=== PATIENT | male | born 1960 | race Caucasian/White ===

== ENCOUNTER 2019-01-15 06:30 | Outpatient (CLI) | payer BC, MEDICAID ==
[~2019-01-15] VITALS: Ht 167.6 cm; Wt 113.4 kg
[2019-01-15] VITALS (8 sets, daily range): BP systolic 136–163; BP diastolic 72–96
[~2019-01-15 06:30] MED LIST: ACET1TAB33 PO; AMLO5TAB10 PO; APIX2.5T PO; ASCO500T2 PO; ASPI-630 PO; FURO40TA4 PO; Fluconazole PO; HYDR-2868 PO; INSU100C4 SQ; INSU100I13 SQ; LEVO88TA4 PO; METO25TA4 PO; MINO2.5T12 PO; MULT1TAB90 PO; NYST60PO TP; POLY17PO29 PO; PRAV80TA2 PO; SEVE800T9 PO
[2019-01-15] MEDS ORDERED: IODIXANOL 320 MG/ML 100 ML VIAL. ONE (07:38)
[2019-01-15] MEDS ORDERED: LIDOCAINE 1% Multi-Dose 20 ML VIAL. ONE (07:39)
[2019-01-15 07:51] LABS: BASO # 0.1 x10^3/uL (0.0-0.2); BASO % 1 % (0-3); EOS # 0.8 x10^3/uL (0.0-0.7); EOS % 10 % (0-3); HEMATOCRIT 26.6 % (39.0-53.0); HEMOGLOBIN 8.8 g/dL (13.0-17.5); LYMPH # 1.4 x10^3/uL (1.0-4.8); LYMPH % 16 % (24-48); MEAN CORPUSCULAR HEMOGLOBIN 25 pg (25-35); MEAN CORPUSCULAR HGB CONC 33 g/dL (31-37); MEAN CORPUSCULAR VOLUME 77 fL (79-100); MONO % 11 % (0-9); NEUT # 5.2 x10^3uL (1.8-7.7); NEUT % 62 % (31-73); PLATELET COUNT 368 x10^3/uL (140-400); RED BLOOD COUNT 3.46 x10^6/uL (4.30-5.70); RED CELL DISTRIBUTION WIDTH 17.3 % (11.5-14.5); WHITE BLOOD COUNT 8.5 x10^3/uL (4.0-11.0)
[2019-01-15 08:05] LABS: PROTHROMBIN TIME PATIENT 15.6 SEC (11.7-14.0)
[2019-01-15 08:09] LABS: CALCIUM 8.7 mg/dL (8.5-10.1); CREATININE 4.1 mg/dL (0.7-1.3); POTASSIUM 4.7 mmol/L (3.5-5.1)
[2019-01-15] MEDS ORDERED: MIDAZOLAM HCL/PF 5 MG/5 ML VIAL. ONE (08:27)
[2019-01-15] MEDS ORDERED: HEPARIN for IV BOLUS 10,000 UNIT/10 ML VIAL. ONE (08:27)
[2019-01-15] MEDS ORDERED: fentaNYL PF VIAL 100 MCG/2 ML VIAL ONE ×2 (08:27→09:40)
[2019-01-15] MEDS ORDERED: MIDAZOLAM HCL/PF 5 MG/5 ML VIAL. IV ONE (08:45)
[2019-01-15] MEDS ORDERED: fentaNYL PF VIAL 100 MCG/2 ML VIAL IV ONE (08:45)
[2019-01-15] MEDS ORDERED: LIDOCAINE 1% Multi-Dose 20 ML VIAL. INJ ONE (08:45)
[2019-01-15] MEDS ORDERED: IODIXANOL 320 MG/ML 100 ML VIAL. IART ONE (08:45)
[2019-01-15] MEDS ORDERED: HEPARIN for IV BOLUS 10,000 UNIT/10 ML VIAL. IV ONE (10:00)
--- NOTE | 2019-01-15 11:23 | PDOC4 ---
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 with ulceration of calf Post-Op Diagnosis: same Procedure Performed: #1 U/S guided access right QM NURSE #2 left popliteal artery atherectomy / angioplasty #3 left TP trunk / peroneal atherectomy / angioplasty #4 RIGHT leg runoff s&I (NOT previously imaged) #5 closure device right QM NURSE access site (6F angioSeal) Surgeon: Jairon James MD Anesthesia Type: conscious sedation under surgeon and RN supervision using intravenous fentanyl and versed -- versed 5mg Fentanyl 175 mcg Blood Loss: minimal Specimans Obtained: none Findings: left popliteal with high grade stenosis -- minimal residual after atherectomy / 5mm balloon angioplasty Left TP trunk and majority of PT occluded =--> reconstituted with atherectomy and 4mm balloon for TP trunk and 3.5 -- 3.0 taper balloon for PT RIGHT LEG not previously imaged Right common and profunda femoral widely patent Right SFA and popliteal widely patent Right PT and peroneal give in-line flow to the foot and ankle, respectively Complications: none Operative Note: attention was directed to the right groin where the right QM NURSE was fluoroscopically marked over the femoral head and examined with ultrasound. Under real-time ultrasound guidance local anesthetic was injected in the right groin and the right common femoral artery was accessed with a micropuncture needle in a retrograde fashion. This was used to introduce a marked puncture wire retrograde and iliac artery under fluoroscopic guidance and exchanged the needle for cyndie puncture shellfish back blood easily. This was used to introduce a supra core wire into the abdominal aorta and exchanged the cyndie puncture sheath for a 5 Luxembourger [place] sheath which was aspirated and flushed without difficulty. These were used to introduce a flush catheter into the abdominal aorta and hooked aortic bifurcation catheter and advance a Glidewire to the left SFA. The shaped catheter would not advance left face so I advanced an angled glide catheter into the left SFA and then confirmed placement with angiography to the catheter tip. This was then used to pass the supra core in the left popliteal artery and the patient was systemically heparinized. These were used to exchange the 5 Luxembourger sheath for a 6 Luxembourger 90 cm trauma destination sheath passed up and over the bifurcation of the distal tip and left popliteal artery. I used an angled never cross catheter, a few routine wire, the Escalante wire, and a 0.014 Glidewire advanced across the distal popliteal occlusion, the TP trunk occlusion, and the proximal posterior tibial occlusion and reenter the true lumen of the posterior tibial artery just above the ankle. I advanced a 0.014 quick cross catheter into the true lumen and confirmed luminal placement with angiography. I then passed a [place] core wire into the vessels in the foot and remove the catheter. I used these to introduce a Harmonic 1M structural atherectomy device and performed multiple passive tractional arthrectomy at the popliteal artery. I then performed Arenas arthrectomy of the TP trunk and proximal posterior tibial artery. I followed this with balloon angioplasty of the popliteal artery with a 5 mm balloon, balloon angioplasty of the TP trunk with a 4 mm balloon and balloon angioplasty the posterior tibial with a 3.5-3.0 tapered blowing almost its length. Follow up angiography showed in-line flow to the foot with good blushing in the calf via a recanalized popliteal TP trunk and posterior tibial artery. On previous radiology imaging by interventional radiology the right leg was not imaged and it also has wounds. The small wires were removed and the Escalante wire was replaced. The sheath was pulled back to the right external iliac artery and right leg runoff to the foot was obtained. Based on this I do not think the patient when the right lotion intervention the future. There is a patent SFA and popliteal artery and patent 2 vessel tibial runoff to the foot. The sheath was removed over the Escalante wire and this was used to introduce an Angio-Seal sheath. A 6 Luxembourger Angio-Seal closure devices for the right femoral access site with excellent hemostasis. The patient was escorted to recovery in stable condition where he was examined and had good signals in the ankle and no evidence of exercise complication. He'll be discharged today and resume all of his previous medications. I discussed the findings on angiography and the results with the patient in recovery BONITA JAMES MD Jan 15, 2019 11:23
--- NOTE | 2019-01-15 12:48 | NUR ---
Pt sit up in bed after supine for 2 hours. Right groin soft, no s/s of bleeding noted, no complaints of pain.
--- NOTE | 2019-01-15 13:15 | NUR ---
Patient discharge to [facility]. All discharge instructions reviewed with the patient. Patient given all of the discharge instructions and card. PIV d/c'ed without difficulty. Pt able to get up and dress self. No c/o of pain, but c/o of some slight burning in left calf. No s/s of bleeding noted. Right groin dressing dry and intact. Report called to facility to nurse Burk.
== END 2019-01-15 13:10 ==
LOC: CCL 06:30
PROVIDERS: ATTEND Surgery Vascular Surgery
DX: I70.248 Atherosclerosis of native arteries of left leg with ulceration of other part of lower leg (principal); L97.829 Non-pressure chronic ulcer of other part of left lower leg with unspecified severity
CPT/HCPCS: 36415; 37225; 37229; 75710; 76937; 80048; 85025; 85610; C1713; C1714; C1760; C1769; C1885; C1892; C1894; J1644; J2250; J3010; Q9967; 99152; 99153; G0269; C1771

== ENCOUNTER 2019-03-15 10:39 | Inpatient (IN) | payer BC, OTHER ==
[~2019-03-15] VITALS: Ht 177.8 cm; Wt 111.6 kg
[2019-03-15] VITALS (15 sets, daily range): BP systolic 97–184; BP diastolic 30–103
--- NOTE | 2019-03-15 11:02 | RAD ---
CHEST AP ONLY History: Shortness of air, fever Comparison: None. Findings: Single view of the chest is submitted. Pericardial cardiac silhouette is enlarged. There is a dual lumen right internal jugular catheter, tips in the inferior aspect of the superior vena cava. There is no lobar consolidation, pleural fluid, pneumothorax. Impression: 1. Pericardial cardiac silhouette is enlarged. Electronically signed by: Adriel Layton MD (03/15/2019 10:58 AM) [id number]
[2019-03-15 11:10] LABS: BASO # 0.1 x10^3/uL (0.0-0.2); BASO % 1 % (0-3); EOS # 0.1 x10^3/uL (0.0-0.7); EOS % 1 % (0-3); HEMATOCRIT 29.2 % (39.0-53.0); HEMOGLOBIN 9.6 g/dL (13.0-17.5); LYMPH # 0.4 x10^3/uL (1.0-4.8); LYMPH % 3 % (24-48); MEAN CORPUSCULAR HEMOGLOBIN 27 pg (25-35); MEAN CORPUSCULAR HGB CONC 33 g/dL (31-37); MEAN CORPUSCULAR VOLUME 83 fL (79-100); MONO # 0.8 x10^3/uL (0.0-1.1); MONO % 6 % (0-9); NEUT # 12.5 x10^3/uL (1.8-7.7); NEUT % 90 % (31-73); PLATELET COUNT 198 x10^3/uL (140-400); RED CELL DISTRIBUTION WIDTH 19.5 % (11.5-14.5); WHITE BLOOD COUNT 13.9 x10^3/uL (4.0-11.0)
[2019-03-15] MEDS ORDERED: CEFEPIME HCL IV Push 1 GM VIAL. IVP ONE (11:15)
[2019-03-15 11:21] LABS: CALCIUM 9.2 mg/dL (8.5-10.1); CREATININE 3.5 mg/dL (0.7-1.3); POTASSIUM 4.7 mmol/L (3.5-5.1)
[2019-03-15 11:27] LABS: ALBUMIN 3.4 g/dL (3.4-5.0); ALBUMIN/GLOBULIN RATIO 0.9 (1.0-1.7); TOTAL BILIRUBIN 1.2 mg/dL (0.2-1.0)
[2019-03-15 11:28] LABS: PROTHROMBIN TIME PATIENT 17.9 SEC (11.7-14.0)
[2019-03-15] MEDS ORDERED: VANCOMYCIN 2 GM in IV NORMAL SALINE 500ML BAG 500 ML IV ONE (11:30)
[2019-03-15] MEDS ORDERED: IV NORMAL SALINE 1000ML BAG 1,000 ML IV ONE ×2 (11:30→14:00)
[2019-03-15 12:17] LABS: % BASOS 1 % (0-3); % EOS 1 % (0-5)
[2019-03-15 12:18] LABS: % BANDS 9 % (0-9); % LYMPHS 6 % (24-48); % MONOS 4 % (0-10); % SEGS 79 % (35-66); PLT ESTIMATE ADEQUATE (ADEQUATE)
[2019-03-15 12:19] LABS: ANISOCYTOSIS SLIGHT; OVALOCYTES FEW
--- NOTE | 2019-03-15 12:49 | EKG ---
[facility] [address] [place] [address] Test Date: 2019-03-15 Test Time: 11:10:37 Pat Name: JAN YUNG Department: Room: 646 1 Gender: M Cell Reliner: BERNADETTE : 1960 Requested By: LIZ NAVARRO Order Number: [id number] Reading MD: Radhames Knapp MD Measurements Intervals Ashley Rate: 104 P: NC: QRS: 28 QRSD: 86 T: 97 QT: 352 QTc: 469 Interpretive Statements ATRIAL FIB./FLUTTER WITH RAPID VENTRICULAR RESPONSE NON-SPECIFIC ST/T CHANGES Electronically Signed On 03-21-2019 9:44:16 CDT by Radhames Knapp MD
--- NOTE | 2019-03-15 14:42 | NUR ---
Patient arrives to unit via bed from 642. Patient was Hypertensive, in Afib with RVR, temperature of 103.1. Contacted Dr. Whittington regarding Afib with RVR, new consults to Cardiology and vascular. Patient has wounds to bilateral lower extremities. Patient oriented to room, told to use call light for any needs that require ambulation. Call light within reach, will continue to monitor. Addendum: 03/15/19 at 1829 by MYA MAY RN Patient placed on bed alarm d/t attempting to get out of bed unassisted. Instructed again to use call light in need of assistance.
[2019-03-15] MEDS: VANCOMYCIN PER PHARMACY MC PRN (14:43)
--- NOTE | 2019-03-15 14:43 | NUR ---
Pharmacy Vancomycin Dosing Note S:Consulted to monitor and dose vancomycin started 03/15/19. O:JAN YUNG is a 58 year old M with Cellulitis Sepsis . Height: 5 feet, 10 inches Weight: 113.360589 kg Salix Body Weight: 73.00 Adjusted Body Weight: 89.00 Dosing Weight: Actual Other Antibiotics: CEFEPIME X 1 03/15 LABS: Last BUN: 28 Last Creatinine: 3.8 Creatinine Clearance: HD MWF, LAST 03/14 mL/min Last WBC: 13.9 Last Procalcitonin: NO, ESRD ON HD Tmax (past 24 hours): 102.0 Microbiology: 03/15 PENDING I/O: - Drug Levels: Last level: on at Last dose given 03/15/19 at 1137 Vancomycin Dosing: Loading Dose: x1 Dosing Weight: Actual Target Trough: 15-20 A: Based on: WEIGHT, HD STATUS AND TIMING OF LAST HD RUN (03/14), P: 1. GIVE Vancomycin 2000 mg IV One Time 2. Follow up Random level on 03/17/19 at 0600 3. Pharmacy will continue to monitor, follow and adjust therapy as needed. [facility], 03/15/19 [id number]
[2019-03-15] MEDS ORDERED: ACETAMINOPHEN 325 MG TABLET. PO PRN (15:00)
[2019-03-15] MEDS ORDERED: ACETAMINOPHEN 650 MG SUPP.RECT. ONE (15:04)
--- NOTE | 2019-03-15 15:14 | NUR ---
Patient arrived to unit, reported blood pressure from ER was stable in the 160s. Upon assessing vitals on floor, blood pressure was 98/30 and temperature had increased to 103.0 orally. Patient HR 140s afib. Dr. Whittington notified and gave order to transfer patient to ICU bed for sepsis.
--- NOTE | 2019-03-15 15:22 | HP ---
ADMIT DATE: 03/15/2019 CHIEF COMPLAINT: Lower extremity cellulitis with acute on chronic wounds, fever. HISTORY OF PRESENT ILLNESS: The patient is a pleasant middle-aged male who has end-stage renal disease. He is on dialysis. He is diabetic. He has severe peripheral vascular disease because of that, he has severe wounds on both of his calves. Appears he was one who has been taken care of by wound care nurse. He has got some nice dressing on them, but now they started to swell and smell; smells as if he may have Pseudomonas aeruginosa infection. Describes his wounds as irritating, rated at 9/10. I discussed the case with ER physician. We are going to admit the patient and obtain consult Infectious Disease and do some aggressive wound care and will be giving some aggressive IV antibiotic therapy as well. PAST MEDICAL HISTORY: Peripheral vascular disease, diabetes, hypertension, hyperlipidemia, end-stage renal disease, on dialysis. ALLERGIES: PENICILLIN, SULFA AND ATORVASTATIN. FAMILY HISTORY: Coronary artery disease. SOCIAL HISTORY: He lives at a [facility]. 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 He does not drink, smoke or take drugs. MEDICATIONS: Reviewed, please refer to the MRAD. REVIEW OF SYSTEMS: GENERAL: No history of weight change, weakness or fevers. SKIN: No bruising, hair changes or rashes. EYES: No blurred, double or loss of vision. NOSE AND THROAT: No history of nosebleeds, hoarseness or sore throat. HEART: No history of palpitations, chest pain or shortness of breath on exertion. LUNGS: Denies cough, hemoptysis, wheezing or shortness of breath. GASTROINTESTINAL: Denies changes in appetite, nausea, vomiting, diarrhea or constipation. GENITOURINARY: No history of frequency, urgency, hesitancy or nocturia. NEUROLOGIC: Denies history of numbness, tingling, tremor or weakness. PSYCHIATRIC: No history of panic, anxiety or depression. ENDOCRINE: No history of heat or cold intolerance, polyuria or polydipsia. EXTREMITIES: He complains of bilateral leg lesions. PHYSICAL EXAMINATION: VITALS: Temperature is 102.0. Pulse is 108. GENERAL: No apparent distress. Alert and oriented. HEENT: Head is normocephalic, atraumatic, pupils were equally round and reactive to light and accommodation. NECK: Supple, no JVD, no thyromegaly was noted. LUNGS: Clear to auscultation in all lung sheppard without rhonchi or wheezing. HEART: RRR, S1, S2 present. Peripheral pulses intact, no obvious murmurs were noted. ABDOMEN: Soft, nontender. Positive bowel sounds no organomegaly, normal bowel sounds. EXTREMITIES: He has severe bilateral leg wounds. They are very large. They smell of pseudomonas, please see the pictures. NEUROLOGIC: Normal speech, normal tone. A & O x3, moves all extremities, no obvious focal deficits. PSYCHIATRIC: Normal affect, normal mood. Stable. SKIN: No ulcerations or rashes, good skin turgor, no jaundice. VASCULAR: Good capillary refill, neurovascular bundle appears to be intact. LABORATORY DATA: White count is 14. ASSESSMENT AND PLAN: 1. Bilateral lower extremity wounds that smell as though they may have Pseudomonas aeruginosa with clinical sepsis. The patient will be admitted. We will start aggressive IV antibiotic therapy. Consult Infectious Disease. Home meds. Consult Nephrology. PROGNOSIS: Guarded. IKE CORTEZ DO DR: MCKENZIE/pierre JOB#: [id number] / [id number]
--- NOTE | 2019-03-15 15:23 | PHYS DOC ---
Past Medical History Past Medical History: A-Fib, Diabetes-Type II, Hypertension, Renal Failure Additional Past Medical Histor: PVD, MORBID OBESITY, ACUTE ON CHRONIC RIGHT HEART FAILURE Additional Past Surgical Histo: BILATERAL EYE SX, RIGHT GREAT TOE AMPUTATION Alcohol Use: None Drug Use: None Adult General Chief Complaint Chief Complaint: FEVER HPI HPI Patient is a 58 year old male with history of type 2 diabetes, end-stage renal disease currently on dialysis, venous stasis ulcers of bilateral lower extremities he presents with a fever 102, and increased drainage from lower extremity leg wounds. Fever began yesterday. Patient also reports nausea and malaise and sweats. Denies chills. No chest pain shortness of breath. No abdominal pain. Reports only minimal urine output at baseline. Patient is not currently on antibiotics. Patient does receive routine wound care at [facility]] Review of Systems Review of Systems Constitutional: Denies fever or chills [] Eyes: Denies change in visual acuity, redness, or eye pain [] HENT: Denies nasal congestion or sore throat [] Respiratory: Denies cough or shortness of breath [] Cardiovascular: No additional information not addressed in HPI [] GI: Denies abdominal pain, nausea, vomiting, bloody stools or diarrhea [] : Denies dysuria or hematuria [] Musculoskeletal: Denies back pain or joint pain [] Integument: Denies rash or skin lesions [] Neurologic: Denies headache, focal weakness or sensory changes [] Endocrine: Denies polyuria or polydipsia [] All other systems were reviewed and found to be within normal limits, except as documented in this note. Current Medications Current Medications Current Medications Medications (Trade) Dose Ordered Sig/Rochelle Start Time Stop Time Status Last Admin Dose Admin Cefepime HCl (Maxipime) 1 gm 1X ONCE 03/15/19 11:15 03/15/19 11:23 DC 03/15/19 11:37 1 GM Sodium Chloride 1,000 ml @ 1,000 mls/hr 1X ONCE 03/15/19 11:30 03/15/19 12:29 DC 03/15/19 11:28 1,000 MLS/HR Vancomycin HCl (Vanco Per Pharmacy) 1 each PRN DAILY PRN 03/15/19 11:15 03/15/19 14:43 1 EACH Vancomycin HCl 2 gm/Sodium Chloride 500 ml @ 250 mls/hr 1X ONCE 03/15/19 11:30 03/15/19 13:29 DC 03/15/19 11:37 250 MLS/HR Allergies Allergies Allergies Coded Allergies Type Severity Reaction Last Updated Verified Penicillins Allergy Intermediate 01/02/19 Yes Sulfa (Sulfonamide Antibiotics) Allergy Intermediate Hives 01/02/19 Yes atorvastatin Allergy Intermediate Hives 01/02/19 Yes I S O L A T I O N *CONTACT* Allergy Unknown 01/06/19 Yes Physical Exam Physical Exam Constitutional: Well developed, well nourished, no acute distress, non-toxic appearance. [] HENT: Normocephalic, atraumatic, bilateral external ears normal, oropharynx moist, no oral exudates, nose normal. [] Eyes: PERRLA, EOMI, conjunctiva normal, no discharge. [] Neck: Normal range of motion, no tenderness, supple, no stridor. [] Cardiovascular:Heart rate regular rhythm, no murmur [] Lungs & Thorax: Bilateral breath sounds clear to auscultation [] Abdomen: Bowel sounds normal, soft, no tenderness, no masses, no pulsatile m asses. [] Skin: Warm, dry, no erythema, no rash. [] Back: No tenderness, no CVA tenderness. [] Extremities: Lower extremities, large deep venous stasis service of bilateral lower leg calf regions surrounding cellulitis.[] Neurologic: Alert and oriented X 3, normal motor function, normal sensory function, no focal deficits noted. [] Psychologic: Affect normal, judgement normal, mood normal. [] Current Patient Data Vital Signs Vital Signs Date Time Temp Pulse Resp B/P (MAP) Pulse Ox O2 Delivery O2 Flow Rate FiO2 03/15/19 11:46 110 20 131/80 (97) 100 Room Air 03/15/19 10:45 102.0 102.0 Lab Values Laboratory Tests Test 03/15/19 10:55 White Blood Count 13.9 x10^3/uL (4.0-11.0) H Red Blood Count 3.50 x10^6/uL (4.30-5.70) L Hemoglobin 9.6 g/dL (13.0-17.5) L Hematocrit 29.2 % (39.0-53.0) L Mean Corpuscular Volume 83 fL (79-100) Mean Corpuscular Hemoglobin 27 pg (25-35) Mean Corpuscular Hemoglobin Concent 33 g/dL (31-37) Red Cell Distribution Width 19.5 % (11.5-14.5) H Platelet Count 198 x10^3/uL (140-400) Neutrophils (%) (Auto) 90 % (31-73) H Lymphocytes (%) (Auto) 3 % (24-48) L Monocytes (%) (Auto) 6 % (0-9) Eosinophils (%) (Auto) 1 % (0-3) Basophils (%) (Auto) 1 % (0-3) Neutrophils # (Auto) 12.5 x10^3/uL (1.8-7.7) H Lymphocytes # (Auto) 0.4 x10^3/uL (1.0-4.8) L Monocytes # (Auto) 0.8 x10^3/uL (0.0-1.1) Eosinophils # (Auto) 0.1 x10^3/uL (0.0-0.7) Basophils # (Auto) 0.1 x10^3/uL (0.0-0.2) Segmented Neutrophils % 79 % (35-66) H Band Neutrophils % 9 % (0-9) Lymphocytes % 6 % (24-48) L Monocytes % 4 % (0-10) Eosinophils % 1 % (0-5) Basophils % 1 % (0-3) Platelet Estimate Adequate (ADEQUATE) Anisocytosis Slight Ovalocytes Few Prothrombin Time 17.9 SEC (11.7-14.0) H Prothrombin Time INR 1.5 (0.8-1.1) H Sodium Level 136 mmol/L (136-145) Potassium Level 4.7 mmol/L (3.5-5.1) Chloride Level 97 mmol/L (98-107) L Carbon Dioxide Level 30 mmol/L (21-32) Anion Gap 9 (6-14) Blood Urea Nitrogen 28 mg/dL (8-26) H Creatinine 3.5 mg/dL (0.7-1.3) H Estimated GFR (Cockcroft-Gault) 18.0 BUN/Creatinine Ratio 8 (6-20) Glucose Level 109 mg/dL (70-99) H Lactic Acid Level 1.3 mmol/L (0.4-2.0) Calcium Level 9.2 mg/dL (8.5-10.1) Total Bilirubin 1.2 mg/dL (0.2-1.0) H Aspartate Amino Transferase (AST) 17 U/L (15-37) Alanine Aminotransferase (ALT) 24 U/L (16-63) Alkaline Phosphatase 130 U/L (46-116) H Troponin I Quantitative < 0.017 ng/mL (0.000-0.055) Total Protein 7.0 g/dL (6.4-8.2) Albumin 3.4 g/dL (3.4-5.0) Albumin/Globulin Ratio 0.9 (1.0-1.7) L Laboratory Tests 03/15/19 10:55 Laboratory Tests 03/15/19 10:55 EKG EKG [EKG reviewed] Radiology/Procedures Radiology/Procedures [Chest x-ray reviewed] Course & Med Decision Making Course & Med Decision Making Pertinent Labs and Imaging studies reviewed. (See chart for details) [Clinical sepsis with infected venous stasis ulcers of bilateral lower extremities. Patient cautiously given IV fluids due to concerns of possible volume overload and congestive heart failure. Her antibiotics started. Dr. Whittington in the ED for admission and orders] Dragon Disclaimer Dragon Disclaimer This electronic medical record was generated, in whole or in part, using a voice recognition dictation system. Departure Departure Impression: Primary Impression: NON-PRESSURE CHRONIC ULCER OF LEFT CALF W NECROSIS OF MUSCLE Additional Impression: Sepsis Disposition: 09 ADMITTED INPATIENT Condition: STABLE Referrals: FARHAD PURVIS MD (PCP) Problem Qualifiers LIZ NAVARRO DO Mar 15, 2019 15:23
[2019-03-15] MEDS ORDERED: DIGOXIN IV 500 MCG/2 ML AMPUL. ONE (15:26)
[2019-03-15] MEDS ORDERED: dilTIAZem INJ 125 MG in IV DEXTROSE 5% 100ML 100 ML IV PRN (15:30)
[2019-03-15] MEDS ORDERED: DIGOXIN IV 500 MCG/2 ML AMPUL. IV ONE (15:30)
--- NOTE | 2019-03-15 15:40 | NUR ---
Patient placed on cardizem drip as ordered by Dr. Dominique and one time dose of digoxin for Afib with RVR.
--- NOTE | 2019-03-15 16:39 | PDOC ---
Provider Note Provider Note Vascular consult dictated Imp: 1. extensiven stage 2 wounds of both lower extremities, possibly due to venous insufficiency or vasculitis or combination. 2. moderate arterial insufficiency 3. DM 4. ESRD 5. obesity, morbid Rec: 1. change to Dakins solution, moistened gauze BID\ 2. wound care consult 3. infectious disease consult 4. arterial duplex imaging of both lower extremities LILI RHODES II, MD Mar 15, 2019 16:39
[2019-03-15] MEDS ORDERED: ANTI-COAG MONITOR BY PHARMACY. MC PRN (18:45)
[2019-03-15] MEDS ORDERED: INSU100I17 SQ (19:04)
[2019-03-15] MEDS ORDERED: INSU100I13 SQ (19:04)
[2019-03-15] MEDS ORDERED: LEVO88TA4 PO (19:07)
[2019-03-15] MEDS ORDERED: HYDR-2765 PO (19:07)
[2019-03-15] MEDS ORDERED: NON FORMULARY ITEM (Pravastatin Sodium 1 TAB) PO SCH (21:00)
[2019-03-15] MEDS: APIXABAN 2.5 MG TABLET. PO SCH (21:04)
[2019-03-15] MEDS: hydrALAZINE 25 MG TABLET PO SCH (21:05)
[2019-03-15] MEDS: MINOXIDIL 2.5 MG TABLET PO SCH (21:05)
[2019-03-15] MEDS: METOPROLOL TART IMMED RELEASE 25 MG TABLET. PO SCH (21:06)
[2019-03-15] MEDS: POLYETHYLENE GLYCOL 3350 17 GM PACKET. PO SCH (21:06)
[2019-03-15] MEDS: SODIUM HYPOCHLORITE 0.125% 473 ML BOTTLE. TP SCH (21:06)
[2019-03-15] MEDS: INSULIN GLARGINE 300 UNITS/3 ML INSULN.PEN. SQ SCH (21:11)
--- NOTE | 2019-03-15 22:17 | CONS ---
DATE OF CONSULTATION: 03/15/2019 BRIEF ORTHOPEDIC CONSULTATION REQUESTING PHYSICIAN: Emergency Department, Dr. Whittington. REASON FOR CONSULTATION: Bilateral lower extremity cellulitis. There was also question of possible gangrenous toe. HISTORY OF PRESENT ILLNESS: The patient was apparently admitted through the Emergency Department for lower extremity cellulitis and the questions of his toes. He does have a history of right great toe amputation that appears well healed. Other toes appear to my examination viable, but just have dirt on them. He was arousable, but really appeared to be declining according to reports of the nurses. His most recent vitals when I came into the room were 90s/60s as far as blood pressure as opposed to a blood pressure in the 179/84 range most recently in the Emergency Department. He had a white count of 13.9. It really look septic. I called Dr. Whittington and he is going to be transferred to the Intensive Care Unit. Although he does have cellulitic changes and some weeping and redness on both legs that his feet appear viable, has a healed great toe amputation. I think his major problem is that he is septic and declining quickly. He was therefore transferred to the ICU for medical supportive care, antibiotics and Infectious Disease consult, etc. I do not see any need for initial urgent orthopedic intervention at this time, but will follow along as necessary. PRAVEEN HUYNH MD DR: SHER/pierre JOB#: [id number] / [id number]
--- NOTE | 2019-03-15 22:34 | CONS ---
DATE OF CONSULTATION: 03/15/2019 VASCULAR CONSULTATION CLINICAL HISTORY: This is a 58-year-old diabetic with new onset end-stage renal disease, who presents with lower extremity wounds. These wounds are chronic and have been progressive. PAST MEDICAL HISTORY: Significant for peripheral vascular disease. He has had a previous right great toe amputation 2 years ago with no issues healing. As mentioned, he has a history of diabetes, hypertension, hyperlipidemia and end-stage renal disease. ALLERGIES: INCLUDE PENICILLIN, SULFA AND ATORVASTATIN. FAMILY HISTORY: Significant for coronary artery disease. SOCIAL HISTORY: The patient is a nonsmoker. He lives in a [facility]. 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 MEDICATIONS: Reviewed. REVIEW OF SYSTEMS: Twelve-point review of systems is obtained. He has no history of claudication, unintentional weight loss, stroke or TIA. Otherwise, 12-point review of systems is negative. He is ambulatory. PHYSICAL EXAMINATION: GENERAL: The patient is alert and awake. Carotids are 2+. The patient is moderately to largely obese. EXTREMITIES: Absent popliteal and pedal pulses. Dressings are removed. He has extensive wounds on the posterior aspect of both calves, which appeared to be subcutaneous in depth, stage II. The wound smells of pseudomonas. LABORATORY DATA: White blood cell count is 14. IMPRESSION: 1. Bilateral lower extremity cutaneous wound, possible venous stasis in origin. 2. Fvyt-rh-pwyjjtmc arterial insufficiency, but should be adequate for these wounds to heal with proper wound care. 3. End-stage renal disease. 4. Diabetes. PLAN: 1. Begin saline moistened gauze dressings with Dakin's, 0.25% solution b.i.d. 2. Consult [facility]. 3. We will obtain arterial duplex imaging of both lower extremities. Thank you for allowing me to evaluate him. LILI RHODES MD DR: AURELIANO/pierre JOB#: [id number] / [id number]
[2019-03-16] VITALS (15 sets, daily range): BP systolic 109–156; BP diastolic 56–81
[2019-03-16] MEDS: INSULIN LISPRO 300 UNITS/3 ML VIAL. SQ SCH ×5 (08:00→17:00)
[2019-03-16] MEDS: VANCOMYCIN PER PHARMACY MC PRN (08:05)
[2019-03-16] MEDS: SEVELAMER CARBONATE 800 MG TABLET. PO SCH ×3 (08:16→17:26)
[2019-03-16] MEDS: LEVOTHYROXINE 88 MCG TABLET PO SCH (08:16)
[2019-03-16] MEDS: ASPIRIN CHEWABLE 81 MG TABLET. PO SCH (08:16)
[2019-03-16] MEDS: METOPROLOL TART IMMED RELEASE 25 MG TABLET. PO SCH ×2 (08:17→21:37)
[2019-03-16] MEDS: FUROSEMIDE 40 MG TABLET. PO SCH (08:17)
[2019-03-16] MEDS: ASCORBIC ACID 500 MG TABLET PO SCH (08:17)
[2019-03-16] MEDS: hydrALAZINE 25 MG TABLET PO SCH ×4 (08:17→21:39)
[2019-03-16] MEDS: MULTIVITAMIN with MINERAL TABLET. PO SCH (08:17)
[2019-03-16] MEDS: MINOXIDIL 2.5 MG TABLET PO SCH ×2 (08:17→21:37)
[2019-03-16] MEDS: SODIUM HYPOCHLORITE 0.125% 473 ML BOTTLE. TP SCH ×2 (08:18→21:38)
[2019-03-16] MEDS: POLYETHYLENE GLYCOL 3350 17 GM PACKET. PO SCH ×2 (08:18→21:37)
[2019-03-16] MEDS ORDERED: amLODIPine BESYLATE 5 MG TABLET PO SCH (09:00)
[2019-03-16] MEDS ORDERED: SODIUM HYPOCHLORITE 0.125% 473 ML BOTTLE. TP SCH (09:00)
--- NOTE | 2019-03-16 09:27 | PDOC ---
Infectious Disease Note Vital Sign Vital Signs Vital Signs Date Time Temp Pulse Resp B/P (MAP) Pulse Ox O2 Delivery O2 Flow Rate FiO2 03/16/19 08:18 80 153/75 03/16/19 08:00 Nasal Cannula 2.0 03/16/19 08:00 98.4 18 100 98.4 Labs Lab Laboratory Tests Test 03/15/19 10:55 03/15/19 21:09 03/16/19 08:20 White Blood Count 13.9 x10^3/uL (4.0-11.0) Red Blood Count 3.50 x10^6/uL (4.30-5.70) Hemoglobin 9.6 g/dL (13.0-17.5) Hematocrit 29.2 % (39.0-53.0) Mean Corpuscular Volume 83 fL (79-100) Mean Corpuscular Hemoglobin 27 pg (25-35) Mean Corpuscular Hemoglobin Concent 33 g/dL (31-37) Red Cell Distribution Width 19.5 % (11.5-14.5) Platelet Count 198 x10^3/uL (140-400) Neutrophils (%) (Auto) 90 % (31-73) Lymphocytes (%) (Auto) 3 % (24-48) Monocytes (%) (Auto) 6 % (0-9) Eosinophils (%) (Auto) 1 % (0-3) Basophils (%) (Auto) 1 % (0-3) Neutrophils # (Auto) 12.5 x10^3/uL (1.8-7.7) Lymphocytes # (Auto) 0.4 x10^3/uL (1.0-4.8) Monocytes # (Auto) 0.8 x10^3/uL (0.0-1.1) Eosinophils # (Auto) 0.1 x10^3/uL (0.0-0.7) Basophils # (Auto) 0.1 x10^3/uL (0.0-0.2) Segmented Neutrophils % 79 % (35-66) Band Neutrophils % 9 % (0-9) Lymphocytes % 6 % (24-48) Monocytes % 4 % (0-10) Eosinophils % 1 % (0-5) Basophils % 1 % (0-3) Platelet Estimate Adequate (ADEQUATE) Anisocytosis Slight Ovalocytes Few Prothrombin Time 17.9 SEC (11.7-14.0) Prothromb Time International Ratio 1.5 (0.8-1.1) Sodium Level 136 mmol/L (136-145) Potassium Level 4.7 mmol/L (3.5-5.1) Chloride Level 97 mmol/L (98-107) Carbon Dioxide Level 30 mmol/L (21-32) Anion Gap 9 (6-14) Blood Urea Nitrogen 28 mg/dL (8-26) Creatinine 3.5 mg/dL (0.7-1.3) Estimated GFR (Cockcroft-Gault) 18.0 BUN/Creatinine Ratio 8 (6-20) Glucose Level 109 mg/dL (70-99) Lactic Acid Level 1.3 mmol/L (0.4-2.0) Calcium Level 9.2 mg/dL (8.5-10.1) Total Bilirubin 1.2 mg/dL (0.2-1.0) Aspartate Amino Transf (AST/SGOT) 17 U/L (15-37) Alanine Aminotransferase (ALT/SGPT) 24 U/L (16-63) Alkaline Phosphatase 130 U/L (46-116) Troponin I Quantitative < 0.017 ng/mL (0.000-0.055) Total Protein 7.0 g/dL (6.4-8.2) Albumin 3.4 g/dL (3.4-5.0) Albumin/Globulin Ratio 0.9 (1.0-1.7) Glucose (Fingerstick) 135 mg/dL (70-99) 104 mg/dL (70-99) Micro 03/15. BLOOD CULTURE Final GRAM POSITIVE COCCI IN CLUSTER 1 SET DRAWN, 2 OF 2 POSITIVE Objective Assessment GPC bacteremia with sepsis, 03/15 Infected HDC s/p removal 03/05 and replaced 03/07 per patient account. Fever Tmax 103 Antibiotic Allergy: Penicillin w/ anaphylactic reaction/ swelling in childhood & Sulfa w hives. h/o MRSA Chronic wounds lower extremities, bilaterally. Followed by [facility]. ESRD on HD PVD Diabetes with peripheral neuropathy Atrial fibrillation Plan Plan of Care Apparently a culture of the drainage from the HDC was taken at [facility] per patient account. Will contact the clinic for results, if any available. Meanwhile continue the vancomycin. Await GPC ID/susceptibilities Wound care team consulted. One time dose Cefepime, 03/15 Probiotics D/w nursing Thank you [id number] Attending Co-Sign The patient was seen and interviewed as well as examined at the bedside. The chart was reviewed. The case was discussed. Agree with the plan of care. PANFILO LARSEN APRN Mar 16, 2019 09:27 SHAHEED RIOS MD Mar 16, 2019 10:47
[2019-03-16] MEDS: APIXABAN 2.5 MG TABLET. PO SCH ×2 (09:36→21:37)
[2019-03-16] MEDS ORDERED: cloNIDine HCL 0.1 MG TABLET PO PRN (10:00)
[2019-03-16] MEDS ORDERED: ONDANSETRON PF 4 MG/2 ML VIAL. IV PRN (10:00)
[2019-03-16] MEDS ORDERED: TEMAZEPAM 7.5 MG CAPSULE PO PRN (10:00)
[2019-03-16] MEDS ORDERED: DEXTROSE 50% 25 GM / 50ML DISP.SYRIN. IV PRN (10:00)
[2019-03-16] MEDS ORDERED: IV DEXTROSE 5% 250 ML BAG. IV PRN (10:00)
--- NOTE | 2019-03-16 10:13 | CONS ---
DATE OF CONSULTATION: 03/16/2019 REFERRING PHYSICIAN: Gaviota Whittington DO REASON FOR CONSULTATION: Sepsis. HISTORY OF PRESENT ILLNESS: This patient is a 58-year-old male with past medical history of chronic kidney disease, on hemodialysis via a hemodialysis catheter. He was in his usual state of health when 2 days ago after finishing dialysis, he developed chills, shakes, fever of 102, and vomiting. He says about 2 weeks prior, he noticed that his HD catheter had slid out. He pushed it back in and noticed pus from the site. The following day, he returned to [facility] where the catheter was removed and cultured. Two days later, it was replaced. He does not recall getting any antibiotics. On arrival to the ER, he had a fever of 102.0 and WBC count 13,900. Blood cultures were taken and now show gram-positive cocci in clusters, 2 of 2 positive. He is currently on vancomycin. The patient says he is feeling better, less chilled. Nausea and vomiting have settled down. He does not have much of an appetite. Denies cough, shortness of air, or chest discomfort. He takes MiraLax for constipation. He has chronic wounds of lower extremities bilaterally, for which [facility] He was seen by Dr. Hope yesterday. PAST MEDICAL HISTORY: Chronic kidney disease, on hemodialysis via HD catheter. Essential hypertension, hypothyroidism, diabetes, morbid obesity, peripheral neuropathy, atrial fibrillation, chronic right heart failure, peripheral vascular disease, history of MRSA, depression, CVA, history of Enterococcus faecalis, penicillin sensitive wound infection. PAST SURGICAL HISTORY: Wound debridement 12/2018 lower extremities bilaterally, tonsillectomy, cataract extraction. SOCIAL HISTORY: The patient is a [facility] resident, former smoker. FAMILY HISTORY: Coronary artery disease. ALLERGIES: PENICILLIN CAUSING ANAPHYLACTIC TYPE REACTION AND SWELLING IN CHILDHOOD, ALSO SULFA WITH HIVES, ATORVASTATIN. MEDICATIONS: Vancomycin, one-time dose of cefepime 03/15. Other medications are available and have been reviewed on the SEP. REVIEW OF SYSTEMS: Per HPI, otherwise all other review of systems are negative. PHYSICAL EXAMINATION: VITAL SIGNS: Temperature 98.4, blood pressure 149/70, heart rate 85, respiratory rate 18, pulse oximetry is 100% on 2 liters. GENERAL: The patient is propped up in bed, alert, watching TV. HEENT: Pupils equally round. Oropharynx pink and dry. NECK: Supple. LUNGS: Clear to auscultation. HEART: S1, S2. ABDOMEN: Soft and nontender with bowel sounds present. EXTREMITIES: Trace edema of lower extremities bilaterally. No cyanosis. He has a wound on both lower legs that are currently bandaged. Pictures reviewed. SKIN: Warm to touch. No signs of rash. NEUROLOGIC: Alert and oriented x 3. A right-sided HD catheter without signs of any complications. LABORATORY DATA: On admission; WBC 13.9, hemoglobin 9.6, platelets 198,000. Sodium 136, potassium 4.7, creatinine 3.5, BUN 28, glucose 109. Lactic acid 1.3. AST 17, ALT 24, total bilirubin 1.2. Troponin less than 0.017. Blood cultures per HPI. Chest x-ray shows no lobar consolidation, pleural fluid, or pneumothorax. IMPRESSION: 1. Gram-positive cocci bacteremia with sepsis present on admission. 2. Infected hemodialysis catheter, status post removal 03/05 and replaced 03/07 per the patient's account. 3. Fever. 4. ANTIBIOTIC ALLERGY TO PENICILLIN WITH ANAPHYLACTIC TYPE REACTION IN CHILDHOOD AND SULFA WITH HIVES. 5. History of methicillin-resistant Staphylococcus aureus. 6. Chronic wounds, lower extremities bilaterally. [facility]. 7. End-stage renal disease, on hemodialysis. 8. Peripheral vascular disease. 9. Diabetes with peripheral neuropathy. 10. Atrial fibrillation. PLAN: Apparently, a culture of the drainage from the HD catheter was taken at [facility] per the patient's account. We will contact the clinic for results if any available. Meanwhile, continue the vancomycin. Awaiting GPC identification and susceptibilities. Wound Care team has been consulted. Thank you, Dr. Whittington, for asking us to participate in this patient's care. Should you have further questions or concerns, please call. SHAHEED RIOS MD DR: ANGELINA/pierre JOB#: [id number] / [id number]
--- NOTE | 2019-03-16 11:07 | PDOC ---
PROGRESS NOTES Chief Complaint Chief Complaint LEg wounds PAD ESRD on HD AOCD Cellulitis, sepsis no organ dyfcn Acute on chronic a fib s/p RVR HTN - HYpothyroidism on synthroid History of Present Illness History of Present Illness HE has no complaints, seen in ICU on the potty Cardizem gtt bec went to RVR (hx a fib) NOw off cardizem gtt VAsc sx, ID on board, wounds legs, pics reviewed, will need wound care and IV Abx Also HD pt, RT tunnelled HD cath visible \PLAN: Add renal consult for HD Wound care IV abx MAy t.o ICU to [facility] cards consulted for rVR Dw QA [employer] Vitals Vitals Vital Signs Date Time Temp Pulse Resp B/P (MAP) Pulse Ox O2 Delivery O2 Flow Rate FiO2 03/16/19 10:00 83 20 143/75 (97) 100 Nasal Cannula 2.0 03/16/19 08:00 98.4 98.4 Physical Exam General: Alert, Oriented X3, Cooperative Heart: Other (irreg irreg, rate controlled) Lungs: Clear Abdomen: Normal bowel sounds, Soft Extremities: No clubbing, No cyanosis, Other (wounds,s welling, dressing wrapped on legs) Labs LABS Laboratory Tests Test 03/15/19 21:09 03/16/19 08:20 Glucose (Fingerstick) 135 mg/dL (70-99) 104 mg/dL (70-99) Review of Systems Review of Systems no abd pain, on cp, no fevers, on soa, no diarrhea, no depression Assessment and Plan Assessmemt and Plan Problems Medical Problems: (1) Sepsis Status: Acute Comment Review of Relevant I have reviewed the following items kendra (where applicable) has been applied. Labs Laboratory Tests Test 03/15/19 10:55 03/15/19 21:09 03/16/19 08:20 White Blood Count 13.9 x10^3/uL (4.0-11.0) Red Blood Count 3.50 x10^6/uL (4.30-5.70) Hemoglobin 9.6 g/dL (13.0-17.5) Hematocrit 29.2 % (39.0-53.0) Mean Corpuscular Volume 83 fL (79-100) Mean Corpuscular Hemoglobin 27 pg (25-35) Mean Corpuscular Hemoglobin Concent 33 g/dL (31-37) Red Cell Distribution Width 19.5 % (11.5-14.5) Platelet Count 198 x10^3/uL (140-400) Neutrophils (%) (Auto) 90 % (31-73) Lymphocytes (%) (Auto) 3 % (24-48) Monocytes (%) (Auto) 6 % (0-9) Eosinophils (%) (Auto) 1 % (0-3) Basophils (%) (Auto) 1 % (0-3) Neutrophils # (Auto) 12.5 x10^3/uL (1.8-7.7) Lymphocytes # (Auto) 0.4 x10^3/uL (1.0-4.8) Monocytes # (Auto) 0.8 x10^3/uL (0.0-1.1) Eosinophils # (Auto) 0.1 x10^3/uL (0.0-0.7) Basophils # (Auto) 0.1 x10^3/uL (0.0-0.2) Segmented Neutrophils % 79 % (35-66) Band Neutrophils % 9 % (0-9) Lymphocytes % 6 % (24-48) Monocytes % 4 % (0-10) Eosinophils % 1 % (0-5) Basophils % 1 % (0-3) Platelet Estimate Adequate (ADEQUATE) Anisocytosis Slight Ovalocytes Few Prothrombin Time 17.9 SEC (11.7-14.0) Prothromb Time International Ratio 1.5 (0.8-1.1) Sodium Level 136 mmol/L (136-145) Potassium Level 4.7 mmol/L (3.5-5.1) Chloride Level 97 mmol/L (98-107) Carbon Dioxide Level 30 mmol/L (21-32) Anion Gap 9 (6-14) Blood Urea Nitrogen 28 mg/dL (8-26) Creatinine 3.5 mg/dL (0.7-1.3) Estimated GFR (Cockcroft-Gault) 18.0 BUN/Creatinine Ratio 8 (6-20) Glucose Level 109 mg/dL (70-99) Lactic Acid Level 1.3 mmol/L (0.4-2.0) Calcium Level 9.2 mg/dL (8.5-10.1) Total Bilirubin 1.2 mg/dL (0.2-1.0) Aspartate Amino Transf (AST/SGOT) 17 U/L (15-37) Alanine Aminotransferase (ALT/SGPT) 24 U/L (16-63) Alkaline Phosphatase 130 U/L (46-116) Troponin I Quantitative < 0.017 ng/mL (0.000-0.055) Total Protein 7.0 g/dL (6.4-8.2) Albumin 3.4 g/dL (3.4-5.0) Albumin/Globulin Ratio 0.9 (1.0-1.7) Glucose (Fingerstick) 135 mg/dL (70-99) 104 mg/dL (70-99) Laboratory Tests Test 03/15/19 21:09 03/16/19 08:20 Glucose (Fingerstick) 135 mg/dL (70-99) 104 mg/dL (70-99) Microbiology 03/15/19 Blood Culture - Final, Complete Medications Current Medications Vancomycin HCl (Vanco Per Pharmacy) 1 each PRN DAILY PRN MC SEE COMMENTS Last administered on 03/16/19at 08:05; Start 03/15/19 at 11:15 Cefepime HCl (Maxipime) 1 gm 1X ONCE IVP Last administered on 03/15/19at 11:37; Start 03/15/19 at 11:15; Stop 03/15/19 at 11:23; Status DC Sodium Chloride 1,000 ml @ 1,000 mls/hr 1X ONCE IV Last administered on 03/15/19at 11:28; Start 03/15/19 at 11:30; Stop 03/15/19 at 12:29; Status DC Vancomycin HCl 2 gm/Sodium Chloride 500 ml @ 250 mls/hr 1X ONCE IV Last administered on 03/15/19at 11:37; Start 03/15/19 at 11:30; Stop 03/15/19 at 13:29; Status DC Vancomycin HCl (Vancomycin Random Level) 1 each 1X ONCE MC ; Start 03/17/19 at 06:00; Stop 03/17/19 at 06:01 Acetaminophen (Tylenol) 650 mg PRN Q6HRS PRN PO MILD PAIN / TEMP Last administered on 03/15/19at 15:12; Start 03/15/19 at 15:00 Acetaminophen (Tylenol Supp) 650 mg STK-MED ONCE .ROUTE ; Start 03/15/19 at 15:04; Stop 03/15/19 at 15:04; Status DC Digoxin (Lanoxin) 250 mcg 1X ONCE IV Last administered on 03/15/19at 15:30; Start 03/15/19 at 15:30; Stop 03/15/19 at 15:31; Status DC Diltiazem HCl 125 mg/Dextrose 125 ml @ 2.5 mls/hr CONT PRN IV SEE I/O RECORD Last administered on 03/15/19at 15:40; Start 03/15/19 at 15:30 Digoxin (Lanoxin) 500 mcg STK-MED ONCE .ROUTE ; Start 03/15/19 at 15:26; Stop 03/15/19 at 15:26; Status DC Sodium Chloride 1,000 ml @ 1,000 mls/hr 1X ONCE IV Last administered on 03/15/19at 16:30; Start 03/15/19 at 14:00; Stop 03/15/19 at 16:33; Status DC Sodium Hypochlorite (Dakin'S 1/4 Strength) 1 edenilson DAILY TP ; Start 03/16/19 at 09:00; Stop 03/15/19 at 18:00; Status DC Sodium Hypochlorite (Dakin'S 1/4 Strength) 1 edenilson BID TP Last administered on 03/16/19at 08:18; Start 03/15/19 at 21:00 Amlodipine Besylate (Norvasc) 5 mg DAILY PO Last administered on 03/16/19at 08:18; Start 03/16/19 at 09:00; Stop 03/16/19 at 11:02; Status DC Apixaban (Eliquis) 2.5 mg BID PO Last administered on 03/16/19at 09:36; Start 03/15/19 at 21:00 Ascorbic Acid (Vitamin C) 500 mg DAILY PO Last administered on 03/16/19at 08:18; Start 03/16/19 at 09:00 Aspirin (Children'S Aspirin) 81 mg DAILYWBKFT PO Last administered on 03/16/19at 08:18; Start 03/16/19 at 08:00 Furosemide (Lasix) 40 mg DAILY PO Last administered on 03/16/19at 08:18; Start 03/16/19 at 09:00 Hydralazine HCl (Apresoline) 25 mg QID PO Last administered on 03/16/19at 08:18; Start 03/15/19 at 21:00 Metoprolol Tartrate (Lopressor) 25 mg BID PO Last administered on 03/16/19at 08:18; Start 03/15/19 at 21:00 Minoxidil (Loniten) 2.5 mg BID PO Last administered on 03/16/19at 08:18; Start 03/15/19 at 21:00 Multivitamins (Thera M Plus) 1 tab DAILY PO Last administered on 03/16/19at 08:18; Start 03/16/19 at 09:00 Polyethylene Glycol (miraLAX PACKET) 17 gm BID PO Last administered on 03/15/19 at 21:12; Start 03/15/19 at 21:00 Sevelamer Carbonate (Renvela) 800 mg TIDWMEALS PO Last administered on 03/16/19at 08:18; Start 03/16/19 at 08:00 Non-Formulary Medication (Pravastatin Sodium ) 1 tab HS PO ; Start 03/15/19 at 21:00; Status UNV Info (Anti-Coagulation Monitoring By Pharmacy) 1 each PRN DAILY PRN MC SEE COMMENTS; Start 03/15/19 at 18:45 Insulin Glargine (Lantus) 15 units QHS SQ Last administered on 03/15/19at 21:12; Start 03/15/19 at 21:00 Insulin Human Lispro (HumaLOG) 5 units TIDWMEALS SQ ; Start 03/16/19 at 08:00 Levothyroxine Sodium (Synthroid) 88 mcg DAILYAC PO Last administered on 03/16/19at 08:18; Start 03/16/19 at 07:30 Lactobacillus Rhamnosus (Culturelle) 1 cap BID PO ; Start 03/16/19 at 21:00 Insulin Human Lispro (HumaLOG) 0-9 UNITS TIDWMEALS SQ ; Start 03/16/19 at 12:00 Dextrose (Dextrose 50%-Water Syringe) 12.5 gm PRN Q15MIN PRN IV SEE COMMENTS; Start 03/16/19 at 10:00 Dextrose 250 ml PRN Q15MIN PRN IV SEE COMMENTS; Start 03/16/19 at 10:00 Ondansetron HCl (Zofran) 4 mg PRN Q6HRS PRN IV NAUSEA/VOMITING; Start 03/16/19 at 10:00 Acetaminophen/ Hydrocodone Bitart (Lortab 5/325) 1 tab PRN Q4HRS PRN PO PAIN; Start 03/16/19 at 10:00 Temazepam (Restoril) 7.5 mg PRN QHS PRN PO INSOMNIA; Start 03/16/19 at 10:00 Clonidine HCl (Catapres) 0.1 mg PRN Q1HR PRN PO HYPERTENSION; Start 03/16/19 at 10:00 Amlodipine Besylate (Norvasc) 10 mg DAILY PO ; Start 03/16/19 at 11:15; Status UNV Active Scripts Active Vitamin C (Ascorbic Acid) 500 Mg Tablet 500 Mg PO DAILY MDD 1 Thera-M Tablet (Multivits,Ca,Minerals/Iron/Fa) 1 Each Tablet 1 Tab PO DAILY MDD 1 Acetaminophen-Cod #3 Tablet (Acetaminophen/Codeine Phosphate) 1 Each Tablet 1 Tab PO PRN Q6HRS PRN MDD 1 Aspirin 81 Mg Tab.chew 81 Mg PO DAILYWBKFT MDD 1 Reported Levothyroxine Sodium 88 Mcg Tablet 88 Mcg PO DAILYAC Hydrocodone-Apap 7.5-325 (Hydrocodone Bit/Acetaminophen) 1 Tab Tablet 1 Tab PO PRN Q4HRS PRN Novolog Flexpen (Insulin Aspart) 100 Unit/1 Ml Insuln.pen 5 Unit SQ TIDWMEALS Lantus Solostar (Insulin Glargine,Hum.rec.anlog) 100 Unit/1 Ml Insuln.pen 15 Unit SQ QHS Renvela (Sevelamer Carbonate) 800 Mg Tablet 800 Mg PO TIDWMEALS Pravastatin Sodium 80 Mg Tablet 1 Tab PO HS Miralax (Polyethylene Glycol 3350) 17 Gm Powd.pack 1 Packet PO BID Minoxidil 2.5 Mg Tablet 2.5 Mg PO BID Metoprolol Tartrate 25 Mg Tablet 25 Mg PO BID Hydralazine Hcl 25 Mg Tablet 25 Mg PO QID Furosemide 40 Mg Tablet 40 Mg PO DAILY Eliquis (Apixaban) 2.5 Mg Tablet 2.5 Mg PO BID Amlodipine Besylate 5 Mg Tablet 5 Mg PO DAILY Vitals/I & O Vital Sign - Last 24 Hours 03/15/19 03/15/19 03/15/19 03/15/19 11:16 11:46 12:16 12:46 Pulse 108 110 110 124 Resp 16 20 20 20 B/P (MAP) 140/70 (93) 131/80 (97) 161/80 (107) 176/81 (112) Pulse Ox 98 100 99 98 O2 Delivery Room Air Room Air 03/15/19 03/15/19 03/15/19 03/15/19 13:16 14:10 15:00 15:30 Temp 99.2 103.0 99.2 103.0 Pulse 118 150 156 142 Resp 20 38 37 B/P (MAP) 179/84 (115) 98/30 (52) 182/103 (129) 184/92 (122) Pulse Ox 98 92 93 O2 Delivery Room Air Room Air Nasal Cannula Nasal Cannula O2 Flow Rate 2.0 2.0 03/15/19 03/15/19 03/15/19 03/15/19 15:30 15:45 16:00 16:00 Pulse 152 142 136 Resp 37 33 B/P (MAP) 182/103 184/92 (122) 165/95 (118) Pulse Ox 93 98 O2 Delivery Nasal Cannula Nasal Cannula Nasal Cannula O2 Flow Rate 2.0 2.0 2.0 03/15/19 03/15/19 03/15/19 03/15/19 16:15 16:30 16:45 17:00 Pulse 134 116 116 116 Resp 32 21 20 30 B/P (MAP) 157/76 (103) 110/68 (82) 97/85 (89) 121/79 (93) Pulse Ox 95 95 97 96 O2 Delivery Nasal Cannula Nasal Cannula Nasal Cannula Nasal Cannula O2 Flow Rate 2.0 2.0 2.0 2.0 03/15/19 03/15/19 03/15/19 03/15/19 18:00 19:00 20:00 20:00 Temp 100.4 98.8 100.4 98.8 Pulse 103 96 94 Resp 22 24 24 B/P (MAP) 121/65 (83) 121/65 (83) 121/74 (90) Pulse Ox 96 94 98 O2 Delivery Nasal Cannula Nasal Cannula Nasal Cannula Nasal Cannula O2 Flow Rate 2.0 2.0 2.0 2.0 03/15/19 03/15/19 03/15/19 03/15/19 21:00 21:12 21:12 21:12 Pulse 90 79 76 91 Resp 24 B/P (MAP) 137/76 (96) 133/75 133/75 133/75 Pulse Ox 98 O2 Delivery Nasal Cannula O2 Flow Rate 2.0 03/15/19 03/15/19 03/16/19 03/16/19 22:00 23:00 00:00 00:00 Temp 97.9 97.9 Pulse 67 63 71 Resp 22 22 20 B/P (MAP) 110/67 (81) 118/62 (80) 109/77 (88) Pulse Ox 98 98 98 O2 Delivery Nasal Cannula Nasal Cannula Nasal Cannula Nasal Cannula O2 Flow Rate 2.0 2.0 2.0 2.0 03/16/19 03/16/19 03/16/19 03/16/19 01:00 02:00 03:00 04:00 Temp 98.0 98.0 Pulse 69 71 68 66 Resp 22 22 22 B/P (MAP) 148/79 (102) 144/81 (102) 133/72 (92) 133/71 (91) Pulse Ox 100 100 100 97 O2 Delivery Nasal Cannula Nasal Cannula Nasal Cannula Nasal Cannula O2 Flow Rate 2.0 2.0 2.0 2.0 03/16/19 03/16/19 03/16/19 03/16/19 04:00 05:00 06:00 07:00 Pulse 66 72 80 Resp 23 22 18 B/P (MAP) 140/68 (92) 149/64 (92) 153/75 (101) Pulse Ox 98 100 100 O2 Delivery Nasal Cannula Nasal Cannula Nasal Cannula Nasal Cannula O2 Flow Rate 2.0 2.0 2.0 2.0 03/16/19 03/16/19 03/16/19 03/16/19 08:00 08:00 08:18 08:18 Temp 98.4 98.4 Pulse 85 72 77 Resp 18 B/P (MAP) 149/70 (96) 153/75 153/75 Pulse Ox 100 O2 Delivery Nasal Cannula Nasal Cannula O2 Flow Rate 2.0 2.0 03/16/19 03/16/19 03/16/19 03/16/19 08:18 08:18 09:00 10:00 Pulse 75 80 77 83 Resp 18 20 B/P (MAP) 153/75 153/75 154/77 (102) 143/75 (97) Pulse Ox 100 100 O2 Delivery Nasal Cannula Nasal Cannula O2 Flow Rate 2.0 2.0 Intake and Output 03/15/19 03/15/19 03/16/19 14:59 22:59 06:59 Intake Total 1000 ml 40 ml Output Total 0 ml 150 ml Balance 1000 ml 40 ml -150 ml DENNY BHATTI MD Mar 16, 2019 11:07
[2019-03-16] MEDS ORDERED: amLODIPine BESYLATE 5 MG TABLET PO ONE (11:15)
--- NOTE | 2019-03-16 11:40 | PDOC2 ---
CONSULT Date of Consult Date of Consult DATE: 03/16/19 TIME: 11:33 Reason for Consult Reason for Consult: ESRD Referring Physician Referring Physician: DIEGO Identification/Chief Complaint Chief Complaint FEVERS AND CHILLS Source Source: Chart review, Patient History of Present Illness Reason for Visit: THIS IS A 58 YR OLD ESRD PT WITH FEVERS AND CHILLS LAST DAY OR SO. ADMITTED WITH LEUCOCYTOSIS AND SEPSIS. BCX POS FOR G+ COCCI. HE ALSO HAS LE CHRONIC WOUNDS AND CELLULITIS. HE HAS ESRD DUE TO DM II AND HTN. HE HAS AN IMMATURE LEFT ARM AVF WHICH IS NOT READY FOR USE. HE HAS BEEN DIALYZING VIA A RIGHT TUNNELED HD CATHETER. ABOUT 10 DAYS AGO HIS CATHETER WAS COMING OUT AND HE PUSHED IT BACK IN. HE HAD PURULENT DRAINAGE FROM THAT EXIT SITE. 9 DAYS AGO HE HAD A NEW TUNNELED HD CATHETER PLACED WITH A NEXT EXIT SITE. HE WAS GIVEN ANCEF 1GM ONCE AND THEN KEFLEX FOR ONE WEEK. CASE D/W ID. LABS ARE C/W HIS ESRD STATUS Past Medical History Cardiovascular: AFIB, HTN, Hyperlipidemia, Other GI: Constipation Heme/Onc: Anemia NOS Renal/: Chronic renal failure Endocrine: Diabetes, Hypothyroidism, Hyperparathyroidism Past Surgical History Past Surgical History: No pertinent history Social History No ALCOHOL: none Lives: Fdc Current Problem List Problem List Problems Medical Problems: (1) Sepsis Status: Acute Current Medications Current Medications Current Medications Vancomycin HCl (Vanco Per Pharmacy) 1 each PRN DAILY PRN MC SEE COMMENTS Last administered on 03/16/19at 08:05; Start 03/15/19 at 11:15 Cefepime HCl (Maxipime) 1 gm 1X ONCE IVP Last administered on 03/15/19at 11:37; Start 03/15/19 at 11:15; Stop 03/15/19 at 11:23; Status DC Sodium Chloride 1,000 ml @ 1,000 mls/hr 1X ONCE IV Last administered on 03/15/19at 11:28; Start 03/15/19 at 11:30; Stop 03/15/19 at 12:29; Status DC Vancomycin HCl 2 gm/Sodium Chloride 500 ml @ 250 mls/hr 1X ONCE IV Last administered on 03/15/19at 11:37; Start 03/15/19 at 11:30; Stop 03/15/19 at 13:29; Status DC Vancomycin HCl (Vancomycin Random Level) 1 each 1X ONCE MC ; Start 03/17/19 at 06:00; Stop 03/17/19 at 06:01 Acetaminophen (Tylenol) 650 mg PRN Q6HRS PRN PO MILD PAIN / TEMP Last administered on 03/15/19at 15:12; Start 03/15/19 at 15:00 Acetaminophen (Tylenol Supp) 650 mg STK-MED ONCE .ROUTE ; Start 03/15/19 at 15:04; Stop 03/15/19 at 15:04; Status DC Digoxin (Lanoxin) 250 mcg 1X ONCE IV Last administered on 03/15/19at 15:30; Start 03/15/19 at 15:30; Stop 03/15/19 at 15:31; Status DC Diltiazem HCl 125 mg/Dextrose 125 ml @ 2.5 mls/hr CONT PRN IV SEE I/O RECORD Last administered on 03/15/19at 15:40; Start 03/15/19 at 15:30 Digoxin (Lanoxin) 500 mcg STK-MED ONCE .ROUTE ; Start 03/15/19 at 15:26; Stop 03/15/19 at 15:26; Status DC Sodium Chloride 1,000 ml @ 1,000 mls/hr 1X ONCE IV Last administered on 03/15/19at 16:30; Start 03/15/19 at 14:00; Stop 03/15/19 at 16:33; Status DC Sodium Hypochlorite (Dakin'S 1/4 Strength) 1 edenilson DAILY TP ; Start 03/16/19 at 09:00; Stop 03/15/19 at 18:00; Status DC Sodium Hypochlorite (Dakin'S 1/4 Strength) 1 edenilson BID TP Last administered on 03/16/19at 08:18; Start 03/15/19 at 21:00 Amlodipine Besylate (Norvasc) 5 mg DAILY PO Last administered on 03/16/19at 08:18; Start 03/16/19 at 09:00; Stop 03/16/19 at 11:02; Status DC Apixaban (Eliquis) 2.5 mg BID PO Last administered on 03/16/19at 09:36; Start 03/15/19 at 21:00 Ascorbic Acid (Vitamin C) 500 mg DAILY PO Last administered on 03/16/19at 08:18; Start 03/16/19 at 09:00 Aspirin (Children'S Aspirin) 81 mg DAILYWBKFT PO Last administered on 03/16/19 08:18; Start 03/16/19 at 08:00 Furosemide (Lasix) 40 mg DAILY PO Last administered on 03/16/19 08:18; Start 03/16/19 at 09:00 Hydralazine HCl (Apresoline) 25 mg QID PO Last administered on 03/16/19 08:18; Start 03/15/19 at 21:00 Metoprolol Tartrate (Lopressor) 25 mg BID PO Last administered on 03/16/19 08:18; Start 03/15/19 at 21:00 Minoxidil (Loniten) 2.5 mg BID PO Last administered on 03/16/19 08:18; Start 03/15/19 at 21:00 Multivitamins (Thera M Plus) 1 tab DAILY PO Last administered on 03/16/19 08:18; Start 03/16/19 at 09:00 Polyethylene Glycol (miraLAX PACKET) 17 gm BID PO Last administered on 03/15/19at 21:12; Start 03/15/19 at 21:00 Sevelamer Carbonate (Renvela) 800 mg TIDWMEALS PO Last administered on 03/16 08:18; Start 03/16/19 at 08:00 Non-Formulary Medication (Pravastatin Sodium ) 1 tab HS PO ; Start 03/15/19 at 21:00; Status UNV Info (Anti-Coagulation Monitoring By Pharmacy) 1 each PRN DAILY PRN MC SEE COMMENTS; Start 03/15/19 at 18:45 Insulin Glargine (Lantus) 15 units QHS SQ Last administered on 03/15/19at 21:12; Start 03/15/19 at 21:00 Insulin Human Lispro (HumaLOG) 5 units TIDWMEALS SQ ; Start 03/16/19 at 08:00 Levothyroxine Sodium (Synthroid) 88 mcg DAILYAC PO Last administered on 03/16/19at 08:18; Start 03/16/19 at 07:30 Lactobacillus Rhamnosus (Culturelle) 1 cap BID PO ; Start 03/16/19 at 21:00 Insulin Human Lispro (HumaLOG) 0-9 UNITS TIDWMEALS SQ ; Start 03/16/19 at 12:00 Dextrose (Dextrose 50%-Water Syringe) 12.5 gm PRN Q15MIN PRN IV SEE COMMENTS; Start 03/16/19 at 10:00 Dextrose 250 ml PRN Q15MIN PRN IV SEE COMMENTS; Start 03/16/19 at 10:00 Ondansetron HCl (Zofran) 4 mg PRN Q6HRS PRN IV NAUSEA/VOMITING; Start 03/16/19 at 10:00 Acetaminophen/ Hydrocodone Bitart (Lortab 5/325) 1 tab PRN Q4HRS PRN PO PAIN; Start 03/16/19 at 10:00 Temazepam (Restoril) 7.5 mg PRN QHS PRN PO INSOMNIA; Start 03/16/19 at 10:00 Clonidine HCl (Catapres) 0.1 mg PRN Q1HR PRN PO HYPERTENSION; Start 03/16/19 at 10:00 Amlodipine Besylate (Norvasc) 10 mg DAILY PO ; Start 03/17/19 at 09:00 Amlodipine Besylate (Norvasc) 5 mg 1X ONCE PO ; Start 03/16/19 at 11:15; Stop 03/16/19 at 11:16; Status DC Active Scripts Active Vitamin C (Ascorbic Acid) 500 Mg Tablet 500 Mg PO DAILY MDD 1 Thera-M Tablet (Multivits,Ca,Minerals/Iron/Fa) 1 Each Tablet 1 Tab PO DAILY MDD 1 Acetaminophen-Cod #3 Tablet (Acetaminophen/Codeine Phosphate) 1 Each Tablet 1 Tab PO PRN Q6HRS PRN MDD 1 Aspirin 81 Mg Tab.chew 81 Mg PO DAILYWBKFT MDD 1 Reported Levothyroxine Sodium 88 Mcg Tablet 88 Mcg PO DAILYAC Hydrocodone-Apap 7.5-325 (Hydrocodone Bit/Acetaminophen) 1 Tab Tablet 1 Tab PO PRN Q4HRS PRN Novolog Flexpen (Insulin Aspart) 100 Unit/1 Ml Insuln.pen 5 Unit SQ TIDWMEALS Lantus Solostar (Insulin Glargine,Hum.rec.anlog) 100 Unit/1 Ml Insuln.pen 15 Unit SQ QHS Renvela (Sevelamer Carbonate) 800 Mg Tablet 800 Mg PO TIDWMEALS Pravastatin Sodium 80 Mg Tablet 1 Tab PO HS Miralax (Polyethylene Glycol 3350) 17 Gm Powd.pack 1 Packet PO BID Minoxidil 2.5 Mg Tablet 2.5 Mg PO BID Metoprolol Tartrate 25 Mg Tablet 25 Mg PO BID Hydralazine Hcl 25 Mg Tablet 25 Mg PO QID Furosemide 40 Mg Tablet 40 Mg PO DAILY Eliquis (Apixaban) 2.5 Mg Tablet 2.5 Mg PO BID Amlodipine Besylate 5 Mg Tablet 5 Mg PO DAILY Allergies Allergies: Coded Allergies: Penicillins (Verified Allergy, Intermediate, 01/02/19) Sulfa (Sulfonamide Antibiotics) (Verified Allergy, Intermediate, Hives, 01/02/19) atorvastatin (Verified Allergy, Intermediate, Hives, 01/02/19) I S O L A T I O N *CONTACT* (Verified Allergy, Unknown, 01/06/19) mrsa ROS General: YES: Chills, Fatigue, Malaise PSYCHOLOGICAL ROS: YES: Anxiety, Depression Eyes: Yes Decreased vision HEENT: YES: Heacaches Respiratory: YES: Cough Gastrointestinal: Yes Constipation Genitourinary: YES Other (ANURIA) Musculoskeletal: Yes Muscular Weakness Neurological: Yes Weakness Skin: Yes Dry Skin, Yes Rash, Yes Skin Lesion Changes Physical Exam Physical Exam NO DRAINAGE OR TENDERNESS AT CATHETER EXIT SITE General: Alert, Oriented X3, Cooperative, No acute distress HEENT: Atraumatic, PERRLA, EOMI, Mucous membr. moist/pink Lungs: Clear to auscultation, Normal air movement Heart: Regular rate, Normal S1, Normal S2 Abdomen: Normal bowel sounds, No tenderness Extremities: No clubbing, No cyanosis Skin: No breakdown Neuro: Normal speech, Sensation intact Psych/Mental Status: Mental status NL, Mood NL MUSCULOSKELETAL: No joint tenderness, No deformity Vitals VITALS Vital Signs Date Time Temp Pulse Resp B/P (MAP) Pulse Ox O2 Delivery O2 Flow Rate FiO2 03/16/19 11:00 81 20 100 Nasal Cannula 2.0 03/16/19 08:00 98.4 98.4 Labs Labs Laboratory Tests Test 03/15/19 10:55 03/15/19 21:09 03/16/19 08:20 White Blood Count 13.9 x10^3/uL (4.0-11.0) Red Blood Count 3.50 x10^6/uL (4.30-5.70) Hemoglobin 9.6 g/dL (13.0-17.5) Hematocrit 29.2 % (39.0-53.0) Mean Corpuscular Volume 83 fL (79-100) Mean Corpuscular Hemoglobin 27 pg (25-35) Mean Corpuscular Hemoglobin Concent 33 g/dL (31-37) Red Cell Distribution Width 19.5 % (11.5-14.5) Platelet Count 198 x10^3/uL (140-400) Neutrophils (%) (Auto) 90 % (31-73) Lymphocytes (%) (Auto) 3 % (24-48) Monocytes (%) (Auto) 6 % (0-9) Eosinophils (%) (Auto) 1 % (0-3) Basophils (%) (Auto) 1 % (0-3) Neutrophils # (Auto) 12.5 x10^3/uL (1.8-7.7) Lymphocytes # (Auto) 0.4 x10^3/uL (1.0-4.8) Monocytes # (Auto) 0.8 x10^3/uL (0.0-1.1) Eosinophils # (Auto) 0.1 x10^3/uL (0.0-0.7) Basophils # (Auto) 0.1 x10^3/uL (0.0-0.2) Segmented Neutrophils % 79 % (35-66) Band Neutrophils % 9 % (0-9) Lymphocytes % 6 % (24-48) Monocytes % 4 % (0-10) Eosinophils % 1 % (0-5) Basophils % 1 % (0-3) Platelet Estimate Adequate (ADEQUATE) Anisocytosis Slight Ovalocytes Few Prothrombin Time 17.9 SEC (11.7-14.0) Prothromb Time International Ratio 1.5 (0.8-1.1) Sodium Level 136 mmol/L (136-145) Potassium Level 4.7 mmol/L (3.5-5.1) Chloride Level 97 mmol/L (98-107) Carbon Dioxide Level 30 mmol/L (21-32) Anion Gap 9 (6-14) Blood Urea Nitrogen 28 mg/dL (8-26) Creatinine 3.5 mg/dL (0.7-1.3) Estimated GFR (Cockcroft-Gault) 18.0 BUN/Creatinine Ratio 8 (6-20) Glucose Level 109 mg/dL (70-99) Lactic Acid Level 1.3 mmol/L (0.4-2.0) Calcium Level 9.2 mg/dL (8.5-10.1) Total Bilirubin 1.2 mg/dL (0.2-1.0) Aspartate Amino Transf (AST/SGOT) 17 U/L (15-37) Alanine Aminotransferase (ALT/SGPT) 24 U/L (16-63) Alkaline Phosphatase 130 U/L (46-116) Troponin I Quantitative < 0.017 ng/mL (0.000-0.055) Total Protein 7.0 g/dL (6.4-8.2) Albumin 3.4 g/dL (3.4-5.0) Albumin/Globulin Ratio 0.9 (1.0-1.7) Glucose (Fingerstick) 135 mg/dL (70-99) 104 mg/dL (70-99) Laboratory Tests Test 03/15/19 21:09 03/16/19 08:20 Glucose (Fingerstick) 135 mg/dL (70-99) 104 mg/dL (70-99) Assessment/Plan Assessment/Plan IMP SEPSIS WITH G+ COCCI LEUCOCYTOSIS ESRD DM II HTN ANEMIA LE WOUNDS-CELLULITIS AFIB PLAN ANTIBIOTICS HD MWF WALT D/W ID CHANGE CATHETER IF NEEDED PER ID LEFT ARM AVF NOT READY FOR USE YET BUT CLOSE ABIMBOLA CAMACHO MD Mar 16, 2019 11:40
--- NOTE | 2019-03-16 12:13 | PDOC ---
PROGRESS NOTES Subjective Subjective Problems overnight: In intensive care unit, patient is now responsive much more so than yesterday Objective Vital Signs Vital Signs Date Time Temp Pulse Resp B/P (MAP) Pulse Ox O2 Delivery O2 Flow Rate FiO2 03/16/19 11:00 81 20 100 Nasal Cannula 2.0 03/16/19 08:00 98.4 98.4 Physical Exam On exam both legs are wrapped around mid calf he is able to flex and extend his ankle and toes distal sensation at baseline Labs Laboratory Tests Test 03/15/19 10:55 03/15/19 21:09 03/16/19 08:20 White Blood Count 13.9 x10^3/uL (4.0-11.0) Red Blood Count 3.50 x10^6/uL (4.30-5.70) Hemoglobin 9.6 g/dL (13.0-17.5) Hematocrit 29.2 % (39.0-53.0) Mean Corpuscular Volume 83 fL (79-100) Mean Corpuscular Hemoglobin 27 pg (25-35) Mean Corpuscular Hemoglobin Concent 33 g/dL (31-37) Red Cell Distribution Width 19.5 % (11.5-14.5) Platelet Count 198 x10^3/uL (140-400) Neutrophils (%) (Auto) 90 % (31-73) Lymphocytes (%) (Auto) 3 % (24-48) Monocytes (%) (Auto) 6 % (0-9) Eosinophils (%) (Auto) 1 % (0-3) Basophils (%) (Auto) 1 % (0-3) Neutrophils # (Auto) 12.5 x10^3/uL (1.8-7.7) Lymphocytes # (Auto) 0.4 x10^3/uL (1.0-4.8) Monocytes # (Auto) 0.8 x10^3/uL (0.0-1.1) Eosinophils # (Auto) 0.1 x10^3/uL (0.0-0.7) Basophils # (Auto) 0.1 x10^3/uL (0.0-0.2) Segmented Neutrophils % 79 % (35-66) Band Neutrophils % 9 % (0-9) Lymphocytes % 6 % (24-48) Monocytes % 4 % (0-10) Eosinophils % 1 % (0-5) Basophils % 1 % (0-3) Platelet Estimate Adequate (ADEQUATE) Anisocytosis Slight Ovalocytes Few Prothrombin Time 17.9 SEC (11.7-14.0) Prothromb Time International Ratio 1.5 (0.8-1.1) Sodium Level 136 mmol/L (136-145) Potassium Level 4.7 mmol/L (3.5-5.1) Chloride Level 97 mmol/L (98-107) Carbon Dioxide Level 30 mmol/L (21-32) Anion Gap 9 (6-14) Blood Urea Nitrogen 28 mg/dL (8-26) Creatinine 3.5 mg/dL (0.7-1.3) Estimated GFR (Cockcroft-Gault) 18.0 BUN/Creatinine Ratio 8 (6-20) Glucose Level 109 mg/dL (70-99) Lactic Acid Level 1.3 mmol/L (0.4-2.0) Calcium Level 9.2 mg/dL (8.5-10.1) Total Bilirubin 1.2 mg/dL (0.2-1.0) Aspartate Amino Transf (AST/SGOT) 17 U/L (15-37) Alanine Aminotransferase (ALT/SGPT) 24 U/L (16-63) Alkaline Phosphatase 130 U/L (46-116) Troponin I Quantitative < 0.017 ng/mL (0.000-0.055) Total Protein 7.0 g/dL (6.4-8.2) Albumin 3.4 g/dL (3.4-5.0) Albumin/Globulin Ratio 0.9 (1.0-1.7) Glucose (Fingerstick) 135 mg/dL (70-99) 104 mg/dL (70-99) Laboratory Tests Test 03/15/19 21:09 03/16/19 08:20 Glucose (Fingerstick) 135 mg/dL (70-99) 104 mg/dL (70-99) Assessment Assessment Cellulitis both legs Plan Plan of Care He now appears much more stable than when first assessed yesterday Note vascular evaluation and agree with their assessment of wound care and vascular studies No need for intervention from an orthopedic standpoint will sign off at this point PRAVEEN HUYNH MD Mar 16, 2019 12:13
--- NOTE | 2019-03-16 12:49 | PDOC2 ---
CONSULT Date of Consult Date of Consult DATE: 03/16/19 TIME: 12:42 Reason for Consult Reason for Consult: atrial fibrillation Referring Physician Referring Physician: Dr. Whittington Identification/Chief Complaint Chief Complaint Leg pain Source Source: Chart review, Patient History of Present Illness Reason for Visit: The patient is a 58 year old male with a history of ESRD on HD, atrial fib. and PVD. He was admitted for treatment of cellulitis. His is on Ab as per ID and is more alert and feeling better. From a CV viewpoint he has rate controlled a fib and is on anticoag. He denies chest pain or increasing SOB. Past Medical History Cardiovascular: AFIB, HTN, Hyperlipidemia GI: Constipation Heme/Onc: Anemia NOS Renal/: Chronic renal failure Endocrine: Diabetes, Hypothyroidism, Hyperparathyroidism Past Surgical History Past Surgical History: No pertinent history Family History Family History: Heart Disease Social History No ALCOHOL: none Lives: Intermediate Current Problem List Problem List Problems Medical Problems: (1) Sepsis Status: Acute Current Medications Current Medications Current Medications Vancomycin HCl (Vanco Per Pharmacy) 1 each PRN DAILY PRN MC SEE COMMENTS Last administered on 03/16/19at 08:05; Start 03/15/19 at 11:15 Cefepime HCl (Maxipime) 1 gm 1X ONCE IVP Last administered on 03/15/19at 11:37; Start 03/15/19 at 11:15; Stop 03/15/19 at 11:23; Status DC Sodium Chloride 1,000 ml @ 1,000 mls/hr 1X ONCE IV Last administered on 03/15/19at 11:28; Start 03/15/19 at 11:30; Stop 03/15/19 at 12:29; Status DC Vancomycin HCl 2 gm/Sodium Chloride 500 ml @ 250 mls/hr 1X ONCE IV Last administered on 03/15/19at 11:37; Start 03/15/19 at 11:30; Stop 03/15/19 at 13:29; Status DC Vancomycin HCl (Vancomycin Random Level) 1 each 1X ONCE MC ; Start 03/17/19 at 06:00; Stop 03/17/19 at 06:01 Acetaminophen (Tylenol) 650 mg PRN Q6HRS PRN PO MILD PAIN / TEMP Last administered on 03/15/19at 15:12; Start 03/15/19 at 15:00 Acetaminophen (Tylenol Supp) 650 mg STK-MED ONCE .ROUTE ; Start 03/15/19 at 15:04; Stop 03/15/19 at 15:04; Status DC Digoxin (Lanoxin) 250 mcg 1X ONCE IV Last administered on 03/15/19at 15:30; Start 03/15/19 at 15:30; Stop 03/15/19 at 15:31; Status DC Diltiazem HCl 125 mg/Dextrose 125 ml @ 2.5 mls/hr CONT PRN IV SEE I/O RECORD Last administered on 03/15/19at 15:40; Start 03/15/19 at 15:30 Digoxin (Lanoxin) 500 mcg STK-MED ONCE .ROUTE ; Start 03/15/19 at 15:26; Stop 03/15/19 at 15:26; Status DC Sodium Chloride 1,000 ml @ 1,000 mls/hr 1X ONCE IV Last administered on 03/15/19at 16:30; Start 03/15/19 at 14:00; Stop 03/15/19 at 16:33; Status DC Sodium Hypochlorite (Dakin'S 1/4 Strength) 1 edenilson DAILY TP ; Start 03/16/19 at 09:00; Stop 03/15/19 at 18:00; Status DC Sodium Hypochlorite (Dakin'S 1/4 Strength) 1 edenilson BID TP Last administered on 03/16/19at 08:18; Start 03/15/19 at 21:00 Amlodipine Besylate (Norvasc) 5 mg DAILY PO Last administered on 03/16/19at 08:18; Start 03/16/19 at 09:00; Stop 03/16/19 at 11:02; Status DC Apixaban (Eliquis) 2.5 mg BID PO Last administered on 03/16/19at 09:36; Start 03/15/19 at 21:00 Ascorbic Acid (Vitamin C) 500 mg DAILY PO Last administered on 03/16/19at 08:18; Start 03/16/19 at 09:00 Aspirin (Children'S Aspirin) 81 mg DAILYWBKFT PO Last administered on 03/16/19at 08:18; Start 03/16/19 at 08:00 Furosemide (Lasix) 40 mg DAILY PO Last administered on 03/16/19at 08:18; Start 03/16/19 at 09:00 Hydralazine HCl (Apresoline) 25 mg QID PO Last administered on 03/16/19at 12:13; Start 03/15/19 at 21:00 Metoprolol Tartrate (Lopressor) 25 mg BID PO Last administered on 03/16/19at 08:18; Start 03/15/19 at 21:00 Minoxidil (Loniten) 2.5 mg BID PO Last administered on 03/16/19at 08:18; Start 03/15/19 at 21:00 Multivitamins (Thera M Plus) 1 tab DAILY PO Last administered on 03/16/19at 08:18; Start 03/16/19 at 09:00 Polyethylene Glycol (miraLAX PACKET) 17 gm BID PO Last administered on 03/15/19at 21:12; Start 03/15/19 at 21:00 Sevelamer Carbonate (Renvela) 800 mg TIDWMEALS PO Last administered on 03/16/19at 12:13; Start 03/16/19 at 08:00 Non-Formulary Medication (Pravastatin Sodium ) 1 tab HS PO ; Start 03/15/19 at 21:00; Status UNV Info (Anti-Coagulation Monitoring By Pharmacy) 1 each PRN DAILY PRN MC SEE COMMENTS; Start 03/15/19 at 18:45 Insulin Glargine (Lantus) 15 units QHS SQ Last administered on 03/15/19at 21:12; Start 03/15/19 at 21:00 Insulin Human Lispro (HumaLOG) 5 units TIDWMEALS SQ ; Start 03/16/19 at 08:00 Levothyroxine Sodium (Synthroid) 88 mcg DAILYAC PO Last administered on 03/16/19at 08:18; Start 03/16/19 at 07:30 Lactobacillus Rhamnosus (Culturelle) 1 cap BID PO ; Start 03/16/19 at 21:00 Insulin Human Lispro (HumaLOG) 0-9 UNITS TIDWMEALS SQ ; Start 03/16/19 at 12:00 Dextrose (Dextrose 50%-Water Syringe) 12.5 gm PRN Q15MIN PRN IV SEE COMMENTS; Start 03/16/19 at 10:00 Dextrose 250 ml PRN Q15MIN PRN IV SEE COMMENTS; Start 03/16/19 at 10:00 Ondansetron HCl (Zofran) 4 mg PRN Q6HRS PRN IV NAUSEA/VOMITING; Start 03/16/19 at 10:00 Acetaminophen/ Hydrocodone Bitart (Lortab 5/325) 1 tab PRN Q4HRS PRN PO PAIN; Start 03/16/19 at 10:00 Temazepam (Restoril) 7.5 mg PRN QHS PRN PO INSOMNIA; Start 03/16/19 at 10:00 Clonidine HCl (Catapres) 0.1 mg PRN Q1HR PRN PO HYPERTENSION; Start 03/16/19 at 10:00 Amlodipine Besylate (Norvasc) 10 mg DAILY PO ; Start 03/17/19 at 09:00 Amlodipine Besylate (Norvasc) 5 mg 1X ONCE PO ; Start 03/16/19 at 11:15; Stop 03/16/19 at 11:16; Status DC Darbepoetin Derrek (ARANESP for DIALYSIS PTS) 60 mcg WEEKLYHS SQ ; Start 03/16/19 at 21:00 Active Scripts Active Vitamin C (Ascorbic Acid) 500 Mg Tablet 500 Mg PO DAILY MDD 1 Thera-M Tablet (Multivits,Ca,Minerals/Iron/Fa) 1 Each Tablet 1 Tab PO DAILY MDD 1 Acetaminophen-Cod #3 Tablet (Acetaminophen/Codeine Phosphate) 1 Each Tablet 1 Tab PO PRN Q6HRS PRN MDD 1 Aspirin 81 Mg Tab.chew 81 Mg PO DAILYWBKFT MDD 1 Reported Levothyroxine Sodium 88 Mcg Tablet 88 Mcg PO DAILYAC Hydrocodone-Apap 7.5-325 (Hydrocodone Bit/Acetaminophen) 1 Tab Tablet 1 Tab PO PRN Q4HRS PRN Novolog Flexpen (Insulin Aspart) 100 Unit/1 Ml Insuln.pen 5 Unit SQ TIDWMEALS Lantus Solostar (Insulin Glargine,Hum.rec.anlog) 100 Unit/1 Ml Insuln.pen 15 Unit SQ QHS Renvela (Sevelamer Carbonate) 800 Mg Tablet 800 Mg PO TIDWMEALS Pravastatin Sodium 80 Mg Tablet 1 Tab PO HS Miralax (Polyethylene Glycol 3350) 17 Gm Powd.pack 1 Packet PO BID Minoxidil 2.5 Mg Tablet 2.5 Mg PO BID Metoprolol Tartrate 25 Mg Tablet 25 Mg PO BID Hydralazine Hcl 25 Mg Tablet 25 Mg PO QID Furosemide 40 Mg Tablet 40 Mg PO DAILY Eliquis (Apixaban) 2.5 Mg Tablet 2.5 Mg PO BID Amlodipine Besylate 5 Mg Tablet 5 Mg PO DAILY Allergies Allergies: Coded Allergies: Penicillins (Verified Allergy, Intermediate, 01/02/19) Sulfa (Sulfonamide Antibiotics) (Verified Allergy, Intermediate, Hives, 01/02/19) atorvastatin (Verified Allergy, Intermediate, Hives, 01/02/19) I S O L A T I O N *CONTACT* (Verified Allergy, Unknown, 01/06/19) mrsa ROS General: YES: Fatigue Respiratory: YES: SOB with excertion Physical Exam General: mild distress HEENT: Atraumatic Lungs: Other (mildly decreased breath sounds) Heart: Other (irreg. irreg.) Abdomen: Normal bowel sounds Vitals VITALS Vital Signs Date Time Temp Pulse Resp B/P (MAP) Pulse Ox O2 Delivery O2 Flow Rate FiO2 03/16/19 12:13 80 141/77 03/16/19 11:00 20 100 Nasal Cannula 2.0 03/16/19 08:00 98.4 98.4 Labs Labs Laboratory Tests Test 03/15/19 10:55 03/15/19 21:09 03/16/19 08:20 03/16/19 12:10 White Blood Count 13.9 x10^3/uL (4.0-11.0) Red Blood Count 3.50 x10^6/uL (4.30-5.70) Hemoglobin 9.6 g/dL (13.0-17.5) Hematocrit 29.2 % (39.0-53.0) Mean Corpuscular Volume 83 fL (79-100) Mean Corpuscular Hemoglobin 27 pg (25-35) Mean Corpuscular Hemoglobin Concent 33 g/dL (31-37) Red Cell Distribution Width 19.5 % (11.5-14.5) Platelet Count 198 x10^3/uL (140-400) Neutrophils (%) (Auto) 90 % (31-73) Lymphocytes (%) (Auto) 3 % (24-48) Monocytes (%) (Auto) 6 % (0-9) Eosinophils (%) (Auto) 1 % (0-3) Basophils (%) (Auto) 1 % (0-3) Neutrophils # (Auto) 12.5 x10^3/uL (1.8-7.7) Lymphocytes # (Auto) 0.4 x10^3/uL (1.0-4.8) Monocytes # (Auto) 0.8 x10^3/uL (0.0-1.1) Eosinophils # (Auto) 0.1 x10^3/uL (0.0-0.7) Basophils # (Auto) 0.1 x10^3/uL (0.0-0.2) Segmented Neutrophils % 79 % (35-66) Band Neutrophils % 9 % (0-9) Lymphocytes % 6 % (24-48) Monocytes % 4 % (0-10) Eosinophils % 1 % (0-5) Basophils % 1 % (0-3) Platelet Estimate Adequate (ADEQUATE) Anisocytosis Slight Ovalocytes Few Prothrombin Time 17.9 SEC (11.7-14.0) Prothromb Time International Ratio 1.5 (0.8-1.1) Sodium Level 136 mmol/L (136-145) Potassium Level 4.7 mmol/L (3.5-5.1) Chloride Level 97 mmol/L (98-107) Carbon Dioxide Level 30 mmol/L (21-32) Anion Gap 9 (6-14) Blood Urea Nitrogen 28 mg/dL (8-26) Creatinine 3.5 mg/dL (0.7-1.3) Estimated GFR (Cockcroft-Gault) 18.0 BUN/Creatinine Ratio 8 (6-20) Glucose Level 109 mg/dL (70-99) Lactic Acid Level 1.3 mmol/L (0.4-2.0) Calcium Level 9.2 mg/dL (8.5-10.1) Total Bilirubin 1.2 mg/dL (0.2-1.0) Aspartate Amino Transf (AST/SGOT) 17 U/L (15-37) Alanine Aminotransferase (ALT/SGPT) 24 U/L (16-63) Alkaline Phosphatase 130 U/L (46-116) Troponin I Quantitative < 0.017 ng/mL (0.000-0.055) Total Protein 7.0 g/dL (6.4-8.2) Albumin 3.4 g/dL (3.4-5.0) Albumin/Globulin Ratio 0.9 (1.0-1.7) Glucose (Fingerstick) 135 mg/dL (70-99) 104 mg/dL (70-99) 123 mg/dL (70-99) Laboratory Tests Test 03/15/19 21:09 03/16/19 08:20 03/16/19 12:10 Glucose (Fingerstick) 135 mg/dL (70-99) 104 mg/dL (70-99) 123 mg/dL (70-99) Assessment/Plan Assessment/Plan 1. Rate controlled atrial fib. Continue rate control meds. Continue anticoagulation. Will check an ECHO for LV function. 2. ESRD. HD as per renal. 3. Cellulitis. Ab as per ID. 4. PVD. Being followed by vasc. surgery. Thank you for allowing us to participate in the care of your patient. DOLORES SELBY MD Mar 16, 2019 12:49
[2019-03-16 12:59] LABS: FREE T4 1.31 ng/dL (0.76-1.46); THYROID STIM HORMONE (TSH) 0.986 uIU/mL (0.358-3.74)
--- NOTE | 2019-03-16 17:53 | NUR ---
patient transferred to [facility] per wheelchair by karen archuleta. patient stable at time of transfer. patient not complaining of any pain at this time. patients blood pressure obtained and patient placed on tele. patient in bed and call light in reach. will continue to monitor patient.
[2019-03-16] MEDS: DARBEPOETIN ALFA 60 MCG/0.3 ML DISP.SYRIN. SQ SCH (21:36)
[2019-03-16] MEDS: LACTOBACILLUS RHAMNOSUS GG 1 CAPSULE. PO SCH (21:37)
[2019-03-16] MEDS: INSULIN GLARGINE 300 UNITS/3 ML INSULN.PEN. SQ SCH (21:38)
[2019-03-17 03:02] VITALS: BP 101/50
[2019-03-17 04:31] LABS: BASO # 0.1 x10^3/uL (0.0-0.2); BASO % 1 % (0-3); EOS # 0.4 x10^3/uL (0.0-0.7); EOS % 6 % (0-3); HEMOGLOBIN 8.8 g/dL (13.0-17.5); LYMPH # 0.5 x10^3/uL (1.0-4.8); LYMPH % 9 % (24-48); MEAN CORPUSCULAR HEMOGLOBIN 28 pg (25-35); MEAN CORPUSCULAR HGB CONC 34 g/dL (31-37); MEAN CORPUSCULAR VOLUME 83 fL (79-100); MONO # 0.8 x10^3/uL (0.0-1.1); MONO % 13 % (0-9); NEUT # 4.5 x10^3/uL (1.8-7.7); NEUT % 71 % (31-73); PLATELET COUNT 146 x10^3/uL (140-400); RED BLOOD COUNT 3.14 x10^6/uL (4.30-5.70); RED CELL DISTRIBUTION WIDTH 19.6 % (11.5-14.5); WHITE BLOOD COUNT 6.3 x10^3/uL (4.0-11.0)
[2019-03-17 05:08] LABS: CREATININE 5.2 mg/dL (0.7-1.3); GFR 11.4; POTASSIUM 4.7 mmol/L (3.5-5.1)
[2019-03-17] MEDS ORDERED: VANCOMYCIN RANDOM LEVEL. MC ONE (06:00)
[2019-03-17 07:54] VITALS: BP 139/64
[2019-03-17] MEDS: INSULIN LISPRO 300 UNITS/3 ML VIAL. SQ SCH ×6 (08:00→17:00)
--- NOTE | 2019-03-17 08:18 | PDOC ---
PROGRESS NOTES Chief Complaint Chief Complaint Sepsis Chronic wounds, lower extremities bilaterally. [facility] PAD ESRD on HD AOCD Cellulitis - with sepsis Acute on chronic a fib s/p RVR HTN Hypothyroidism on synthroid Gram-positive cocci bacteremia with sepsis present on admission.ID and ISAAC pending Infected hemodialysis catheter, status post removal 03/05 and replaced 03/07 History of methicillin-resistant Staphylococcus aureus. Diabetes with peripheral neuropathy. Atrial fibrillation. History of Present Illness History of Present Illness He has no complaints Cardizem gtt bec went to [facility] (hx a fib) Now off cardizem gtt Vasc sx, ID on board, wounds legs, pics reviewed, will need wound care and IV Abx Also HD pt, RT tunnelled HD cath visible. Transferred from ICU to [facility] on 9. He reviews with me that his catheter had fallen out "pretty far" and he pushed it back in. PLAN: Wound care IV abx cards consulted for RVR Dw HEATER TENDER Vitals Vitals Vital Signs Date Time Temp Pulse Resp B/P (MAP) Pulse Ox O2 Delivery O2 Flow Rate FiO2 03/17/19 07:54 98.1 82 20 139/64 (89) 98 Room Air 98.1 03/17/19 03:02 2.0 Physical Exam General: mild distress Heart: Other (irreg. irreg.) Lungs: Clear Abdomen: Normal bowel sounds Extremities: No clubbing, No cyanosis Skin: No breakdown Labs LABS Laboratory Tests Test 03/16/19 08:20 03/16/19 12:10 03/16/19 17:24 03/16/19 20:32 Glucose (Fingerstick) 104 mg/dL (70-99) 123 mg/dL (70-99) 142 mg/dL (70-99) 176 mg/dL (70-99) Test 03/17/19 03:30 03/17/19 03:35 03/17/19 07:44 Sodium Level 132 mmol/L (136-145) Potassium Level 4.7 mmol/L (3.5-5.1) Chloride Level 95 mmol/L (98-107) Carbon Dioxide Level 27 mmol/L (21-32) Anion Gap 10 (6-14) Blood Urea Nitrogen 56 mg/dL (8-26) Creatinine 5.2 mg/dL (0.7-1.3) Estimated GFR (Cockcroft-Gault) 11.4 Glucose Level 139 mg/dL (70-99) Calcium Level 9.0 mg/dL (8.5-10.1) Random Vancomycin Level 16.3 mcg/mL White Blood Count 6.3 x10^3/uL (4.0-11.0) Red Blood Count 3.14 x10^6/uL (4.30-5.70) Hemoglobin 8.8 g/dL (13.0-17.5) Hematocrit 26.0 % (39.0-53.0) Mean Corpuscular Volume 83 fL (79-100) Mean Corpuscular Hemoglobin 28 pg (25-35) Mean Corpuscular Hemoglobin Concent 34 g/dL (31-37) Red Cell Distribution Width 19.6 % (11.5-14.5) Platelet Count 146 x10^3/uL (140-400) Neutrophils (%) (Auto) 71 % (31-73) Lymphocytes (%) (Auto) 9 % (24-48) Monocytes (%) (Auto) 13 % (0-9) Eosinophils (%) (Auto) 6 % (0-3) Basophils (%) (Auto) 1 % (0-3) Neutrophils # (Auto) 4.5 x10^3/uL (1.8-7.7) Lymphocytes # (Auto) 0.5 x10^3/uL (1.0-4.8) Monocytes # (Auto) 0.8 x10^3/uL (0.0-1.1) Eosinophils # (Auto) 0.4 x10^3/uL (0.0-0.7) Basophils # (Auto) 0.1 x10^3/uL (0.0-0.2) Erythrocyte Sedimentation Rate 15 (0-15) Glucose (Fingerstick) 102 mg/dL (70-99) Assessment and Plan Assessmemt and Plan Problems Medical Problems: (1) A-fib Status: Acute (2) Diabetes mellitus with peripheral autonomic neuropathy Status: Chronic (3) ESRD on hemodialysis Status: Chronic (4) PVD (peripheral vascular disease) Status: Chronic (5) Sepsis Status: Acute Comment Review of Relevant I have reviewed the following items kendra (where applicable) has been applied. Labs Laboratory Tests Test 03/15/19 10:55 03/15/19 21:09 03/16/19 08:20 03/16/19 12:10 White Blood Count 13.9 x10^3/uL (4.0-11.0) Red Blood Count 3.50 x10^6/uL (4.30-5.70) Hemoglobin 9.6 g/dL (13.0-17.5) Hematocrit 29.2 % (39.0-53.0) Mean Corpuscular Volume 83 fL (79-100) Mean Corpuscular Hemoglobin 27 pg (25-35) Mean Corpuscular Hemoglobin Concent 33 g/dL (31-37) Red Cell Distribution Width 19.5 % (11.5-14.5) Platelet Count 198 x10^3/uL (140-400) Neutrophils (%) (Auto) 90 % (31-73) Lymphocytes (%) (Auto) 3 % (24-48) Monocytes (%) (Auto) 6 % (0-9) Eosinophils (%) (Auto) 1 % (0-3) Basophils (%) (Auto) 1 % (0-3) Neutrophils # (Auto) 12.5 x10^3/uL (1.8-7.7) Lymphocytes # (Auto) 0.4 x10^3/uL (1.0-4.8) Monocytes # (Auto) 0.8 x10^3/uL (0.0-1.1) Eosinophils # (Auto) 0.1 x10^3/uL (0.0-0.7) Basophils # (Auto) 0.1 x10^3/uL (0.0-0.2) Segmented Neutrophils % 79 % (35-66) Band Neutrophils % 9 % (0-9) Lymphocytes % 6 % (24-48) Monocytes % 4 % (0-10) Eosinophils % 1 % (0-5) Basophils % 1 % (0-3) Platelet Estimate Adequate (ADEQUATE) Anisocytosis Slight Ovalocytes Few Prothrombin Time 17.9 SEC (11.7-14.0) Prothromb Time International Ratio 1.5 (0.8-1.1) Sodium Level 136 mmol/L (136-145) Potassium Level 4.7 mmol/L (3.5-5.1) Chloride Level 97 mmol/L (98-107) Carbon Dioxide Level 30 mmol/L (21-32) Anion Gap 9 (6-14) Blood Urea Nitrogen 28 mg/dL (8-26) Creatinine 3.5 mg/dL (0.7-1.3) Estimated GFR (Cockcroft-Gault) 18.0 BUN/Creatinine Ratio 8 (6-20) Glucose Level 109 mg/dL (70-99) Lactic Acid Level 1.3 mmol/L (0.4-2.0) Calcium Level 9.2 mg/dL (8.5-10.1) Total Bilirubin 1.2 mg/dL (0.2-1.0) Aspartate Amino Transf (AST/SGOT) 17 U/L (15-37) Alanine Aminotransferase (ALT/SGPT) 24 U/L (16-63) Alkaline Phosphatase 130 U/L (46-116) Troponin I Quantitative < 0.017 ng/mL (0.000-0.055) Total Protein 7.0 g/dL (6.4-8.2) Albumin 3.4 g/dL (3.4-5.0) Albumin/Globulin Ratio 0.9 (1.0-1.7) Thyroid Stimulating Hormone (TSH) 0.986 uIU/mL (0.358-3.74) Free Thyroxine 1.31 ng/dL (0.76-1.46) Free Triiodothyronine (T3) pg/mL 1.62 pg/mL (2.18-3.98) Glucose (Fingerstick) 135 mg/dL (70-99) 104 mg/dL (70-99) 123 mg/dL (70-99) Test 03/16/19 17:24 03/16/19 20:32 03/17/19 03:30 03/17/19 03:35 Glucose (Fingerstick) 142 mg/dL (70-99) 176 mg/dL (70-99) Sodium Level 132 mmol/L (136-145) Potassium Level 4.7 mmol/L (3.5-5.1) Chloride Level 95 mmol/L (98-107) Carbon Dioxide Level 27 mmol/L (21-32) Anion Gap 10 (6-14) Blood Urea Nitrogen 56 mg/dL (8-26) Creatinine 5.2 mg/dL (0.7-1.3) Estimated GFR (Cockcroft-Gault) 11.4 Glucose Level 139 mg/dL (70-99) Calcium Level 9.0 mg/dL (8.5-10.1) Random Vancomycin Level 16.3 mcg/mL White Blood Count 6.3 x10^3/uL (4.0-11.0) Red Blood Count 3.14 x10^6/uL (4.30-5.70) Hemoglobin 8.8 g/dL (13.0-17.5) Hematocrit 26.0 % (39.0-53.0) Mean Corpuscular Volume 83 fL (79-100) Mean Corpuscular Hemoglobin 28 pg (25-35) Mean Corpuscular Hemoglobin Concent 34 g/dL (31-37) Red Cell Distribution Width 19.6 % (11.5-14.5) Platelet Count 146 x10^3/uL (140-400) Neutrophils (%) (Auto) 71 % (31-73) Lymphocytes (%) (Auto) 9 % (24-48) Monocytes (%) (Auto) 13 % (0-9) Eosinophils (%) (Auto) 6 % (0-3) Basophils (%) (Auto) 1 % (0-3) Neutrophils # (Auto) 4.5 x10^3/uL (1.8-7.7) Lymphocytes # (Auto) 0.5 x10^3/uL (1.0-4.8) Monocytes # (Auto) 0.8 x10^3/uL (0.0-1.1) Eosinophils # (Auto) 0.4 x10^3/uL (0.0-0.7) Basophils # (Auto) 0.1 x10^3/uL (0.0-0.2) Erythrocyte Sedimentation Rate 15 (0-15) Test 03/17/19 07:44 Glucose (Fingerstick) 102 mg/dL (70-99) Laboratory Tests Test 03/16/19 08:20 03/16/19 12:10 03/16/19 17:24 03/16/19 20:32 Glucose (Fingerstick) 104 mg/dL (70-99) 123 mg/dL (70-99) 142 mg/dL (70-99) 176 mg/dL (70-99) Test 03/17/19 03:30 03/17/19 03:35 03/17/19 07:44 Sodium Level 132 mmol/L (136-145) Potassium Level 4.7 mmol/L (3.5-5.1) Chloride Level 95 mmol/L (98-107) Carbon Dioxide Level 27 mmol/L (21-32) Anion Gap 10 (6-14) Blood Urea Nitrogen 56 mg/dL (8-26) Creatinine 5.2 mg/dL (0.7-1.3) Estimated GFR (Cockcroft-Gault) 11.4 Glucose Level 139 mg/dL (70-99) Calcium Level 9.0 mg/dL (8.5-10.1) Random Vancomycin Level 16.3 mcg/mL White Blood Count 6.3 x10^3/uL (4.0-11.0) Red Blood Count 3.14 x10^6/uL (4.30-5.70) Hemoglobin 8.8 g/dL (13.0-17.5) Hematocrit 26.0 % (39.0-53.0) Mean Corpuscular Volume 83 fL (79-100) Mean Corpuscular Hemoglobin 28 pg (25-35) Mean Corpuscular Hemoglobin Concent 34 g/dL (31-37) Red Cell Distribution Width 19.6 % (11.5-14.5) Platelet Count 146 x10^3/uL (140-400) Neutrophils (%) (Auto) 71 % (31-73) Lymphocytes (%) (Auto) 9 % (24-48) Monocytes (%) (Auto) 13 % (0-9) Eosinophils (%) (Auto) 6 % (0-3) Basophils (%) (Auto) 1 % (0-3) Neutrophils # (Auto) 4.5 x10^3/uL (1.8-7.7) Lymphocytes # (Auto) 0.5 x10^3/uL (1.0-4.8) Monocytes # (Auto) 0.8 x10^3/uL (0.0-1.1) Eosinophils # (Auto) 0.4 x10^3/uL (0.0-0.7) Basophils # (Auto) 0.1 x10^3/uL (0.0-0.2) Erythrocyte Sedimentation Rate 15 (0-15) Glucose (Fingerstick) 102 mg/dL (70-99) Microbiology 03/15/19 Blood Culture - Final, Complete Medications Current Medications Vancomycin HCl (Vanco Per Pharmacy) 1 each PRN DAILY PRN MC SEE COMMENTS Last administered on 03/16/19at 08:05; Start 03/15/19 at 11:15 Cefepime HCl (Maxipime) 1 gm 1X ONCE IVP Last administered on 03/15/19at 11:37; Start 03/15/19 at 11:15; Stop 03/15/19 at 11:23; Status DC Sodium Chloride 1,000 ml @ 1,000 mls/hr 1X ONCE IV Last administered on 03/15/19at 11:28; Start 03/15/19 at 11:30; Stop 03/15/19 at 12:29; Status DC Vancomycin HCl 2 gm/Sodium Chloride 500 ml @ 250 mls/hr 1X ONCE IV Last administered on 03/15/19 11:37; Start 03/15/19 at 11:30; Stop 03/15/19 at 13:29; Status DC Vancomycin HCl (Vancomycin Random Level) 1 each 1X ONCE MC Last administered on 03/17/19at 06:31; Start 03/17/19 at 06:00; Stop 03/17/19 at 06:01; Status DC Acetaminophen (Tylenol) 650 mg PRN Q6HRS PRN PO MILD PAIN / TEMP Last admi nistered on 03/15/19at 15:12; Start 03/15/19 at 15:00 Acetaminophen (Tylenol Supp) 650 mg STK-MED ONCE .ROUTE ; Start 03/15/19 at 15:04; Stop 03/15/19 at 15:04; Status DC Digoxin (Lanoxin) 250 mcg 1X ONCE IV Last administered on 03/15/19at 15:30; Start 03/15/19 at 15:30; Stop 03/15/19 at 15:31; Status DC Diltiazem HCl 125 mg/Dextrose 125 ml @ 2.5 mls/hr CONT PRN IV SEE I/O RECORD Last administered on 03/15/19at 15:40; Start 03/15/19 at 15:30 Digoxin (Lanoxin) 500 mcg STK-MED ONCE .ROUTE ; Start 03/15/19 at 15:26; Stop 03/15/19 at 15:26; Status DC Sodium Chloride 1,000 ml @ 1,000 mls/hr 1X ONCE IV Last administered on 03/15/19at 16:30; Start 03/15/19 at 14:00; Stop 03/15/19 at 16:33; Status DC Sodium Hypochlorite (Dakin'S 1/4 Strength) 1 edenilson DAILY TP ; Start 03/16/19 at 09:00; Stop 03/15/19 at 18:00; Status DC Sodium Hypochlorite (Dakin'S 1/4 Strength) 1 edenilson BID TP Last administered on 03/16/19 21:39; Start 03/15/19 at 21:00 Amlodipine Besylate (Norvasc) 5 mg DAILY PO Last administered on 03/16/19 08:18; Start 03/16/19 at 09:00; Stop 03/16/19 at 11:02; Status DC Apixaban (Eliquis) 2.5 mg BID PO Last administered on 03/16/19 21:39; Start 03/15/19 at 21:00 Ascorbic Acid (Vitamin C) 500 mg DAILY PO Last administered on 03/16/19 08:18; Start 03/16/19 at 09:00 Aspirin (Children'S Aspirin) 81 mg DAILYWBKFT PO Last administered on 03/16/19 08:18; Start 03/16/19 at 08:00 Furosemide (Lasix) 40 mg DAILY PO Last administered on 03/16/19 08:18; Start 03/16/19 at 09:00 Hydralazine HCl (Apresoline) 25 mg QID PO Last administered on 03/16/19 21:39; Start 03/15/19 at 21:00 Metoprolol Tartrate (Lopressor) 25 mg BID PO Last administered on 03/16/19 21:39; Start 03/15/19 at 21:00 Minoxidil (Loniten) 2.5 mg BID PO Last administered on 03/16/19 21:39; Start 03/15/19 at 21:00 Multivitamins (Thera M Plus) 1 tab DAILY PO Last administered on 03/16/19 08:18; Start 03/16/19 at 09:00 Polyethylene Glycol (miraLAX PACKET) 17 gm BID PO Last administered on 03/16/19 21:39; Start 03/15/19 at 21:00 Sevelamer Carbonate (Renvela) 800 mg TIDWMEALS PO Last administered on 03/16/19at 17:26; Start 03/16/19 at 08:00 Non-Formulary Medication (Pravastatin Sodium ) 1 tab HS PO ; Start 03/15/19 at 21:00; Status UNV Info (Anti-Coagulation Monitoring By Pharmacy) 1 each PRN DAILY PRN MC SEE COMMENTS Last administered on 03/16/19at 13:41; Start 03/15/19 at 18:45 Insulin Glargine (Lantus) 15 units QHS SQ Last administered on 03/16/19at 21:39; Start 03/15/19 at 21:00 Insulin Human Lispro (HumaLOG) 5 units TIDWMEALS SQ ; Start 03/16/19 at 08:00 Levothyroxine Sodium (Synthroid) 88 mcg DAILYAC PO Last administered on 03/16/19at 08:18; Start 03/16/19 at 07:30 Lactobacillus Rhamnosus (Culturelle) 1 cap BID PO Last administered on 03/16/19at 21:39; Start 03/16/19 at 21:00 Insulin Human Lispro (HumaLOG) 0-9 UNITS TIDWMEALS SQ ; Start 03/16/19 at 12:00 Dextrose (Dextrose 50%-Water Syringe) 12.5 gm PRN Q15MIN PRN IV SEE COMMENTS; Start 03/16/19 at 10:00 Dextrose 250 ml PRN Q15MIN PRN IV SEE COMMENTS; Start 03/16/19 at 10:00 Ondansetron HCl (Zofran) 4 mg PRN Q6HRS PRN IV NAUSEA/VOMITING; Start 03/16/19 at 10:00 Acetaminophen/ Hydrocodone Bitart (Lortab 5/325) 1 tab PRN Q4HRS PRN PO PAIN; Start 03/16/19 at 10:00 Temazepam (Restoril) 7.5 mg PRN QHS PRN PO INSOMNIA; Start 03/16/19 at 10:00 Clonidine HCl (Catapres) 0.1 mg PRN Q1HR PRN PO HYPERTENSION; Start 03/16/19 at 10:00 Amlodipine Besylate (Norvasc) 10 mg DAILY PO ; Start 03/17/19 at 09:00 Amlodipine Besylate (Norvasc) 5 mg 1X ONCE PO ; Start 03/16/19 at 11:15; Stop 03/16/19 at 11:16; Status DC Darbepoetin Derrek (ARANESP for DIALYSIS PTS) 60 mcg WEEKLYHS SQ Last administered on 03/16/19at 21:39; Start 03/16/19 at 21:00 Active Scripts Active Vitamin C (Ascorbic Acid) 500 Mg Tablet 500 Mg PO DAILY MDD 1 Thera-M Tablet (Multivits,Ca,Minerals/Iron/Fa) 1 Each Tablet 1 Tab PO DAILY MDD 1 Acetaminophen-Cod #3 Tablet (Acetaminophen/Codeine Phosphate) 1 Each Tablet 1 Tab PO PRN Q6HRS PRN MDD 1 Aspirin 81 Mg Tab.chew 81 Mg PO DAILYWBKFT MDD 1 Reported Levothyroxine Sodium 88 Mcg Tablet 88 Mcg PO DAILYAC Hydrocodone-Apap 7.5-325 (Hydrocodone Bit/Acetaminophen) 1 Tab Tablet 1 Tab PO PRN Q4HRS PRN Novolog Flexpen (Insulin Aspart) 100 Unit/1 Ml Insuln.pen 5 Unit SQ TIDWMEALS Lantus Solostar (Insulin Glargine,Hum.rec.anlog) 100 Unit/1 Ml Insuln.pen 15 Unit SQ QHS Renvela (Sevelamer Carbonate) 800 Mg Tablet 800 Mg PO TIDWMEALS Pravastatin Sodium 80 Mg Tablet 1 Tab PO HS Miralax (Polyethylene Glycol 3350) 17 Gm Powd.pack 1 Packet PO BID Minoxidil 2.5 Mg Tablet 2.5 Mg PO BID Metoprolol Tartrate 25 Mg Tablet 25 Mg PO BID Hydralazine Hcl 25 Mg Tablet 25 Mg PO QID Furosemide 40 Mg Tablet 40 Mg PO DAILY Eliquis (Apixaban) 2.5 Mg Tablet 2.5 Mg PO BID Amlodipine Besylate 5 Mg Tablet 5 Mg PO DAILY Vitals/I & O Vital Sign - Last 24 Hours 03/16/19 03/16/19 03/16/19 03/16/19 08:18 08:18 08:18 08:18 Pulse 72 77 75 80 B/P (MAP) 153/75 153/75 153/75 153/75 03/16/19 03/16/19 03/16/19 03/16/19 09:00 10:00 11:00 12:13 Pulse 77 83 81 80 Resp 18 20 20 B/P (MAP) 154/77 (102) 143/75 (97) 141/77 Pulse Ox 100 100 100 O2 Delivery Nasal Cannula Nasal Cannula Nasal Cannula O2 Flow Rate 2.0 2.0 2.0 03/16/19 03/16/19 03/16/19 03/16/19 16:00 17:26 17:30 19:39 Temp 98.2 98.8 98.2 98.2 98.8 98.2 Pulse 92 92 99 109 Resp 18 B/P (MAP) 130/72 (91) 130/72 156/73 (100) 110/56 (74) Pulse Ox 100 100 98 O2 Delivery Nasal Cannula Nasal Cannula Nasal Cannula O2 Flow Rate 2.0 2.0 2.0 03/16/19 03/16/19 03/16/19 03/16/19 20:00 21:39 21:39 21:39 Pulse 109 109 109 B/P (MAP) 110/56 110/56 110/56 O2 Delivery Nasal Cannula O2 Flow Rate 2.0 03/16/19 03/17/19 03/17/19 23:17 03:02 07:54 Temp 98.5 98.4 98.1 98.5 98.4 98.1 Pulse 94 86 82 Resp 16 20 20 B/P (MAP) 126/70 (88) 101/50 (67) 139/64 (89) Pulse Ox 99 96 98 O2 Delivery Nasal Cannula Nasal Cannula Room Air O2 Flow Rate 2.0 2.0 Intake and Output 03/16/19 03/16/19 03/17/19 14:59 22:59 06:59 Intake Total 1500 ml 300 ml Output Total 300 ml Balance 1200 ml 300 ml ADY CHAPMAN MD Mar 17, 2019 08:18
--- NOTE | 2019-03-17 08:33 | PDOC ---
Infectious Disease Note Subjective: Subjective pt is doing ok still has swelling and some pain in the legs no f/c/n/v/d Vital Signs: Vital Signs Vital Signs Date Time Temp Pulse Resp B/P (MAP) Pulse Ox O2 Delivery O2 Flow Rate FiO2 03/17/19 07:54 98.1 82 20 139/64 (89) 98 Room Air 98.1 03/17/19 03:02 2.0 Physical Exam: PHYSICAL EXAM GENERAL: The patient is propped up in bed, alert, watching TV. HEENT: Pupils equally round. Oropharynx pink and dry. NECK: Supple. LUNGS: Clear to auscultation. HEART: S1, S2. ABDOMEN: Soft and nontender with bowel sounds present. EXTREMITIES: Trace edema of lower extremities bilaterally. No cyanosis. He has a wound on both lower legs that are currently bandaged. Pictures reviewed. SKIN: Warm to touch. No signs of rash. NEUROLOGIC: Alert and oriented x 3. A right-sided HD catheter without signs of any complications. Medications: Inpatient Meds: Current Medications Medications (Trade) Dose Ordered Sig/Rochelle Start Time Stop Time Status Last Admin Dose Admin Acetaminophen (Tylenol Supp) 650 mg STK-MED ONCE 03/15/19 15:04 03/15/19 15:04 DC Acetaminophen (Tylenol) 650 mg PRN Q6HRS PRN 03/15/19 15:00 03/15/19 15:12 650 MG Acetaminophen/ Hydrocodone Bitart (Lortab 5/325) 1 tab PRN Q4HRS PRN 03/16/19 10:00 Amlodipine Besylate (Norvasc) 5 mg 1X ONCE 03/16/19 11:15 03/16/19 11:16 DC Apixaban (Eliquis) 2.5 mg BID 03/15/19 21:00 03/16/19 21:39 2.5 MG Ascorbic Acid (Vitamin C) 500 mg DAILY 03/16/19 09:00 03/16/19 08:18 500 MG Aspirin (Children'S Aspirin) 81 mg DAILYWBKFT 03/16/19 08:00 03/16/19 08:18 81 MG Cefepime HCl (Maxipime) 1 gm 1X ONCE 03/15/19 11:15 03/15/19 11:23 DC 03/15/19 11:37 1 GM Clonidine HCl (Catapres) 0.1 mg PRN Q1HR PRN 03/16/19 10:00 Darbepoetin Derrek (ARANESP for DIALYSIS PTS) 60 mcg WEEKLYHS 03/16/19 21:00 03/16/19 21:39 60 MCG Dextrose 250 ml PRN Q15MIN PRN 03/16/19 10:00 Dextrose (Dextrose 50%-Water Syringe) 12.5 gm PRN Q15MIN PRN 03/16/19 10:00 Digoxin (Lanoxin) 500 mcg STK-MED ONCE 03/15/19 15:26 03/15/19 15:26 DC Diltiazem HCl 125 mg/Dextrose 125 ml @ 2.5 mls/hr CONT PRN 03/15/19 15:30 03/15/19 15:40 2.5 MLS/HR Furosemide (Lasix) 40 mg DAILY 03/16/19 09:00 03/16/19 08:18 40 MG Hydralazine HCl (Apresoline) 25 mg QID 03/15/19 21:00 03/16/19 21:39 25 MG Info (Anti-Coagulation Monitoring By Pharmacy) 1 each PRN DAILY PRN 03/15/19 18:45 03/16/19 13:41 1 EACH Insulin Glargine (Lantus) 15 units QHS 03/15/19 21:00 03/16/19 21:39 15 UNITS Insulin Human Lispro (HumaLOG) 0-9 UNITS TIDWMEALS 03/16/19 12:00 Lactobacillus Rhamnosus (Culturelle) 1 cap BID 03/16/19 21:00 03/16/19 21:39 1 CAP Levothyroxine Sodium (Synthroid) 88 mcg DAILYAC 03/16/19 07:30 03/16/19 08:18 88 MCG Metoprolol Tartrate (Lopressor) 25 mg BID 03/15/19 21:00 03/16/19 21:39 25 MG Minoxidil (Loniten) 2.5 mg BID 03/15/19 21:00 03/16/19 21:39 2.5 MG Multivitamins (Thera M Plus) 1 tab DAILY 03/16/19 09:00 03/16/19 08:18 1 TAB Non-Formulary Medication (Pravastatin Sodium ) 1 tab HS 03/15/19 21:00 UNV Ondansetron HCl (Zofran) 4 mg PRN Q6HRS PRN 03/16/19 10:00 Polyethylene Glycol (miraLAX PACKET) 17 gm BID 03/15/19 21:00 03/16/19 21:39 17 GM Sevelamer Carbonate (Renvela) 800 mg TIDWMEALS 03/16/19 08:00 03/16/19 17:26 800 MG Sodium Hypochlorite (Dakin'S 1/4 Strength) 1 edenilson BID 03/15/19 21:00 03/16/19 21:39 1 EDENILSON Sodium Chloride 1,000 ml @ 1,000 mls/hr 1X ONCE 03/15/19 14:00 03/15/19 16:33 DC 03/15/19 16:30 1,000 MLS/HR Temazepam (Restoril) 7.5 mg PRN QHS PRN 03/16/19 10:00 Vancomycin HCl (Vanco Per Pharmacy) 1 each PRN DAILY PRN 03/15/19 11:15 03/16/19 08:05 1 EACH Vancomycin HCl (Vancomycin Random Level) 1 each 1X ONCE 03/17/19 06:00 03/17/19 06:01 DC 03/17/19 06:31 1 EACH Vancomycin HCl 2 gm/Sodium Chloride 500 ml @ 250 mls/hr 1X ONCE 03/15/19 11:30 03/15/19 13:29 DC 03/15/19 11:37 250 MLS/HR Labs: Lab Laboratory Tests Test 03/16/19 12:10 03/16/19 17:24 03/16/19 20:32 03/17/19 03:30 Glucose (Fingerstick) 123 mg/dL (70-99) 142 mg/dL (70-99) 176 mg/dL (70-99) Sodium Level 132 mmol/L (136-145) Potassium Level 4.7 mmol/L (3.5-5.1) Chloride Level 95 mmol/L (98-107) Carbon Dioxide Level 27 mmol/L (21-32) Anion Gap 10 (6-14) Blood Urea Nitrogen 56 mg/dL (8-26) Creatinine 5.2 mg/dL (0.7-1.3) Estimated GFR (Cockcroft-Gault) 11.4 Glucose Level 139 mg/dL (70-99) Calcium Level 9.0 mg/dL (8.5-10.1) Random Vancomycin Level 16.3 mcg/mL Test 03/17/19 03:35 03/17/19 07:44 White Blood Count 6.3 x10^3/uL (4.0-11.0) Red Blood Count 3.14 x10^6/uL (4.30-5.70) Hemoglobin 8.8 g/dL (13.0-17.5) Hematocrit 26.0 % (39.0-53.0) Mean Corpuscular Volume 83 fL (79-100) Mean Corpuscular Hemoglobin 28 pg (25-35) Mean Corpuscular Hemoglobin Concent 34 g/dL (31-37) Red Cell Distribution Width 19.6 % (11.5-14.5) Platelet Count 146 x10^3/uL (140-400) Neutrophils (%) (Auto) 71 % (31-73) Lymphocytes (%) (Auto) 9 % (24-48) Monocytes (%) (Auto) 13 % (0-9) Eosinophils (%) (Auto) 6 % (0-3) Basophils (%) (Auto) 1 % (0-3) Neutrophils # (Auto) 4.5 x10^3/uL (1.8-7.7) Lymphocytes # (Auto) 0.5 x10^3/uL (1.0-4.8) Monocytes # (Auto) 0.8 x10^3/uL (0.0-1.1) Eosinophils # (Auto) 0.4 x10^3/uL (0.0-0.7) Basophils # (Auto) 0.1 x10^3/uL (0.0-0.2) Erythrocyte Sedimentation Rate 15 (0-15) Glucose (Fingerstick) 102 mg/dL (70-99) Micro RUN DATE: 03/16/19 PAGE 1 RUN TIME: 2597 [facility] [address] [place] [address] Roly Reece M.D., Business Process Representative PATIENT: JAN YUNG ACCT: [id number] LOC: [address] [facility] U: [id number] AGE/SX: 58/M ROOM: 111 RE03/15/[address]: IKE CORTEZ III, DO : 1960 BED: 1 DIS: STATUS: ADM IN TLOC: SPEC #: [id number] ELLEN: 03/15/19 STATUS: COMP REQ #: [id number] RECD: 03/15/[address]: LIZ NAVARRO DO SOURCE: BLOOD ENTR: 03/15/19-[address] [facility] DR: FARHAD PURVIS MD [facility]: ORDERED: BCULT -- Procedure Result BLOOD CULTURE Final GRAM POSITIVE COCCI IN CLUSTER 1 SET DRAWN, 2 OF 2 POSITIVE CALLED TO GENO HART RN IN ICU BY Liliane JOYA,03/16/19,0755 SPECIMEN SENDING TO LAB [facility] FOR FURTHER WORK UP ------ ------ Objective: Assessment: 1. Gram-positive cocci bacteremia with sepsis present on admission.ID and ISAAC pending 2. Infected hemodialysis catheter, status post removal 03/05 and replaced 03/07 per the patient's account. 3. Fever. 4. ANTIBIOTIC ALLERGY TO PENICILLIN WITH ANAPHYLACTIC TYPE REACTION IN CHILDHOOD AND SULFA WITH HIVES. 5. History of methicillin-resistant Staphylococcus aureus. 6. Chronic wounds, lower extremities bilaterally. [facility]. 7. End-stage renal disease, on hemodialysis. 8. Peripheral vascular disease. 9. Diabetes with peripheral neuropathy. 10. Atrial fibrillation. Plan: Plan of Care Apparently a culture of the drainage from the HDC was taken at [facility] per patient report F/U results from clinic not avaiable for my review at this time f/u GPC on BC here repeat BC continue the vancomycin. Wound care team following One time dose Cefepime, 03/15 Probiotics f/u echo report D/w nursing BRI RIOS MD Mar 17, 2019 08:33
[2019-03-17] MEDS: POLYETHYLENE GLYCOL 3350 17 GM PACKET. PO SCH ×2 (09:00→21:25)
[2019-03-17] MEDS: SEVELAMER CARBONATE 800 MG TABLET. PO SCH ×3 (09:14→18:05)
[2019-03-17] MEDS: FUROSEMIDE 40 MG TABLET. PO SCH (09:14)
[2019-03-17] MEDS: METOPROLOL TART IMMED RELEASE 25 MG TABLET. PO SCH ×2 (09:15→21:33)
[2019-03-17] MEDS: MINOXIDIL 2.5 MG TABLET PO SCH ×2 (09:15→21:27)
[2019-03-17] MEDS: MULTIVITAMIN with MINERAL TABLET. PO SCH (09:15)
[2019-03-17] MEDS: amLODIPine BESYLATE 5 MG TABLET PO SCH (09:15)
[2019-03-17] MEDS: ASPIRIN CHEWABLE 81 MG TABLET. PO SCH (09:16)
[2019-03-17] MEDS: APIXABAN 2.5 MG TABLET. PO SCH ×2 (09:16→21:26)
[2019-03-17] MEDS: LEVOTHYROXINE 88 MCG TABLET PO SCH (09:16)
[2019-03-17] MEDS: LACTOBACILLUS RHAMNOSUS GG 1 CAPSULE. PO SCH ×2 (09:16→21:26)
[2019-03-17] MEDS: ASCORBIC ACID 500 MG TABLET PO SCH (09:16)
[2019-03-17] MEDS: hydrALAZINE 25 MG TABLET PO SCH ×4 (09:16→21:27)
[2019-03-17] MEDS: SODIUM HYPOCHLORITE 0.125% 473 ML BOTTLE. TP SCH ×2 (09:17→21:29)
--- NOTE | 2019-03-17 09:47 | CARD ---
MR#: [id number] Date of Study: 03/17/2019 Ordering Physician: GUSTAVO COOLEY, Referring Physician: GUSTAVO COOLEY, Tech: Brisa Gallegos APPROVED REPORT EXAM: Two-dimensional and M-mode echocardiogram with Doppler and color Doppler. Other Information Quality : AverageHR: 80bpm Technically limited study due to body habitus. INDICATION Arrhythmia Atrial Fibrillation Sepsis RISK FACTORS Hypertension Hyperlipidemia Diabetes 2D DIMENSIONS RVDd3.4 (2.9-3.5cm)Left Atrium(2D)4.8 (1.6-4.0cm) IVSd1.5 (0.7-1.1cm)Aortic Root(2D)2.7 (2.0-3.7cm) LVDd5.7 (3.9-5.9cm)LVOT Diameter2.0 (1.8-2.4cm) PWd1.3 (0.7-1.1cm)LVDs3.8 (2.5-4.0cm) FS (%) 32.2 %SV93.8 ml LVEF(%)59.7 (>50%) Aortic Valve AoV Peak Elia.150.8cm/sAoV VTI33.2cm AO Peak GR.9.1mmHgLVOT VTI 19.00cm AO Mean GR.8mmHg Mitral Valve MV E Hkbqwqzo597.7cm/sMV DECEL [id number] MV A Kidjotxu38.1cm/sE/A Ratio3.7 TDI Lateral E' P. V8.62cm/sMedial E' P. V7.72cm/s E/Lateral E'16.7E/Medial E'18.6 Tricuspid Valve TR P. Jptblvob932ja/sRAP BYWCFGVR2ccSz TR Peak Gr.92ojHeDZPA08ynNw Pulmonary Vein S1 Dzgowxye62.1cm/sS2 Viegxgvi13.64cm/s D2 Emakmxhk08.6cm/s LEFT VENTRICLE The left ventricle is normal size. There is mild concentric left ventricular hypertrophy. The left ve ntricular systolic function is normal and the ejection fraction is within normal range. The Ejection Fraction is 55-60%. There is normal LV segmental wall motion. Diastology indeterminate due to atrial fibrillation. RIGHT VENTRICLE The right ventricle is mildly dilated. There is normal right ventricular wall thickness. Systolic fun ction is mildly reduced. ATRIA The left atrium is mildly dilated. The right atrium is mildly dilated. The interatrial septum is inta ct with no evidence for an atrial septal defect or patent foramen ovale as noted on 2-D or Doppler im aging. AORTIC VALVE The aortic valve is normal in structure and function. Doppler and Color Flow revealed trace aortic re gurgitation. There is no significant aortic valvular stenosis. MITRAL VALVE The mitral valve is thickened but opens well. Mitral annular calcification is mild to moderate. There is no evidence of mitral valve prolapse. There is no mitral valve stenosis. Doppler and Color-flow r evealed trace mitral regurgitation. TRICUSPID VALVE The tricuspid valve is normal in structure and function. Doppler and Color Flow revealed trace tricus pid regurgitation with an estimated PAP of 42 mmHg. There is no tricuspid valve prolapse or vegetatio n. There is no tricuspid valve stenosis. PULMONIC VALVE The pulmonary valve is normal in structure and function. Doppler and Color Flow revealed trace pulmon ic valvular regurgitation. GREAT VESSELS The aortic root is normal in size. The IVC is normal in size and collapses >50% with inspiration. PERICARDIAL EFFUSION There is no evidence of significant pericardial effusion. Critical Notification Critical Value: No <Conclusion> The left ventricle is normal size. The left ventricular systolic function is normal and the ejection fraction is within normal range. The Ejection Fraction is 55-60%. There is mild concentric left ventricular hypertrophy. There is no significant aortic valvular stenosis. Doppler and Color Flow revealed trace aortic regurgitation. Doppler and Color-flow revealed trace mitral regurgitation. Doppler and Color Flow revealed trace tricuspid regurgitation with an estimated PAP of 42 mmHg. Signed by : Gustavo Cooley MD Electronically Approved : 03/17/2019 09:46:51
--- NOTE | 2019-03-17 10:06 | NUR ---
IP: Pt has a hx of + mrsa screen on 01/03/19. Pt to be in contact precautions until treatment completed and 2 negative screens 7 days apart.
[2019-03-17] MEDS ORDERED: IV NORMAL SALINE 1000ML BAG 1,000 ML IV PRN ×2 (10:16)
--- NOTE | 2019-03-17 10:29 | PDOC ---
SUBJECTIVE ROS Stable OBJECTIVE Vital Signs Vital Signs Date Time Temp Pulse Resp B/P (MAP) Pulse Ox O2 Delivery O2 Flow Rate FiO2 03/17/19 09:17 82 139/64 03/17/19 08:00 Nasal Cannula 2.0 03/17/19 07:54 98.1 20 98 98.1 I & 0 Intake and Output 03/17/19 07:00 Intake Total 1800 ml Output Total 300 ml Balance 1500 ml Intake Oral 1800 ml Output Urine Total 300 ml # Bowel Movements 1 PHYSICAL EXAM Physical Exam GENERAL: NAD HEENT: OM moist NECK: Supple. LUNGS: Clear to auscultation. HEART: S1, S2. ABDOMEN: Soft and nontender with bowel sounds present. EXTREMITIES: Trace edema of lower extremities bilaterally. No cyanosis. He has a wound on both lower legs that are currently bandaged. SKIN: No signs of rash. NEUROLOGIC: Alert and oriented x 3. DIAGNOSIS/ASSESSMENT Assessment & Plan ESRD - On HD MWF Dialysis today as ordered. Jermaine Yao Lt Arm AVF - Not ready to use Sepsis with G+ Cocci DM II HTN ANEMIA LE WOUNDS-CELLULITIS AFIB LEFT ARM AVF NOT READY FOR USE YET BUT CLOSE COMMENT/RELEVANT DATA Meds Current Medications Medications (Trade) Dose Ordered Sig/Rochelle Start Time Stop Time Status Last Admin Dose Admin Acetaminophen (Tylenol Supp) 650 mg STK-MED ONCE 03/15/19 15:04 03/15/19 15:04 DC Acetaminophen (Tylenol) 650 mg PRN Q6HRS PRN 03/15/19 15:00 03/15/19 15:12 650 MG Acetaminophen/ Hydrocodone Bitart (Lortab 5/325) 1 tab PRN Q4HRS PRN 03/16/19 10:00 Albumin Human 200 ml @ 200 mls/hr 1X PRN PRN 03/17/19 10:30 03/17/19 16:29 Amlodipine Besylate (Norvasc) 5 mg 1X ONCE 03/16/19 11:15 03/16/19 11:16 DC Apixaban (Eliquis) 2.5 mg BID 03/15/19 21:00 03/17/19 09:17 2.5 MG Ascorbic Acid (Vitamin C) 500 mg DAILY 03/16/19 09:00 03/17/19 09:17 500 MG Aspirin (Children'S Aspirin) 81 mg DAILYWBKFT 03/16/19 08:00 03/17/19 09:17 81 MG Cefepime HCl (Maxipime) 1 gm 1X ONCE 03/15/19 11:15 03/15/19 11:23 DC 03/15/19 11:37 1 GM Clonidine HCl (Catapres) 0.1 mg PRN Q1HR PRN 03/16/19 10:00 Darbepoetin Derrek (ARANESP for DIALYSIS PTS) 60 mcg WEEKLYHS 03/16/19 21:00 03/16/19 21:39 60 MCG Dextrose 250 ml PRN Q15MIN PRN 03/16/19 10:00 Dextrose (Dextrose 50%-Water Syringe) 12.5 gm PRN Q15MIN PRN 03/16/19 10:00 Digoxin (Lanoxin) 500 mcg STK-MED ONCE 03/15/19 15:26 03/15/19 15:26 DC Diltiazem HCl 125 mg/Dextrose 125 ml @ 2.5 mls/hr CONT PRN 03/15/19 15:30 03/15/19 15:40 2.5 MLS/HR Furosemide (Lasix) 40 mg DAILY 03/16/19 09:00 03/17/19 09:17 40 MG Hydralazine HCl (Apresoline) 25 mg QID 03/15/19 21:00 03/17/19 09:17 25 MG Info (Anti-Coagulation Monitoring By Pharmacy) 1 each PRN DAILY PRN 03/15/19 18:45 03/16/19 13:41 1 EACH Info (PHARMACY MONITORING -- do not chart) 1 each PRN DAILY PRN 03/17/19 10:30 Insulin Glargine (Lantus) 15 units QHS 03/15/19 21:00 03/16/19 21:39 15 UNITS Insulin Human Lispro (HumaLOG) 0-9 UNITS TIDWMEALS 03/16/19 12:00 Lactobacillus Rhamnosus (Culturelle) 1 cap BID 03/16/19 21:00 03/17/19 09:17 1 CAP Levothyroxine Sodium (Synthroid) 88 mcg DAILYAC 03/16/19 07:30 03/17/19 09:17 88 MCG Metoprolol Tartrate (Lopressor) 25 mg BID 03/15/19 21:00 03/17/19 09:17 25 MG Minoxidil (Loniten) 2.5 mg BID 03/15/19 21:00 03/17/19 09:17 2.5 MG Multivitamins (Thera M Plus) 1 tab DAILY 03/16/19 09:00 03/17/19 09:17 1 TAB Non-Formulary Medication (Pravastatin Sodium ) 1 tab HS 03/15/19 21:00 UNV Ondansetron HCl (Zofran) 4 mg PRN Q6HRS PRN 03/16/19 10:00 Polyethylene Glycol (miraLAX PACKET) 17 gm BID 03/15/19 21:00 03/16/19 21:39 17 GM Sevelamer Carbonate (Renvela) 800 mg TIDWMEALS 03/16/19 08:00 03/17/19 09:17 800 MG Sodium Hypochlorite (Dakin'S 1/4 Strength) 1 edenilson BID 03/15/19 21:00 03/17/19 09:17 1 EDENILSON Sodium Chloride 1,000 ml @ 400 mls/hr Q2H30M PRN 03/17/19 10:16 03/17/19 22:15 Sodium Chloride (Normal Saline Flush) 10 ml 1X PRN PRN 03/17/19 10:30 03/18/19 10:29 Temazepam (Restoril) 7.5 mg PRN QHS PRN 03/16/19 10:00 Vancomycin HCl (Vanco Per Pharmacy) 1 each PRN DAILY PRN 03/15/19 11:15 03/16/19 08:05 1 EACH Vancomycin HCl (Vancomycin Random Level) 1 each 1X ONCE 03/17/19 06:00 03/17/19 06:01 DC 03/17/19 06:31 1 EACH Vancomycin HCl 2 gm/Sodium Chloride 500 ml @ 250 mls/hr 1X ONCE 03/15/19 11:30 03/15/19 13:29 DC 03/15/19 11:37 250 MLS/HR Lab Laboratory Tests Test 03/16/19 12:10 03/16/19 17:24 03/16/19 20:32 03/17/19 03:30 Glucose (Fingerstick) 123 mg/dL (70-99) 142 mg/dL (70-99) 176 mg/dL (70-99) Sodium Level 132 mmol/L (136-145) Potassium Level 4.7 mmol/L (3.5-5.1) Chloride Level 95 mmol/L (98-107) Carbon Dioxide Level 27 mmol/L (21-32) Anion Gap 10 (6-14) Blood Urea Nitrogen 56 mg/dL (8-26) Creatinine 5.2 mg/dL (0.7-1.3) Estimated GFR (Cockcroft-Gault) 11.4 Glucose Level 139 mg/dL (70-99) Calcium Level 9.0 mg/dL (8.5-10.1) Random Vancomycin Level 16.3 mcg/mL Test 03/17/19 03:35 03/17/19 07:44 White Blood Count 6.3 x10^3/uL (4.0-11.0) Red Blood Count 3.14 x10^6/uL (4.30-5.70) Hemoglobin 8.8 g/dL (13.0-17.5) Hematocrit 26.0 % (39.0-53.0) Mean Corpuscular Volume 83 fL (79-100) Mean Corpuscular Hemoglobin 28 pg (25-35) Mean Corpuscular Hemoglobin Concent 34 g/dL (31-37) Red Cell Distribution Width 19.6 % (11.5-14.5) Platelet Count 146 x10^3/uL (140-400) Neutrophils (%) (Auto) 71 % (31-73) Lymphocytes (%) (Auto) 9 % (24-48) Monocytes (%) (Auto) 13 % (0-9) Eosinophils (%) (Auto) 6 % (0-3) Basophils (%) (Auto) 1 % (0-3) Neutrophils # (Auto) 4.5 x10^3/uL (1.8-7.7) Lymphocytes # (Auto) 0.5 x10^3/uL (1.0-4.8) Monocytes # (Auto) 0.8 x10^3/uL (0.0-1.1) Eosinophils # (Auto) 0.4 x10^3/uL (0.0-0.7) Basophils # (Auto) 0.1 x10^3/uL (0.0-0.2) Erythrocyte Sedimentation Rate 15 (0-15) Glucose (Fingerstick) 102 mg/dL (70-99) Results All relevant outside records, renal labs, imaging studies, telemetry/EKG's were reviewed. NOLAN ALEXANDER MD Mar 17, 2019 10:29
[2019-03-17] MEDS ORDERED: 0.9 % SODIUM CHLORIDE 10 ML DISP.SYRIN. IV PRN ×2 (10:30)
[2019-03-17] MEDS ORDERED: ALBUMIN HUMAN 25% 200 ML IV PRN (10:30)
[2019-03-17] MEDS ORDERED: DIALYSIS PATIENT. MC PRN ×2 (10:30)
[2019-03-17 11:08] VITALS: BP 139/76
[2019-03-17] MEDS: VANCOMYCIN PER PHARMACY MC PRN ×3 (13:52→13:55)
--- NOTE | 2019-03-17 15:05 | NUR ---
Wound care: Attempted to see patient regarding wound care. Patient is off unit at this time in dialysis. Will see patient tomorrow. Spoke with RN regarding POC.
--- NOTE | 2019-03-17 15:46 | NUR ---
SS following for discharge planning. SS reviewed pt chart. SS received notification that pt was from [facility], ; fax [phone]. SS contacted [facility] and verified that pt was a LTC resident from there facility and was able to return when medically stable for discharge.
--- NOTE | 2019-03-17 16:50 | PDOC ---
PROGRESS NOTES Subjective Subjective Patient seen and examined He looks and feels better today. Objective Objective Vital Signs Date Time Temp Pulse Resp B/P (MAP) Pulse Ox O2 Delivery O2 Flow Rate FiO2 03/17/19 12:46 80 139/76 03/17/19 11:08 98.1 20 99 Room Air 98.1 03/17/19 08:00 2.0 Intake and Output 03/17/19 07:00 Intake Total 1800 ml Output Total 300 ml Balance 1500 ml Intake Oral 1800 ml Output Urine Total 300 ml # Bowel Movements 1 Physical Exam Abdomen: Normal bowel sounds Heart: Other (irreg. 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 Rate controlled atrial fib. Continue rate control meds. Continue anticoagulation. Echocardiogram shows normal LV systolic function. 2. ESRD. HD as per renal. 3. Cellulitis. Ab as per ID. 4. PVD. Being followed by vasc. surgery. Comment Review of Relevant I have reviewed the following items kendra (where applicable) has been applied. Labs Laboratory Tests Test 03/15/19 21:09 03/16/19 08:20 03/16/19 12:10 03/16/19 17:24 Glucose (Fingerstick) 135 mg/dL (70-99) 104 mg/dL (70-99) 123 mg/dL (70-99) 142 mg/dL (70-99) Test 03/16/19 20:32 03/17/19 03:30 03/17/19 03:35 03/17/19 07:44 Glucose (Fingerstick) 176 mg/dL (70-99) 102 mg/dL (70-99) Sodium Level 132 mmol/L (136-145) Potassium Level 4.7 mmol/L (3.5-5.1) Chloride Level 95 mmol/L (98-107) Carbon Dioxide Level 27 mmol/L (21-32) Anion Gap 10 (6-14) Blood Urea Nitrogen 56 mg/dL (8-26) Creatinine 5.2 mg/dL (0.7-1.3) Estimated GFR (Cockcroft-Gault) 11.4 Glucose Level 139 mg/dL (70-99) Calcium Level 9.0 mg/dL (8.5-10.1) Random Vancomycin Level 16.3 mcg/mL White Blood Count 6.3 x10^3/uL (4.0-11.0) Red Blood Count 3.14 x10^6/uL (4.30-5.70) Hemoglobin 8.8 g/dL (13.0-17.5) Hematocrit 26.0 % (39.0-53.0) Mean Corpuscular Volume 83 fL (79-100) Mean Corpuscular Hemoglobin 28 pg (25-35) Mean Corpuscular Hemoglobin Concent 34 g/dL (31-37) Red Cell Distribution Width 19.6 % (11.5-14.5) Platelet Count 146 x10^3/uL (140-400) Neutrophils (%) (Auto) 71 % (31-73) Lymphocytes (%) (Auto) 9 % (24-48) Monocytes (%) (Auto) 13 % (0-9) Eosinophils (%) (Auto) 6 % (0-3) Basophils (%) (Auto) 1 % (0-3) Neutrophils # (Auto) 4.5 x10^3/uL (1.8-7.7) Lymphocytes # (Auto) 0.5 x10^3/uL (1.0-4.8) Monocytes # (Auto) 0.8 x10^3/uL (0.0-1.1) Eosinophils # (Auto) 0.4 x10^3/uL (0.0-0.7) Basophils # (Auto) 0.1 x10^3/uL (0.0-0.2) Erythrocyte Sedimentation Rate 15 (0-15) Test 03/17/19 12:35 Glucose (Fingerstick) 129 mg/dL (70-99) Laboratory Tests Test 03/16/19 17:24 03/16/19 20:32 03/17/19 03:30 03/17/19 03:35 Glucose (Fingerstick) 142 mg/dL (70-99) 176 mg/dL (70-99) Sodium Level 132 mmol/L (136-145) Potassium Level 4.7 mmol/L (3.5-5.1) Chloride Level 95 mmol/L (98-107) Carbon Dioxide Level 27 mmol/L (21-32) Anion Gap 10 (6-14) Blood Urea Nitrogen 56 mg/dL (8-26) Creatinine 5.2 mg/dL (0.7-1.3) Estimated GFR (Cockcroft-Gault) 11.4 Glucose Level 139 mg/dL (70-99) Calcium Level 9.0 mg/dL (8.5-10.1) Random Vancomycin Level 16.3 mcg/mL White Blood Count 6.3 x10^3/uL (4.0-11.0) Red Blood Count 3.14 x10^6/uL (4.30-5.70) Hemoglobin 8.8 g/dL (13.0-17.5) Hematocrit 26.0 % (39.0-53.0) Mean Corpuscular Volume 83 fL (79-100) Mean Corpuscular Hemoglobin 28 pg (25-35) Mean Corpuscular Hemoglobin Concent 34 g/dL (31-37) Red Cell Distribution Width 19.6 % (11.5-14.5) Platelet Count 146 x10^3/uL (140-400) Neutrophils (%) (Auto) 71 % (31-73) Lymphocytes (%) (Auto) 9 % (24-48) Monocytes (%) (Auto) 13 % (0-9) Eosinophils (%) (Auto) 6 % (0-3) Basophils (%) (Auto) 1 % (0-3) Neutrophils # (Auto) 4.5 x10^3/uL (1.8-7.7) Lymphocytes # (Auto) 0.5 x10^3/uL (1.0-4.8) Monocytes # (Auto) 0.8 x10^3/uL (0.0-1.1) Eosinophils # (Auto) 0.4 x10^3/uL (0.0-0.7) Basophils # (Auto) 0.1 x10^3/uL (0.0-0.2) Erythrocyte Sedimentation Rate 15 (0-15) Test 03/17/19 07:44 03/17/19 12:35 Glucose (Fingerstick) 102 mg/dL (70-99) 129 mg/dL (70-99) Microbiology 03/15/19 Blood Culture - Final, Complete Medications Current Medications Vancomycin HCl (Vanco Per Pharmacy) 1 each PRN DAILY PRN MC SEE COMMENTS Last administered on 03/17/19 13:55; Start 03/15/19 at 11:15 Cefepime HCl (Maxipime) 1 gm 1X ONCE IVP Last administered on 03/15/19 11:37; Start 03/15/19 at 11:15; Stop 03/15/19 at 11:23; Status DC Sodium Chloride 1,000 ml @ 1,000 mls/hr 1X ONCE IV Last administered on 03/15/19at 11:28; Start 03/15/19 at 11:30; Stop 03/15/19 at 12:29; Status DC Vancomycin HCl 2 gm/Sodium Chloride 500 ml @ 250 mls/hr 1X ONCE IV Last administered on 03/15/19 11:37; Start 03/15/19 at 11:30; Stop 03/15/19 at 13:29; Status DC Vancomycin HCl (Vancomycin Random Level) 1 each 1X ONCE MC Last administered on 03/17/19at 06:31; Start 03/17/19 at 06:00; Stop 03/17/19 at 06:01; Status DC Acetaminophen (Tylenol) 650 mg PRN Q6HRS PRN PO MILD PAIN / TEMP Last administered on 03/15/19at 15:12; Start 03/15/19 at 15:00 Acetaminophen (Tylenol Supp) 650 mg STK-MED ONCE .ROUTE ; Start 03/15/19 at 15:04; Stop 03/15/19 at 15:04; Status DC Digoxin (Lanoxin) 250 mcg 1X ONCE IV Last administered on 03/15/19at 15:30; Start 03/15/19 at 15:30; Stop 03/15/19 at 15:31; Status DC Diltiazem HCl 125 mg/Dextrose 125 ml @ 2.5 mls/hr CONT PRN IV SEE I/O RECORD Last administered on 03/15/19at 15:40; Start 03/15/19 at 15:30 Digoxin (Lanoxin) 500 mcg STK-MED ONCE .ROUTE ; Start 03/15/19 at 15:26; Stop 03/15/19 at 15:26; Status DC Sodium Chloride 1,000 ml @ 1,000 mls/hr 1X ONCE IV Last administered on 03/15/19at 16:30; Start 03/15/19 at 14:00; Stop 03/15/19 at 16:33; Status DC Sodium Hypochlorite (Dakin'S 1/4 Strength) 1 edenilson DAILY TP ; Start 03/16/19 at 09:00; Stop 03/15/19 at 18:00; Status DC Sodium Hypochlorite (Dakin'S 1/4 Strength) 1 edenilson BID TP Last administered on 03/17/19 09:17; Start 03/15/19 at 21:00 Amlodipine Besylate (Norvasc) 5 mg DAILY PO Last administered on 03/16/19 08:18; Start 03/16/19 at 09:00; Stop 03/16/19 at 11:02; Status DC Apixaban (Eliquis) 2.5 mg BID PO Last administered on 03/17/19 09:17; Start 03/15/19 at 21:00 Ascorbic Acid (Vitamin C) 500 mg DAILY PO Last administered on 03/17/19 09:17; Start 03/16/19 at 09:00 Aspirin (Children'S Aspirin) 81 mg DAILYWBKFT PO Last administered on 03/17/19 09:17; Start 03/16/19 at 08:00 Furosemide (Lasix) 40 mg DAILY PO Last administered on 03/17/19 09:17; Start 03/16/19 at 09:00 Hydralazine HCl (Apresoline) 25 mg QID PO Last administered on 03/17/19at 12:46; Start 03/15/19 at 21:00 Metoprolol Tartrate (Lopressor) 25 mg BID PO Last administered on 03/17/19 09:17; Start 03/15/19 at 21:00 Minoxidil (Loniten) 2.5 mg BID PO Last administered on 03/17/19 09:17; Start 03/15/19 at 21:00 Multivitamins (Thera M Plus) 1 tab DAILY PO Last administered on 03/17/19 09:17; Start 03/16/19 at 09:00 Polyethylene Glycol (miraLAX PACKET) 17 gm BID PO Last administered on 03/16/19at 21:39; Start 03/15/19 at 21:00 Sevelamer Carbonate (Renvela) 800 mg TIDWMEALS PO Last administered on 03/17/19at 12:46; Start 03/16/19 at 08:00 Non-Formulary Medication (Pravastatin Sodium ) 1 tab HS PO ; Start 03/15/19 at 21:00; Status UNV Info (Anti-Coagulation Monitoring By Pharmacy) 1 each PRN DAILY PRN MC SEE COMMENTS Last administered on 03/16/19at 13:41; Start 03/15/19 at 18:45 Insulin Glargine (Lantus) 15 units QHS SQ Last administered on 03/16/19at 21:39; Start 03/15/19 at 21:00 Insulin Human Lispro (HumaLOG) 5 units TIDWMEALS SQ ; Start 03/16/19 at 08:00 Levothyroxine Sodium (Synthroid) 88 mcg DAILYAC PO Last administered on 03/17/19 09:17; Start 03/16/19 at 07:30 Lactobacillus Rhamnosus (Culturelle) 1 cap BID PO Last administered on 03/17/19 09:17; Start 03/16/19 at 21:00 Insulin Human Lispro (HumaLOG) 0-9 UNITS TIDWMEALS SQ ; Start 03/16/19 at 12:00 Dextrose (Dextrose 50%-Water Syringe) 12.5 gm PRN Q15MIN PRN IV SEE COMMENTS; Start 03/16/19 at 10:00 Dextrose 250 ml PRN Q15MIN PRN IV SEE COMMENTS; Start 03/16/19 at 10:00 Ondansetron HCl (Zofran) 4 mg PRN Q6HRS PRN IV NAUSEA/VOMITING; Start 03/16/19 at 10:00 Acetaminophen/ Hydrocodone Bitart (Lortab 5/325) 1 tab PRN Q4HRS PRN PO PAIN; Start 03/16/19 at 10:00 Temazepam (Restoril) 7.5 mg PRN QHS PRN PO INSOMNIA; Start 03/16/19 at 10:00 Clonidine HCl (Catapres) 0.1 mg PRN Q1HR PRN PO HYPERTENSION; Start 03/16/19 at 10:00 Amlodipine Besylate (Norvasc) 10 mg DAILY PO Last administered on 03/17/19 09:17; Start 03/17/19 at 09:00 Amlodipine Besylate (Norvasc) 5 mg 1X ONCE PO ; Start 03/16/19 at 11:15; Stop 03/16/19 at 11:16; Status DC Darbepoetin Derrek (ARANESP for DIALYSIS PTS) 60 mcg WEEKLYHS SQ Last administered on 03/16/19at 21:39; Start 03/16/19 at 21:00 Sodium Chloride 1,000 ml @ 1,000 mls/hr Q1H PRN IV hypotension; Start 03/17/19 at 10:16; Stop 03/17/19 at 16:15; Status DC Albumin Human 200 ml @ 200 mls/hr 1X PRN PRN IV Hypotension; Start 03/17/19 at 10:30; Stop 03/17/19 at 16:29; Status DC Sodium Chloride (Normal Saline Flush) 10 ml 1X PRN PRN IV AP catheter pack; Start 03/17/19 at 10:30; Stop 03/18/19 at 10:29 Sodium Chloride (Normal Saline Flush) 10 ml 1X PRN PRN IV C[employer] catheter pack; Start 03/17/19 at 10:30; Stop 03/18/19 at 10:29 Sodium Chloride 1,000 ml @ 400 mls/hr Q2H30M PRN IV PATENCY; Start 03/17/19 at 10:16; Stop 03/17/19 at 22:15 Info (PHARMACY MONITORING -- do not chart) 1 each PRN DAILY PRN MC SEE COMMENTS; Start 03/17/19 at 10:30; Status UNV Info (PHARMACY MONITORING -- do not chart) 1 each PRN DAILY PRN MC SEE COMMENTS; Start 03/17/19 at 10:30 Vancomycin HCl 500 mg/Sodium Chloride 100 ml @ 100 mls/hr QMWF IV ; Start 03/17/19 at 16:00 Active Scripts Active Vitamin C (Ascorbic Acid) 500 Mg Tablet 500 Mg PO DAILY MDD 1 Thera-M Tablet (Multivits,Ca,Minerals/Iron/Fa) 1 Each Tablet 1 Tab PO DAILY MDD 1 Acetaminophen-Cod #3 Tablet (Acetaminophen/Codeine Phosphate) 1 Each Tablet 1 Tab PO PRN Q6HRS PRN MDD 1 Aspirin 81 Mg Tab.chew 81 Mg PO DAILYWBKFT MDD 1 Reported Levothyroxine Sodium 88 Mcg Tablet 88 Mcg PO DAILYAC Hydrocodone-Apap 7.5-325 (Hydrocodone Bit/Acetaminophen) 1 Tab Tablet 1 Tab PO PRN Q4HRS PRN Novolog Flexpen (Insulin Aspart) 100 Unit/1 Ml Insuln.pen 5 Unit SQ TIDWMEALS Lantus Solostar (Insulin Glargine,Hum.rec.anlog) 100 Unit/1 Ml Insuln.pen 15 Unit SQ QHS Renvela (Sevelamer Carbonate) 800 Mg Tablet 800 Mg PO TIDWMEALS Pravastatin Sodium 80 Mg Tablet 1 Tab PO HS Miralax (Polyethylene Glycol 3350) 17 Gm Powd.pack 1 Packet PO BID Minoxidil 2.5 Mg Tablet 2.5 Mg PO BID Metoprolol Tartrate 25 Mg Tablet 25 Mg PO BID Hydralazine Hcl 25 Mg Tablet 25 Mg PO QID Furosemide 40 Mg Tablet 40 Mg PO DAILY Eliquis (Apixaban) 2.5 Mg Tablet 2.5 Mg PO BID Amlodipine Besylate 5 Mg Tablet 5 Mg PO DAILY Vitals/I & O Vital Sign - Last 24 Hours 03/16/19 03/16/19 03/16/19 03/16/19 17:26 17:30 19:39 20:00 Temp 98.8 98.2 98.8 98.2 Pulse 92 99 109 Resp 18 18 B/P (MAP) 130/72 156/73 (100) 110/56 (74) Pulse Ox 100 98 O2 Delivery Nasal Cannula Nasal Cannula Nasal Cannula O2 Flow Rate 2.0 2.0 2.0 03/16/19 03/16/19 03/16/19 03/16/19 21:39 21:39 21:39 23:17 Temp 98.5 98.5 Pulse 109 109 109 94 Resp 16 B/P (MAP) 110/56 110/56 110/56 126/70 (88) Pulse Ox 99 O2 Delivery Nasal Cannula O2 Flow Rate 2.0 03/17/19 03/17/19 03/17/19 03/17/19 03:02 07:54 08:00 09:17 Temp 98.4 98.1 98.4 98.1 Pulse 86 82 82 Resp 20 20 B/P (MAP) 101/50 (67) 139/64 (89) 139/64 Pulse Ox 96 98 O2 Delivery Nasal Cannula Room Air Nasal Cannula O2 Flow Rate 2.0 2.0 03/17/19 03/17/19 03/17/19 03/17/19 09:17 09:17 09:17 11:08 Temp 98.1 98.1 Pulse 82 82 82 80 Resp 20 B/P (MAP) 139/64 139/64 139/64 139/76 (97) Pulse Ox 99 O2 Delivery Room Air 03/17/19 12:46 Pulse 80 B/P (MAP) 139/76 Intake and Output 03/16/19 03/16/19 03/17/19 15:00 23:00 07:00 Intake Total 1500 ml 300 ml Output Total 300 ml Balance 1200 ml 300 ml DOLORES SELBY MD Mar 17, 2019 16:50
[2019-03-17] MEDS: VANCOMYCIN 500 MG in IV NORMAL SALINE 100ML 100 ML IV SCH (18:07)
[2019-03-17 19:20] VITALS: BP 137/73
[2019-03-17] MEDS: INSULIN GLARGINE 300 UNITS/3 ML INSULN.PEN. SQ SCH (21:31)
[2019-03-17 22:30] VITALS: BP 137/72
[2019-03-18 07:00] VITALS: BP 119/59
[2019-03-18] MEDS: VANCOMYCIN PER PHARMACY MC PRN ×2 (07:15→07:21)
--- NOTE | 2019-03-18 07:24 | NUR ---
Pharmacy Vancomycin Dosing Note S:Consulted to monitor and dose vancomycin started 03/15/19. O:JAN YUNG is a 58 year old M with Cellulitis Bacteremia Sepsis . Height: 5 feet, 10 inches Weight: 113.401616 kg [place] Body Weight: 73.00 Adjusted Body Weight: 87.88 Dosing Weight: Actual Other Antibiotics: CEFEPIME X 1 03/15 LABS: Last BUN: 28 (03/15) Last Creatinine: 5.2 Creatinine Clearance: HD MWF, LAST 03/17 mL/min Last WBC: 6.3 Last Procalcitonin: NO, ESRD ON HD Tmax (past 24 hours): 99 Microbiology: 03/15 BC 2 of 2 positive for gram + cocci in clusters I/O: 1500/200 Drug Levels: Last Random level: 16.3 on 03/18/19 at 0330 Last dose given 03/17/19 at 1800 Vancomycin Dosing: Loading Dose: x1 Dosing Weight: Actual Target Trough: 15-20 A: Based on: randome level P: 1. Begin Vancomycin 500 mg IV w/dialysis mwf 2. Follow up Random level as needed 3. Pharmacy will continue to monitor, follow and adjust therapy as needed. MADIHA BARRETO RPH, 03/18/19 [id number]
[2019-03-18] MEDS: INSULIN LISPRO 300 UNITS/3 ML VIAL. SQ SCH ×6 (08:00→17:00)
--- NOTE | 2019-03-18 08:21 | PDOC ---
Infectious Disease Note Subjective: Subjective pt is doing ok no f/c/n/v/d ROS: ROS Negative otherwise. Vital Signs: Vital Signs Vital Signs Date Time Temp Pulse Resp B/P (MAP) Pulse Ox O2 Delivery O2 Flow Rate FiO2 03/18/19 07:00 98.1 86 20 119/59 (79) 95 Room Air 98.1 03/17/19 20:00 2.0 Physical Exam: PHYSICAL EXAM GENERAL: The patient is sitting upright in nad HEENT: Pupils equally round. Oropharynx pink and dry. NECK: Supple.HDC in place, LUNGS: Clear to auscultation. HEART: S1, S2. ABDOMEN: Soft and nontender with bowel sounds present. EXTREMITIES: Trace edema of lower extremities bilaterally. No cyanosis. He has a wound on both lower legs that are currently bandaged. Pictures reviewed. SKIN: Warm to touch. No signs of rash. NEUROLOGIC: Alert and oriented x 3. Medications: Inpatient Meds: Current Medications Medications (Trade) Dose Ordered Sig/Rochelle Start Time Stop Time Status Last Admin Dose Admin Acetaminophen (Tylenol Supp) 650 mg STK-MED ONCE 03/15/19 15:04 03/15/19 15:04 DC Acetaminophen (Tylenol) 650 mg PRN Q6HRS PRN 03/15/19 15:00 03/15/19 15:12 650 MG Acetaminophen/ Hydrocodone Bitart (Lortab 5/325) 1 tab PRN Q4HRS PRN 03/16/19 10:00 Albumin Human 200 ml @ 200 mls/hr 1X PRN PRN 03/17/19 10:30 03/17/19 16:29 DC Amlodipine Besylate (Norvasc) 5 mg 1X ONCE 03/16/19 11:15 03/16/19 11:16 DC Apixaban (Eliquis) 2.5 mg BID 03/15/19 21:00 03/17/19 21:33 2.5 MG Ascorbic Acid (Vitamin C) 500 mg DAILY 03/16/19 09:00 03/17/19 09:17 500 MG Aspirin (Children'S Aspirin) 81 mg DAILYWBKFT 03/16/19 08:00 03/17/19 09:17 81 MG Cefepime HCl (Maxipime) 1 gm 1X ONCE 03/15/19 11:15 03/15/19 11:23 DC 03/15/19 11:37 1 GM Clonidine HCl (Catapres) 0.1 mg PRN Q1HR PRN 03/16/19 10:00 Darbepoetin Derrek (ARANESP for DIALYSIS PTS) 60 mcg WEEKLYHS 03/16/19 21:00 03/16/19 21:39 60 MCG Dextrose 250 ml PRN Q15MIN PRN 03/16/19 10:00 Dextrose (Dextrose 50%-Water Syringe) 12.5 gm PRN Q15MIN PRN 03/16/19 10:00 Digoxin (Lanoxin) 500 mcg STK-MED ONCE 03/15/19 15:26 03/15/19 15:26 DC Diltiazem HCl 125 mg/Dextrose 125 ml @ 2.5 mls/hr CONT PRN 03/15/19 15:30 03/15/19 15:40 2.5 MLS/HR Furosemide (Lasix) 40 mg DAILY 03/16/19 09:00 03/17/19 09:17 40 MG Hydralazine HCl (Apresoline) 25 mg QID 03/15/19 21:00 03/17/19 21:33 25 MG Info (Anti-Coagulation Monitoring By Pharmacy) 1 each PRN DAILY PRN 03/15/19 18:45 03/16/19 13:41 1 EACH Info (PHARMACY MONITORING -- do not chart) 1 each PRN DAILY PRN 03/17/19 10:30 Insulin Glargine (Lantus) 15 units QHS 03/15/19 21:00 03/17/19 21:33 15 UNITS Insulin Human Lispro (HumaLOG) 0-9 UNITS TIDWMEALS 03/16/19 12:00 Lactobacillus Rhamnosus (Culturelle) 1 cap BID 03/16/19 21:00 03/17/19 21:33 1 CAP Levothyroxine Sodium (Synthroid) 88 mcg DAILYAC 03/16/19 07:30 03/17/19 09:17 88 MCG Metoprolol Tartrate (Lopressor) 25 mg BID 03/15/19 21:00 03/17/19 21:33 25 MG Minoxidil (Loniten) 2.5 mg BID 03/15/19 21:00 03/17/19 21:33 2.5 MG Multivitamins (Thera M Plus) 1 tab DAILY 03/16/19 09:00 03/17/19 09:17 1 TAB Non-Formulary Medication (Pravastatin Sodium ) 1 tab HS 03/15/19 21:00 UNV Ondansetron HCl (Zofran) 4 mg PRN Q6HRS PRN 03/16/19 10:00 Polyethylene Glycol (miraLAX PACKET) 17 gm BID 03/15/19 21:00 03/17/19 21:33 17 GM Sevelamer Carbonate (Renvela) 800 mg TIDWMEALS 03/16/19 08:00 03/17/19 18:07 800 MG Sodium Hypochlorite (Dakin'S 1/4 Strength) 1 edenilson BID 03/15/19 21:00 03/17/19 21:33 1 EDENILSON Sodium Chloride 1,000 ml @ 400 mls/hr Q2H30M PRN 03/17/19 10:16 03/17/19 22:15 DC Sodium Chloride (Normal Saline Flush) 10 ml 1X PRN PRN 03/17/19 10:30 03/18/19 10:29 Temazepam (Restoril) 7.5 mg PRN QHS PRN 03/16/19 10:00 Vancomycin HCl (Vanco Per Pharmacy) 1 each PRN DAILY PRN 03/15/19 11:15 03/18/19 07:21 1 EACH Vancomycin HCl (Vancomycin Random Level) 1 each 1X ONCE 03/17/19 06:00 03/17/19 06:01 DC 03/17/19 06:31 1 EACH Vancomycin HCl 500 mg/Sodium Chloride 100 ml @ 100 mls/hr QMWF 03/17/19 16:00 03/17/19 18:07 100 MLS/HR Vancomycin HCl 2 gm/Sodium Chloride 500 ml @ 250 mls/hr 1X ONCE 03/15/19 11:30 03/15/19 13:29 DC 03/15/19 11:37 250 MLS/HR Labs: Lab Laboratory Tests Test 03/17/19 12:35 03/17/19 17:57 03/17/19 20:35 03/18/19 07:49 Glucose (Fingerstick) 129 mg/dL (70-99) 113 mg/dL (70-99) 153 mg/dL (70-99) 101 mg/dL (70-99) Micro RUN DATE: 03/16/19 PAGE 1 RUN TIME: 7372 [facility] [address] [place] [address] Roly Reece M.D., Audit Mgr PATIENT: JAN YUNG ACCT: [id number] LOC: 1 [facility] U: [id number] AGE/SX: 58/M ROOM: 111 RE03/15/[address]: IKE CORTEZ III, DO : 1960 BED: 1 DIS: STATUS: ADM IN TLOC: SPEC #: [id number] ELLEN: 03/15/19 STATUS: COMP REQ #: [id number] RECD: 03/15/[address] [facility] [address]: LIZ NAVARRO DO SOURCE: BLOOD ENTR: 03/15/19-[address] [facility] [address]: FARHAD PURIVS MD [facility]: ORDERED: BCULT Procedure Result BLOOD CULTURE Final GRAM POSITIVE COCCI IN CLUSTER 1 SET DRAWN, 2 OF 2 POSITIVE CALLED TO GENO HART RN IN ICU BY Liliane JOYA,03/16/19,0755 SPECIMEN SENDING TO [facility] FOR FURTHER WORK UP --- --------- Objective: Assessment: 1. Gram-positive cocci bacteremia with sepsis present on admission.ID and ISAAC pending BC here positive with GPC,ID and ISAAC still pending was on keflex prior to admission 2 ECHO done 03/17 2. Infected hemodialysis catheter, status post removal 03/05 and replaced 03/07 per the patient report 3. Fever.resolved 4. ANTIBIOTIC ALLERGY TO PENICILLIN WITH ANAPHYLACTIC TYPE REACTION IN CHILDHOOD AND SULFA WITH HIVES. 5. History of methicillin-resistant Staphylococcus aureus. 6. Chronic wounds, lower extremities bilaterally. [facility]. 7. End-stage renal disease, on hemodialysis. 8. Peripheral vascular disease. 9. Diabetes with peripheral neuropathy. 10. Atrial fibrillation. Plan: Plan of Care continue the vancomycin. f/u GPC on BC here Apparently a culture of the drainage from the HDC was taken at [facility] per patient report F/U results from clinic not available at this time, nursing will try to obtain the report F/U 03/17 Wound care team following One time dose Cefepime, 03/15 Probiotics D/w nursing BRI RIOS MD Mar 18, 2019 08:21
[2019-03-18] MEDS: hydrALAZINE 25 MG TABLET PO SCH ×4 (08:27→21:13)
[2019-03-18] MEDS: ASPIRIN CHEWABLE 81 MG TABLET. PO SCH (08:27)
[2019-03-18] MEDS: LEVOTHYROXINE 88 MCG TABLET PO SCH (08:27)
[2019-03-18] MEDS: SEVELAMER CARBONATE 800 MG TABLET. PO SCH ×3 (08:27→17:44)
[2019-03-18] MEDS: APIXABAN 2.5 MG TABLET. PO SCH ×2 (08:28→21:12)
[2019-03-18] MEDS: LACTOBACILLUS RHAMNOSUS GG 1 CAPSULE. PO SCH ×2 (08:28→21:13)
[2019-03-18] MEDS: METOPROLOL TART IMMED RELEASE 25 MG TABLET. PO SCH ×2 (08:28→21:13)
[2019-03-18] MEDS: FUROSEMIDE 40 MG TABLET. PO SCH (08:28)
[2019-03-18] MEDS: MULTIVITAMIN with MINERAL TABLET. PO SCH (08:28)
[2019-03-18] MEDS: ASCORBIC ACID 500 MG TABLET PO SCH (08:28)
[2019-03-18] MEDS: MINOXIDIL 2.5 MG TABLET PO SCH ×2 (08:28→21:14)
[2019-03-18] MEDS: amLODIPine BESYLATE 5 MG TABLET PO SCH (08:29)
[2019-03-18] MEDS: SODIUM HYPOCHLORITE 0.125% 473 ML BOTTLE. TP SCH ×2 (08:30→21:00)
[2019-03-18] MEDS: POLYETHYLENE GLYCOL 3350 17 GM PACKET. PO SCH ×2 (08:34→21:12)
--- NOTE | 2019-03-18 08:36 | PDOC ---
PROGRESS NOTES Chief Complaint Chief Complaint Sepsis Chronic wounds, lower extremities bilaterally. He is followed by [facility]. PAD ESRD on HD AOCD Cellulitis - with sepsis Acute on chronic a fib s/p [facility] HTN Hypothyroidism on synthroid Gram-positive cocci bacteremia with sepsis present on admission.ID and ISAAC pending Infected hemodialysis catheter, status post removal 03/05 and replaced 03/07 History of methicillin-resistant Staphylococcus aureus. Diabetes with peripheral neuropathy. Atrial fibrillation. History of Present Illness History of Present Illness He has no complaints Cardizem gtt bec went to [facility] (hx a fib) Now off cardizem gtt Vasc sx, ID on board, wounds legs, pics reviewed, will need wound care and IV Abx Also HD pt, RT tunnelled HD cath visible. Transferred from ICU to [facility]VC on 9. He reviews with me that his catheter had fallen out "pretty far" and he pushed it back in. PLAN: Wound care IV abx cards consulted for RVR Dw [employer]IAN Vitals Vitals Vital Signs Date Time Temp Pulse Resp B/P (MAP) Pulse Ox O2 Delivery O2 Flow Rate FiO2 03/18/19 08:34 86 119/59 03/18/19 07:00 98.1 20 95 Room Air 98.1 03/17/19 20:00 2.0 Physical Exam Physical Exam GENERAL: The patient is propped up in bed, alert, watching TV. HEENT: Pupils equally round. Oropharynx pink and dry. NECK: Supple. LUNGS: Clear to auscultation. HEART: S1, S2. ABDOMEN: Soft and nontender with bowel sounds present. EXTREMITIES: Trace edema of lower extremities bilaterally. No cyanosis. He has a wound on both lower legs that are currently bandaged. Pictures reviewed. SKIN: Warm to touch. No signs of rash. NEUROLOGIC: Alert and oriented x 3. A right-sided HD catheter without signs of any complications. General: mild distress Heart: Other (irreg. irreg.) Lungs: Clear Abdomen: Normal bowel sounds Extremities: No clubbing, No cyanosis Skin: No breakdown Labs LABS Laboratory Tests Test 03/17/19 12:35 03/17/19 17:57 03/17/19 20:35 03/18/19 07:49 Glucose (Fingerstick) 129 mg/dL (70-99) 113 mg/dL (70-99) 153 mg/dL (70-99) 101 mg/dL (70-99) Assessment and Plan Assessmemt and Plan Problems Medical Problems: (1) A-fib Status: Acute (2) Diabetes mellitus with peripheral autonomic neuropathy Status: Chronic (3) ESRD on hemodialysis Status: Chronic (4) PVD (peripheral vascular disease) Status: Chronic (5) Sepsis Status: Acute Comment Review of Relevant I have reviewed the following items kendra (where applicable) has been applied. Labs Laboratory Tests Test 03/16/19 12:10 03/16/19 17:24 03/16/19 20:32 03/17/19 03:30 Glucose (Fingerstick) 123 mg/dL (70-99) 142 mg/dL (70-99) 176 mg/dL (70-99) Sodium Level 132 mmol/L (136-145) Potassium Level 4.7 mmol/L (3.5-5.1) Chloride Level 95 mmol/L (98-107) Carbon Dioxide Level 27 mmol/L (21-32) Anion Gap 10 (6-14) Blood Urea Nitrogen 56 mg/dL (8-26) Creatinine 5.2 mg/dL (0.7-1.3) Estimated GFR (Cockcroft-Gault) 11.4 Glucose Level 139 mg/dL (70-99) Calcium Level 9.0 mg/dL (8.5-10.1) Random Vancomycin Level 16.3 mcg/mL Test 03/17/19 03:35 03/17/19 07:44 03/17/19 12:35 03/17/19 17:57 White Blood Count 6.3 x10^3/uL (4.0-11.0) Red Blood Count 3.14 x10^6/uL (4.30-5.70) Hemoglobin 8.8 g/dL (13.0-17.5) Hematocrit 26.0 % (39.0-53.0) Mean Corpuscular Volume 83 fL (79-100) Mean Corpuscular Hemoglobin 28 pg (25-35) Mean Corpuscular Hemoglobin Concent 34 g/dL (31-37) Red Cell Distribution Width 19.6 % (11.5-14.5) Platelet Count 146 x10^3/uL (140-400) Neutrophils (%) (Auto) 71 % (31-73) Lymphocytes (%) (Auto) 9 % (24-48) Monocytes (%) (Auto) 13 % (0-9) Eosinophils (%) (Auto) 6 % (0-3) Basophils (%) (Auto) 1 % (0-3) Neutrophils # (Auto) 4.5 x10^3/uL (1.8-7.7) Lymphocytes # (Auto) 0.5 x10^3/uL (1.0-4.8) Monocytes # (Auto) 0.8 x10^3/uL (0.0-1.1) Eosinophils # (Auto) 0.4 x10^3/uL (0.0-0.7) Basophils # (Auto) 0.1 x10^3/uL (0.0-0.2) Erythrocyte Sedimentation Rate 15 (0-15) Glucose (Fingerstick) 102 mg/dL (70-99) 129 mg/dL (70-99) 113 mg/dL (70-99) Test 03/17/19 20:35 03/18/19 07:49 Glucose (Fingerstick) 153 mg/dL (70-99) 101 mg/dL (70-99) Laboratory Tests Test 03/17/19 12:35 03/17/19 17:57 03/17/19 20:35 03/18/19 07:49 Glucose (Fingerstick) 129 mg/dL (70-99) 113 mg/dL (70-99) 153 mg/dL (70-99) 101 mg/dL (70-99) Microbiology 03/15/19 Blood Culture - Final, Complete Medications Current Medications Vancomycin HCl (Vanco Per Pharmacy) 1 each PRN DAILY PRN MC SEE COMMENTS Last administered on 03/18/19at 07:21; Start 03/15/19 at 11:15 Cefepime HCl (Maxipime) 1 gm 1X ONCE IVP Last administered on 03/15/19at 11:37; Start 03/15/19 at 11:15; Stop 03/15/19 at 11:23; Status DC Sodium Chloride 1,000 ml @ 1,000 mls/hr 1X ONCE IV Last administered on 03/15/19at 11:28; Start 03/15/19 at 11:30; Stop 03/15/19 at 12:29; Status DC Vancomycin HCl 2 gm/Sodium Chloride 500 ml @ 250 mls/hr 1X ONCE IV Last administered on 03/15/19at 11:37; Start 03/15/19 at 11:30; Stop 03/15/19 at 13:29; Status DC Vancomycin HCl (Vancomycin Random Level) 1 each 1X ONCE MC Last administered on 03/17/19at 06:31; Start 03/17/19 at 06:00; Stop 03/17/19 at 06:01; Status DC Acetaminophen (Tylenol) 650 mg PRN Q6HRS PRN PO MILD PAIN / TEMP Last administered on 03/15/19at 15:12; Start 03/15/19 at 15:00 Acetaminophen (Tylenol Supp) 650 mg STK-MED ONCE .ROUTE ; Start 03/15/19 at 15:04; Stop 03/15/19 at 15:04; Status DC Digoxin (Lanoxin) 250 mcg 1X ONCE IV Last administered on 03/15/19at 15:30; Start 03/15/19 at 15:30; Stop 03/15/19 at 15:31; Status DC Diltiazem HCl 125 mg/Dextrose 125 ml @ 2.5 mls/hr CONT PRN IV SEE I/O RECORD Last administered on 03/15/19at 15:40; Start 03/15/19 at 15:30 Digoxin (Lanoxin) 500 mcg STK-MED ONCE .ROUTE ; Start 03/15/19 at 15:26; Stop 03/15/19 at 15:26; Status DC Sodium Chloride 1,000 ml @ 1,000 mls/hr 1X ONCE IV Last administered on 03/15/19at 16:30; Start 03/15/19 at 14:00; Stop 03/15/19 at 16:33; Status DC Sodium Hypochlorite (Dakin'S 1/4 Strength) 1 edenilson DAILY TP ; Start 03/16/19 at 0 9:00; Stop 03/15/19 at 18:00; Status DC Sodium Hypochlorite (Dakin'S 1/4 Strength) 1 edenilson BID TP Last administered on 03/18/19at 08:34; Start 03/15/19 at 21:00 Amlodipine Besylate (Norvasc) 5 mg DAILY PO Last administered on 03/16/19at 08:18; Start 03/16/19 at 09:00; Stop 03/16/19 at 11:02; Status DC Apixaban (Eliquis) 2.5 mg BID PO Last administered on 03/18/19 08:34; Start 03/15/19 at 21:00 Ascorbic Acid (Vitamin C) 500 mg DAILY PO Last administered on 03/18/19 08:34; Start 03/16/19 at 09:00 Aspirin (Children'S Aspirin) 81 mg DAILYWBKFT PO Last administered on 03/18/19 08:34; Start 03/16/19 at 08:00 Furosemide (Lasix) 40 mg DAILY PO Last administered on 03/18/19 08:34; Start 03/16/19 at 09:00 Hydralazine HCl (Apresoline) 25 mg QID PO Last administered on 03/18/19 08:34; Start 03/15/19 at 21:00 Metoprolol Tartrate (Lopressor) 25 mg BID PO Last administered on 03/18/19 0 8:34; Start 03/15/19 at 21:00 Minoxidil (Loniten) 2.5 mg BID PO Last administered on 03/18/19 08:34; Start 03/15/19 at 21:00 Multivitamins (Thera M Plus) 1 tab DAILY PO Last administered on 03/18/19 08:34; Start 03/16/19 at 09:00 Polyethylene Glycol (miraLAX PACKET) 17 gm BID PO Last administered on 03/18/19 08:34; Start 03/15/19 at 21:00 Sevelamer Carbonate (Renvela) 800 mg TIDWMEALS PO Last administered on 03/18/19 08:34; Start 03/16/19 at 08:00 Non-Formulary Medication (Pravastatin Sodium ) 1 tab HS PO ; Start 03/15/19 at 21:00; Status UNV Info (Anti-Coagulation Monitoring By Pharmacy) 1 each PRN DAILY PRN MC SEE COMMENTS Last administered on 03/16/19 13:41; Start 03/15/19 at 18:45 Insulin Glargine (Lantus) 15 units QHS SQ Last administered on 03/17/19 21:33; Start 03/15/19 at 21:00 Insulin Human Lispro (HumaLOG) 5 units TIDWMEALS SQ ; Start 03/16/19 at 08:00 Levothyroxine Sodium (Synthroid) 88 mcg DAILYAC PO Last administered on 03/18/19at 08:34; Start 03/16/19 at 07:30 Lactobacillus Rhamnosus (Culturelle) 1 cap BID PO Last administered on 03/18/19at 08:34; Start 03/16/19 at 21:00 Insulin Human Lispro (HumaLOG) 0-9 UNITS TIDWMEALS SQ ; Start 03/16/19 at 12:00 Dextrose (Dextrose 50%-Water Syringe) 12.5 gm PRN Q15MIN PRN IV SEE COMMENTS; Start 03/16/19 at 10:00 Dextrose 250 ml PRN Q15MIN PRN IV SEE COMMENTS; Start 03/16/19 at 10:00 Ondansetron HCl (Zofran) 4 mg PRN Q6HRS PRN IV NAUSEA/VOMITING; Start 03/16/19 at 10:00 Acetaminophen/ Hydrocodone Bitart (Lortab 5/325) 1 tab PRN Q4HRS PRN PO PAIN; Start 03/16/19 at 10:00 Temazepam (Restoril) 7.5 mg PRN QHS PRN PO INSOMNIA; Start 03/16/19 at 10:00 Clonidine HCl (Catapres) 0.1 mg PRN Q1HR PRN PO HYPERTENSION; Start 03/16/19 at 10:00 Amlodipine Besylate (Norvasc) 10 mg DAILY PO Last administered on 03/18/19at 08:34; Start 03/17/19 at 09:00 Amlodipine Besylate (Norvasc) 5 mg 1X ONCE PO ; Start 03/16/19 at 11:15; Stop 03/16/19 at 11:16; Status DC Darbepoetin Derrek (ARANESP for DIALYSIS PTS) 60 mcg WEEKLYHS SQ Last administered on 03/16/19at 21:39; Start 03/16/19 at 21:00 Sodium Chloride 1,000 ml @ 1,000 mls/hr Q1H PRN IV hypotension; Start 03/17/19 at 10:16; Stop 03/17/19 at 16:15; Status DC Albumin Human 200 ml @ 200 mls/hr 1X PRN PRN IV Hypotension; Start 03/17/19 at 10:30; Stop 03/17/19 at 16:29; Status DC Sodium Chloride (Normal Saline Flush) 10 ml 1X PRN PRN IV AP catheter pack; Start 03/17/19 at 10:30; Stop 03/18/19 at 10:29 Sodium Chloride (Normal Saline Flush) 10 ml 1X PRN PRN IV 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; Start 03/17/19 at 10:30; Stop 03/18/19 at 10:29 Sodium Chloride 1,000 ml @ 400 mls/hr Q2H30M PRN IV PATENCY; Start 03/17/19 at 10:16; Stop 03/17/19 at 22:15; Status DC Info (PHARMACY MONITORING -- do not chart) 1 each PRN DAILY PRN MC SEE COMMENTS; Start 03/17/19 at 10:30; Status UNV Info (PHARMACY MONITORING -- do not chart) 1 each PRN DAILY PRN MC SEE COMMENTS; Start 03/17/19 at 10:30 Vancomycin HCl 500 mg/Sodium Chloride 100 ml @ 100 mls/hr QMWF IV Last administered on 03/17/19at 18:07; Start 03/17/19 at 16:00 Active Scripts Active Vitamin C (Ascorbic Acid) 500 Mg Tablet 500 Mg PO DAILY MDD 1 Thera-M Tablet (Multivits,Ca,Minerals/Iron/Fa) 1 Each Tablet 1 Tab PO DAILY MDD 1 Acetaminophen-Cod #3 Tablet (Acetaminophen/Codeine Phosphate) 1 Each Tablet 1 Tab PO PRN Q6HRS PRN MDD 1 Aspirin 81 Mg Tab.chew 81 Mg PO DAILYWBKFT MDD 1 Reported Levothyroxine Sodium 88 Mcg Tablet 88 Mcg PO DAILYAC Hydrocodone-Apap 7.5-325 (Hydrocodone Bit/Acetaminophen) 1 Tab Tablet 1 Tab PO PRN Q4HRS PRN Novolog Flexpen (Insulin Aspart) 100 Unit/1 Ml Insuln.pen 5 Unit SQ TIDWMEALS Lantus Solostar (Insulin Glargine,Hum.rec.anlog) 100 Unit/1 Ml Insuln.pen 15 Unit SQ QHS Renvela (Sevelamer Carbonate) 800 Mg Tablet 800 Mg PO TIDWMEALS Pravastatin Sodium 80 Mg Tablet 1 Tab PO HS Miralax (Polyethylene Glycol 3350) 17 Gm Powd.pack 1 Packet PO BID Minoxidil 2.5 Mg Tablet 2.5 Mg PO BID Metoprolol Tartrate 25 Mg Tablet 25 Mg PO BID Hydralazine Hcl 25 Mg Tablet 25 Mg PO QID Furosemide 40 Mg Tablet 40 Mg PO DAILY Eliquis (Apixaban) 2.5 Mg Tablet 2.5 Mg PO BID Amlodipine Besylate 5 Mg Tablet 5 Mg PO DAILY Vitals/I & O Vital Sign - Last 24 Hours 03/17/19 03/17/19 03/17/19 03/17/19 09:17 09:17 09:17 09:17 Pulse 82 82 82 82 B/P (MAP) 139/64 139/64 139/64 139/64 03/17/19 03/17/19 03/17/19 03/17/19 11:08 12:46 18:07 19:20 Temp 98.1 98.5 98.1 98.5 Pulse 80 80 80 92 Resp 20 20 B/P (MAP) 139/76 (97) 139/76 139/76 137/73 (94) Pulse Ox 99 91 O2 Delivery Room Air Room Air 03/17/19 03/17/19 03/17/19 03/17/19 20:00 21:33 21:33 21:33 Pulse 92 92 92 B/P (MAP) 137/73 137/73 137/73 O2 Delivery Nasal Cannula O2 Flow Rate 2.0 03/17/19 03/18/19 03/18/19 03/18/19 22:30 03:00 05:03 07:00 Temp 99.0 98.1 99.0 98.1 Pulse 90 77 86 Resp 18 20 B/P (MAP) 137/72 (93) 119/59 (79) Pulse Ox 95 95 O2 Delivery Room Air Room Air Room Air 03/18/19 03/18/19 03/18/19 03/18/19 08:34 08:34 08:34 08:34 Pulse 86 86 86 86 B/P (MAP) 119/59 119/59 119/59 119/59 Intake and Output 03/17/19 03/17/19 03/18/19 15:00 23:00 07:00 Intake Total 300 ml 1200 ml Output Total 200 ml Balance -200 ml 300 ml 1200 ml ADY CHAPMAN MD Mar 18, 2019 08:36
[2019-03-18 10:29] LABS: BASO # 0.1 x10^3/uL (0.0-0.2); BASO % 1 % (0-3); EOS # 0.3 x10^3/uL (0.0-0.7); EOS % 6 % (0-3); HEMATOCRIT 26.6 % (39.0-53.0); HEMOGLOBIN 8.9 g/dL (13.0-17.5); LYMPH # 0.7 x10^3/uL (1.0-4.8); LYMPH % 15 % (24-48); MEAN CORPUSCULAR HEMOGLOBIN 28 pg (25-35); MEAN CORPUSCULAR HGB CONC 34 g/dL (31-37); MEAN CORPUSCULAR VOLUME 83 fL (79-100); MONO # 0.7 x10^3/uL (0.0-1.1); MONO % 15 % (0-9); NEUT # 2.8 x10^3/uL (1.8-7.7); NEUT % 63 % (31-73); PLATELET COUNT 153 x10^3/uL (140-400); RED BLOOD COUNT 3.22 x10^6/uL (4.30-5.70); RED CELL DISTRIBUTION WIDTH 19.2 % (11.5-14.5); WHITE BLOOD COUNT 4.4 x10^3/uL (4.0-11.0)
[2019-03-18 10:38] LABS: PROTHROMBIN TIME PATIENT 16.2 SEC (11.7-14.0)
[2019-03-18 10:56] LABS: ALBUMIN 3.1 g/dL (3.4-5.0); CALCIUM 8.5 mg/dL (8.5-10.1); CREATININE 3.6 mg/dL (0.7-1.3); GFR 17.4; PHOSPHORUS 3.3 mg/dL (2.6-4.7); POTASSIUM 4.4 mmol/L (3.5-5.1)
[2019-03-18 11:00] VITALS: BP 127/64
--- NOTE | 2019-03-18 11:24 | PDOC ---
SUBJECTIVE ROS Stable OBJECTIVE Vital Signs Vital Signs Date Time Temp Pulse Resp B/P (MAP) Pulse Ox O2 Delivery O2 Flow Rate FiO2 03/18/19 11:00 98.6 73 18 127/64 (85) Room Air 99.0 98.6 03/18/19 07:00 95 I & 0 Intake and Output 03/18/19 07:00 Intake Total 1500 ml Output Total 300 ml Balance 1200 ml Intake Oral 1500 ml Output Urine Total 300 ml PHYSICAL EXAM Physical Exam GENERAL: NAD HEENT: OM moist NECK: Supple. LUNGS: Clear to auscultation. HEART: S1, S2. ABDOMEN: Soft and nontender with bowel sounds present. EXTREMITIES: Trace edema of lower extremities bilaterally. No cyanosis. He has a wound on both lower legs that are currently bandaged. SKIN: No signs of rash. NEUROLOGIC: Alert and oriented x 3. DIAGNOSIS/ASSESSMENT Assessment & Plan ESRD - On HD MWF Infected hemodialysis catheter, status post removal 03/05 and replaced 03/07 Lt Arm AVF - Not ready to use No indication for HD today Sepsis with G+ Cocci ID managing DM II- per primary HTN- stable On antihypertensives Anemia - On WALT per Protocol LE wounds- Cellulitis AFIB-Rate controlled Per cardiology on rate control meds and anticoagulation. Echocardiogram shows normal LV systolic function COMMENT/RELEVANT DATA Meds Current Medications Medications (Trade) Dose Ordered Sig/Rochelle Start Time Stop Time Status Last Admin Dose Admin Acetaminophen (Tylenol Supp) 650 mg STK-MED ONCE 03/15/19 15:04 03/15/19 15:04 DC Acetaminophen (Tylenol) 650 mg PRN Q6HRS PRN 03/15/19 15:00 03/15/19 15:12 650 MG Acetaminophen/ Hydrocodone Bitart (Lortab 5/325) 1 tab PRN Q4HRS PRN 03/16/19 10:00 Albumin Human 200 ml @ 200 mls/hr 1X PRN PRN 03/17/19 10:30 03/17/19 16:29 DC Amlodipine Besylate (Norvasc) 5 mg 1X ONCE 03/16/19 11:15 03/16/19 11:16 DC Apixaban (Eliquis) 2.5 mg BID 03/15/19 21:00 03/18/19 08:34 2.5 MG Ascorbic Acid (Vitamin C) 500 mg DAILY 03/16/19 09:00 03/18/19 08:34 500 MG Aspirin (Children'S Aspirin) 81 mg DAILYWBKFT 03/16/19 08:00 03/18/19 08:34 81 MG Cefepime HCl (Maxipime) 1 gm 1X ONCE 03/15/19 11:15 03/15/19 11:23 DC 03/15/19 11:37 1 GM Clonidine HCl (Catapres) 0.1 mg PRN Q1HR PRN 03/16/19 10:00 Darbepoetin Derrek (ARANESP for DIALYSIS PTS) 60 mcg WEEKLYHS 03/16/19 21:00 03/16/19 21:39 60 MCG Dextrose 250 ml PRN Q15MIN PRN 03/16/19 10:00 Dextrose (Dextrose 50%-Water Syringe) 12.5 gm PRN Q15MIN PRN 03/16/19 10:00 Digoxin (Lanoxin) 500 mcg STK-MED ONCE 03/15/19 15:26 03/15/19 15:26 DC Diltiazem HCl 125 mg/Dextrose 125 ml @ 2.5 mls/hr CONT PRN 03/15/19 15:30 03/15/19 15:40 2.5 MLS/HR Furosemide (Lasix) 40 mg DAILY 03/16/19 09:00 03/18/19 08:34 40 MG Hydralazine HCl (Apresoline) 25 mg QID 03/15/19 21:00 03/18/19 08:34 25 MG Info (Anti-Coagulation Monitoring By Pharmacy) 1 each PRN DAILY PRN 03/15/19 18:45 03/16/19 13:41 1 EACH Info (PHARMACY MONITORING -- do not chart) 1 each PRN DAILY PRN 03/17/19 10:30 Insulin Glargine (Lantus) 15 units QHS 03/15/19 21:00 03/17/19 21:33 15 UNITS Insulin Human Lispro (HumaLOG) 0-9 UNITS TIDWMEALS 03/16/19 12:00 Lactobacillus Rhamnosus (Culturelle) 1 cap BID 03/16/19 21:00 03/18/19 08:34 1 CAP Levothyroxine Sodium (Synthroid) 88 mcg DAILYAC 03/16/19 07:30 03/18/19 08:34 88 MCG Metoprolol Tartrate (Lopressor) 25 mg BID 03/15/19 21:00 03/18/19 08:34 25 MG Minoxidil (Loniten) 2.5 mg BID 03/15/19 21:00 03/18/19 08:34 2.5 MG Multivitamins (Thera M Plus) 1 tab DAILY 03/16/19 09:00 03/18/19 08:34 1 TAB Non-Formulary Medication (Pravastatin Sodium ) 1 tab HS 03/15/19 21:00 UNV Ondansetron HCl (Zofran) 4 mg PRN Q6HRS PRN 03/16/19 10:00 Polyethylene Glycol (miraLAX PACKET) 17 gm BID 03/15/19 21:00 03/18/19 08:34 17 GM Sevelamer Carbonate (Renvela) 800 mg TIDWMEALS 03/16/19 08:00 03/18/19 08:34 800 MG Sodium Hypochlorite (Dakin'S 1/4 Strength) 1 edenilson BID 03/15/19 21:00 03/18/19 08:34 1 EDENILSON Sodium Chloride 1,000 ml @ 400 mls/hr Q2H30M PRN 03/17/19 10:16 03/17/19 22:15 DC Sodium Chloride (Normal Saline Flush) 10 ml 1X PRN PRN 03/17/19 10:30 03/18/19 10:29 DC Temazepam (Restoril) 7.5 mg PRN QHS PRN 03/16/19 10:00 Vancomycin HCl (Vanco Per Pharmacy) 1 each PRN DAILY PRN 03/15/19 11:15 03/18/19 07:21 1 EACH Vancomycin HCl (Vancomycin Random Level) 1 each 1X ONCE 03/17/19 06:00 03/17/19 06:01 DC 03/17/19 06:31 1 EACH Vancomycin HCl 500 mg/Sodium Chloride 100 ml @ 100 mls/hr QMWF 03/17/19 16:00 03/17/19 18:07 100 MLS/HR Vancomycin HCl 2 gm/Sodium Chloride 500 ml @ 250 mls/hr 1X ONCE 03/15/19 11:30 03/15/19 13:29 DC 03/15/19 11:37 250 MLS/HR Lab Laboratory Tests Test 03/17/19 12:35 03/17/19 17:57 03/17/19 20:35 03/18/19 07:49 Glucose (Fingerstick) 129 mg/dL (70-99) 113 mg/dL (70-99) 153 mg/dL (70-99) 101 mg/dL (70-99) Test 03/18/19 10:05 White Blood Count 4.4 x10^3/uL (4.0-11.0) Red Blood Count 3.22 x10^6/uL (4.30-5.70) Hemoglobin 8.9 g/dL (13.0-17.5) Hematocrit 26.6 % (39.0-53.0) Mean Corpuscular Volume 83 fL (79-100) Mean Corpuscular Hemoglobin 28 pg (25-35) Mean Corpuscular Hemoglobin Concent 34 g/dL (31-37) Red Cell Distribution Width 19.2 % (11.5-14.5) Platelet Count 153 x10^3/uL (140-400) Neutrophils (%) (Auto) 63 % (31-73) Lymphocytes (%) (Auto) 15 % (24-48) Monocytes (%) (Auto) 15 % (0-9) Eosinophils (%) (Auto) 6 % (0-3) Basophils (%) (Auto) 1 % (0-3) Neutrophils # (Auto) 2.8 x10^3/uL (1.8-7.7) Lymphocytes # (Auto) 0.7 x10^3/uL (1.0-4.8) Monocytes # (Auto) 0.7 x10^3/uL (0.0-1.1) Eosinophils # (Auto) 0.3 x10^3/uL (0.0-0.7) Basophils # (Auto) 0.1 x10^3/uL (0.0-0.2) Prothrombin Time 16.2 SEC (11.7-14.0) Prothromb Time International Ratio 1.3 (0.8-1.1) Sodium Level 133 mmol/L (136-145) Potassium Level 4.4 mmol/L (3.5-5.1) Chloride Level 95 mmol/L (98-107) Carbon Dioxide Level 29 mmol/L (21-32) Anion Gap 9 (6-14) Blood Urea Nitrogen 33 mg/dL (8-26) Creatinine 3.6 mg/dL (0.7-1.3) Estimated GFR (Cockcroft-Gault) 17.4 Glucose Level 141 mg/dL (70-99) Calcium Level 8.5 mg/dL (8.5-10.1) Phosphorus Level 3.3 mg/dL (2.6-4.7) Albumin 3.1 g/dL (3.4-5.0) Results All relevant outside records, renal labs, imaging studies, telemetry/EKG's were reviewed. NOLAN ALEXANDER MD Mar 18, 2019 11:24
[2019-03-18 14:57] VITALS: BP 113/56
--- NOTE | 2019-03-18 15:58 | NUR ---
Wound Care Wound care consult for BLE wounds. Pt is current pt of [facility]. Cleansed wounds, wrapped with Aquacel Ag, ABD's and Kerlix, recommend to change every 2-3 days. Wounds are very clean and epithelizing well. No other wounds noted on full skin inspection. Pt will continue to follow with [facility] after discharge.
[2019-03-18 19:35] VITALS: BP 142/80
[2019-03-18] MEDS: INSULIN GLARGINE 300 UNITS/3 ML INSULN.PEN. SQ SCH (21:19)
[2019-03-18 23:05] VITALS: BP 137/73
[2019-03-19 04:48] LABS: BASO # 0.1 x10^3/uL (0.0-0.2); BASO % 1 % (0-3); EOS # 0.4 x10^3/uL (0.0-0.7); EOS % 7 % (0-3); HEMATOCRIT 25.6 % (39.0-53.0); HEMOGLOBIN 8.6 g/dL (13.0-17.5); LYMPH % 17 % (24-48); MEAN CORPUSCULAR HEMOGLOBIN 28 pg (25-35); MEAN CORPUSCULAR HGB CONC 34 g/dL (31-37); MEAN CORPUSCULAR VOLUME 82 fL (79-100); MONO # 0.9 x10^3/uL (0.0-1.1); MONO % 15 % (0-9); NEUT # 3.5 x10^3/uL (1.8-7.7); NEUT % 60 % (31-73); PLATELET COUNT 150 x10^3/uL (140-400); RED CELL DISTRIBUTION WIDTH 18.5 % (11.5-14.5); WHITE BLOOD COUNT 5.9 x10^3/uL (4.0-11.0)
[2019-03-19 05:00] LABS: PROTHROMBIN TIME PATIENT 15.2 SEC (11.7-14.0)
[2019-03-19 05:21] LABS: ALBUMIN 3.1 g/dL (3.4-5.0); CALCIUM 8.7 mg/dL (8.5-10.1); CREATININE 4.4 mg/dL (0.7-1.3); GFR 13.8; PHOSPHORUS 3.7 mg/dL (2.6-4.7); POTASSIUM 4.4 mmol/L (3.5-5.1)
[2019-03-19 07:00] VITALS: BP 155/78
[2019-03-19] MEDS ORDERED: IV NORMAL SALINE 1000ML BAG 1,000 ML IV PRN ×2 (07:54)
[2019-03-19] MEDS ORDERED: ALBUMIN HUMAN 25% 200 ML IV PRN (08:00)
[2019-03-19] MEDS ORDERED: DIALYSIS PATIENT. MC PRN ×2 (08:00)
[2019-03-19] MEDS ORDERED: 0.9 % SODIUM CHLORIDE 10 ML DISP.SYRIN. IV PRN ×2 (08:00)
[2019-03-19] MEDS: INSULIN LISPRO 300 UNITS/3 ML VIAL. SQ SCH ×6 (08:00→17:46)
[2019-03-19] MEDS: hydrALAZINE 25 MG TABLET PO SCH ×4 (08:17→20:28)
--- NOTE | 2019-03-19 08:25 | PDOC ---
Infectious Disease Note Subjective: Subjective pt is doing ok no f/c/n/v/d ROS: ROS Negative otherwise. Vital Signs: Vital Signs Vital Signs Date Time Temp Pulse Resp B/P (MAP) Pulse Ox O2 Delivery O2 Flow Rate FiO2 03/19/19 07:00 97.5 77 16 155/78 (103) 97 Room Air 97.5 03/18/19 11:00 99.0 Physical Exam: PHYSICAL EXAM GENERAL: The patient is sitting upright in nad HEENT: Pupils equally round. Oropharynx pink and dry. NECK: Supple.HDC in place, LUNGS: Clear to auscultation. HEART: S1, S2. ABDOMEN: Soft and nontender with bowel sounds present. EXTREMITIES: Trace edema of lower extremities bilaterally. No cyanosis. He has a wound on both lower legs that are currently bandaged. Pictures reviewed. SKIN: Warm to touch. No signs of rash. NEUROLOGIC: Alert and oriented x 3. Medications: Inpatient Meds: Current Medications Medications (Trade) Dose Ordered Sig/Rochelle Start Time Stop Time Status Last Admin Dose Admin Acetaminophen (Tylenol Supp) 650 mg STK-MED ONCE 03/15/19 15:04 03/15/19 15:04 DC Acetaminophen (Tylenol) 650 mg PRN Q6HRS PRN 03/15/19 15:00 03/15/19 15:12 650 MG Acetaminophen/ Hydrocodone Bitart (Lortab 5/325) 1 tab PRN Q4HRS PRN 03/16/19 10:00 Albumin Human 200 ml @ 200 mls/hr 1X PRN PRN 03/19/19 08:00 03/19/19 13:59 Amlodipine Besylate (Norvasc) 5 mg 1X ONCE 03/16/19 11:15 03/16/19 11:16 DC Apixaban (Eliquis) 2.5 mg BID 03/15/19 21:00 03/18/19 21:19 2.5 MG Ascorbic Acid (Vitamin C) 500 mg DAILY 03/16/19 09:00 03/18/19 08:34 500 MG Aspirin (Children'S Aspirin) 81 mg DAILYWBKFT 03/16/19 08:00 03/18/19 08:34 81 MG Cefepime HCl (Maxipime) 1 gm 1X ONCE 03/15/19 11:15 03/15/19 11:23 DC 03/15/19 11:37 1 GM Clonidine HCl (Catapres) 0.1 mg PRN Q1HR PRN 03/16/19 10:00 Darbepoetin Derrek (ARANESP for DIALYSIS PTS) 60 mcg WEEKLYHS 03/16/19 21:00 03/16/19 21:39 60 MCG Dextrose 250 ml PRN Q15MIN PRN 03/16/19 10:00 Dextrose (Dextrose 50%-Water Syringe) 12.5 gm PRN Q15MIN PRN 03/16/19 10:00 Digoxin (Lanoxin) 500 mcg STK-MED ONCE 03/15/19 15:26 03/15/19 15:26 DC Diltiazem HCl 125 mg/Dextrose 125 ml @ 2.5 mls/hr CONT PRN 03/15/19 15:30 03/15/19 15:40 2.5 MLS/HR Furosemide (Lasix) 40 mg DAILY 03/16/19 09:00 03/18/19 08:34 40 MG Hydralazine HCl (Apresoline) 25 mg QID 03/15/19 21:00 03/18/19 21:19 25 MG Info (Anti-Coagulation Monitoring By Pharmacy) 1 each PRN DAILY PRN 03/15/19 18:45 03/16/19 13:41 1 EACH Info (PHARMACY MONITORING -- do not chart) 1 each PRN DAILY PRN 03/19/19 08:00 03/19/19 08:07 DC Insulin Glargine (Lantus) 15 units QHS 03/15/19 21:00 03/18/19 21:19 15 UNITS Insulin Human Lispro (HumaLOG) 0-9 UNITS TIDWMEALS 03/16/19 12:00 Lactobacillus Rhamnosus (Culturelle) 1 cap BID 03/16/19 21:00 03/18/19 21:19 1 CAP Levothyroxine Sodium (Synthroid) 88 mcg DAILYAC 03/16/19 07:30 03/18/19 08:34 88 MCG Metoprolol Tartrate (Lopressor) 25 mg BID 03/15/19 21:00 03/18/19 21:19 25 MG Minoxidil (Loniten) 2.5 mg BID 03/15/19 21:00 03/18/19 21:19 2.5 MG Multivitamins (Thera M Plus) 1 tab DAILY 03/16/19 09:00 03/18/19 08:34 1 TAB Non-Formulary Medication (Pravastatin Sodium ) 1 tab HS 03/15/19 21:00 UNV Ondansetron HCl (Zofran) 4 mg PRN Q6HRS PRN 03/16/19 10:00 Polyethylene Glycol (miraLAX PACKET) 17 gm BID 03/15/19 21:00 03/18/19 21:19 17 GM Sevelamer Carbonate (Renvela) 800 mg TIDWMEALS 03/16/19 08:00 03/18/19 17:45 800 MG Sodium Hypochlorite (Dakin'S 1/4 Strength) 1 edenilson BID 03/15/19 21:00 03/18/19 08:34 1 EDENILSON Sodium Chloride 1,000 ml @ 400 mls/hr Q2H30M PRN 03/19/19 07:54 03/19/19 19:53 Sodium Chloride (Normal Saline Flush) 10 ml 1X PRN PRN 03/19/19 08:00 03/20/19 07:59 Temazepam (Restoril) 7.5 mg PRN QHS PRN 03/16/19 10:00 Vancomycin HCl (Vanco Per Pharmacy) 1 each PRN DAILY PRN 03/15/19 11:15 03/18/19 07:21 1 EACH Vancomycin HCl (Vancomycin Random Level) 1 each 1X ONCE 03/17/19 06:00 03/17/19 06:01 DC 03/17/19 06:31 1 EACH Vancomycin HCl 500 mg/Sodium Chloride 100 ml @ 100 mls/hr QMWF 03/17/19 16:00 03/17/19 18:07 100 MLS/HR Vancomycin HCl 2 gm/Sodium Chloride 500 ml @ 250 mls/hr 1X ONCE 03/15/19 11:30 03/15/19 13:29 DC 03/15/19 11:37 250 MLS/HR Labs: Lab Laboratory Tests Test 03/18/19 10:05 03/18/19 11:45 03/18/19 17:12 03/18/19 21:10 White Blood Count 4.4 x10^3/uL (4.0-11.0) Red Blood Count 3.22 x10^6/uL (4.30-5.70) Hemoglobin 8.9 g/dL (13.0-17.5) Hematocrit 26.6 % (39.0-53.0) Mean Corpuscular Volume 83 fL (79-100) Mean Corpuscular Hemoglobin 28 pg (25-35) Mean Corpuscular Hemoglobin Concent 34 g/dL (31-37) Red Cell Distribution Width 19.2 % (11.5-14.5) Platelet Count 153 x10^3/uL (140-400) Neutrophils (%) (Auto) 63 % (31-73) Lymphocytes (%) (Auto) 15 % (24-48) Monocytes (%) (Auto) 15 % (0-9) Eosinophils (%) (Auto) 6 % (0-3) Basophils (%) (Auto) 1 % (0-3) Neutrophils # (Auto) 2.8 x10^3/uL (1.8-7.7) Lymphocytes # (Auto) 0.7 x10^3/uL (1.0-4.8) Monocytes # (Auto) 0.7 x10^3/uL (0.0-1.1) Eosinophils # (Auto) 0.3 x10^3/uL (0.0-0.7) Basophils # (Auto) 0.1 x10^3/uL (0.0-0.2) Prothrombin Time 16.2 SEC (11.7-14.0) Prothromb Time International Ratio 1.3 (0.8-1.1) Sodium Level 133 mmol/L (136-145) Potassium Level 4.4 mmol/L (3.5-5.1) Chloride Level 95 mmol/L (98-107) Carbon Dioxide Level 29 mmol/L (21-32) Anion Gap 9 (6-14) Blood Urea Nitrogen 33 mg/dL (8-26) Creatinine 3.6 mg/dL (0.7-1.3) Estimated GFR (Cockcroft-Gault) 17.4 Glucose Level 141 mg/dL (70-99) Calcium Level 8.5 mg/dL (8.5-10.1) Phosphorus Level 3.3 mg/dL (2.6-4.7) Albumin 3.1 g/dL (3.4-5.0) Glucose (Fingerstick) 136 mg/dL (70-99) 133 mg/dL (70-99) 179 mg/dL (70-99) Test 03/19/19 04:15 03/19/19 07:06 White Blood Count 5.9 x10^3/uL (4.0-11.0) Red Blood Count 3.10 x10^6/uL (4.30-5.70) Hemoglobin 8.6 g/dL (13.0-17.5) Hematocrit 25.6 % (39.0-53.0) Mean Corpuscular Volume 82 fL (79-100) Mean Corpuscular Hemoglobin 28 pg (25-35) Mean Corpuscular Hemoglobin Concent 34 g/dL (31-37) Red Cell Distribution Width 18.5 % (11.5-14.5) Platelet Count 150 x10^3/uL (140-400) Neutrophils (%) (Auto) 60 % (31-73) Lymphocytes (%) (Auto) 17 % (24-48) Monocytes (%) (Auto) 15 % (0-9) Eosinophils (%) (Auto) 7 % (0-3) Basophils (%) (Auto) 1 % (0-3) Neutrophils # (Auto) 3.5 x10^3/uL (1.8-7.7) Lymphocytes # (Auto) 1.0 x10^3/uL (1.0-4.8) Monocytes # (Auto) 0.9 x10^3/uL (0.0-1.1) Eosinophils # (Auto) 0.4 x10^3/uL (0.0-0.7) Basophils # (Auto) 0.1 x10^3/uL (0.0-0.2) Prothrombin Time 15.2 SEC (11.7-14.0) Prothromb Time International Ratio 1.2 (0.8-1.1) Sodium Level 131 mmol/L (136-145) Potassium Level 4.4 mmol/L (3.5-5.1) Chloride Level 94 mmol/L (98-107) Carbon Dioxide Level 27 mmol/L (21-32) Anion Gap 10 (6-14) Blood Urea Nitrogen 48 mg/dL (8-26) Creatinine 4.4 mg/dL (0.7-1.3) Estimated GFR (Cockcroft-Gault) 13.8 Glucose Level 108 mg/dL (70-99) Calcium Level 8.7 mg/dL (8.5-10.1) Phosphorus Level 3.7 mg/dL (2.6-4.7) Albumin 3.1 g/dL (3.4-5.0) Glucose (Fingerstick) 89 mg/dL (70-99) Micro RUN DATE: 03/18/19 PAGE 1 RUN TIME: 1909 [facility] [address] [place] [address] 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., 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 PATIENT: JAN YUNG Vince ACCT: [id number] LOC: [address] [place] [address] U: [id number] AGE/SX: 58/M ROOM: 246 RE03/15/[address]: IKE CORTEZ III, DO : 1960 BED: 1 DIS: STATUS: ADM IN TLOC: -- SPEC #: [id number] ELLEN: 03/15/19 STATUS: RES REQ #: [id number] RECD: 03/15/19-[address]: LIZ NAVARRO DO SOURCE: BLOOD ENTR: 03/16/19-[address] [facility] [address]: FARHAD PURVIS MD [facility]: ORDERED: ROSARIO CULT - LC Procedure Result BLOOD CULTURE LC Preliminary Preliminary report BLD CULT RESULT 1 Preliminary Staphylococcus aureus Performed at: - [facility] [address], [place], [place] [id number] Deodorizer Operator: JP Gardiner MD, Phone: [phone] Objective: Assessment: 1. Staph aureus bacteremia with sepsis present on admission. JOE pending 2 ECHO done 03/17 2. Infected hemodialysis catheter, status post removal 03/05 and replaced 03/07 per the patient report,swab c/s negative from [facility] 3. Fever.resolved 4. ANTIBIOTIC ALLERGY TO PENICILLIN WITH ANAPHYLACTIC TYPE REACTION IN CHILDHOOD AND SULFA WITH HIVES. 5. History of methicillin-resistant Staphylococcus aureus. 6. Chronic wounds, lower extremities bilaterally. [facility]. 7. End-stage renal disease, on hemodialysis. 8. Peripheral vascular disease. 9. Diabetes with peripheral neuropathy. 10. Atrial fibrillation. Plan: Plan of Care continue the vancomycin. start cefepime pending joe of staph aureus HDC may need removal repeat BC today Culture of the drainage from the HDC was taken at [facility] on 03/05 reported neg F/U BC 03/17 Wound care team following Probiotics D/w nursing BRI RIOS MD Mar 19, 2019 08:25
[2019-03-19] MEDS: SEVELAMER CARBONATE 800 MG TABLET. PO SCH ×3 (08:52→17:39)
[2019-03-19] MEDS: POLYETHYLENE GLYCOL 3350 17 GM PACKET. PO SCH ×2 (09:00→20:26)
[2019-03-19] MEDS: LACTOBACILLUS RHAMNOSUS GG 1 CAPSULE. PO SCH ×2 (09:00→20:28)
--- NOTE | 2019-03-19 09:45 | NUR ---
SS following up with discharge planning. SS phoned and faxed clinical updates to [facility] in [place], ; fax [phone]. SS will continue to follow for discharge planning.
--- NOTE | 2019-03-19 10:37 | PDOC ---
SUBJECTIVE ROS Stable, seen on HD OBJECTIVE Vital Signs Vital Signs Date Time Temp Pulse Resp B/P (MAP) Pulse Ox O2 Delivery O2 Flow Rate FiO2 03/19/19 08:00 Room Air 03/19/19 07:00 97.5 77 16 155/78 (103) 97 97.5 03/18/19 11:00 99.0 I & 0 Intake and Output 03/19/19 07:01 Intake Total 580 ml Output Total 150 ml Balance 430 ml Intake Oral 580 ml Output Urine Total 150 ml PHYSICAL EXAM Physical Exam GENERAL: NAD HEENT: OM moist NECK: Supple. LUNGS: Clear to auscultation. HEART: S1, S2. ABDOMEN: Soft and nontender with bowel sounds present. EXTREMITIES: Trace edema of lower extremities bilaterally. No cyanosis. He has a wound on both lower legs that are currently bandaged. SKIN: No signs of rash. NEUROLOGIC: Alert and oriented x 3. 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 Echocardiogram shows normal LV systolic function COMMENT/RELEVANT DATA Meds Current Medications Medications (Trade) Dose Ordered Sig/Rochelle Start Time Stop Time Status Last Admin Dose Admin Acetaminophen (Tylenol Supp) 650 mg STK-MED ONCE 03/15/19 15:04 03/15/19 15:04 DC Acetaminophen (Tylenol) 650 mg PRN Q6HRS PRN 03/15/19 15:00 03/15/19 15:12 650 MG Acetaminophen/ Hydrocodone Bitart (Lortab 5/325) 1 tab PRN Q4HRS PRN 03/16/19 10:00 Albumin Human 200 ml @ 200 mls/hr 1X PRN PRN 03/19/19 08:00 03/19/19 13:59 Amlodipine Besylate (Norvasc) 5 mg 1X ONCE 03/16/19 11:15 03/16/19 11:16 DC Apixaban (Eliquis) 2.5 mg BID 03/15/19 21:00 03/18/19 21:19 2.5 MG Ascorbic Acid (Vitamin C) 500 mg DAILY 03/16/19 09:00 03/18/19 08:34 500 MG Aspirin (Children'S Aspirin) 81 mg DAILYWBKFT 03/16/19 08:00 03/18/19 08:34 81 MG Cefepime HCl (Maxipime) 1 gm Q24H 03/19/19 09:00 Clonidine HCl (Catapres) 0.1 mg PRN Q1HR PRN 03/16/19 10:00 Darbepoetin Derrek (ARANESP for DIALYSIS PTS) 60 mcg WEEKLYHS 03/16/19 21:00 03/16/19 21:39 60 MCG Dextrose 250 ml PRN Q15MIN PRN 03/16/19 10:00 Dextrose (Dextrose 50%-Water Syringe) 12.5 gm PRN Q15MIN PRN 03/16/19 10:00 Digoxin (Lanoxin) 500 mcg STK-MED ONCE 03/15/19 15:26 03/15/19 15:26 DC Diltiazem HCl 125 mg/Dextrose 125 ml @ 2.5 mls/hr CONT PRN 03/15/19 15:30 03/15/19 15:40 2.5 MLS/HR Furosemide (Lasix) 40 mg DAILY 03/16/19 09:00 03/18/19 08:34 40 MG Hydralazine HCl (Apresoline) 25 mg QID 03/15/19 21:00 03/18/19 21:19 25 MG Info (Anti-Coagulation Monitoring By Pharmacy) 1 each PRN DAILY PRN 03/15/19 18:45 03/16/19 13:41 1 EACH Info (PHARMACY MONITORING -- do not chart) 1 each PRN DAILY PRN 03/19/19 08:00 03/19/19 08:07 DC Insulin Glargine (Lantus) 15 units QHS 03/15/19 21:00 03/18/19 21:19 15 UNITS Insulin Human Lispro (HumaLOG) 0-9 UNITS TIDWMEALS 03/16/19 12:00 Lactobacillus Rhamnosus (Culturelle) 1 cap BID 03/16/19 21:00 03/18/19 21:19 1 CAP Levothyroxine Sodium (Synthroid) 88 mcg DAILYAC 03/16/19 07:30 03/18/19 08:34 88 MCG Metoprolol Tartrate (Lopressor) 25 mg BID 03/15/19 21:00 03/18/19 21:19 25 MG Minoxidil (Loniten) 2.5 mg BID 03/15/19 21:00 03/18/19 21:19 2.5 MG Multivitamins (Thera M Plus) 1 tab DAILY 03/16/19 09:00 03/18/19 08:34 1 TAB Non-Formulary Medication (Pravastatin Sodium ) 1 tab HS 03/15/19 21:00 UNV Ondansetron HCl (Zofran) 4 mg PRN Q6HRS PRN 03/16/19 10:00 Polyethylene Glycol (miraLAX PACKET) 17 gm BID 03/15/19 21:00 03/18/19 21:19 17 GM Sevelamer Carbonate (Renvela) 800 mg TIDWMEALS 03/16/19 08:00 03/19/19 08:52 800 MG Sodium Hypochlorite (Dakin'S 1/4 Strength) 1 edenilson BID 03/15/19 21:00 03/18/19 08:34 1 EDENILSON Sodium Chloride 1,000 ml @ 400 mls/hr Q2H30M PRN 03/19/19 07:54 03/19/19 19:53 Sodium Chloride (Normal Saline Flush) 10 ml 1X PRN PRN 03/19/19 08:00 03/20/19 07:59 Temazepam (Restoril) 7.5 mg PRN QHS PRN 03/16/19 10:00 Vancomycin HCl (Vanco Per Pharmacy) 1 each PRN DAILY PRN 03/15/19 11:15 03/18/19 07:21 1 EACH Vancomycin HCl (Vancomycin Random Level) 1 each 1X ONCE 03/17/19 06:00 03/17/19 06:01 DC 03/17/19 06:31 1 EACH Vancomycin HCl 500 mg/Sodium Chloride 100 ml @ 100 mls/hr QMWF 03/17/19 16:00 03/17/19 18:07 100 MLS/HR Vancomycin HCl 2 gm/Sodium Chloride 500 ml @ 250 mls/hr 1X ONCE 03/15/19 11:30 03/15/19 13:29 DC 03/15/19 11:37 250 MLS/HR Lab Laboratory Tests Test 03/18/19 11:45 03/18/19 17:12 03/18/19 21:10 03/19/19 04:15 Glucose (Fingerstick) 136 mg/dL (70-99) 133 mg/dL (70-99) 179 mg/dL (70-99) White Blood Count 5.9 x10^3/uL (4.0-11.0) Red Blood Count 3.10 x10^6/uL (4.30-5.70) Hemoglobin 8.6 g/dL (13.0-17.5) Hematocrit 25.6 % (39.0-53.0) Mean Corpuscular Volume 82 fL (79-100) Mean Corpuscular Hemoglobin 28 pg (25-35) Mean Corpuscular Hemoglobin Concent 34 g/dL (31-37) Red Cell Distribution Width 18.5 % (11.5-14.5) Platelet Count 150 x10^3/uL (140-400) Neutrophils (%) (Auto) 60 % (31-73) Lymphocytes (%) (Auto) 17 % (24-48) Monocytes (%) (Auto) 15 % (0-9) Eosinophils (%) (Auto) 7 % (0-3) Basophils (%) (Auto) 1 % (0-3) Neutrophils # (Auto) 3.5 x10^3/uL (1.8-7.7) Lymphocytes # (Auto) 1.0 x10^3/uL (1.0-4.8) Monocytes # (Auto) 0.9 x10^3/uL (0.0-1.1) Eosinophils # (Auto) 0.4 x10^3/uL (0.0-0.7) Basophils # (Auto) 0.1 x10^3/uL (0.0-0.2) Prothrombin Time 15.2 SEC (11.7-14.0) Prothromb Time International Ratio 1.2 (0.8-1.1) Sodium Level 131 mmol/L (136-145) Potassium Level 4.4 mmol/L (3.5-5.1) Chloride Level 94 mmol/L (98-107) Carbon Dioxide Level 27 mmol/L (21-32) Anion Gap 10 (6-14) Blood Urea Nitrogen 48 mg/dL (8-26) Creatinine 4.4 mg/dL (0.7-1.3) Estimated GFR (Cockcroft-Gault) 13.8 Glucose Level 108 mg/dL (70-99) Calcium Level 8.7 mg/dL (8.5-10.1) Phosphorus Level 3.7 mg/dL (2.6-4.7) Albumin 3.1 g/dL (3.4-5.0) Test 03/19/19 07:06 Glucose (Fingerstick) 89 mg/dL (70-99) Results All relevant outside records, renal labs, imaging studies, telemetry/EKG's were reviewed. NOLAN ALEXANDER MD Mar 19, 2019 10:37
--- NOTE | 2019-03-19 11:11 | PDOC ---
PROGRESS NOTES Chief Complaint Chief Complaint IMPRESSION Sepsis,, Staph aureus bacteremia with sepsis Chronic wounds, lower extremities bilaterally. [facility] PAD ESRD on HD AOCD Cellulitis - with sepsis Acute on chronic a fib s/p RVR HTN Hypothyroidism on synthroid Gram-positive cocci bacteremia with sepsis present on admission.ID and ISAAC pending Infected hemodialysis catheter, status post removal 03/05 and replaced 03/07 History of methicillin-resistant Staphylococcus aureus. Diabetes with peripheral neuropathy. Atrial fibrillation. Infected hemodialysis catheter, status post removal 03/05 and replaced 03/07 38 MIN PT EXAM, CHART REVIEW, > 50% OF TIME SPENT WITH EXASM, CHART REVIEW, PT CARE COORDINATION History of Present Illness History of Present Illness He has no complaints Cardizem gtt bec went to RVR (hx a fib) Now off cardizem gtt Vasc sx, ID on board, wounds legs, pics reviewed, will need wound care and IV Abx Also HD pt, RT tunnelled HD cath visible. Transferred from ICU to [facility] on 03/16/19. He reviews with me that his catheter had fallen out "pretty far" and he pushed it back in. 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 Oropharynx pink and dry. NECK: Supple.HDC in place, LUNGS: Clear to auscultation. HEART: S1, S2. ABDOMEN: Soft and nontender with bowel sounds present. EXTREMITIES: Trace edema of lower extremities bilaterally. No cyanosis. He has a wound on both lower legs that are currently bandaged. Pictures reviewed. SKIN: Warm to touch. No signs of rash. NEUROLOGIC: Alert and oriented x 3. General: Alert, Oriented X3, Cooperative, mild distress Heart: Other (irreg. irreg.) Lungs: Clear Abdomen: Normal bowel sounds Extremities: No clubbing, No cyanosis Skin: No breakdown Labs LABS SPEC #: [id number] ELLEN: 03/15/19 STATUS: VICK REQ #: [id number] RECD: 03/15/19-[address] [facility] [address]: LIZ NAVARRO DO SOURCE: BLOOD ENTR: 03/15/19-[address] [facility] [address]: FARHAD PURVIS MD [facility]: ORDERED: BCULT Procedure Result BLOOD CULTURE Final GRAM POSITIVE COCCI IN CLUSTER 1 SET DRAWN, 2 OF 2 POSITIVE CALLED TO GENO HART RN IN ICU BY Liliane JOYA,03/16/19,3958 SPECIMEN SENDING TO [facility] FOR FURTHER WORK UP CHEST AP ONLY History: Shortness of air, fever Comparison: None. Findings: Single view of the chest is submitted. Pericardial cardiac silhouette is enlarged. There is a dual lumen right internal jugular catheter, tips in the inferior aspect of the superior vena cava. There is no lobar consolidation, pleural fluid, pneumothorax. Impression: 1. Pericardial cardiac silhouette is enlarged. Electronically signed by: Adriel Layton MD (03/15/2019 10:58 AM) [facility] Laboratory Tests Test 03/18/19 11:45 03/18/19 17:12 03/18/19 21:10 03/19/19 04:15 Glucose (Fingerstick) 136 mg/dL (70-99) 133 mg/dL (70-99) 179 mg/dL (70-99) White Blood Count 5.9 x10^3/uL (4.0-11.0) Red Blood Count 3.10 x10^6/uL (4.30-5.70) Hemoglobin 8.6 g/dL (13.0-17.5) Hematocrit 25.6 % (39.0-53.0) Mean Corpuscular Volume 82 fL (79-100) Mean Corpuscular Hemoglobin 28 pg (25-35) Mean Corpuscular Hemoglobin Concent 34 g/dL (31-37) Red Cell Distribution Width 18.5 % (11.5-14.5) Platelet Count 150 x10^3/uL (140-400) Neutrophils (%) (Auto) 60 % (31-73) Lymphocytes (%) (Auto) 17 % (24-48) Monocytes (%) (Auto) 15 % (0-9) Eosinophils (%) (Auto) 7 % (0-3) Basophils (%) (Auto) 1 % (0-3) Neutrophils # (Auto) 3.5 x10^3/uL (1.8-7.7) Lymphocytes # (Auto) 1.0 x10^3/uL (1.0-4.8) Monocytes # (Auto) 0.9 x10^3/uL (0.0-1.1) Eosinophils # (Auto) 0.4 x10^3/uL (0.0-0.7) Basophils # (Auto) 0.1 x10^3/uL (0.0-0.2) Prothrombin Time 15.2 SEC (11.7-14.0) Prothromb Time International Ratio 1.2 (0.8-1.1) Sodium Level 131 mmol/L (136-145) Potassium Level 4.4 mmol/L (3.5-5.1) Chloride Level 94 mmol/L (98-107) Carbon Dioxide Level 27 mmol/L (21-32) Anion Gap 10 (6-14) Blood Urea Nitrogen 48 mg/dL (8-26) Creatinine 4.4 mg/dL (0.7-1.3) Estimated GFR (Cockcroft-Gault) 13.8 Glucose Level 108 mg/dL (70-99) Calcium Level 8.7 mg/dL (8.5-10.1) Phosphorus Level 3.7 mg/dL (2.6-4.7) Albumin 3.1 g/dL (3.4-5.0) Test 03/19/19 07:06 Glucose (Fingerstick) 89 mg/dL (70-99) Assessment and Plan Assessmemt and Plan Problems Medical Problems: (1) A-fib Status: Acute (2) Diabetes mellitus with peripheral autonomic neuropathy Status: Chronic (3) ESRD on hemodialysis Status: Chronic (4) PVD (peripheral vascular disease) Status: Chronic (5) Sepsis Status: Acute Comment Review of Relevant I have reviewed the following items kendra (where applicable) has been applied. Labs Laboratory Tests Test 03/17/19 12:35 03/17/19 17:57 03/17/19 20:35 03/18/19 07:49 Glucose (Fingerstick) 129 mg/dL (70-99) 113 mg/dL (70-99) 153 mg/dL (70-99) 101 mg/dL (70-99) Test 03/18/19 10:05 03/18/19 11:45 03/18/19 17:12 03/18/19 21:10 White Blood Count 4.4 x10^3/uL (4.0-11.0) Red Blood Count 3.22 x10^6/uL (4.30-5.70) Hemoglobin 8.9 g/dL (13.0-17.5) Hematocrit 26.6 % (39.0-53.0) Mean Corpuscular Volume 83 fL (79-100) Mean Corpuscular Hemoglobin 28 pg (25-35) Mean Corpuscular Hemoglobin Concent 34 g/dL (31-37) Red Cell Distribution Width 19.2 % (11.5-14.5) Platelet Count 153 x10^3/uL (140-400) Neutrophils (%) (Auto) 63 % (31-73) Lymphocytes (%) (Auto) 15 % (24-48) Monocytes (%) (Auto) 15 % (0-9) Eosinophils (%) (Auto) 6 % (0-3) Basophils (%) (Auto) 1 % (0-3) Neutrophils # (Auto) 2.8 x10^3/uL (1.8-7.7) Lymphocytes # (Auto) 0.7 x10^3/uL (1.0-4.8) Monocytes # (Auto) 0.7 x10^3/uL (0.0-1.1) Eosinophils # (Auto) 0.3 x10^3/uL (0.0-0.7) Basophils # (Auto) 0.1 x10^3/uL (0.0-0.2) Prothrombin Time 16.2 SEC (11.7-14.0) Prothromb Time International Ratio 1.3 (0.8-1.1) Sodium Level 133 mmol/L (136-145) Potassium Level 4.4 mmol/L (3.5-5.1) Chloride Level 95 mmol/L (98-107) Carbon Dioxide Level 29 mmol/L (21-32) Anion Gap 9 (6-14) Blood Urea Nitrogen 33 mg/dL (8-26) Creatinine 3.6 mg/dL (0.7-1.3) Estimated GFR (Cockcroft-Gault) 17.4 Glucose Level 141 mg/dL (70-99) Calcium Level 8.5 mg/dL (8.5-10.1) Phosphorus Level 3.3 mg/dL (2.6-4.7) Albumin 3.1 g/dL (3.4-5.0) Glucose (Fingerstick) 136 mg/dL (70-99) 133 mg/dL (70-99) 179 mg/dL (70-99) Test 03/19/19 04:15 03/19/19 07:06 White Blood Count 5.9 x10^3/uL (4.0-11.0) Red Blood Count 3.10 x10^6/uL (4.30-5.70) Hemoglobin 8.6 g/dL (13.0-17.5) Hematocrit 25.6 % (39.0-53.0) Mean Corpuscular Volume 82 fL (79-100) Mean Corpuscular Hemoglobin 28 pg (25-35) Mean Corpuscular Hemoglobin Concent 34 g/dL (31-37) Red Cell Distribution Width 18.5 % (11.5-14.5) Platelet Count 150 x10^3/uL (140-400) Neutrophils (%) (Auto) 60 % (31-73) Lymphocytes (%) (Auto) 17 % (24-48) Monocytes (%) (Auto) 15 % (0-9) Eosinophils (%) (Auto) 7 % (0-3) Basophils (%) (Auto) 1 % (0-3) Neutrophils # (Auto) 3.5 x10^3/uL (1.8-7.7) Lymphocytes # (Auto) 1.0 x10^3/uL (1.0-4.8) Monocytes # (Auto) 0.9 x10^3/uL (0.0-1.1) Eosinophils # (Auto) 0.4 x10^3/uL (0.0-0.7) Basophils # (Auto) 0.1 x10^3/uL (0.0-0.2) Prothrombin Time 15.2 SEC (11.7-14.0) Prothromb Time International Ratio 1.2 (0.8-1.1) Sodium Level 131 mmol/L (136-145) Potassium Level 4.4 mmol/L (3.5-5.1) Chloride Level 94 mmol/L (98-107) Carbon Dioxide Level 27 mmol/L (21-32) Anion Gap 10 (6-14) Blood Urea Nitrogen 48 mg/dL (8-26) Creatinine 4.4 mg/dL (0.7-1.3) Estimated GFR (Cockcroft-Gault) 13.8 Glucose Level 108 mg/dL (70-99) Calcium Level 8.7 mg/dL (8.5-10.1) Phosphorus Level 3.7 mg/dL (2.6-4.7) Albumin 3.1 g/dL (3.4-5.0) Glucose (Fingerstick) 89 mg/dL (70-99) Laboratory Tests Test 03/18/19 11:45 03/18/19 17:12 03/18/19 21:10 03/19/19 04:15 Glucose (Fingerstick) 136 mg/dL (70-99) 133 mg/dL (70-99) 179 mg/dL (70-99) White Blood Count 5.9 x10^3/uL (4.0-11.0) Red Blood Count 3.10 x10^6/uL (4.30-5.70) Hemoglobin 8.6 g/dL (13.0-17.5) Hematocrit 25.6 % (39.0-53.0) Mean Corpuscular Volume 82 fL (79-100) Mean Corpuscular Hemoglobin 28 pg (25-35) Mean Corpuscular Hemoglobin Concent 34 g/dL (31-37) Red Cell Distribution Width 18.5 % (11.5-14.5) Platelet Count 150 x10^3/uL (140-400) Neutrophils (%) (Auto) 60 % (31-73) Lymphocytes (%) (Auto) 17 % (24-48) Monocytes (%) (Auto) 15 % (0-9) Eosinophils (%) (Auto) 7 % (0-3) Basophils (%) (Auto) 1 % (0-3) Neutrophils # (Auto) 3.5 x10^3/uL (1.8-7.7) Lymphocytes # (Auto) 1.0 x10^3/uL (1.0-4.8) Monocytes # (Auto) 0.9 x10^3/uL (0.0-1.1) Eosinophils # (Auto) 0.4 x10^3/uL (0.0-0.7) Basophils # (Auto) 0.1 x10^3/uL (0.0-0.2) Prothrombin Time 15.2 SEC (11.7-14.0) Prothromb Time International Ratio 1.2 (0.8-1.1) Sodium Level 131 mmol/L (136-145) Potassium Level 4.4 mmol/L (3.5-5.1) Chloride Level 94 mmol/L (98-107) Carbon Dioxide Level 27 mmol/L (21-32) Anion Gap 10 (6-14) Blood Urea Nitrogen 48 mg/dL (8-26) Creatinine 4.4 mg/dL (0.7-1.3) Estimated GFR (Cockcroft-Gault) 13.8 Glucose Level 108 mg/dL (70-99) Calcium Level 8.7 mg/dL (8.5-10.1) Phosphorus Level 3.7 mg/dL (2.6-4.7) Albumin 3.1 g/dL (3.4-5.0) Test 03/19/19 07:06 Glucose (Fingerstick) 89 mg/dL (70-99) Microbiology 03/17/19 Blood Culture - Preliminary, Resulted NO GROWTH AFTER 2 DAYS Medications Current Medications Vancomycin HCl (Vanco Per Pharmacy) 1 each PRN DAILY PRN MC SEE COMMENTS Last administered on 03/18/19at 07:21; Start 03/15/19 at 11:15 Cefepime HCl (Maxipime) 1 gm 1X ONCE IVP Last administered on 03/15/19 11:37; Start 03/15/19 at 11:15; Stop 03/15/19 at 11:23; Status DC Sodium Chloride 1,000 ml @ 1,000 mls/hr 1X ONCE IV Last administered on 03/15/19at 11:28; Start 03/15/19 at 11:30; Stop 03/15/19 at 12:29; Status DC Vancomycin HCl 2 gm/Sodium Chloride 500 ml @ 250 mls/hr 1X ONCE IV Last administered on 03/15/19at 11:37; Start 03/15/19 at 11:30; Stop 03/15/19 at 13:29; Status DC Vancomycin HCl (Vancomycin Random Level) 1 each 1X ONCE MC Last administered on 03/17/19at 06:31; Start 03/17/19 at 06:00; Stop 03/17/19 at 06:01; Status DC Acetaminophen (Tylenol) 650 mg PRN Q6HRS PRN PO MILD PAIN / TEMP Last administered on 03/15/19at 15:12; Start 03/15/19 at 15:00 Acetaminophen (Tylenol Supp) 650 mg STK-MED ONCE .ROUTE ; Start 03/15/19 at 15:04; Stop 03/15/19 at 15:04; Status DC Digoxin (Lanoxin) 250 mcg 1X ONCE IV Last administered on 03/15/19at 15:30; Start 03/15/19 at 15:30; Stop 03/15/19 at 15:31; Status DC Diltiazem HCl 125 mg/Dextrose 125 ml @ 2.5 mls/hr CONT PRN IV SEE I/O RECORD Last administered on 03/15/19at 15:40; Start 03/15/19 at 15:30 Digoxin (Lanoxin) 500 mcg STK-MED ONCE .ROUTE ; Start 03/15/19 at 15:26; Stop 03/15/19 at 15:26; Status DC Sodium Chloride 1,000 ml @ 1,000 mls/hr 1X ONCE IV Last administered on 03/15/19at 16:30; Start 03/15/19 at 14:00; Stop 03/15/19 at 16:33; Status DC Sodium Hypochlorite (Dakin'S 1/4 Strength) 1 edenilson DAILY TP ; Start 03/16/19 at 09:00; Stop 03/15/19 at 18:00; Status DC Sodium Hypochlorite (Dakin'S 1/4 Strength) 1 edenilson BID TP Last administered on 03/18/19at 08:34; Start 03/15/19 at 21:00 Amlodipine Besylate (Norvasc) 5 mg DAILY PO Last administered on 03/16/19at 08:18; Start 03/16/19 at 09:00; Stop 03/16/19 at 11:02; Status DC Apixaban (Eliquis) 2.5 mg BID PO Last administered on 03/18/19 21:19; Start 03/15/19 at 21:00 Ascorbic Acid (Vitamin C) 500 mg DAILY PO Last administered on 03/18/19at 08:34; Start 03/16/19 at 09:00 Aspirin (Children'S Aspirin) 81 mg DAILYWBKFT PO Last administered on 03/18/19at 08:34; Start 03/16/19 at 08:00 Furosemide (Lasix) 40 mg DAILY PO Last administered on 03/18/19at 08:34; Start 03/16/19 at 09:00 Hydralazine HCl (Apresoline) 25 mg QID PO Last administered on 03/18/19 21:19; Start 03/15/19 at 21:00 Metoprolol Tartrate (Lopressor) 25 mg BID PO Last administered on 03/18/19 21:19; Start 03/15/19 at 21:00 Minoxidil (Loniten) 2.5 mg BID PO Last administered on 03/18/19 21:19; Start 03/15/19 at 21:00 Multivitamins (Thera M Plus) 1 tab DAILY PO Last administered on 03/18/19at 08:34; Start 03/16/19 at 09:00 Polyethylene Glycol (miraLAX PACKET) 17 gm BID PO Last administered on 03/18/19 21:19; Start 03/15/19 at 21:00 Sevelamer Carbonate (Renvela) 800 mg TIDWMEALS PO Last administered on 03/19/19at 08:52; Start 03/16/19 at 08:00 Non-Formulary Medication (Pravastatin Sodium ) 1 tab HS PO ; Start 03/15/19 at 21:00; Status UNV Info (Anti-Coagulation Monitoring By Pharmacy) 1 each PRN DAILY PRN MC SEE COMMENTS Last administered on 03/16/19at 13:41; Start 03/15/19 at 18:45 Insulin Glargine (Lantus) 15 units QHS SQ Last administered on 03/18/19at 21:19; Start 03/15/19 at 21:00 Insulin Human Lispro (HumaLOG) 5 units TIDWMEALS SQ ; Start 03/16/19 at 08:00 Levothyroxine Sodium (Synthroid) 88 mcg DAILYAC PO Last administered on 03/18/19at 08:34; Start 03/16/19 at 07:30 Lactobacillus Rhamnosus (Culturelle) 1 cap BID PO Last administered on 03/18/19 21:19; Start 03/16/19 at 21:00 Insulin Human Lispro (HumaLOG) 0-9 UNITS TIDWMEALS SQ ; Start 03/16/19 at 12:00 Dextrose (Dextrose 50%-Water Syringe) 12.5 gm PRN Q15MIN PRN IV SEE COMMENTS; Start 03/16/19 at 10:00 Dextrose 250 ml PRN Q15MIN PRN IV SEE COMMENTS; Start 03/16/19 at 10:00 Ondansetron HCl (Zofran) 4 mg PRN Q6HRS PRN IV NAUSEA/VOMITING; Start 03/16/19 at 10:00 Acetaminophen/ Hydrocodone Bitart (Lortab 5/325) 1 tab PRN Q4HRS PRN PO PAIN; Start 03/16/19 at 10:00 Temazepam (Restoril) 7.5 mg PRN QHS PRN PO INSOMNIA; Start 03/16/19 at 10:00 Clonidine HCl (Catapres) 0.1 mg PRN Q1HR PRN PO HYPERTENSION; Start 03/16/19 at 10:00 Amlodipine Besylate (Norvasc) 10 mg DAILY PO Last administered on 03/18/19at 08:34; Start 03/17/19 at 09:00 Amlodipine Besylate (Norvasc) 5 mg 1X ONCE PO ; Start 03/16/19 at 11:15; Stop 03/16/19 at 11:16; Status DC Darbepoetin Derrek (ARANESP for DIALYSIS PTS) 60 mcg WEEKLYHS SQ Last administered on 03/16/19at 21:39; Start 03/16/19 at 21:00 Sodium Chloride 1,000 ml @ 1,000 mls/hr Q1H PRN IV hypotension; Start 03/17/19 at 10:16; Stop 03/17/19 at 16:15; Status DC Albumin Human 200 ml @ 200 mls/hr 1X PRN PRN IV Hypotension; Start 03/17/19 at 10:30; Stop 03/17/19 at 16:29; Status DC Sodium Chloride (Normal Saline Flush) 10 ml 1X PRN PRN IV AP catheter pack; S tart 03/17/19 at 10:30; Stop 03/18/19 at 10:29; Status DC Sodium Chloride (Normal Saline Flush) 10 ml 1X PRN PRN IV REPORTER catheter pack; Start 03/17/19 at 10:30; Stop 03/18/19 at 10:29; Status DC Sodium Chloride 1,000 ml @ 400 mls/hr Q2H30M PRN IV PATENCY; Start 03/17/19 at 10:16; Stop 03/17/19 at 22:15; Status DC Info (PHARMACY MONITORING -- do not chart) 1 each PRN DAILY PRN MC SEE COMMENTS; Start 03/17/19 at 10:30; Status UNV Info (PHARMACY MONITORING -- do not chart) 1 each PRN DAILY PRN MC SEE COMM ENTS; Start 03/17/19 at 10:30 Vancomycin HCl 500 mg/Sodium Chloride 100 ml @ 100 mls/hr QMWF IV Last administered on 03/17/19at 18:07; Start 03/17/19 at 16:00 Sodium Chloride 1,000 ml @ 1,000 mls/hr Q1H PRN IV hypotension; Start 03/19/19 at 07:54; Stop 03/19/19 at 13:53 Albumin Human 200 ml @ 200 mls/hr 1X PRN PRN IV Hypotension; Start 03/19/19 at 08:00; Stop 03/19/19 at 13:59 Sodium Chloride (Normal Saline Flush) 10 ml 1X PRN PRN IV AP catheter pack; Start 03/19/19 at 08:00; Stop 03/20/19 at 07:59 Sodium Chloride (Normal Saline Flush) 10 ml 1X PRN PRN IV REPORTER catheter pack; Start 03/19/19 at 08:00; Stop 03/20/19 at 07:59 Sodium Chloride 1,000 ml @ 400 mls/hr Q2H30M PRN IV PATENCY; Start 03/19/19 at 07:54; Stop 03/19/19 at 19:53 Info (PHARMACY MONITORING -- do not chart) 1 each PRN DAILY PRN MC SEE COMMENTS; Start 03/19/19 at 08:00; Status UNV Info (PHARMACY MONITORING -- do not chart) 1 each PRN DAILY PRN MC SEE COMMENTS; Start 03/19/19 at 08:00; Stop 03/19/19 at 08:07; Status DC Cefepime HCl (Maxipime) 1 gm Q24H IVP ; Start 03/19/19 at 09:00 Active Scripts Active Vitamin C (Ascorbic Acid) 500 Mg Tablet 500 Mg PO DAILY MDD 1 Thera-M Tablet (Multivits,Ca,Minerals/Iron/Fa) 1 Each Tablet 1 Tab PO DAILY MDD 1 Acetaminophen-Cod #3 Tablet (Acetaminophen/Codeine Phosphate) 1 Each Tablet 1 Tab PO PRN Q6HRS PRN MDD 1 Aspirin 81 Mg Tab.chew 81 Mg PO DAILYWBKFT MDD 1 Reported Levothyroxine Sodium 88 Mcg Tablet 88 Mcg PO DAILYAC Hydrocodone-Apap 7.5-325 (Hydrocodone Bit/Acetaminophen) 1 Tab Tablet 1 Tab PO PRN Q4HRS PRN Novolog Flexpen (Insulin Aspart) 100 Unit/1 Ml Insuln.pen 5 Unit SQ TIDWMEALS Lantus Solostar (Insulin Glargine,Hum.rec.anlog) 100 Unit/1 Ml Insuln.pen 15 Unit SQ QHS Renvela (Sevelamer Carbonate) 800 Mg Tablet 800 Mg PO TIDWMEALS Pravastatin Sodium 80 Mg Tablet 1 Tab PO HS Miralax (Polyethylene Glycol 3350) 17 Gm Powd.pack 1 Packet PO BID Minoxidil 2.5 Mg Tablet 2.5 Mg PO BID Metoprolol Tartrate 25 Mg Tablet 25 Mg PO BID Hydralazine Hcl 25 Mg Tablet 25 Mg PO QID Furosemide 40 Mg Tablet 40 Mg PO DAILY Eliquis (Apixaban) 2.5 Mg Tablet 2.5 Mg PO BID Amlodipine Besylate 5 Mg Tablet 5 Mg PO DAILY Vitals/I & O Vital Sign - Last 24 Hours 03/18/19 03/18/19 03/18/19 03/18/19 12:18 14:57 17:45 19:35 Temp 98.6 98.2 98.6 98.2 Pulse 73 74 74 84 Resp 16 18 B/P (MAP) 127/64 113/56 (75) 113/56 142/80 (100) Pulse Ox 91 97 O2 Delivery Room Air Room Air 03/18/19 03/18/19 03/18/19 03/18/19 20:13 21:19 21:19 21:19 Pulse 84 84 84 B/P (MAP) 142/80 142/80 142/80 O2 Delivery Room Air 03/18/19 03/19/19 03/19/19 03/19/19 23:05 03:00 07:00 08:00 Temp 98.4 97.5 98.4 97.5 Pulse 69 74 77 Resp 18 16 B/P (MAP) 137/73 (94) 155/78 (103) Pulse Ox 98 97 O2 Delivery Room Air Room Air Room Air Intake and Output 03/18/19 03/18/19 03/19/19 15:00 23:00 07:00 Intake Total 180 ml 400 ml Output Total 150 ml Balance 180 ml 250 ml ARY HASSAN MD Mar 19, 2019 11:10
--- NOTE | 2019-03-19 12:46 | PDOC ---
CARDIO Progress Notes Date and Time Date of Service 03/19/2019 Time of Evaluation 1230 Subjective Subjective: No Chest Pain, No shortness of breath, No Palpitations Vitals Vitals Vital Signs Date Time Temp Pulse Resp B/P (MAP) Pulse Ox O2 Delivery O2 Flow Rate FiO2 03/19/19 08:00 Room Air 03/19/19 07:00 97.5 77 16 155/78 (103) 97 97.5 03/18/19 11:00 99.0 Weight Weight [ ] Input and Output Intake and Output Intake and Output 03/19/19 07:00 Intake Total 580 ml Output Total 150 ml Balance 430 ml Intake Oral 580 ml Output Urine Total 150 ml Laboratory Labs Laboratory Tests Test 03/18/19 17:12 03/18/19 21:10 03/19/19 04:15 03/19/19 07:06 Glucose (Fingerstick) 133 mg/dL (70-99) 179 mg/dL (70-99) 89 mg/dL (70-99) White Blood Count 5.9 x10^3/uL (4.0-11.0) Red Blood Count 3.10 x10^6/uL (4.30-5.70) Hemoglobin 8.6 g/dL (13.0-17.5) Hematocrit 25.6 % (39.0-53.0) Mean Corpuscular Volume 82 fL (79-100) Mean Corpuscular Hemoglobin 28 pg (25-35) Mean Corpuscular Hemoglobin Concent 34 g/dL (31-37) Red Cell Distribution Width 18.5 % (11.5-14.5) Platelet Count 150 x10^3/uL (140-400) Neutrophils (%) (Auto) 60 % (31-73) Lymphocytes (%) (Auto) 17 % (24-48) Monocytes (%) (Auto) 15 % (0-9) Eosinophils (%) (Auto) 7 % (0-3) Basophils (%) (Auto) 1 % (0-3) Neutrophils # (Auto) 3.5 x10^3/uL (1.8-7.7) Lymphocytes # (Auto) 1.0 x10^3/uL (1.0-4.8) Monocytes # (Auto) 0.9 x10^3/uL (0.0-1.1) Eosinophils # (Auto) 0.4 x10^3/uL (0.0-0.7) Basophils # (Auto) 0.1 x10^3/uL (0.0-0.2) Prothrombin Time 15.2 SEC (11.7-14.0) Prothromb Time International Ratio 1.2 (0.8-1.1) Sodium Level 131 mmol/L (136-145) Potassium Level 4.4 mmol/L (3.5-5.1) Chloride Level 94 mmol/L (98-107) Carbon Dioxide Level 27 mmol/L (21-32) Anion Gap 10 (6-14) Blood Urea Nitrogen 48 mg/dL (8-26) Creatinine 4.4 mg/dL (0.7-1.3) Estimated GFR (Cockcroft-Gault) 13.8 Glucose Level 108 mg/dL (70-99) Calcium Level 8.7 mg/dL (8.5-10.1) Phosphorus Level 3.7 mg/dL (2.6-4.7) Albumin 3.1 g/dL (3.4-5.0) Microbiology Micro Microbiology 03/17/19 Blood Culture - Preliminary, Resulted NO GROWTH AFTER 2 DAYS Physical Exam HEENT: Neck Supple W Full Motion Chest: Symmetric LUNGS: Clear to Auscultation Heart: irregularly irregular (AFIB) Abdomen: Soft N/T Extremities: No Calf Tenderness Neurology: alert, oriented, follow commands Assessment Assessment 1. Chronic AFIB: rate controlled 2. ESRD 3. Cellulitis: per ID 4. PVD.vascular surgery following 5. Anemia of chronic disease: PLT normal. Hgb at 8.6 6. Hx of CVA Recommendations 1. Continue metoprolol for rate control 2. Fluid off loading pr HD 3. Currently on 2.5 mg bid of eliquis, unclear reason, if no bleeding issues then would recommend 5 mg bid dosing. 4. Follow up with Dr. Cooley, May 01 at 1:15 PATRICK MARTI APRN Mar 19, 2019 12:45
[2019-03-19] MEDS: VANCOMYCIN PER PHARMACY MC PRN (13:08)
[2019-03-19] MEDS: VANCOMYCIN 500 MG in IV NORMAL SALINE 100ML 100 ML IV SCH (14:32)
[2019-03-19] MEDS: CEFEPIME HCL IV Push 1 GM VIAL. IVP SCH (14:32)
[2019-03-19] MEDS: amLODIPine BESYLATE 5 MG TABLET PO SCH (14:33)
[2019-03-19] MEDS: METOPROLOL TART IMMED RELEASE 25 MG TABLET. PO SCH ×2 (14:33→20:27)
[2019-03-19] MEDS: ASPIRIN CHEWABLE 81 MG TABLET. PO SCH (14:33)
[2019-03-19] MEDS: LEVOTHYROXINE 88 MCG TABLET PO SCH (14:34)
[2019-03-19] MEDS: MINOXIDIL 2.5 MG TABLET PO SCH ×2 (14:34→20:27)
[2019-03-19] MEDS: MULTIVITAMIN with MINERAL TABLET. PO SCH (14:34)
[2019-03-19] MEDS: FUROSEMIDE 40 MG TABLET. PO SCH (14:34)
[2019-03-19] MEDS: ASCORBIC ACID 500 MG TABLET PO SCH (14:35)
[2019-03-19] MEDS: SODIUM HYPOCHLORITE 0.125% 473 ML BOTTLE. TP SCH ×2 (14:37→20:36)
[2019-03-19 15:00] VITALS: BP 156/79
[2019-03-19 19:05] VITALS: BP 158/78
[2019-03-19] MEDS: APIXABAN 5 MG TABLET. PO SCH (20:27)
[2019-03-19] MEDS: INSULIN GLARGINE 300 UNITS/3 ML INSULN.PEN. SQ SCH (20:33)
[2019-03-19] MEDS: HYDROcodone/APAP 5/325MG 1 TAB TABLET PO PRN (21:57)
[2019-03-19 23:35] VITALS: BP 138/81
[2019-03-20 07:00] VITALS: BP 142/77
--- NOTE | 2019-03-20 07:38 | PDOC ---
Infectious Disease Note Subjective: Subjective pt is doing ok no f/c/n/v/d ROS: ROS Negative otherwise. Vital Signs: Vital Signs Vital Signs Date Time Temp Pulse Resp B/P (MAP) Pulse Ox O2 Delivery O2 Flow Rate FiO2 03/19/19 23:47 18 98 Room Air 03/19/19 23:35 98.0 77 138/81 (100) 98.0 Physical Exam: PHYSICAL EXAM GENERAL: The patient is sitting upright in nad HEENT: Pupils equally round. Oropharynx pink and dry. NECK: Supple.HDC in place, LUNGS: Clear to auscultation. HEART: S1, S2. ABDOMEN: Soft and nontender with bowel sounds present. EXTREMITIES: Trace edema of lower extremities bilaterally. No cyanosis. He has a wound on both lower legs that are currently bandaged. Pictures reviewed. SKIN: Warm to touch. No signs of rash. NEUROLOGIC: Alert and oriented x 3. Medications: Inpatient Meds: Current Medications Medications (Trade) Dose Ordered Sig/Rochelle Start Time Stop Time Status Last Admin Dose Admin Acetaminophen (Tylenol Supp) 650 mg STK-MED ONCE 03/15/19 15:04 03/15/19 15:04 DC Acetaminophen (Tylenol) 650 mg PRN Q6HRS PRN 03/15/19 15:00 03/15/19 15:12 650 MG Acetaminophen/ Hydrocodone Bitart (Lortab 5/325) 1 tab PRN Q4HRS PRN 03/16/19 10:00 03/19/19 22:00 1 TAB Albumin Human 200 ml @ 200 mls/hr 1X PRN PRN 03/19/19 08:00 03/19/19 13:59 DC Amlodipine Besylate (Norvasc) 5 mg 1X ONCE 03/16/19 11:15 03/16/19 11:16 DC Apixaban (Eliquis) 5 mg BID 03/19/19 21:00 03/19/19 20:36 5 MG Ascorbic Acid (Vitamin C) 500 mg DAILY 03/16/19 09:00 03/19/19 14:41 500 MG Aspirin (Children'S Aspirin) 81 mg DAILYWBKFT 03/16/19 08:00 03/19/19 14:41 81 MG Cefepime HCl (Maxipime) 1 gm Q24H 03/19/19 09:00 03/19/19 14:41 1 GM Clonidine HCl (Catapres) 0.1 mg PRN Q1HR PRN 03/16/19 10:00 Darbepoetin Derrek (ARANESP for DIALYSIS PTS) 60 mcg WEEKLYHS 03/16/19 21:00 03/16/19 21:39 60 MCG Dextrose 250 ml PRN Q15MIN PRN 03/16/19 10:00 Dextrose (Dextrose 50%-Water Syringe) 12.5 gm PRN Q15MIN PRN 03/16/19 10:00 Digoxin (Lanoxin) 500 mcg STK-MED ONCE 03/15/19 15:26 03/15/19 15:26 DC Diltiazem HCl 125 mg/Dextrose 125 ml @ 2.5 mls/hr CONT PRN 03/15/19 15:30 03/15/19 15:40 2.5 MLS/HR Furosemide (Lasix) 40 mg DAILY 03/16/19 09:00 03/19/19 14:41 40 MG Hydralazine HCl (Apresoline) 25 mg QID 03/15/19 21:00 03/19/19 20:36 25 MG Info (Anti-Coagulation Monitoring By Pharmacy) 1 each PRN DAILY PRN 03/15/19 18:45 03/16/19 13:41 1 EACH Info (PHARMACY MONITORING -- do not chart) 1 each PRN DAILY PRN 03/19/19 08:00 03/19/19 08:07 DC Insulin Glargine (Lantus) 15 units QHS 03/15/19 21:00 03/19/19 20:36 15 UNITS Insulin Human Lispro (HumaLOG) 0-9 UNITS TIDWMEALS 03/16/19 12:00 03/19/19 17:46 4 UNITS Lactobacillus Rhamnosus (Culturelle) 1 cap BID 03/16/19 21:00 03/19/19 20:36 1 CAP Levothyroxine Sodium (Synthroid) 88 mcg DAILYAC 03/16/19 07:30 03/19/19 14:41 88 MCG Metoprolol Tartrate (Lopressor) 25 mg BID 03/15/19 21:00 03/19/19 20:36 25 MG Minoxidil (Loniten) 2.5 mg BID 03/15/19 21:00 03/19/19 20:36 2.5 MG Multivitamins (Thera M Plus) 1 tab DAILY 03/16/19 09:00 03/19/19 14:41 1 TAB Non-Formulary Medication (Pravastatin Sodium ) 1 tab HS 03/15/19 21:00 UNV Ondansetron HCl (Zofran) 4 mg PRN Q6HRS PRN 03/16/19 10:00 Polyethylene Glycol (miraLAX PACKET) 17 gm BID 03/15/19 21:00 03/19/19 20:36 17 GM Sevelamer Carbonate (Renvela) 800 mg TIDWMEALS 03/16/19 08:00 03/19/19 17:46 800 MG Sodium Hypochlorite (Dakin'S 1/4 Strength) 1 edenilson BID 03/15/19 21:00 03/19/19 20:36 1 EDENILSON Sodium Chloride 1,000 ml @ 400 mls/hr Q2H30M PRN 03/19/19 07:54 03/19/19 19:53 DC Sodium Chloride (Normal Saline Flush) 10 ml 1X PRN PRN 03/19/19 08:00 03/20/19 07:59 Temazepam (Restoril) 7.5 mg PRN QHS PRN 03/16/19 10:00 Vancomycin HCl (Vanco Per Pharmacy) 1 each PRN DAILY PRN 03/15/19 11:15 03/19/19 13:08 1 EACH Vancomycin HCl (Vancomycin Random Level) 1 each 1X ONCE 03/17/19 06:00 03/17/19 06:01 DC 03/17/19 06:31 1 EACH Vancomycin HCl 500 mg/Sodium Chloride 100 ml @ 100 mls/hr QMWF 03/17/19 16:00 03/19/19 14:41 100 MLS/HR Vancomycin HCl 2 gm/Sodium Chloride 500 ml @ 250 mls/hr 1X ONCE 03/15/19 11:30 03/15/19 13:29 DC 03/15/19 11:37 250 MLS/HR Labs: Lab Laboratory Tests Test 03/19/19 14:31 03/19/19 17:34 03/19/19 20:17 Glucose (Fingerstick) 88 mg/dL (70-99) 163 mg/dL (70-99) 129 mg/dL (70-99) Micro RUN DATE: 03/19/19 PAGE 1 RUN TIME: 2106 [facility] [address] [place] [address] Roly Reece M.D., Chief Scientist PATIENT: JAN YUNG ACCT: [id number] LOC: 2 [facility] U: [id number] AGE/SX: 58/M ROOM: 246 RE03/15/[address]: IKE CORTEZ III, DO : 1960 BED: 1 DIS: STATUS: ADM IN TLOC: SPEC #: [id number] ELLEN: 03/15/19 STATUS: COMP REQ #: [id number] RECD: 03/15/19-[address]: LIZ NAVARRO DO SOURCE: BLOOD ENTR: 03/16/19-0756 [facility] DR: FARHAD PURVIS MD [facility]: ORDERED: BLD CULT - LC -------- ---- Procedure Result BLOOD CULTURE LC Final Preliminary report Final report BLD CULT RESULT 1 Final Staphylococcus aureus Comment Performed at: [facility] [address], [place], [place] [id number] Lead Trainer: JP Gardiner MD, Phone: [phone] Methicillin - resistant Staphylococcus aureus Based on resistance to oxacillin this isolate would be resistant to all currently available beta-lactam antimicrobial agents, with the exception of the newer cephalosporins with anti-MRSA activity, such as Ceftaroline CLINDAMYCIN RESISTANT R>=8 ERYTHROMYCIN RESISTANT R>=8 ANTIMICROBIAL SUSCEPTIBILITY Final Comment S = Susceptible; I = Intermediate; R = Resistant P = Positive; N = Negative MICS are expressed in micrograms per mL Antibiotic RSLT#1 RSLT#2 RSLT#3 RSLT#4 Ciprofloxacin R>=8 Clindamycin R>=8 Erythromycin R>=8 Gentamicin S<=0.5 Levofloxacin R>=8 Linezolid S =2 Oxacillin R>=4 Penicillin R>=0.5 Rifampin S<=0.5 Tetracycline S<=1 Trimethoprim/Sulfa S<=10 Vancomycin S =1 Performed at: [facility] CONTINUED ON NEXT PAGE RUN DATE: 03/19/19 PAGE 2 RUN TIME: 2106 [facility] [address] [place] [address] Roly Reece M.D., Chief Scientist SPEC: [id number] PATIENT: JAN YUNG [id number] (Continued) Procedure Result ----- ------- ANTIMICROBIAL SUSCEPTIBILITY Final (continued) [address], [place], [place] [id number] Lead Trainer: JP Gardiner MD, Phone: [phone] -- Objective: Assessment: 1. MRSA Staph aureus bacteremia with sepsis present on admission; source could be HDC 2 ECHO done 03/17 Repeat BC neg from 03/17 2. Infected hemodialysis catheter, status post removal 03/05 and replaced 03/07 per the patient report, swab c/s negative from [facility] 3. Fever.resolved 4. ANTIBIOTIC ALLERGY TO PENICILLIN WITH ANAPHYLACTIC TYPE REACTION IN CHILDHOOD AND SULFA WITH HIVES. 5. History of methicillin-resistant Staphylococcus aureus. 6. Chronic wounds, lower extremities bilaterally. [facility]. 7. End-stage renal disease, on hemodialysis. 8. Peripheral vascular disease. 9. Diabetes with peripheral neuropathy. 10. Atrial fibrillation. Plan: Plan of Care continue the vancomycin. DC Cefepime HDC will need removal f/u repeat BC 03/17,negative so far Culture of the drainage from the HDC was taken at [facility] on 03/05 reported neg Wound care team following Probiotics D/w nursing BRI RIOS MD Mar 20, 2019 07:38
[2019-03-20] MEDS: INSULIN LISPRO 300 UNITS/3 ML VIAL. SQ SCH ×6 (08:00→17:00)
[2019-03-20] MEDS: SEVELAMER CARBONATE 800 MG TABLET. PO SCH ×3 (08:00→17:29)
[2019-03-20] MEDS: CEFEPIME HCL IV Push 1 GM VIAL. IVP SCH (09:35)
[2019-03-20] MEDS: ASCORBIC ACID 500 MG TABLET PO SCH (09:36)
[2019-03-20] MEDS: POLYETHYLENE GLYCOL 3350 17 GM PACKET. PO SCH ×2 (09:36→20:24)
[2019-03-20] MEDS: APIXABAN 5 MG TABLET. PO SCH ×2 (09:36→20:26)
[2019-03-20] MEDS: amLODIPine BESYLATE 5 MG TABLET PO SCH (09:36)
[2019-03-20] MEDS: LACTOBACILLUS RHAMNOSUS GG 1 CAPSULE. PO SCH ×2 (09:36→20:24)
[2019-03-20] MEDS: hydrALAZINE 25 MG TABLET PO SCH ×4 (09:37→20:26)
[2019-03-20] MEDS: MINOXIDIL 2.5 MG TABLET PO SCH ×2 (09:37→20:25)
[2019-03-20] MEDS: MULTIVITAMIN with MINERAL TABLET. PO SCH (09:37)
[2019-03-20] MEDS: METOPROLOL TART IMMED RELEASE 25 MG TABLET. PO SCH ×2 (09:38→20:25)
[2019-03-20] MEDS: ASPIRIN CHEWABLE 81 MG TABLET. PO SCH (09:38)
[2019-03-20] MEDS: LEVOTHYROXINE 88 MCG TABLET PO SCH (09:38)
[2019-03-20] MEDS: FUROSEMIDE 40 MG TABLET. PO SCH (09:38)
[2019-03-20 09:48] LABS: BASO # 0.1 x10^3/uL (0.0-0.2); BASO % 1 % (0-3); EOS # 0.5 x10^3/uL (0.0-0.7); EOS % 7 % (0-3); HEMATOCRIT 27.4 % (39.0-53.0); HEMOGLOBIN 9.2 g/dL (13.0-17.5); LYMPH # 1.1 x10^3/uL (1.0-4.8); LYMPH % 17 % (24-48); MEAN CORPUSCULAR HEMOGLOBIN 28 pg (25-35); MEAN CORPUSCULAR HGB CONC 34 g/dL (31-37); MEAN CORPUSCULAR VOLUME 84 fL (79-100); MONO # 0.9 x10^3/uL (0.0-1.1); MONO % 14 % (0-9); NEUT # 3.9 x10^3/uL (1.8-7.7); NEUT % 61 % (31-73); PLATELET COUNT 170 x10^3/uL (140-400); RED BLOOD COUNT 3.28 x10^6/uL (4.30-5.70); RED CELL DISTRIBUTION WIDTH 19.3 % (11.5-14.5); WHITE BLOOD COUNT 6.4 x10^3/uL (4.0-11.0)
[2019-03-20 10:04] LABS: ALBUMIN 3.3 g/dL (3.4-5.0); CALCIUM 8.8 mg/dL (8.5-10.1); CREATININE 3.5 mg/dL (0.7-1.3); PHOSPHORUS 3.4 mg/dL (2.6-4.7); POTASSIUM 4.4 mmol/L (3.5-5.1)
[2019-03-20 10:52] VITALS: BP 146/70
[2019-03-20] MEDS: VANCOMYCIN PER PHARMACY MC PRN (12:58)
--- NOTE | 2019-03-20 13:04 | PDOC ---
SUBJECTIVE ROS Stable OBJECTIVE Vital Signs Vital Signs Date Time Temp Pulse Resp B/P (MAP) Pulse Ox O2 Delivery O2 Flow Rate FiO2 03/20/19 10:52 98.1 84 18 146/70 (95) 96 Room Air 98.1 I & 0 Intake and Output 03/20/19 07:00 Intake Total 585 ml Output Total 50 ml Balance 535 ml Intake Oral 585 ml Output Urine Total 50 ml PHYSICAL EXAM Physical Exam GENERAL: NAD HEENT: OM moist NECK: Supple. LUNGS: Clear to auscultation. HEART: S1, S2. ABDOMEN: Soft and nontender with bowel sounds present. EXTREMITIES: Trace edema of lower extremities bilaterally. No cyanosis. He has a wound on both lower legs that are currently bandaged. SKIN: No signs of rash. NEUROLOGIC: Alert and oriented x 3. DIAGNOSIS/ASSESSMENT Assessment & Plan ESRD - On HD MWF No indication for HD today Access- TDC currently Lt AVF - placed [address] Alexander- not ready Sepsis with G+ Cocci Infected hemodialysis catheter, status post removal 03/05 and replaced 03/07 MRSA Staph aureus bacteremia with sepsis present on admission; source could be HDC 2 ECHO done 03/17 , Repeat BC neg from 03/17 Infected hemodialysis catheter, status post removal 03/05 and replaced 03/07 ID managing - recommends removal of Tunelled HDC and placement for Temp HDC Pt refusing temp HDC , states he is ok with to replace with new Tunelled catheter Discussed risks with pt and RN - order for removal of current HDC and replace wi th new in am DM II- per primary HTN- stable On antihypertensives Anemia - On WALT per Protocol LE wounds- Cellulitis AFIB-Rate controlled Per cardiology on rate control meds and anticoagulation. Echocardiogram shows normal LV systolic function COMMENT/RELEVANT DATA Meds Current Medications Medications (Trade) Dose Ordered Sig/Rochelle Start Time Stop Time Status Last Admin Dose Admin Acetaminophen (Tylenol Supp) 650 mg STK-MED ONCE 03/15/19 15:04 03/15/19 15:04 DC Acetaminophen (Tylenol) 650 mg PRN Q6HRS PRN 03/15/19 15:00 03/15/19 15:12 650 MG Acetaminophen/ Hydrocodone Bitart (Lortab 5/325) 1 tab PRN Q4HRS PRN 03/16/19 10:00 03/19/19 22:00 1 TAB Albumin Human 200 ml @ 200 mls/hr 1X PRN PRN 03/19/19 08:00 03/19/19 13:59 DC Amlodipine Besylate (Norvasc) 5 mg 1X ONCE 03/16/19 11:15 03/16/19 11:16 DC Apixaban (Eliquis) 5 mg BID 03/19/19 21:00 03/20/19 09:38 5 MG Ascorbic Acid (Vitamin C) 500 mg DAILY 03/16/19 09:00 03/20/19 09:38 500 MG Aspirin (Children'S Aspirin) 81 mg DAILYWBKFT 03/16/19 08:00 03/20/19 09:38 81 MG Cefepime HCl (Maxipime) 1 gm Q24H 03/19/19 09:00 03/20/19 09:38 1 GM Clonidine HCl (Catapres) 0.1 mg PRN Q1HR PRN 03/16/19 10:00 Darbepoetin Derrek (ARANESP for DIALYSIS PTS) 60 mcg WEEKLYHS 03/16/19 21:00 03/16/19 21:39 60 MCG Dextrose 250 ml PRN Q15MIN PRN 03/16/19 10:00 Dextrose (Dextrose 50%-Water Syringe) 12.5 gm PRN Q15MIN PRN 03/16/19 10:00 Digoxin (Lanoxin) 500 mcg STK-MED ONCE 03/15/19 15:26 03/15/19 15:26 DC Diltiazem HCl 125 mg/Dextrose 125 ml @ 2.5 mls/hr CONT PRN 03/15/19 15:30 03/15/19 15:40 2.5 MLS/HR Furosemide (Lasix) 40 mg DAILY 03/16/19 09:00 03/20/19 09:38 40 MG Hydralazine HCl (Apresoline) 25 mg QID 03/15/19 21:00 03/20/19 09:38 25 MG Info (Anti-Coagulation Monitoring By Pharmacy) 1 each PRN DAILY PRN 03/15/19 18:45 03/16/19 13:41 1 EACH Info (PHARMACY MONITORING -- do not chart) 1 each PRN DAILY PRN 03/19/19 08:00 03/19/19 08:07 DC Insulin Glargine (Lantus) 15 units QHS 03/15/19 21:00 03/19/19 20:36 15 UNITS Insulin Human Lispro (HumaLOG) 0-9 UNITS TIDWMEALS 03/16/19 12:00 03/19/19 17:46 4 UNITS Lactobacillus Rhamnosus (Culturelle) 1 cap BID 03/16/19 21:00 03/20/19 09:38 1 CAP Levothyroxine Sodium (Synthroid) 88 mcg DAILYAC 03/16/19 07:30 03/20/19 09:38 88 MCG Metoprolol Tartrate (Lopressor) 25 mg BID 03/15/19 21:00 03/20/19 09:38 25 MG Minoxidil (Loniten) 2.5 mg BID 03/15/19 21:00 03/20/19 09:38 2.5 MG Multivitamins (Thera M Plus) 1 tab DAILY 03/16/19 09:00 03/20/19 09:38 1 TAB Non-Formulary Medication (Pravastatin Sodium ) 1 tab HS 03/15/19 21:00 UNV Ondansetron HCl (Zofran) 4 mg PRN Q6HRS PRN 03/16/19 10:00 Polyethylene Glycol (miraLAX PACKET) 17 gm BID 03/15/19 21:00 03/20/19 09:38 17 GM Sevelamer Carbonate (Renvela) 800 mg TIDWMEALS 03/16/19 08:00 03/20/19 12:22 800 MG Sodium Hypochlorite (Dakin'S 1/4 Strength) 1 edenilson BID 03/15/19 21:00 03/19/19 20:36 1 EDENILSON Sodium Chloride 1,000 ml @ 400 mls/hr Q2H30M PRN 03/19/19 07:54 03/19/19 19:53 DC Sodium Chloride (Normal Saline Flush) 10 ml 1X PRN PRN 03/19/19 08:00 03/20/19 07:59 DC Temazepam (Restoril) 7.5 mg PRN QHS PRN 03/16/19 10:00 Vancomycin HCl (Vanco Per Pharmacy) 1 each PRN DAILY PRN 03/15/19 11:15 03/19/19 13:08 1 EACH Vancomycin HCl (Vancomycin Random Level) 1 each 1X ONCE 03/17/19 06:00 03/17/19 06:01 DC 03/17/19 06:31 1 EACH Vancomycin HCl 500 mg/Sodium Chloride 100 ml @ 100 mls/hr QMWF 03/17/19 16:00 03/19/19 14:41 100 MLS/HR Vancomycin HCl 2 gm/Sodium Chloride 500 ml @ 250 mls/hr 1X ONCE 03/15/19 11:30 03/15/19 13:29 DC 03/15/19 11:37 250 MLS/HR Lab Laboratory Tests Test 03/19/19 14:31 03/19/19 17:34 03/19/19 20:17 03/20/19 07:05 Glucose (Fingerstick) 88 mg/dL (70-99) 163 mg/dL (70-99) 129 mg/dL (70-99) 86 mg/dL (70-99) Test 03/20/19 09:00 03/20/19 11:56 White Blood Count 6.4 x10^3/uL (4.0-11.0) Red Blood Count 3.28 x10^6/uL (4.30-5.70) Hemoglobin 9.2 g/dL (13.0-17.5) Hematocrit 27.4 % (39.0-53.0) Mean Corpuscular Volume 84 fL (79-100) Mean Corpuscular Hemoglobin 28 pg (25-35) Mean Corpuscular Hemoglobin Concent 34 g/dL (31-37) Red Cell Distribution Width 19.3 % (11.5-14.5) Platelet Count 170 x10^3/uL (140-400) Neutrophils (%) (Auto) 61 % (31-73) Lymphocytes (%) (Auto) 17 % (24-48) Monocytes (%) (Auto) 14 % (0-9) Eosinophils (%) (Auto) 7 % (0-3) Basophils (%) (Auto) 1 % (0-3) Neutrophils # (Auto) 3.9 x10^3/uL (1.8-7.7) Lymphocytes # (Auto) 1.1 x10^3/uL (1.0-4.8) Monocytes # (Auto) 0.9 x10^3/uL (0.0-1.1) Eosinophils # (Auto) 0.5 x10^3/uL (0.0-0.7) Basophils # (Auto) 0.1 x10^3/uL (0.0-0.2) Prothrombin Time 16.0 SEC (11.7-14.0) Prothromb Time International Ratio 1.3 (0.8-1.1) Sodium Level 140 mmol/L (136-145) Potassium Level 4.4 mmol/L (3.5-5.1) Chloride Level 101 mmol/L (98-107) Carbon Dioxide Level 30 mmol/L (21-32) Anion Gap 9 (6-14) Blood Urea Nitrogen 35 mg/dL (8-26) Creatinine 3.5 mg/dL (0.7-1.3) Estimated GFR (Cockcroft-Gault) 18.0 Glucose Level 82 mg/dL (70-99) Calcium Level 8.8 mg/dL (8.5-10.1) Phosphorus Level 3.4 mg/dL (2.6-4.7) Albumin 3.3 g/dL (3.4-5.0) Glucose (Fingerstick) 112 mg/dL (70-99) Results All relevant outside records, renal labs, imaging studies, telemetry/EKG's were reviewed. NOLAN ALEXANDER MD Mar 20, 2019 13:04
[2019-03-20 15:00] VITALS: BP 135/69
--- NOTE | 2019-03-20 15:11 | PDOC ---
PROGRESS NOTES Chief Complaint Chief Complaint IMPRESSION Sepsis - Methicillin Resistant Staph aureus bacteremia with sepsis Chronic wounds, lower extremities bilaterally. [facility] PAD ESRD on HD AOCD Cellulitis - with sepsis Acute on chronic a fib s/p RVR HTN Hypothyroidism on synthroid Infected hemodialysis catheter, status post removal 03/05 and replaced 03/07 History of methicillin-resistant Staphylococcus aureus. Diabetes with peripheral neuropathy. Atrial fibrillation. Infected hemodialysis catheter, status post removal 03/05 and replaced 03/07 38 MIN PT EXAM, CHART REVIEW, > 50% OF TIME SPENT WITH EXASM, CHART REVIEW, PT CARE COORDINATION History of Present Illness History of Present Illness Mr Weber is a 58-year-old male with PMHx ESRD on HD with tunneled hemodialysis catheter. He was in his usual state of health when 03/12/19 after finishing dialysis, he developed chills, shakes, fever of 102, and vomiting. He says about 2 weeks prior, he noticed that his HD catheter had slid out. He pushed it back in and noticed pus from the site. The following day, he returned to [facility] where the catheter was removed and cultured. Two days later, it was replaced. Cardizem gtt bec went to [facility] (hx a fib), [facility] Per cardiology on rate control meds and anticoagulation. Echocardiogram shows normal LV systolic function Vasc sx, ID on board, wounds legs, pics reviewed, will need wound care and IV Abx Also HD pt, RT tunnelled HD cath visible. Transferred from ICU to [facility] on . His first culture here was MRSA, 2 follow up are NGTD. Have discussed that a prudent move would be to remove his current catheter and tunnel a new one next Sunday once his f/u cultures are negative. He is in poor spirits today, really wants to leave, has numerous complaints, but is willing to remain inpatient to have catheter removed. 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 Oropharynx pink and dry. NECK: Supple.HDC in place, LUNGS: Clear to auscultation. HEART: S1, S2. ABDOMEN: Soft and nontender with bowel sounds present. EXTREMITIES: Trace edema of lower extremities bilaterally. No cyanosis. He has a wound on both lower legs that are currently bandaged. Pictures reviewed. SKIN: Warm to touch. No signs of rash. NEUROLOGIC: Alert and oriented x 3. General: Alert, Oriented X3, Cooperative, mild distress Heart: Other (irreg. irreg.) Lungs: Clear Abdomen: Normal bowel sounds Extremities: No clubbing, No cyanosis Skin: No breakdown Labs LABS Laboratory Tests Test 03/19/19 17:34 03/19/19 20:17 03/20/19 07:05 03/20/19 09:00 Glucose (Fingerstick) 163 mg/dL (70-99) 129 mg/dL (70-99) 86 mg/dL (70-99) White Blood Count 6.4 x10^3/uL (4.0-11.0) Red Blood Count 3.28 x10^6/uL (4.30-5.70) Hemoglobin 9.2 g/dL (13.0-17.5) Hematocrit 27.4 % (39.0-53.0) Mean Corpuscular Volume 84 fL (79-100) Mean Corpuscular Hemoglobin 28 pg (25-35) Mean Corpuscular Hemoglobin Concent 34 g/dL (31-37) Red Cell Distribution Width 19.3 % (11.5-14.5) Platelet Count 170 x10^3/uL (140-400) Neutrophils (%) (Auto) 61 % (31-73) Lymphocytes (%) (Auto) 17 % (24-48) Monocytes (%) (Auto) 14 % (0-9) Eosinophils (%) (Auto) 7 % (0-3) Basophils (%) (Auto) 1 % (0-3) Neutrophils # (Auto) 3.9 x10^3/uL (1.8-7.7) Lymphocytes # (Auto) 1.1 x10^3/uL (1.0-4.8) Monocytes # (Auto) 0.9 x10^3/uL (0.0-1.1) Eosinophils # (Auto) 0.5 x10^3/uL (0.0-0.7) Basophils # (Auto) 0.1 x10^3/uL (0.0-0.2) Prothrombin Time 16.0 SEC (11.7-14.0) Prothromb Time International Ratio 1.3 (0.8-1.1) Sodium Level 140 mmol/L (136-145) Potassium Level 4.4 mmol/L (3.5-5.1) Chloride Level 101 mmol/L (98-107) Carbon Dioxide Level 30 mmol/L (21-32) Anion Gap 9 (6-14) Blood Urea Nitrogen 35 mg/dL (8-26) Creatinine 3.5 mg/dL (0.7-1.3) Estimated GFR (Cockcroft-Gault) 18.0 Glucose Level 82 mg/dL (70-99) Calcium Level 8.8 mg/dL (8.5-10.1) Phosphorus Level 3.4 mg/dL (2.6-4.7) Albumin 3.3 g/dL (3.4-5.0) Test 03/20/19 11:56 Glucose (Fingerstick) 112 mg/dL (70-99) Assessment and Plan Assessmemt and Plan Problems Medical Problems: (1) A-fib Status: Acute (2) Diabetes mellitus with peripheral autonomic neuropathy Status: Chronic (3) ESRD on hemodialysis Status: Chronic (4) PVD (peripheral vascular disease) Status: Chronic (5) Sepsis Status: Acute Comment Review of Relevant I have reviewed the following items kendra (where applicable) has been applied. Labs Laboratory Tests Test 03/18/19 17:12 03/18/19 21:10 03/19/19 04:15 03/19/19 07:06 Glucose (Fingerstick) 133 mg/dL (70-99) 179 mg/dL (70-99) 89 mg/dL (70-99) White Blood Count 5.9 x10^3/uL (4.0-11.0) Red Blood Count 3.10 x10^6/uL (4.30-5.70) Hemoglobin 8.6 g/dL (13.0-17.5) Hematocrit 25.6 % (39.0-53.0) Mean Corpuscular Volume 82 fL (79-100) Mean Corpuscular Hemoglobin 28 pg (25-35) Mean Corpuscular Hemoglobin Concent 34 g/dL (31-37) Red Cell Distribution Width 18.5 % (11.5-14.5) Platelet Count 150 x10^3/uL (140-400) Neutrophils (%) (Auto) 60 % (31-73) Lymphocytes (%) (Auto) 17 % (24-48) Monocytes (%) (Auto) 15 % (0-9) Eosinophils (%) (Auto) 7 % (0-3) Basophils (%) (Auto) 1 % (0-3) Neutrophils # (Auto) 3.5 x10^3/uL (1.8-7.7) Lymphocytes # (Auto) 1.0 x10^3/uL (1.0-4.8) Monocytes # (Auto) 0.9 x10^3/uL (0.0-1.1) Eosinophils # (Auto) 0.4 x10^3/uL (0.0-0.7) Basophils # (Auto) 0.1 x10^3/uL (0.0-0.2) Prothrombin Time 15.2 SEC (11.7-14.0) Prothromb Time International Ratio 1.2 (0.8-1.1) Sodium Level 131 mmol/L (136-145) Potassium Level 4.4 mmol/L (3.5-5.1) Chloride Level 94 mmol/L (98-107) Carbon Dioxide Level 27 mmol/L (21-32) Anion Gap 10 (6-14) Blood Urea Nitrogen 48 mg/dL (8-26) Creatinine 4.4 mg/dL (0.7-1.3) Estimated GFR (Cockcroft-Gault) 13.8 Glucose Level 108 mg/dL (70-99) Calcium Level 8.7 mg/dL (8.5-10.1) Phosphorus Level 3.7 mg/dL (2.6-4.7) Albumin 3.1 g/dL (3.4-5.0) Test 03/19/19 14:31 03/19/19 17:34 03/19/19 20:17 03/20/19 07:05 Glucose (Fingerstick) 88 mg/dL (70-99) 163 mg/dL (70-99) 129 mg/dL (70-99) 86 mg/dL (70-99) Test 03/20/19 09:00 03/20/19 11:56 White Blood Count 6.4 x10^3/uL (4.0-11.0) Red Blood Count 3.28 x10^6/uL (4.30-5.70) Hemoglobin 9.2 g/dL (13.0-17.5) Hematocrit 27.4 % (39.0-53.0) Mean Corpuscular Volume 84 fL (79-100) Mean Corpuscular Hemoglobin 28 pg (25-35) Mean Corpuscular Hemoglobin Concent 34 g/dL (31-37) Red Cell Distribution Width 19.3 % (11.5-14.5) Platelet Count 170 x10^3/uL (140-400) Neutrophils (%) (Auto) 61 % (31-73) Lymphocytes (%) (Auto) 17 % (24-48) Monocytes (%) (Auto) 14 % (0-9) Eosinophils (%) (Auto) 7 % (0-3) Basophils (%) (Auto) 1 % (0-3) Neutrophils # (Auto) 3.9 x10^3/uL (1.8-7.7) Lymphocytes # (Auto) 1.1 x10^3/uL (1.0-4.8) Monocytes # (Auto) 0.9 x10^3/uL (0.0-1.1) Eosinophils # (Auto) 0.5 x10^3/uL (0.0-0.7) Basophils # (Auto) 0.1 x10^3/uL (0.0-0.2) Prothrombin Time 16.0 SEC (11.7-14.0) Prothromb Time International Ratio 1.3 (0.8-1.1) Sodium Level 140 mmol/L (136-145) Potassium Level 4.4 mmol/L (3.5-5.1) Chloride Level 101 mmol/L (98-107) Carbon Dioxide Level 30 mmol/L (21-32) Anion Gap 9 (6-14) Blood Urea Nitrogen 35 mg/dL (8-26) Creatinine 3.5 mg/dL (0.7-1.3) Estimated GFR (Cockcroft-Gault) 18.0 Glucose Level 82 mg/dL (70-99) Calcium Level 8.8 mg/dL (8.5-10.1) Phosphorus Level 3.4 mg/dL (2.6-4.7) Albumin 3.3 g/dL (3.4-5.0) Glucose (Fingerstick) 112 mg/dL (70-99) Laboratory Tests Test 03/19/19 17:34 03/19/19 20:17 03/20/19 07:05 03/20/19 09:00 Glucose (Fingerstick) 163 mg/dL (70-99) 129 mg/dL (70-99) 86 mg/dL (70-99) White Blood Count 6.4 x10^3/uL (4.0-11.0) Red Blood Count 3.28 x10^6/uL (4.30-5.70) Hemoglobin 9.2 g/dL (13.0-17.5) Hematocrit 27.4 % (39.0-53.0) Mean Corpuscular Volume 84 fL (79-100) Mean Corpuscular Hemoglobin 28 pg (25-35) Mean Corpuscular Hemoglobin Concent 34 g/dL (31-37) Red Cell Distribution Width 19.3 % (11.5-14.5) Platelet Count 170 x10^3/uL (140-400) Neutrophils (%) (Auto) 61 % (31-73) Lymphocytes (%) (Auto) 17 % (24-48) Monocytes (%) (Auto) 14 % (0-9) Eosinophils (%) (Auto) 7 % (0-3) Basophils (%) (Auto) 1 % (0-3) Neutrophils # (Auto) 3.9 x10^3/uL (1.8-7.7) Lymphocytes # (Auto) 1.1 x10^3/uL (1.0-4.8) Monocytes # (Auto) 0.9 x10^3/uL (0.0-1.1) Eosinophils # (Auto) 0.5 x10^3/uL (0.0-0.7) Basophils # (Auto) 0.1 x10^3/uL (0.0-0.2) Prothrombin Time 16.0 SEC (11.7-14.0) Prothromb Time International Ratio 1.3 (0.8-1.1) Sodium Level 140 mmol/L (136-145) Potassium Level 4.4 mmol/L (3.5-5.1) Chloride Level 101 mmol/L (98-107) Carbon Dioxide Level 30 mmol/L (21-32) Anion Gap 9 (6-14) Blood Urea Nitrogen 35 mg/dL (8-26) Creatinine 3.5 mg/dL (0.7-1.3) Estimated GFR (Cockcroft-Gault) 18.0 Glucose Level 82 mg/dL (70-99) Calcium Level 8.8 mg/dL (8.5-10.1) Phosphorus Level 3.4 mg/dL (2.6-4.7) Albumin 3.3 g/dL (3.4-5.0) Test 03/20/19 11:56 Glucose (Fingerstick) 112 mg/dL (70-99) Microbiology 03/19/19 Blood Culture - Preliminary, Resulted NO GROWTH AFTER 1 DAY Medications Current Medications Vancomycin HCl (Vanco Per Pharmacy) 1 each PRN DAILY PRN MC SEE COMMENTS Last administered on 03/20/19at 12:58; Start 03/15/19 at 11:15 Cefepime HCl (Maxipime) 1 gm 1X ONCE IVP Last administered on 03/15/19at 11:37; Start 03/15/19 at 11:15; Stop 03/15/19 at 11:23; Status DC Sodium Chloride 1,000 ml @ 1,000 mls/hr 1X ONCE IV Last administered on 03/15/19at 11:28; Start 03/15/19 at 11:30; Stop 03/15/19 at 12:29; Status DC Vancomycin HCl 2 gm/Sodium Chloride 500 ml @ 250 mls/hr 1X ONCE IV Last administered on 03/15/19at 11:37; Start 03/15/19 at 11:30; Stop 03/15/19 at 13:29 ; Status DC Vancomycin HCl (Vancomycin Random Level) 1 each 1X ONCE MC Last administered on 03/17/19at 06:31; Start 03/17/19 at 06:00; Stop 03/17/19 at 06:01; Status DC Acetaminophen (Tylenol) 650 mg PRN Q6HRS PRN PO MILD PAIN / TEMP Last administered on 03/15/19at 15:12; Start 03/15/19 at 15:00 Acetaminophen (Tylenol Supp) 650 mg STK-MED ONCE .ROUTE ; Start 03/15/19 at 15:04; Stop 03/15/19 at 15:04; Status DC Digoxin (Lanoxin) 250 mcg 1X ONCE IV Last administered on 03/15/19at 15:30; Start 03/15/19 at 15:30; Stop 03/15/19 at 15:31; Status DC Diltiazem HCl 125 mg/Dextrose 125 ml @ 2.5 mls/hr CONT PRN IV SEE I/O RECORD Last administered on 03/15/19at 15:40; Start 03/15/19 at 15:30 Digoxin (Lanoxin) 500 mcg STK-MED ONCE .ROUTE ; Start 03/15/19 at 15:26; Stop 03/15/19 at 15:26; Status DC Sodium Chloride 1,000 ml @ 1,000 mls/hr 1X ONCE IV Last administered on 03/15/19at 16:30; Start 03/15/19 at 14:00; Stop 03/15/19 at 16:33; Status DC Sodium Hypochlorite (Dakin'S 1/4 Strength) 1 edenilson DAILY TP ; Start 03/16/19 at 09:00; Stop 03/15/19 at 18:00; Status DC Sodium Hypochlorite (Dakin'S 1/4 Strength) 1 edenilson BID TP Last administered on 03/19/19at 20:36; Start 03/15/19 at 21:00 Amlodipine Besylate (Norvasc) 5 mg DAILY PO Last administered on 03/16/19at 08:18; Start 03/16/19 at 09:00; Stop 03/16/19 at 11:02; Status DC Apixaban (Eliquis) 2.5 mg BID PO Last administered on 03/18/19at 21:19; Start 03/15/19 at 21:00; Stop 03/19/19 at 13:03; Status DC Ascorbic Acid (Vitamin C) 500 mg DAILY PO Last administered on 03/20/19at 09:38; Start 03/16/19 at 09:00 Aspirin (Children'S Aspirin) 81 mg DAILYWBKFT PO Last administered on 03/20/19at 09:38; Start 03/16/19 at 08:00 Furosemide (Lasix) 40 mg DAILY PO Last administered on 03/20/19 09:38; Start 03/16/19 at 09:00 Hydralazine HCl (Apresoline) 25 mg QID PO Last administered on 03/20/19 13:52; Start 03/15/19 at 21:00 Metoprolol Tartrate (Lopressor) 25 mg BID PO Last administered on 03/20/19 09:38; Start 03/15/19 at 21:00 Minoxidil (Loniten) 2.5 mg BID PO Last administered on 03/20/19 09:38; Start 03/15/19 at 21:00 Multivitamins (Thera M Plus) 1 tab DAILY PO Last administered on 03/20/19 09:38; Start 03/16/19 at 09:00 Polyethylene Glycol (miraLAX PACKET) 17 gm BID PO Last administered on 03/20/19 09:38; Start 03/15/19 at 21:00 Sevelamer Carbonate (Renvela) 800 mg TIDWMEALS PO Last administered on 03/20/19 12:22; Start 03/16/19 at 08:00 Non-Formulary Medication (Pravastatin Sodium ) 1 tab HS PO ; Start 03/15/19 at 21:00; Status UNV Info (Anti-Coagulation Monitoring By Pharmacy) 1 each PRN DAILY PRN MC SEE COMMENTS Last administered on 03/16/19 13:41; Start 03/15/19 at 18:45 Insulin Glargine (Lantus) 15 units QHS SQ Last administered on 03/19/19 20:36; Start 03/15/19 at 21:00 Insulin Human Lispro (HumaLOG) 5 units TIDWMEALS SQ ; Start 03/16/19 at 08:00 Levothyroxine Sodium (Synthroid) 88 mcg DAILYAC PO Last administered on 03/20/19 09:38; Start 03/16/19 at 07:30 Lactobacillus Rhamnosus (Culturelle) 1 cap BID PO Last administered on 03/20/19 09:38; Start 03/16/19 at 21:00 Insulin Human Lispro (HumaLOG) 0-9 UNITS TIDWMEALS SQ Last administered on 03/19/19 17:46; Start 03/16/19 at 12:00 Dextrose (Dextrose 50%-Water Syringe) 12.5 gm PRN Q15MIN PRN IV SEE COMMENTS; Start 03/16/19 at 10:00 Dextrose 250 ml PRN Q15MIN PRN IV SEE COMMENTS; Start 03/16/19 at 10:00 Ondansetron HCl (Zofran) 4 mg PRN Q6HRS PRN IV NAUSEA/VOMITING; Start 03/16/19 at 10:00 Acetaminophen/ Hydrocodone Bitart (Lortab 5/325) 1 tab PRN Q4HRS PRN PO PAIN Last administered on 03/19/19at 22:00; Start 03/16/19 at 10:00 Temazepam (Restoril) 7.5 mg PRN QHS PRN PO INSOMNIA; Start 03/16/19 at 10:00 Clonidine HCl (Catapres) 0.1 mg PRN Q1HR PRN PO HYPERTENSION; Start 03/16/19 at 10:00 Amlodipine Besylate (Norvasc) 10 mg DAILY PO Last administered on 03/20/19at 09:38; Start 03/17/19 at 09:00 Amlodipine Besylate (Norvasc) 5 mg 1X ONCE PO ; Start 03/16/19 at 11:15; Stop 03/16/19 at 11:16; Status DC Darbepoetin Derrek (ARANESP for DIALYSIS PTS) 60 mcg WEEKLYHS SQ Last administered on 03/16/19at 21:39; Start 03/16/19 at 21:00 Sodium Chloride 1,000 ml @ 1,000 mls/hr Q1H PRN IV hypotension; Start 03/17/19 at 10:16; Stop 03/17/19 at 16:15; Status DC Albumin Human 200 ml @ 200 mls/hr 1X PRN PRN IV Hypotension; Start 03/17/19 at 10:30; Stop 03/17/19 at 16:29; Status DC Sodium Chloride (Normal Saline Flush) 10 ml 1X PRN PRN IV AP catheter pack; Start 03/17/19 at 10:30; Stop 03/18/19 at 10:29; Status DC Sodium Chloride (Normal Saline Flush) 10 ml 1X PRN PRN 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; Start 03/17/19 at 10:30; Stop 03/18/19 at 10:29; Status DC Sodium Chloride 1,000 ml @ 400 mls/hr Q2H30M PRN IV PATENCY; Start 03/17/19 at 10:16; Stop 03/17/19 at 22:15; Status DC Info (PHARMACY MONITORING -- do not chart) 1 each PRN DAILY PRN MC SEE COMMENTS; Start 03/17/19 at 10:30; Status UNV Info (PHARMACY MONITORING -- do not chart) 1 each PRN DAILY PRN MC SEE COMMENTS; Start 03/17/19 at 10:30 Vancomycin HCl 500 mg/Sodium Chloride 100 ml @ 100 mls/hr QMWF IV Last administered on 03/19/19at 14:41; Start 03/17/19 at 16:00 Sodium Chloride 1,000 ml @ 1,000 mls/hr Q1H PRN IV hypotension; Start 03/19/19 at 07:54; Stop 03/19/19 at 13:53; Status DC Albumin Human 200 ml @ 200 mls/hr 1X PRN PRN IV Hypotension; Start 03/19/19 at 08:00; Stop 03/19/19 at 13:59; Status DC Sodium Chloride (Normal Saline Flush) 10 ml 1X PRN PRN IV AP catheter pack; Start 03/19/19 at 08:00; Stop 03/20/19 at 07:59; Status DC Sodium Chloride (Normal Saline Flush) 10 ml 1X PRN PRN 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; Start 03/19/19 at 08:00; Stop 03/20/19 at 07:59; Status DC Sodium Chloride 1,000 ml @ 400 mls/hr Q2H30M PRN IV PATENCY; Start 03/19/19 at 07:54; Stop 03/19/19 at 19:53; Status DC Info (PHARMACY MONITORING -- do not chart) 1 each PRN DAILY PRN MC SEE COMMENTS; Start 03/19/19 at 08:00; Status UNV Info (PHARMACY MONITORING -- do not chart) 1 each PRN DAILY PRN MC SEE COMMENTS; Start 03/19/19 at 08:00; Stop 03/19/19 at 08:07; Status DC Cefepime HCl (Maxipime) 1 gm Q24H IVP Last administered on 03/20/19at 09:38; Start 03/19/19 at 09:00 Apixaban (Eliquis) 5 mg BID PO Last administered on 03/20/19at 09:38; Start 03/19/19 at 21:00 Active Scripts Active Vitamin C (Ascorbic Acid) 500 Mg Tablet 500 Mg PO DAILY MDD 1 Thera-M Tablet (Multivits,Ca,Minerals/Iron/Fa) 1 Each Tablet 1 Tab PO DAILY MDD 1 Acetaminophen-Cod #3 Tablet (Acetaminophen/Codeine Phosphate) 1 Each Tablet 1 Tab PO PRN Q6HRS PRN MDD 1 Aspirin 81 Mg Tab.chew 81 Mg PO DAILYWBKFT MDD 1 Reported Levothyroxine Sodium 88 Mcg Tablet 88 Mcg PO DAILYAC Hydrocodone-Apap 7.5-325 (Hydrocodone Bit/Acetaminophen) 1 Tab Tablet 1 Tab PO PRN Q4HRS PRN Novolog Flexpen (Insulin Aspart) 100 Unit/1 Ml Insuln.pen 5 Unit SQ TIDWMEALS Lantus Solostar (Insulin Glargine,Hum.rec.anlog) 100 Unit/1 Ml Insuln.pen 15 Unit SQ QHS Renvela (Sevelamer Carbonate) 800 Mg Tablet 800 Mg PO TIDWMEALS Pravastatin Sodium 80 Mg Tablet 1 Tab PO HS Miralax (Polyethylene Glycol 3350) 17 Gm Powd.pack 1 Packet PO BID Minoxidil 2.5 Mg Tablet 2.5 Mg PO BID Metoprolol Tartrate 25 Mg Tablet 25 Mg PO BID Hydralazine Hcl 25 Mg Tablet 25 Mg PO QID Furosemide 40 Mg Tablet 40 Mg PO DAILY Eliquis (Apixaban) 2.5 Mg Tablet 2.5 Mg PO BID Amlodipine Besylate 5 Mg Tablet 5 Mg PO DAILY Vitals/I & O Vital Sign - Last 24 Hours 03/19/19 03/19/19 03/19/19 03/19/19 17:46 19:05 20:00 20:36 Temp 97.9 97.9 Pulse 86 74 74 Resp 20 B/P (MAP) 156/79 158/78 (104) 158/78 Pulse Ox 98 O2 Delivery Room Air Room Air 03/19/19 03/19/19 03/19/19 03/19/19 20:36 20:36 22:00 23:35 Temp 98.0 98.0 Pulse 74 74 77 Resp 18 18 B/P (MAP) 158/78 158/78 138/81 (100) Pulse Ox 98 99 O2 Delivery Room Air Room Air 03/19/19 03/20/19 03/20/19 03/20/19 23:47 07:00 08:10 09:38 Temp 97.8 97.8 Pulse 67 75 Resp 18 18 B/P (MAP) 142/77 (98) Pulse Ox 98 96 O2 Delivery Room Air Room Air Room Air 03/20/19 03/20/19 03/20/19 03/20/19 09:38 09:38 09:38 10:52 Temp 98.1 98.1 Pulse 74 75 75 84 Resp 18 B/P (MAP) 146/70 (95) Pulse Ox 96 O2 Delivery Room Air 03/20/19 13:52 Pulse 70 Intake and Output 03/19/19 03/19/19 03/20/19 15:00 23:00 07:00 Intake Total 118 ml 367 ml 100 ml Output Total 50 ml Balance 118 ml 317 ml 100 ml ADY CHAPMAN MD Mar 20, 2019 15:11
[2019-03-20] MEDS: SODIUM HYPOCHLORITE 0.125% 473 ML BOTTLE. TP SCH ×2 (17:30→20:35)
[2019-03-20 19:05] VITALS: BP 152/79
[2019-03-20] MEDS: INSULIN GLARGINE 300 UNITS/3 ML INSULN.PEN. SQ SCH (20:31)
[2019-03-20] MEDS: HYDROcodone/APAP 5/325MG 1 TAB TABLET PO PRN (20:34)
[2019-03-20 23:37] VITALS: BP 152/91
[2019-03-21 07:00] VITALS: BP 134/71
[2019-03-21] MEDS ORDERED: IV NORMAL SALINE 1000ML BAG 1,000 ML IV PRN ×2 (07:39)
[2019-03-21] MEDS ORDERED: ALBUMIN HUMAN 25% 200 ML IV PRN (07:45)
[2019-03-21] MEDS ORDERED: 0.9 % SODIUM CHLORIDE 10 ML DISP.SYRIN. IV PRN ×2 (07:45)
[2019-03-21] MEDS ORDERED: DIALYSIS PATIENT. MC PRN ×2 (07:45)
[2019-03-21] MEDS: HEPARIN for SUB-Q USE 5,000 UNIT/ML VIAL. SQ SCH ×3 (07:48→21:06)
[2019-03-21] MEDS: SEVELAMER CARBONATE 800 MG TABLET. PO SCH ×3 (08:00→17:00)
[2019-03-21] MEDS: INSULIN LISPRO 300 UNITS/3 ML VIAL. SQ SCH ×6 (08:00→17:00)
--- NOTE | 2019-03-21 08:45 | PDOC ---
Infectious Disease Note Subjective: Subjective pt is doing ok no f/c/n/v/d undergoing dialysis ROS: ROS Negative otherwise. Vital Signs: Vital Signs Vital Signs Date Time Temp Pulse Resp B/P (MAP) Pulse Ox O2 Delivery O2 Flow Rate FiO2 03/20/19 23:37 97.9 71 17 152/91 (111) 96 Room Air 97.9 03/20/19 20:00 99.0 Physical Exam: PHYSICAL EXAM GENERAL: The patient is sitting upright in nad HEENT: Pupils equally round. Oropharynx pink and dry. NECK: Supple.HDC in place, LUNGS: Clear to auscultation. HEART: S1, S2. ABDOMEN: Soft and nontender with bowel sounds present. EXTREMITIES: Trace edema of lower extremities bilaterally. No cyanosis. He has a wound on both lower legs that are currently bandaged. Pictures reviewed. SKIN: Warm to touch. No signs of rash. NEUROLOGIC: Alert and oriented x 3. Medications: Inpatient Meds: Current Medications Medications (Trade) Dose Ordered Sig/Rochelle Start Time Stop Time Status Last Admin Dose Admin Acetaminophen (Tylenol Supp) 650 mg STK-MED ONCE 03/15/19 15:04 03/15/19 15:04 DC Acetaminophen (Tylenol) 650 mg PRN Q6HRS PRN 03/15/19 15:00 03/15/19 15:12 650 MG Acetaminophen/ Hydrocodone Bitart (Lortab 5/325) 1 tab PRN Q4HRS PRN 03/16/19 10:00 03/20/19 20:34 1 TAB Albumin Human 200 ml @ 200 mls/hr 1X PRN PRN 03/21/19 07:45 03/21/19 13:44 Amlodipine Besylate (Norvasc) 5 mg 1X ONCE 03/16/19 11:15 03/16/19 11:16 DC Apixaban (Eliquis) 5 mg BID 03/19/19 21:00 03/21/19 07:36 DC 03/20/19 09:38 5 MG Ascorbic Acid (Vitamin C) 500 mg DAILY 03/16/19 09:00 03/20/19 09:38 500 MG Aspirin (Children'S Aspirin) 81 mg DAILYWBKFT 03/16/19 08:00 03/20/19 09:38 81 MG Cefepime HCl (Maxipime) 1 gm Q24H 03/19/19 09:00 03/20/19 09:38 1 GM Clonidine HCl (Catapres) 0.1 mg PRN Q1HR PRN 03/16/19 10:00 Darbepoetin Derrek (ARANESP for DIALYSIS PTS) 60 mcg WEEKLYHS 03/16/19 21:00 03/16/19 21:39 60 MCG Dextrose 250 ml PRN Q15MIN PRN 03/16/19 10:00 Dextrose (Dextrose 50%-Water Syringe) 12.5 gm PRN Q15MIN PRN 03/16/19 10:00 Digoxin (Lanoxin) 500 mcg STK-MED ONCE 03/15/19 15:26 03/15/19 15:26 DC Diltiazem HCl 125 mg/Dextrose 125 ml @ 2.5 mls/hr CONT PRN 03/15/19 15:30 03/15/19 15:40 2.5 MLS/HR Furosemide (Lasix) 40 mg DAILY 03/16/19 09:00 03/20/19 09:38 40 MG Heparin Sodium (Porcine) (Heparin Sodium) 5,000 unit Q8HRS 03/21/19 09:00 Hydralazine HCl (Apresoline) 25 mg QID 03/15/19 21:00 03/20/19 20:34 25 MG Info (Anti-Coagulation Monitoring By Pharmacy) 1 each PRN DAILY PRN 03/15/19 18:45 03/16/19 13:41 1 EACH Info (PHARMACY MONITORING -- do not chart) 1 each PRN DAILY PRN 03/21/19 07:45 Insulin Glargine (Lantus) 15 units QHS 03/15/19 21:00 03/20/19 20:34 10 UNITS Insulin Human Lispro (HumaLOG) 0-9 UNITS TIDWMEALS 03/16/19 12:00 03/19/19 17:46 4 UNITS Lactobacillus Rhamnosus (Culturelle) 1 cap BID 03/16/19 21:00 03/20/19 20:34 1 CAP Levothyroxine Sodium (Synthroid) 88 mcg DAILYAC 03/16/19 07:30 03/20/19 09:38 88 MCG Metoprolol Tartrate (Lopressor) 25 mg BID 03/15/19 21:00 03/20/19 20:34 25 MG Minoxidil (Loniten) 2.5 mg BID 03/15/19 21:00 03/20/19 20:34 2.5 MG Multivitamins (Thera M Plus) 1 tab DAILY 03/16/19 09:00 03/20/19 09:38 1 TAB Non-Formulary Medication (Pravastatin Sodium ) 1 tab HS 03/15/19 21:00 UNV Ondansetron HCl (Zofran) 4 mg PRN Q6HRS PRN 03/16/19 10:00 Polyethylene Glycol (miraLAX PACKET) 17 gm BID 03/15/19 21:00 03/20/19 20:34 17 GM Sevelamer Carbonate (Renvela) 800 mg TIDWMEALS 03/16/19 08:00 03/20/19 17:30 800 MG Sodium Hypochlorite (Dakin'S 1/4 Strength) 1 edenilson BID 03/15/19 21:00 03/20/19 17:30 1 EDENILSON Sodium Chloride 1,000 ml @ 400 mls/hr Q2H30M PRN 03/21/19 07:39 03/21/19 19:38 Sodium Chloride (Normal Saline Flush) 10 ml 1X PRN PRN 03/21/19 07:45 03/22/19 07:44 Temazepam (Restoril) 7.5 mg PRN QHS PRN 03/16/19 10:00 Vancomycin HCl (Vanco Per Pharmacy) 1 each PRN DAILY PRN 03/15/19 11:15 03/20/19 12:58 1 EACH Vancomycin HCl (Vancomycin Random Level) 1 each 1X ONCE 03/17/19 06:00 03/17/19 06:01 DC 03/17/19 06:31 1 EACH Vancomycin HCl 500 mg/Sodium Chloride 100 ml @ 100 mls/hr QMWF 03/17/19 16:00 03/19/19 14:41 100 MLS/HR Vancomycin HCl 2 gm/Sodium Chloride 500 ml @ 250 mls/hr 1X ONCE 03/15/19 11:30 03/15/19 13:29 DC 03/15/19 11:37 250 MLS/HR Labs: Lab Laboratory Tests Test 03/20/19 09:00 03/20/19 11:56 03/20/19 16:38 03/20/19 20:30 White Blood Count 6.4 x10^3/uL (4.0-11.0) Red Blood Count 3.28 x10^6/uL (4.30-5.70) Hemoglobin 9.2 g/dL (13.0-17.5) Hematocrit 27.4 % (39.0-53.0) Mean Corpuscular Volume 84 fL (79-100) Mean Corpuscular Hemoglobin 28 pg (25-35) Mean Corpuscular Hemoglobin Concent 34 g/dL (31-37) Red Cell Distribution Width 19.3 % (11.5-14.5) Platelet Count 170 x10^3/uL (140-400) Neutrophils (%) (Auto) 61 % (31-73) Lymphocytes (%) (Auto) 17 % (24-48) Monocytes (%) (Auto) 14 % (0-9) Eosinophils (%) (Auto) 7 % (0-3) Basophils (%) (Auto) 1 % (0-3) Neutrophils # (Auto) 3.9 x10^3/uL (1.8-7.7) Lymphocytes # (Auto) 1.1 x10^3/uL (1.0-4.8) Monocytes # (Auto) 0.9 x10^3/uL (0.0-1.1) Eosinophils # (Auto) 0.5 x10^3/uL (0.0-0.7) Basophils # (Auto) 0.1 x10^3/uL (0.0-0.2) Prothrombin Time 16.0 SEC (11.7-14.0) Prothromb Time International Ratio 1.3 (0.8-1.1) Sodium Level 140 mmol/L (136-145) Potassium Level 4.4 mmol/L (3.5-5.1) Chloride Level 101 mmol/L (98-107) Carbon Dioxide Level 30 mmol/L (21-32) Anion Gap 9 (6-14) Blood Urea Nitrogen 35 mg/dL (8-26) Creatinine 3.5 mg/dL (0.7-1.3) Estimated GFR (Cockcroft-Gault) 18.0 Glucose Level 82 mg/dL (70-99) Calcium Level 8.8 mg/dL (8.5-10.1) Phosphorus Level 3.4 mg/dL (2.6-4.7) Albumin 3.3 g/dL (3.4-5.0) Glucose (Fingerstick) 112 mg/dL (70-99) 139 mg/dL (70-99) 168 mg/dL (70-99) Test 03/21/19 07:54 Glucose (Fingerstick) 89 mg/dL (70-99) Micro RUN DATE: 03/19/19 PAGE 1 RUN TIME: 2106 [facility] [address] [place] [address] Roly Reece M.D., Emergency Medical Tech PATIENT: JAN YUNG ACCT: [id number] LOC: [address] [place] [address] U: [id number] AGE/SX: 58/M ROOM: 246 RE03/15/[address]: IKE CORTEZ III, DO : 1960 BED: 1 DIS: STATUS: ADM IN TLOC: SPEC #: [id number] ELLEN: 03/15/19 STATUS: COMP REQ #: [id number] RECD: 03/15/19-[address]: LIZ NAVARRO DO SOURCE: BLOOD ENTR: 03/16/19-809 [facility] DR: FARHAD PURVIS MD [facility]: ORDERED: ROSARIO CULT - LC Procedure Result BLOOD CULTURE LC Final Preliminary report Final report BLD CULT RESULT 1 Final Staphylococcus aureus Comment Performed at: [facility] [address], [place], [place] [id number] [employer] Cashier: JP Gardiner MD, Phone: [phone] Methicillin - resistant Staphylococcus aureus Based on resistance to oxacillin this isolate would be resistant to all currently available beta-lactam antimicrobial agents, with the exception of the newer cephalosporins with anti-MRSA activity, such as Ceftaroline CLINDAMYCIN RESISTANT R>=8 ERYTHROMYCIN RESISTANT R>=8 ANTIMICROBIAL SUSCEPTIBILITY Final Comment S = Susceptible; I = Intermediate; R = Resistant P = Positive; N = Negative MICS are expressed in micrograms per mL Antibiotic RSLT#1 RSLT#2 RSLT#3 RSLT#4 Ciprofloxacin R>=8 Clindamycin R>=8 Erythromycin R>=8 Gentamicin S<=0.5 Levofloxacin R>=8 Linezolid S =2 Oxacillin R>=4 Penicillin R>=0.5 Rifampin S<=0.5 Tetracycline S<=1 Trimethoprim/Sulfa S<=10 Vancomycin S =1 Performed at: [facility] CONTINUED ON NEXT PAGE RUN DATE: 03/19/19 PAGE 2 RUN TIME: 2106 [facility] [address] [place] [address] Roly Reece M.D., Emergency Medical Tech SPEC: [id number] PATIENT: JAN YUNG [id number] (Continued) Procedure Result ANTIMICROBIAL SUSCEPTIBILITY Final (continued) [address], [place], [place] [id number] [employer] Cashier: JP Gardiner MD, Phone: [phone] Objective: Assessment: 1. MRSA Staph aureus bacteremia with sepsis present on admission; source likely HDC cath or cath site 2 ECHO done 03/17 Repeat BC neg from 03/17 2. Infected hemodialysis catheter, status post removal 03/05 and replaced 03/07 per the patient report, [facility] 3. Fever.resolved 4. ANTIBIOTIC ALLERGY TO PENICILLIN WITH ANAPHYLACTIC TYPE REACTION IN CHILDHOOD AND SULFA WITH HIVES. 5. History of methicillin-resistant Staphylococcus aureus. 6. Chronic wounds, lower extremities bilaterally. [facility]. 7. End-stage renal disease, on hemodialysis. 8. Peripheral vascular disease. 9. Diabetes with peripheral neuropathy. 10. Atrial fibrillation. Plan: Plan of Care continue the vancomycin. HDC needs removal ,will get it done today send cath tip for cults f/u repeat BC 03/17,negative so far Repeat BC after HDC removal tomorrow agree with holding off on HDC placement over the weekend Probiotics D/w nursing BRI RIOS MD Mar 21, 2019 08:45
--- NOTE | 2019-03-21 08:49 | NUR ---
Nursing: Patient at Dialysis. Morning medication's held until patient returns to unit.
[2019-03-21] MEDS: SODIUM HYPOCHLORITE 0.125% 473 ML BOTTLE. TP SCH (09:00)
[2019-03-21] MEDS: POLYETHYLENE GLYCOL 3350 17 GM PACKET. PO SCH ×2 (09:00→21:00)
[2019-03-21] MEDS: LACTOBACILLUS RHAMNOSUS GG 1 CAPSULE. PO SCH ×2 (09:00→20:55)
[2019-03-21] MEDS: hydrALAZINE 25 MG TABLET PO SCH ×4 (09:00→20:59)
[2019-03-21] MEDS: METOPROLOL TART IMMED RELEASE 25 MG TABLET. PO SCH ×2 (09:00→20:59)
--- NOTE | 2019-03-21 09:45 | PDOC ---
PROGRESS NOTES Chief Complaint Chief Complaint IMPRESSION Sepsis - Methicillin Resistant Staph aureus bacteremia with sepsis Chronic wounds, lower extremities bilaterally. [facility] PAD ESRD on HD AOCD Cellulitis - with sepsis Acute on chronic a fib s/p RVR HTN Hypothyroidism on synthroid Infected hemodialysis catheter, status post removal 03/05 and replaced 03/07 History of methicillin-resistant Staphylococcus aureus. Diabetes with peripheral neuropathy. Atrial fibrillation. Infected hemodialysis catheter, status post removal 03/05 and replaced 03/07 38 MIN PT EXAM, CHART REVIEW, > 50% OF TIME SPENT WITH EXASM, CHART REVIEW, PT CARE COORDINATION History of Present Illness History of Present Illness Mr Weber is a 58-year-old male with PMHx ESRD on HD with tunneled hemodialysis catheter. He was in his usual state of health when 03/12/19 after finishing dialysis, he developed chills, shakes, fever of 102, and vomiting. He says about 2 weeks prior, he noticed that his HD catheter had slid out. He pushed it back in and noticed pus from the site. The following day, he returned to [facility] where the catheter was removed and cultured. Two days later, it was replaced. Cardizem gtt bec went to [facility] (hx a fib), seen by cardiology. Now off cardize gtt. Per cardiology on rate control meds and anticoagulation. Echocardiogram shows normal LV systolic function Vasc sx, ID on board, wounds legs, pics reviewed, will need wound care and IV Abx Also HD pt, RT tunnelled HD cath visible. Transferred from ICU to [facility] on 9. His first culture here was MRSA, 2 follow up are NGTD. Have discussed that a prudent move would be to remove his current catheter and tunnel a new one next Sunday once his f/u cultures are negative. He is in poor spirits today, really wants to leave, has numerous complaints, but is willing to remain inpatient to have catheter removed. No CP or SOB. Repeat blood cultures NGTD, going for dialysis at noon today. needs his line removed, will stay without access over the weekend. PLAN: Wound care IV abx cards consulted for R Dw [employer] Vitals Vitals Vital Signs Date Time Temp Pulse Resp B/P (MAP) Pulse Ox O2 Delivery O2 Flow Rate FiO2 03/21/19 08:00 Room Air 03/21/19 07:00 97.7 75 18 134/71 (92) 98 97.7 03/20/19 20:00 99.0 Physical Exam Physical Exam GENERAL: The patient is sitting upright in nad HEENT: Pupils equally round. Oropharynx pink and dry. NECK: Supple.HDC in place, LUNGS: Clear to auscultation. HEART: S1, S2. ABDOMEN: Soft and nontender with bowel sounds present. EXTREMITIES: Trace edema of lower extremities bilaterally. No cyanosis. He has a wound on both lower legs that are currently bandaged. Pictures reviewed. SKIN: Warm to touch. No signs of rash. NEUROLOGIC: Alert and oriented x 3. General: Alert, Oriented X3, Cooperative, mild distress Heart: Other (irreg. irreg.) Lungs: Clear Abdomen: Normal bowel sounds Extremities: No clubbing, No cyanosis Skin: No breakdown Labs LABS Laboratory Tests Test 03/20/19 11:56 03/20/19 16:38 03/20/19 20:30 03/21/19 07:54 Glucose (Fingerstick) 112 mg/dL (70-99) 139 mg/dL (70-99) 168 mg/dL (70-99) 89 mg/dL (70-99) Assessment and Plan Assessmemt and Plan Problems Medical Problems: (1) A-fib Status: Acute (2) Diabetes mellitus with peripheral autonomic neuropathy Status: Chronic (3) ESRD on hemodialysis Status: Chronic (4) PVD (peripheral vascular disease) Status: Chronic (5) Sepsis Status: Acute Comment Review of Relevant I have reviewed the following items kendra (where applicable) has been applied. Labs Laboratory Tests Test 03/19/19 14:31 03/19/19 17:34 03/19/19 20:17 03/20/19 07:05 Glucose (Fingerstick) 88 mg/dL (70-99) 163 mg/dL (70-99) 129 mg/dL (70-99) 86 mg/dL (70-99) Test 03/20/19 09:00 03/20/19 11:56 03/20/19 16:38 03/20/19 20:30 White Blood Count 6.4 x10^3/uL (4.0-11.0) Red Blood Count 3.28 x10^6/uL (4.30-5.70) Hemoglobin 9.2 g/dL (13.0-17.5) Hematocrit 27.4 % (39.0-53.0) Mean Corpuscular Volume 84 fL (79-100) Mean Corpuscular Hemoglobin 28 pg (25-35) Mean Corpuscular Hemoglobin Concent 34 g/dL (31-37) Red Cell Distribution Width 19.3 % (11.5-14.5) Platelet Count 170 x10^3/uL (140-400) Neutrophils (%) (Auto) 61 % (31-73) Lymphocytes (%) (Auto) 17 % (24-48) Monocytes (%) (Auto) 14 % (0-9) Eosinophils (%) (Auto) 7 % (0-3) Basophils (%) (Auto) 1 % (0-3) Neutrophils # (Auto) 3.9 x10^3/uL (1.8-7.7) Lymphocytes # (Auto) 1.1 x10^3/uL (1.0-4.8) Monocytes # (Auto) 0.9 x10^3/uL (0.0-1.1) Eosinophils # (Auto) 0.5 x10^3/uL (0.0-0.7) Basophils # (Auto) 0.1 x10^3/uL (0.0-0.2) Prothrombin Time 16.0 SEC (11.7-14.0) Prothromb Time International Ratio 1.3 (0.8-1.1) Sodium Level 140 mmol/L (136-145) Potassium Level 4.4 mmol/L (3.5-5.1) Chloride Level 101 mmol/L (98-107) Carbon Dioxide Level 30 mmol/L (21-32) Anion Gap 9 (6-14) Blood Urea Nitrogen 35 mg/dL (8-26) Creatinine 3.5 mg/dL (0.7-1.3) Estimated GFR (Cockcroft-Gault) 18.0 Glucose Level 82 mg/dL (70-99) Calcium Level 8.8 mg/dL (8.5-10.1) Phosphorus Level 3.4 mg/dL (2.6-4.7) Albumin 3.3 g/dL (3.4-5.0) Glucose (Fingerstick) 112 mg/dL (70-99) 139 mg/dL (70-99) 168 mg/dL (70-99) Test 03/21/19 07:54 Glucose (Fingerstick) 89 mg/dL (70-99) Laboratory Tests Test 03/20/19 11:56 03/20/19 16:38 03/20/19 20:30 03/21/19 07:54 Glucose (Fingerstick) 112 mg/dL (70-99) 139 mg/dL (70-99) 168 mg/dL (70-99) 89 mg/dL (70-99) Microbiology 03/19/19 Blood Culture - Preliminary, Resulted NO GROWTH AFTER 2 DAYS Medications Current Medications Vancomycin HCl (Vanco Per Pharmacy) 1 each PRN DAILY PRN MC SEE COMMENTS Last administered on 03/20/19at 12:58; Start 03/15/19 at 11:15 Cefepime HCl (Maxipime) 1 gm 1X ONCE IVP Last administered on 03/15/19at 11:37; Start 03/15/19 at 11:15; Stop 03/15/19 at 11:23; Status DC Sodium Chloride 1,000 ml @ 1,000 mls/hr 1X ONCE IV Last administered on 03/15/19at 11:28; Start 03/15/19 at 11:30; Stop 03/15/19 at 12:29; Status DC Vancomycin HCl 2 gm/Sodium Chloride 500 ml @ 250 mls/hr 1X ONCE IV Last administered on 03/15/19at 11:37; Start 03/15/19 at 11:30; Stop 03/15/19 at 13:29; Status DC Vancomycin HCl (Vancomycin Random Level) 1 each 1X ONCE MC Last administered on 03/17/19at 06:31; Start 03/17/19 at 06:00; Stop 03/17/19 at 06:01; Status DC Acetaminophen (Tylenol) 650 mg PRN Q6HRS PRN PO MILD PAIN / TEMP Last administered on 03/15/19at 15:12; Start 03/15/19 at 15:00 Acetaminophen (Tylenol Supp) 650 mg STK-MED ONCE .ROUTE ; Start 03/15/19 at 15:04; Stop 03/15/19 at 15:04; Status DC Digoxin (Lanoxin) 250 mcg 1X ONCE IV Last administered on 03/15/19at 15:30; Start 03/15/19 at 15:30; Stop 03/15/19 at 15:31; Status DC Diltiazem HCl 125 mg/Dextrose 125 ml @ 2.5 mls/hr CONT PRN IV SEE I/O RECORD Last administered on 03/15/19at 15:40; Start 03/15/19 at 15:30 Digoxin (Lanoxin) 500 mcg STK-MED ONCE .ROUTE ; Start 03/15/19 at 15:26; Stop 03/15/19 at 15:26; Status DC Sodium Chloride 1,000 ml @ 1,000 mls/hr 1X ONCE IV Last administered on 03/15/19at 16:30; Start 03/15/19 at 14:00; Stop 03/15/19 at 16:33; Status DC Sodium Hypochlorite (Dakin'S 1/4 Strength) 1 edenilson DAILY TP ; Start 03/16/19 at 09:00; Stop 03/15/19 at 18:00; Status DC Sodium Hypochlorite (Dakin'S 1/4 Strength) 1 edenilson BID TP Last administered on 03/20/19at 17:30; Start 03/15/19 at 21:00 Amlodipine Besylate (Norvasc) 5 mg DAILY PO Last administered on 03/16/19at 08:18; Start 03/16/19 at 09:00; Stop 03/16/19 at 11:02; Status DC Apixaban (Eliquis) 2.5 mg BID PO Last administered on 03/18/19at 21:19; Start 03/15/19 at 21:00; Stop 03/19/19 at 13:03; Status DC Ascorbic Acid (Vitamin C) 500 mg DAILY PO Last administered on 03/20/19at 09:38; Start 03/16/19 at 09:00 Aspirin (Children'S Aspirin) 81 mg DAILYWBKFT PO Last administered on 03/20/19at 09:38; Start 03/16/19 at 08:00 Furosemide (Lasix) 40 mg DAILY PO Last administered on 03/20/19at 09:38; Start 03/16/19 at 09:00 Hydralazine HCl (Apresoline) 25 mg QID PO Last administered on 03/20/19at 20:34; Start 03/15/19 at 21:00 Metoprolol Tartrate (Lopressor) 25 mg BID PO Last administered on 03/20/19 20:34; Start 03/15/19 at 21:00 Minoxidil (Loniten) 2.5 mg BID PO Last administered on 03/20/19 20:34; Start 03/15/19 at 21:00 Multivitamins (Thera M Plus) 1 tab DAILY PO Last administered on 03/20/19 09:38; Start 03/16/19 at 09:00 Polyethylene Glycol (miraLAX PACKET) 17 gm BID PO Last administered on 03/20/19 20:34; Start 03/15/19 at 21:00 Sevelamer Carbonate (Renvela) 800 mg TIDWMEALS PO Last administered on 03/20/19 17:30; Start 03/16/19 at 08:00 Non-Formulary Medication (Pravastatin Sodium ) 1 tab HS PO ; Start 03/15/19 at 21:00; Status UNV Info (Anti-Coagulation Monitoring By Pharmacy) 1 each PRN DAILY PRN MC SEE COMMENTS Last administered on 03/16/19 13:41; Start 03/15/19 at 18:45 Insulin Glargine (Lantus) 15 units QHS SQ Last administered on 03/20/19 20:34; Start 03/15/19 at 21:00 Insulin Human Lispro (HumaLOG) 5 units TIDWMEALS SQ ; Start 03/16/19 at 08:00 Levothyroxine Sodium (Synthroid) 88 mcg DAILYAC PO Last administered on 03/20/19 09:38; Start 03/16/19 at 07:30 Lactobacillus Rhamnosus (Culturelle) 1 cap BID PO Last administered on 03/20/19 20:34; Start 03/16/19 at 21:00 Insulin Human Lispro (HumaLOG) 0-9 UNITS TIDWMEALS SQ Last administered on 03/19/19 17:46; Start 03/16/19 at 12:00 Dextrose (Dextrose 50%-Water Syringe) 12.5 gm PRN Q15MIN PRN IV SEE COMMENTS; Start 03/16/19 at 10:00 Dextrose 250 ml PRN Q15MIN PRN IV SEE COMMENTS; Start 03/16/19 at 10:00 Ondansetron HCl (Zofran) 4 mg PRN Q6HRS PRN IV NAUSEA/VOMITING; Start 03/16/19 at 10:00 Acetaminophen/ Hydrocodone Bitart (Lortab 5/325) 1 tab PRN Q4HRS PRN PO PAIN Last administered on 03/20/19at 20:34; Start 03/16/19 at 10:00 Temazepam (Restoril) 7.5 mg PRN QHS PRN PO INSOMNIA; Start 03/16/19 at 10:00 Clonidine HCl (Catapres) 0.1 mg PRN Q1HR PRN PO HYPERTENSION; Start 03/16/19 at 10:00 Amlodipine Besylate (Norvasc) 10 mg DAILY PO Last administered on 03/20/19at 09:38; Start 03/17/19 at 09:00 Amlodipine Besylate (Norvasc) 5 mg 1X ONCE PO ; Start 03/16/19 at 11:15; Stop 03/16/19 at 11:16; Status DC Darbepoetin Derrek (ARANESP for DIALYSIS PTS) 60 mcg WEEKLYHS SQ Last administered on 03/16/19at 21:39; Start 03/16/19 at 21:00 Sodium Chloride 1,000 ml @ 1,000 mls/hr Q1H PRN IV hypotension; Start 03/17/19 at 10:16; Stop 03/17/19 at 16:15; Status DC Albumin Human 200 ml @ 200 mls/hr 1X PRN PRN IV Hypotension; Start 03/17/19 at 10:30; Stop 03/17/19 at 16:29; Status DC Sodium Chloride (Normal Saline Flush) 10 ml 1X PRN PRN IV AP catheter pack; Start 03/17/19 at 10:30; Stop 03/18/19 at 10:29; Status DC Sodium Chloride (Normal Saline Flush) 10 ml 1X PRN PRN IV LE[employer]URE [employer]IES PROFESSOR catheter pack; Start 03/17/19 at 10:30; Stop 03/18/19 at 10:29; Status DC Sodium Chloride 1,000 ml @ 400 mls/hr Q2H30M PRN IV PATENCY; Start 03/17/19 at 10:16; Stop 03/17/19 at 22:15; Status DC Info (PHARMACY MONITORING -- do not chart) 1 each PRN DAILY PRN MC SEE COMMENTS; Start 03/17/19 at 10:30; Status UNV Info (PHARMACY MONITORING -- do not chart) 1 each PRN DAILY PRN MC SEE COMMENTS; Start 03/17/19 at 10:30; Stop 03/21/19 at 07:46; Status DC Vancomycin HCl 500 mg/Sodium Chloride 100 ml @ 100 mls/hr QMWF IV Last administered on 03/19/19at 14:41; Start 03/17/19 at 16:00 Sodium Chloride 1,000 ml @ 1,000 mls/hr Q1H PRN IV hypotension; Start 03/19/19 at 07:54; Stop 03/19/19 at 13:53; Status DC Albumin Human 200 ml @ 200 mls/hr 1X PRN PRN IV Hypotension; Start 03/19/19 at 08:00; Stop 03/19/19 at 13:59; Status DC Sodium Chloride (Normal Saline Flush) 10 ml 1X PRN PRN IV AP catheter pack; Start 03/19/19 at 08:00; Stop 03/20/19 at 07:59; Status DC Sodium Chloride (Normal Saline Flush) 10 ml 1X PRN PRN IV LE[employer]URE STUDIES PROFESSOR catheter pack; Start 03/19/19 at 08:00; Stop 03/20/19 at 07:59; Status DC Sodium Chloride 1,000 ml @ 400 mls/hr Q2H30M PRN IV PATENCY; Start 03/19/19 at 07:54; Stop 03/19/19 at 19:53; Status DC Info (PHARMACY MONITORING -- do not chart) 1 each PRN DAILY PRN MC SEE COMMENTS; Start 03/19/19 at 08:00; Status UNV Info (PHARMACY MONITORING -- do not chart) 1 each PRN DAILY PRN MC SEE COMMENTS; Start 03/19/19 at 08:00; Stop 03/19/19 at 08:07; Status DC Cefepime HCl (Maxipime) 1 gm Q24H IVP Last administered on 03/20/19at 09:38; Start 03/19/19 at 09:00 Apixaban (Eliquis) 5 mg BID PO Last administered on 03/20/19at 09:38; Start 03/19/19 at 21:00; Stop 03/21/19 at 07:36; Status DC Heparin Sodium (Porcine) (Heparin Sodium) 5,000 unit Q8HRS SQ ; Start 03/21/19 at 09:00 Sodium Chloride 1,000 ml @ 1,000 mls/hr Q1H PRN IV hypotension; Start 03/21/19 at 07:39; Stop 03/21/19 at 13:38 Albumin Human 200 ml @ 200 mls/hr 1X PRN PRN IV Hypotension; Start 03/21/19 at 07:45; Stop 03/21/19 at 13:44 Sodium Chloride (Normal Saline Flush) 10 ml 1X PRN PRN IV AP catheter pack; S tart 03/21/19 at 07:45; Stop 03/22/19 at 07:44 Sodium Chloride (Normal Saline Flush) 10 ml 1X PRN PRN IV LEISURE STUDIES PROFESSOR catheter pack; Start 03/21/19 at 07:45; Stop 03/22/19 at 07:44 Sodium Chloride 1,000 ml @ 400 mls/hr Q2H30M PRN IV PATENCY; Start 03/21/19 at 07:39; Stop 03/21/19 at 19:38 Info (PHARMACY MONITORING -- do not chart) 1 each PRN DAILY PRN MC SEE COMMENTS; Start 03/21/19 at 07:45; Status UNV Info (PHARMACY MONITORING -- do not chart) 1 each PRN DAILY PRN MC SEE COMMENTS; Start 03/21/19 at 07:45 Active Scripts Active Vitamin C (Ascorbic Acid) 500 Mg Tablet 500 Mg PO DAILY MDD 1 Thera-M Tablet (Multivits,Ca,Minerals/Iron/Fa) 1 Each Tablet 1 Tab PO DAILY MDD 1 Acetaminophen-Cod #3 Tablet (Acetaminophen/Codeine Phosphate) 1 Each Tablet 1 Tab PO PRN Q6HRS PRN MDD 1 Aspirin 81 Mg Tab.chew 81 Mg PO DAILYWBKFT MDD 1 Reported Levothyroxine Sodium 88 Mcg Tablet 88 Mcg PO DAILYAC Hydrocodone-Apap 7.5-325 (Hydrocodone Bit/Acetaminophen) 1 Tab Tablet 1 Tab PO PRN Q4HRS PRN Novolog Flexpen (Insulin Aspart) 100 Unit/1 Ml Insuln.pen 5 Unit SQ TIDWMEALS Lantus Solostar (Insulin Glargine,Hum.rec.anlog) 100 Unit/1 Ml Insuln.pen 15 Unit SQ QHS Renvela (Sevelamer Carbonate) 800 Mg Tablet 800 Mg PO TIDWMEALS Pravastatin Sodium 80 Mg Tablet 1 Tab PO HS Miralax (Polyethylene Glycol 3350) 17 Gm Powd.pack 1 Packet PO BID Minoxidil 2.5 Mg Tablet 2.5 Mg PO BID Metoprolol Tartrate 25 Mg Tablet 25 Mg PO BID Hydralazine Hcl 25 Mg Tablet 25 Mg PO QID Furosemide 40 Mg Tablet 40 Mg PO DAILY Eliquis (Apixaban) 2.5 Mg Tablet 2.5 Mg PO BID Amlodipine Besylate 5 Mg Tablet 5 Mg PO DAILY Vitals/I & O Vital Sign - Last 24 Hours 03/20/19 03/20/19 03/20/19 03/20/19 10:52 13:52 15:00 17:30 Temp 98.1 98.0 98.1 98.0 Pulse 84 70 73 80 Resp 18 18 B/P (MAP) 146/70 (95) 135/69 (91) Pulse Ox 96 97 O2 Delivery Room Air Room Air 03/20/19 03/20/19 03/20/19 03/20/19 19:05 20:00 20:34 20:34 Temp 98.3 98.3 Pulse 82 82 82 Resp 18 B/P (MAP) 152/79 (103) 152/79 152/79 Pulse Ox 96 O2 Delivery Room Air Room Air O2 Flow Rate 99.0 03/20/19 03/20/19 03/20/19 03/20/19 20:34 20:34 22:04 23:37 Temp 97.9 97.9 Pulse 82 71 Resp 18 17 B/P (MAP) 152/79 152/91 (111) Pulse Ox 96 O2 Delivery Room Air Room Air Room Air 03/21/19 03/21/19 07:00 08:00 Temp 97.7 97.7 Pulse 75 Resp 18 B/P (MAP) 134/71 (92) Pulse Ox 98 O2 Delivery Room Air Room Air Intake and Output 03/20/19 03/20/19 03/21/19 15:00 23:00 07:00 Output Total 100 ml Balance -100 ml ADY CHAPMAN MD Mar 21, 2019 09:45
--- NOTE | 2019-03-21 11:48 | PDOC ---
SUBJECTIVE ROS Stable OBJECTIVE Vital Signs Vital Signs Date Time Temp Pulse Resp B/P (MAP) Pulse Ox O2 Delivery O2 Flow Rate FiO2 03/21/19 08:00 Room Air 03/21/19 07:00 97.7 75 18 134/71 (92) 98 97.7 03/20/19 20:00 99.0 I & 0 Intake and Output 03/21/19 07:00 Output Total 100 ml Balance -100 ml Output Urine Total 100 ml PHYSICAL EXAM Physical Exam GENERAL: NAD HEENT: OM moist NECK: Supple. LUNGS: Clear to auscultation. HEART: S1, S2. ABDOMEN: Soft and nontender with bowel sounds present. EXTREMITIES: Trace edema of lower extremities bilaterally. No cyanosis. He has a wound on both lower legs that are currently bandaged. SKIN: No signs of rash. NEUROLOGIC: Alert and oriented x 3. DIAGNOSIS/ASSESSMENT Assessment & Plan ESRD - On HD MWF seen on HD , tolerating well, continue as ordered, Jermaine Felton Access- TDC (not replaced)- likely will be removed after HD Lt AVF - placed [address] Alexander- not ready Sepsis with G+ Cocci Infected hemodialysis catheter, status post removal 03/05 and replaced 03/07 MRSA Staph aureus bacteremia with sepsis present on admission; source could be HDC 2 ECHO done 03/17 , Repeat BC neg from 03/17 Infected hemodialysis catheter, status post removal 03/05 and replaced 03/07 ID managing - recommends removal of Tunelled HDC and placement for Temp HDC Pt refusing temp HDC , DM II- per primary HTN- stable On antihypertensives Anemia - On WALT per Protocol LE wounds- Cellulitis AFIB-Rate controlled Per cardiology on rate control meds and anticoagulation. Echocardiogram shows normal LV systolic function COMMENT/RELEVANT DATA Meds Current Medications Medications (Trade) Dose Ordered Sig/Rochelle Start Time Stop Time Status Last Admin Dose Admin Acetaminophen (Tylenol Supp) 650 mg STK-MED ONCE 03/15/19 15:04 03/15/19 15:04 DC Acetaminophen (Tylenol) 650 mg PRN Q6HRS PRN 03/15/19 15:00 03/15/19 15:12 650 MG Acetaminophen/ Hydrocodone Bitart (Lortab 5/325) 1 tab PRN Q4HRS PRN 03/16/19 10:00 03/20/19 20:34 1 TAB Albumin Human 200 ml @ 200 mls/hr 1X PRN PRN 03/21/19 07:45 03/21/19 13:44 Amlodipine Besylate (Norvasc) 5 mg 1X ONCE 03/16/19 11:15 03/16/19 11:16 DC Apixaban (Eliquis) 5 mg BID 03/19/19 21:00 03/21/19 07:36 DC 03/20/19 09:38 5 MG Ascorbic Acid (Vitamin C) 500 mg DAILY 03/16/19 09:00 03/20/19 09:38 500 MG Aspirin (Children'S Aspirin) 81 mg DAILYWBKFT 03/16/19 08:00 03/20/19 09:38 81 MG Cefepime HCl (Maxipime) 1 gm Q24H 03/19/19 09:00 03/20/19 09:38 1 GM Clonidine HCl (Catapres) 0.1 mg PRN Q1HR PRN 03/16/19 10:00 Darbepoetin Derrek (ARANESP for DIALYSIS PTS) 60 mcg WEEKLYHS 03/16/19 21:00 03/16/19 21:39 60 MCG Dextrose 250 ml PRN Q15MIN PRN 03/16/19 10:00 Dextrose (Dextrose 50%-Water Syringe) 12.5 gm PRN Q15MIN PRN 03/16/19 10:00 Digoxin (Lanoxin) 500 mcg STK-MED ONCE 03/15/19 15:26 03/15/19 15:26 DC Diltiazem HCl 125 mg/Dextrose 125 ml @ 2.5 mls/hr CONT PRN 03/15/19 15:30 03/15/19 15:40 2.5 MLS/HR Furosemide (Lasix) 40 mg DAILY 03/16/19 09:00 03/20/19 09:38 40 MG Heparin Sodium (Porcine) (Heparin Sodium) 5,000 unit Q8HRS 03/21/19 09:00 Hydralazine HCl (Apresoline) 25 mg QID 03/15/19 21:00 03/20/19 20:34 25 MG Info (Anti-Coagulation Monitoring By Pharmacy) 1 each PRN DAILY PRN 03/15/19 18:45 03/16/19 13:41 1 EACH Info (PHARMACY MONITORING -- do not chart) 1 each PRN DAILY PRN 03/21/19 07:45 Insulin Glargine (Lantus) 15 units QHS 03/15/19 21:00 03/20/19 20:34 10 UNITS Insulin Human Lispro (HumaLOG) 0-9 UNITS TIDWMEALS 03/16/19 12:00 03/19/19 17:46 4 UNITS Lactobacillus Rhamnosus (Culturelle) 1 cap BID 03/16/19 21:00 03/20/19 20:34 1 CAP Levothyroxine Sodium (Synthroid) 88 mcg DAILYAC 03/16/19 07:30 03/20/19 09:38 88 MCG Metoprolol Tartrate (Lopressor) 25 mg BID 03/15/19 21:00 03/20/19 20:34 25 MG Minoxidil (Loniten) 2.5 mg BID 03/15/19 21:00 03/20/19 20:34 2.5 MG Multivitamins (Thera M Plus) 1 tab DAILY 03/16/19 09:00 03/20/19 09:38 1 TAB Non-Formulary Medication (Pravastatin Sodium ) 1 tab HS 03/15/19 21:00 UNV Ondansetron HCl (Zofran) 4 mg PRN Q6HRS PRN 03/16/19 10:00 Polyethylene Glycol (miraLAX PACKET) 17 gm BID 03/15/19 21:00 03/20/19 20:34 17 GM Sevelamer Carbonate (Renvela) 800 mg TIDWMEALS 03/16/19 08:00 03/20/19 17:30 800 MG Sodium Hypochlorite (Dakin'S 1/4 Strength) 1 edenilson BID 03/15/19 21:00 03/20/19 17:30 1 EDENILSON Sodium Chloride 1,000 ml @ 400 mls/hr Q2H30M PRN 03/21/19 07:39 03/21/19 19:38 Sodium Chloride (Normal Saline Flush) 10 ml 1X PRN PRN 03/21/19 07:45 03/22/19 07:44 Temazepam (Restoril) 7.5 mg PRN QHS PRN 03/16/19 10:00 Vancomycin HCl (Vanco Per Pharmacy) 1 each PRN DAILY PRN 03/15/19 11:15 03/20/19 12:58 1 EACH Vancomycin HCl (Vancomycin Random Level) 1 each 1X ONCE 03/17/19 06:00 03/17/19 06:01 DC 03/17/19 06:31 1 EACH Vancomycin HCl 500 mg/Sodium Chloride 100 ml @ 100 mls/hr QMWF 03/17/19 16:00 03/19/19 14:41 100 MLS/HR Vancomycin HCl 2 gm/Sodium Chloride 500 ml @ 250 mls/hr 1X ONCE 03/15/19 11:30 03/15/19 13:29 DC 03/15/19 11:37 250 MLS/HR Lab Laboratory Tests Test 03/20/19 11:56 03/20/19 16:38 03/20/19 20:30 03/21/19 07:54 Glucose (Fingerstick) 112 mg/dL (70-99) 139 mg/dL (70-99) 168 mg/dL (70-99) 89 mg/dL (70-99) Results All relevant outside records, renal labs, imaging studies, telemetry/EKG's were reviewed. NOLAN ALEXANDER MD Mar 21, 2019 11:48
--- NOTE | 2019-03-21 13:58 | NUR ---
SS following up with discharge planning. SS phoned and faxed clinical updates to [facility] in [place], ; fax [phone]. SS will continue to follow for discharge planning.
[2019-03-21 15:00] VITALS: BP 156/81
[2019-03-21 15:15] LABS: ALBUMIN 3.2 g/dL (3.4-5.0); CALCIUM 8.8 mg/dL (8.5-10.1); CREATININE 2.4 mg/dL (0.7-1.3); GFR 27.8; PHOSPHORUS 2.5 mg/dL (2.6-4.7)
[2019-03-21] MEDS: VANCOMYCIN 500 MG in IV NORMAL SALINE 100ML 100 ML IV SCH (15:19)
[2019-03-21] MEDS: CEFEPIME HCL IV Push 1 GM VIAL. IVP SCH (15:19)
[2019-03-21] MEDS: MINOXIDIL 2.5 MG TABLET PO SCH ×2 (15:20→20:59)
[2019-03-21] MEDS: FUROSEMIDE 40 MG TABLET. PO SCH (15:20)
[2019-03-21] MEDS: amLODIPine BESYLATE 5 MG TABLET PO SCH (15:20)
[2019-03-21] MEDS: ASCORBIC ACID 500 MG TABLET PO SCH (15:20)
[2019-03-21] MEDS: ASPIRIN CHEWABLE 81 MG TABLET. PO SCH (15:20)
[2019-03-21] MEDS: MULTIVITAMIN with MINERAL TABLET. PO SCH (15:20)
[2019-03-21] MEDS: LEVOTHYROXINE 88 MCG TABLET PO SCH (15:20)
[2019-03-21] MEDS: VANCOMYCIN PER PHARMACY MC PRN (15:31)
[2019-03-21] MEDS ORDERED: SODIUM HYPOCHLORITE 0.125% 473 ML BOTTLE. TP PRN (19:30)
[2019-03-21 19:40] VITALS: BP 142/73
[2019-03-21] MEDS: INSULIN GLARGINE 300 UNITS/3 ML INSULN.PEN. SQ SCH (21:06)
[2019-03-21] MEDS: HYDROcodone/APAP 5/325MG 1 TAB TABLET PO PRN (21:25)
--- NOTE | 2019-03-21 22:28 | NUR ---
During shift change, Patient was agitated stated that "i have not seen a doctor in 2 days" also stated "I dont know why everyone keeps saying i am either getting a temporary OR Tunneled dialysis cath because i will not be getting a temporary cath, i will get the permanent or nothing at all. It is my decision and Im not getting it even if that means i cannot get dialysis". Explained to patient that it depends on if the infection in his blood is gone before he gets the tunneled dialysis cath. Patient also requested that 0300 VS not be taken unless he is awake. Patient reports no pain at this time. Patient up in chair, Chair locked, Walker at chairside, call light in reach. Will continue to monitor.
[2019-03-21 22:51] VITALS: BP 126/76
[2019-03-22] MEDS: SEVELAMER CARBONATE 800 MG TABLET. PO SCH ×3 (06:31→17:26)
[2019-03-22] MEDS: HEPARIN for SUB-Q USE 5,000 UNIT/ML VIAL. SQ SCH ×3 (06:35→20:45)
[2019-03-22] MEDS: LEVOTHYROXINE 88 MCG TABLET PO SCH (06:36)
[2019-03-22 07:00] VITALS: BP 136/68
[2019-03-22] MEDS: INSULIN LISPRO 300 UNITS/3 ML VIAL. SQ SCH ×6 (08:00→17:00)
[2019-03-22] MEDS: POLYETHYLENE GLYCOL 3350 17 GM PACKET. PO SCH ×2 (08:19→20:44)
[2019-03-22] MEDS: METOPROLOL TART IMMED RELEASE 25 MG TABLET. PO SCH ×2 (08:19→20:44)
[2019-03-22] MEDS: FUROSEMIDE 40 MG TABLET. PO SCH (08:20)
[2019-03-22] MEDS: MULTIVITAMIN with MINERAL TABLET. PO SCH (08:20)
[2019-03-22] MEDS: amLODIPine BESYLATE 5 MG TABLET PO SCH (08:20)
[2019-03-22] MEDS: hydrALAZINE 25 MG TABLET PO SCH ×4 (08:20→20:44)
[2019-03-22] MEDS: LACTOBACILLUS RHAMNOSUS GG 1 CAPSULE. PO SCH ×2 (08:20→20:43)
[2019-03-22] MEDS: MINOXIDIL 2.5 MG TABLET PO SCH ×2 (08:20→20:44)
[2019-03-22] MEDS: ASPIRIN CHEWABLE 81 MG TABLET. PO SCH (08:21)
[2019-03-22] MEDS: ASCORBIC ACID 500 MG TABLET PO SCH (08:21)
--- NOTE | 2019-03-22 10:30 | PDOC ---
Infectious Disease Note Subjective Subjective Says he is tired, otherwise doing alright Denies F/C/SOA/N/V ROS ROS per HPI Vital Sign Vital Signs Vital Signs Date Time Temp Pulse Resp B/P (MAP) Pulse Ox O2 Delivery O2 Flow Rate FiO2 03/22/19 08:21 71 136/68 03/22/19 08:00 Room Air 99.0 03/22/19 07:00 98.1 18 98 98.1 Physical Exam PHYSICAL EXAM GENERAL: Sitting in the chair, alert, quiet HEENT: Pupils equally round. Oropharynx pink and dry. NECK: Supple. LUNGS: Clear to auscultation. HEART: S1, S2. ABDOMEN: Soft and nontender with bowel sounds present. EXTREMITIES: Trace edema of lower extremities bilaterally. No cyanosis. He has a wound on both lower legs that are currently bandaged. SKIN: Warm to touch. No signs of rash. NEUROLOGIC: Alert and oriented x 3. HDC out PIV ok Labs Lab Laboratory Tests Test 03/21/19 14:30 03/21/19 17:01 03/21/19 20:35 03/22/19 07:51 Sodium Level 139 mmol/L (136-145) Potassium Level 4.0 mmol/L (3.5-5.1) Chloride Level 101 mmol/L (98-107) Carbon Dioxide Level 32 mmol/L (21-32) Anion Gap 6 (6-14) Blood Urea Nitrogen 20 mg/dL (8-26) Creatinine 2.4 mg/dL (0.7-1.3) Estimated GFR (Cockcroft-Gault) 27.8 Glucose Level 77 mg/dL (70-99) Calcium Level 8.8 mg/dL (8.5-10.1) Phosphorus Level 2.5 mg/dL (2.6-4.7) Albumin 3.2 g/dL (3.4-5.0) Glucose (Fingerstick) 92 mg/dL (70-99) 190 mg/dL (70-99) 93 mg/dL (70-99) Micro 03/19. BLOOD CULTURE Preliminary NO GROWTH AFTER 3 DAYS Objective Assessment MRSA Staph aureus bacteremia with sepsis present on admission; source likely HDC cath or cath site - 2 ECHO done 03/17 - Repeat BC neg from 03/17, 03/19 Infected hemodialysis catheter, status post removal 03/05 and replaced 03/07 per the patient report, - swab c/s reported negative from [facility] 03/05 Fever. resolved ANTIBIOTIC ALLERGY TO PENICILLIN WITH ANAPHYLACTIC TYPE REACTION IN CHILDHOOD AND SULFA WITH HIVES. History of methicillin-resistant Staphylococcus aureus. Chronic wounds, lower extremities bilaterally. [facility]. End-stage renal disease, on hemodialysis. Peripheral vascular disease. Diabetes with peripheral neuropathy. Atrial fibrillation. Plan Plan of Care continue the vancomycin. f/u HDC tip culture f/u repeat BC 03/21 & pending agree with holding off on HDC placement over the weekend Probiotics Patient seen and examined. Labs, micro, and chart reviewed. I agree with the above A/P. PANFILO LARSEN APRN Mar 22, 2019 10:30 BRI RIOS MD Mar 22, 2019 15:07
[2019-03-22 11:00] VITALS: BP 134/74
--- NOTE | 2019-03-22 11:56 | PDOC ---
PROGRESS NOTES Chief Complaint Chief Complaint IMPRESSION Sepsis - Methicillin Resistant Staph aureus bacteremia with sepsis Chronic wounds, lower extremities bilaterally. [facility] PAD ESRD on HD AOCD Cellulitis - with sepsis Acute on chronic a fib s/p RVR HTN Hypothyroidism on synthroid Infected hemodialysis catheter, status post removal 03/05 and replaced 03/07 History of methicillin-resistant Staphylococcus aureus. Diabetes with peripheral neuropathy. Atrial fibrillation. Infected hemodialysis catheter, status post removal 03/05 and replaced 03/07 hold off ///HDC placement over the weekend 03/22 28 MIN PT EXAM, CHART REVIEW, > 50% OF TIME SPENT WITH EXAM, CHART REVIEW, PT CARE COORDINATION History of Present Illness History of Present Illness Mr Weber is a 58-year-old male with PMHx ESRD on HD with tunneled hemodialysis catheter. He was in his usual state of health when 03/12/19 after finishing dialysis, he developed chills, shakes, fever of 102, and vomiting. He says about 2 weeks prior, he noticed that his HD catheter had slid out. He pushed it back in and noticed pus from the site. The following day, he returned to [facility] where the catheter was removed and cultured. Two days later, it was replaced. Cardizem gtt bec went to [facility] (hx a fib), seen by cardiology. Now off [facility]. Per cardiology on rate control meds and anticoagulation. Echocardiogram shows normal LV systolic function Vasc sx, ID on board, wounds legs, pics reviewed, will need wound care and IV Abx Also HD pt, RT tunnelled HD cath visible. Transferred from ICU to [facility] on 03/16/19. His first culture here was MRSA, 2 follow up are NGTD. Have discussed that a prudent move would be to remove his current catheter and tunnel a new one next Sunday once his f/u cultures are negative. He is in poor spirits today, really wants to leave, has numerous complaints, but is willing to remain inpatient to have catheter removed. No CP or SOB. Repeat blood cultures NGTD, going for dialysis at noon today. needs his line removed, will stay without access over the weekend. PLAN: Wound care IV abx cards consulted for RVR Dw RESIDENT CARE COORDINATOR Vitals Vitals Vital Signs Date Time Temp Pulse Resp B/P (MAP) Pulse Ox O2 Delivery O2 Flow Rate FiO2 8/24/19 11:00 98.0 81 18 134/74 (94) 91 Room Air 98.0 03/22/19 08:00 99.0 Physical Exam Physical Exam GENERAL: Sitting in the chair, alert, quiet HEENT: Pupils equally round. Oropharynx pink and dry. NECK: Supple. LUNGS: Clear to auscultation. HEART: S1, S2. ABDOMEN: Soft and nontender with bowel sounds present. EXTREMITIES: Trace edema of lower extremities bilaterally. No cyanosis. He has a wound on both lower legs that are currently bandaged. SKIN: Warm to touch. No signs of rash. NEUROLOGIC: Alert and oriented x 3. HDC out PIV ok General: Alert, Oriented X3, Cooperative, mild distress Heart: Other (irreg. irreg.) Lungs: Clear Abdomen: Normal bowel sounds Extremities: No clubbing, No cyanosis Skin: No breakdown Labs LABS Laboratory Tests Test 03/21/19 14:30 03/21/19 17:01 03/21/19 20:35 03/22/19 07:51 Sodium Level 139 mmol/L (136-145) Potassium Level 4.0 mmol/L (3.5-5.1) Chloride Level 101 mmol/L (98-107) Carbon Dioxide Level 32 mmol/L (21-32) Anion Gap 6 (6-14) Blood Urea Nitrogen 20 mg/dL (8-26) Creatinine 2.4 mg/dL (0.7-1.3) Estimated GFR (Cockcroft-Gault) 27.8 Glucose Level 77 mg/dL (70-99) Calcium Level 8.8 mg/dL (8.5-10.1) Phosphorus Level 2.5 mg/dL (2.6-4.7) Albumin 3.2 g/dL (3.4-5.0) Glucose (Fingerstick) 92 mg/dL (70-99) 190 mg/dL (70-99) 93 mg/dL (70-99) Assessment and Plan Assessmemt and Plan Problems Medical Problems: (1) A-fib Status: Acute (2) Diabetes mellitus with peripheral autonomic neuropathy Status: Chronic (3) ESRD on hemodialysis Status: Chronic (4) PVD (peripheral vascular disease) Status: Chronic (5) Sepsis Status: Acute Comment Review of Relevant I have reviewed the following items kendra (where applicable) has been applied. Labs Laboratory Tests Test 03/20/19 16:38 03/20/19 20:30 03/21/19 07:54 03/21/19 14:30 Glucose (Fingerstick) 139 mg/dL (70-99) 168 mg/dL (70-99) 89 mg/dL (70-99) Sodium Level 139 mmol/L (136-145) Potassium Level 4.0 mmol/L (3.5-5.1) Chloride Level 101 mmol/L (98-107) Carbon Dioxide Level 32 mmol/L (21-32) Anion Gap 6 (6-14) Blood Urea Nitrogen 20 mg/dL (8-26) Creatinine 2.4 mg/dL (0.7-1.3) Estimated GFR (Cockcroft-Gault) 27.8 Glucose Level 77 mg/dL (70-99) Calcium Level 8.8 mg/dL (8.5-10.1) Phosphorus Level 2.5 mg/dL (2.6-4.7) Albumin 3.2 g/dL (3.4-5.0) Test 03/21/19 17:01 03/21/19 20:35 03/22/19 07:51 Glucose (Fingerstick) 92 mg/dL (70-99) 190 mg/dL (70-99) 93 mg/dL (70-99) Laboratory Tests Test 03/21/19 14:30 03/21/19 17:01 03/21/19 20:35 03/22/19 07:51 Sodium Level 139 mmol/L (136-145) Potassium Level 4.0 mmol/L (3.5-5.1) Chloride Level 101 mmol/L (98-107) Carbon Dioxide Level 32 mmol/L (21-32) Anion Gap 6 (6-14) Blood Urea Nitrogen 20 mg/dL (8-26) Creatinine 2.4 mg/dL (0.7-1.3) Estimated GFR (Cockcroft-Gault) 27.8 Glucose Level 77 mg/dL (70-99) Calcium Level 8.8 mg/dL (8.5-10.1) Phosphorus Level 2.5 mg/dL (2.6-4.7) Albumin 3.2 g/dL (3.4-5.0) Glucose (Fingerstick) 92 mg/dL (70-99) 190 mg/dL (70-99) 93 mg/dL (70-99) Microbiology Medications Current Medications Vancomycin HCl (Vanco Per Pharmacy) 1 each PRN DAILY PRN MC SEE COMMENTS Last administered on 03/21/19at 15:31; Start 03/15/19 at 11:15 Cefepime HCl (Maxipime) 1 gm 1X ONCE IVP Last administered on 03/15/19at 11:37; Start 03/15/19 at 11:15; Stop 03/15/19 at 11:23; Status DC Sodium Chloride 1,000 ml @ 1,000 mls/hr 1X ONCE IV Last administered on 03/15/19at 11:28; Start 03/15/19 at 11:30; Stop 03/15/19 at 12:29; Status DC Vancomycin HCl 2 gm/Sodium Chloride 500 ml @ 250 mls/hr 1X ONCE IV Last administered on 03/15/19at 11:37; Start 03/15/19 at 11:30; Stop 03/15/19 at 13:29; Status DC Vancomycin HCl (Vancomycin Random Level) 1 each 1X ONCE MC Last administered on 03/17/19at 06:31; Start 03/17/19 at 06:00; Stop 03/17/19 at 06:01; Status DC Acetaminophen (Tylenol) 650 mg PRN Q6HRS PRN PO MILD PAIN / TEMP Last administered on 03/15/19at 15:12; Start 03/15/19 at 15:00 Acetaminophen (Tylenol Supp) 650 mg STK-MED ONCE .ROUTE ; Start 03/15/19 at 15:04; Stop 03/15/19 at 15:04; Status DC Digoxin (Lanoxin) 250 mcg 1X ONCE IV Last administered on 03/15/19at 15:30; Start 03/15/19 at 15:30; Stop 03/15/19 at 15:31; Status DC Diltiazem HCl 125 mg/Dextrose 125 ml @ 2.5 mls/hr CONT PRN IV SEE I/O RECORD Last administered on 03/15/19at 15:40; Start 03/15/19 at 15:30; Stop 03/21/19 at 15:32; Status DC Digoxin (Lanoxin) 500 mcg STK-MED ONCE .ROUTE ; Start 03/15/19 at 15:26; Stop 03/15/19 at 15:26; Status DC Sodium Chloride 1,000 ml @ 1,000 mls/hr 1X ONCE IV Last administered on 03/15/19 16:30; Start 03/15/19 at 14:00; Stop 03/15/19 at 16:33; Status DC Sodium Hypochlorite (Dakin'S 1/4 Strength) 1 edenilson DAILY TP ; Start 03/16/19 at 09:00; Stop 03/15/19 at 18:00; Status DC Sodium Hypochlorite (Dakin'S 1/4 Strength) 1 edenilson BID TP Last administered on 03/20/19at 17:30; Start 03/15/19 at 21:00; Stop 03/21/19 at 19:29; Status DC Amlodipine Besylate (Norvasc) 5 mg DAILY PO Last administered on 03/16/19at 08:18; Start 03/16/19 at 09:00; Stop 03/16/19 at 11:02; Status DC Apixaban (Eliquis) 2.5 mg BID PO Last administered on 03/18/19at 21:19; Start 03/15/19 at 21:00; Stop 03/19/19 at 13:03; Status DC Ascorbic Acid (Vitamin C) 500 mg DAILY PO Last administered on 03/22/19 08:21; Start 03/16/19 at 09:00 Aspirin (Children'S Aspirin) 81 mg DAILYWBKFT PO Last administered on 03/22/19 08:21; Start 03/16/19 at 08:00 Furosemide (Lasix) 40 mg DAILY PO Last administered on 03/22/19 08:21; Start 03/16/19 at 09:00 Hydralazine HCl (Apresoline) 25 mg QID PO Last administered on 03/22/19 08:21; Start 03/15/19 at 21:00 Metoprolol Tartrate (Lopressor) 25 mg BID PO Last administered on 03/22/19 08:21; Start 03/15/19 at 21:00 Minoxidil (Loniten) 2.5 mg BID PO Last administered on 03/22/19 08:21; Start 03/15/19 at 21:00 Multivitamins (Thera M Plus) 1 tab DAILY PO Last administered on 03/22/19 08:2 1; Start 03/16/19 at 09:00 Polyethylene Glycol (miraLAX PACKET) 17 gm BID PO Last administered on 03/22/19 08:21; Start 03/15/19 at 21:00 Sevelamer Carbonate (Renvela) 800 mg TIDWMEALS PO Last administered on 03/22/19 06:35; Start 03/16/19 at 08:00 Non-Formulary Medication (Pravastatin Sodium ) 1 tab HS PO ; Start 03/15/19 at 21:00; Status UNV Info (Anti-Coagulation Monitoring By Pharmacy) 1 each PRN DAILY PRN MC SEE COMMENTS Last administered on 03/16/19 13:41; Start 03/15/19 at 18:45 Insulin Glargine (Lantus) 15 units QHS SQ Last administered on 03/21/19 21:06; Start 03/15/19 at 21:00 Insulin Human Lispro (HumaLOG) 5 units TIDWMEALS SQ ; Start 03/16/19 at 08:00 Levothyroxine Sodium (Synthroid) 88 mcg DAILYAC PO Last administered on 03/22/19 06:36; Start 03/16/19 at 07:30 Lactobacillus Rhamnosus (Culturelle) 1 cap BID PO Last administered on 03/22/19 08:21; Start 03/16/19 at 21:00 Insulin Human Lispro (HumaLOG) 0-9 UNITS TIDWMEALS SQ Last administered on 03/19/19at 17:46; Start 03/16/19 at 12:00 Dextrose (Dextrose 50%-Water Syringe) 12.5 gm PRN Q15MIN PRN IV SEE COMMENTS; Start 03/16/19 at 10:00 Dextrose 250 ml PRN Q15MIN PRN IV SEE COMMENTS; Start 03/16/19 at 10:00 Ondansetron HCl (Zofran) 4 mg PRN Q6HRS PRN IV NAUSEA/VOMITING; Start 03/16/19 at 10:00 Acetaminophen/ Hydrocodone Bitart (Lortab 5/325) 1 tab PRN Q4HRS PRN PO MODERATE PAIN, SEVERE PAIN Last administered on 03/21/19 21:26; Start 03/16/19 at 10:00 Temazepam (Restoril) 7.5 mg PRN QHS PRN PO INSOMNIA; Start 03/16/19 at 10:00 Clonidine HCl (Catapres) 0.1 mg PRN Q1HR PRN PO HYPERTENSION; Start 03/16/19 at 10:00 Amlodipine Besylate (Norvasc) 10 mg DAILY PO Last administered on 03/22/19at 08:21; Start 03/17/19 at 09:00 Amlodipine Besylate (Norvasc) 5 mg 1X ONCE PO ; Start 03/16/19 at 11:15; Stop 03/16/19 at 11:16; Status DC Darbepoetin Derrek (ARANESP for DIALYSIS PTS) 60 mcg WEEKLYHS SQ Last administered on 03/16/19at 21:39; Start 03/16/19 at 21:00 Sodium Chloride 1,000 ml @ 1,000 mls/hr Q1H PRN IV hypotension; Start 03/17/19 at 10:16; Stop 03/17/19 at 16:15; Status DC Albumin Human 200 ml @ 200 mls/hr 1X PRN PRN IV Hypotension; Start 03/17/19 at 10:30; Stop 03/17/19 at 16:29; Status DC Sodium Chloride (Normal Saline Flush) 10 ml 1X PRN PRN IV AP catheter pack; Start 03/17/19 at 10:30; Stop 03/18/19 at 10:29; Status DC Sodium Chloride (Normal Saline Flush) 10 ml 1X PRN PRN IV CENTRIFUGAL CHILLER TECHNICIAN catheter pack; Start 03/17/19 at 10:30; Stop 03/18/19 at 10:29; Status DC Sodium Chloride 1,000 ml @ 400 mls/hr Q2H30M PRN IV PATENCY; Start 03/17/19 at 10:16; Stop 03/17/19 at 22:15; Status DC Info (PHARMACY MONITORING -- do not chart) 1 each PRN DAILY PRN MC SEE COMMENTS; Start 03/17/19 at 10:30; Status UNV Info (PHARMACY MONITORING -- do not chart) 1 each PRN DAILY PRN MC SEE COMMENTS; Start 03/17/19 at 10:30; Stop 03/21/19 at 07:46; Status DC Vancomycin HCl 500 mg/Sodium Chloride 100 ml @ 100 mls/hr QMWF IV Last admini stered on 03/21/19at 15:21; Start 03/17/19 at 16:00 Sodium Chloride 1,000 ml @ 1,000 mls/hr Q1H PRN IV hypotension; Start 03/19/19 at 07:54; Stop 03/19/19 at 13:53; Status DC Albumin Human 200 ml @ 200 mls/hr 1X PRN PRN IV Hypotension; Start 03/19/19 at 08:00; Stop 03/19/19 at 13:59; Status DC Sodium Chloride (Normal Saline Flush) 10 ml 1X PRN PRN IV AP catheter pack; Start 03/19/19 at 08:00; Stop 03/20/19 at 07:59; Status DC Sodium Chloride (Normal Saline Flush) 10 ml 1X PRN PRN IV CENTRIFUGAL CHILLER TECHNICIAN catheter pack; Start 03/19/19 at 08:00; Stop 03/20/19 at 07:59; Status DC Sodium Chloride 1,000 ml @ 400 mls/hr Q2H30M PRN IV PATENCY; Start 03/19/19 at 07:54; Stop 03/19/19 at 19:53; Status DC Info (PHARMACY MONITORING -- do not chart) 1 each PRN DAILY PRN MC SEE C OMMENTS; Start 03/19/19 at 08:00; Status UNV Info (PHARMACY MONITORING -- do not chart) 1 each PRN DAILY PRN MC SEE COMMENTS; Start 03/19/19 at 08:00; Stop 03/19/19 at 08:07; Status DC Cefepime HCl (Maxipime) 1 gm Q24H IVP Last administered on 03/21/19at 15:21; Start 03/19/19 at 09:00; Stop 03/21/19 at 15:27; Status DC Apixaban (Eliquis) 5 mg BID PO Last administered on 03/20/19at 09:38; Start 03/19/19 at 21:00; Stop 03/21/19 at 07:36; Status DC Heparin Sodium (Porcine) (Heparin Sodium) 5,000 unit Q8HRS SQ Last administered on 03/22/19at 06:35; Start 03/21/19 at 09:00 Sodium Chloride 1,000 ml @ 1,000 mls/hr Q1H PRN IV hypotension; Start 03/21/19 at 07:39; Stop 03/21/19 at 13:38; Status DC Albumin Human 200 ml @ 200 mls/hr 1X PRN PRN IV Hypotension; Start 03/21/19 at 07:45; Stop 03/21/19 at 13:44; Status DC Sodium Chloride (Normal Saline Flush) 10 ml 1X PRN PRN IV AP catheter pack; Start 03/21/19 at 07:45; Stop 03/22/19 at 07:44; Status DC Sodium Chloride (Normal Saline Flush) 10 ml 1X PRN PRN IV CENTRIFUGAL CHILLER TECHNICIAN catheter pack; Start 03/21/19 at 07:45; Stop 03/22/19 at 07:44; Status DC Sodium Chloride 1,000 ml @ 400 mls/hr Q2H30M PRN IV PATENCY; Start 03/21/19 at 07:39; Stop 03/21/19 at 19:38; Status DC Info (PHARMACY MONITORING -- do not chart) 1 each PRN DAILY PRN MC SEE COMMENTS; Start 03/21/19 at 07:45; Status UNV Info (PHARMACY MONITORING -- do not chart) 1 each PRN DAILY PRN MC SEE COMMENTS; Start 03/21/19 at 07:45 Sodium Hypochlorite (Dakin'S 1/4 Strength) 1 edenilson PRN BID PRN TP prior to wound care; Start 03/21/19 at 19:30 Active Scripts Active Vitamin C (Ascorbic Acid) 500 Mg Tablet 500 Mg PO DAILY MDD 1 Thera-M Tablet (Multivits,Ca,Minerals/Iron/Fa) 1 Each Tablet 1 Tab PO DAILY MDD 1 Acetaminophen-Cod #3 Tablet (Acetaminophen/Codeine Phosphate) 1 Each Tablet 1 Tab PO PRN Q6HRS PRN MDD 1 Aspirin 81 Mg Tab.chew 81 Mg PO DAILYWBKFT MDD 1 Reported Levothyroxine Sodium 88 Mcg Tablet 88 Mcg PO DAILYAC Hydrocodone-Apap 7.5-325 (Hydrocodone Bit/Acetaminophen) 1 Tab Tablet 1 Tab PO PRN Q4HRS PRN Novolog Flexpen (Insulin Aspart) 100 Unit/1 Ml Insuln.pen 5 Unit SQ TIDWMEALS Lantus Solostar (Insulin Glargine,Hum.rec.anlog) 100 Unit/1 Ml Insuln.pen 15 Unit SQ QHS Renvela (Sevelamer Carbonate) 800 Mg Tablet 800 Mg PO TIDWMEALS Pravastatin Sodium 80 Mg Tablet 1 Tab PO HS Miralax (Polyethylene Glycol 3350) 17 Gm Powd.pack 1 Packet PO BID Minoxidil 2.5 Mg Tablet 2.5 Mg PO BID Metoprolol Tartrate 25 Mg Tablet 25 Mg PO BID Hydralazine Hcl 25 Mg Tablet 25 Mg PO QID Furosemide 40 Mg Tablet 40 Mg PO DAILY Eliquis (Apixaban) 2.5 Mg Tablet 2.5 Mg PO BID Amlodipine Besylate 5 Mg Tablet 5 Mg PO DAILY Vitals/I & O Vital Sign - Last 24 Hours 03/21/19 03/21/19 03/21/19 03/21/19 15:00 15:21 15:21 17:48 Temp 98.1 98.1 Pulse 87 85 75 90 Resp 18 B/P (MAP) 156/81 (106) Pulse Ox 96 O2 Delivery Room Air 03/21/19 03/21/19 03/21/19 03/21/19 19:40 20:00 21:06 21:06 Temp 98.2 98.2 Pulse 78 72 78 Resp 16 B/P (MAP) 142/73 (96) 143/77 143/77 Pulse Ox 96 O2 Delivery Room Air Room Air 03/21/19 03/21/19 03/21/19 03/22/19 21:06 21:26 22:51 05:54 Temp 98.1 98.1 Pulse 77 68 Resp 16 16 B/P (MAP) 144/77 126/76 (93) Pulse Ox 96 94 94 O2 Delivery Room Air Room Air Room Air O2 Flow Rate 99.0 03/22/19 03/22/19 03/22/19 03/22/19 07:00 08:00 08:21 08:21 Temp 98.1 98.1 Pulse 71 71 71 Resp 18 B/P (MAP) 136/68 (90) 136/68 136/68 Pulse Ox 98 O2 Delivery Room Air Room Air O2 Flow Rate 99.0 03/22/19 03/22/19 03/22/19 08:21 08:21 11:00 Temp 98.0 98.0 Pulse 71 71 81 Resp 18 B/P (MAP) 136/68 136/68 134/74 (94) Pulse Ox 91 O2 Delivery Room Air Intake and Output 03/21/19 03/21/19 03/22/19 14:59 22:59 06:59 Intake Total 350 ml 350 ml Output Total 400 ml Balance -50 ml 350 ml ARY HASSAN MD Mar 22, 2019 11:56
[2019-03-22 15:00] VITALS: BP 162/87
[2019-03-22] MEDS: VANCOMYCIN PER PHARMACY MC PRN (17:07)
[2019-03-22 19:30] VITALS: BP 151/81
[2019-03-22] MEDS: INSULIN GLARGINE 300 UNITS/3 ML INSULN.PEN. SQ SCH (20:51)
[2019-03-22 22:45] VITALS: BP 131/63
[2019-03-23] MEDS: HEPARIN for SUB-Q USE 5,000 UNIT/ML VIAL. SQ SCH ×3 (06:00→21:04)
[2019-03-23 07:00] VITALS: BP 130/63
[2019-03-23] MEDS: INSULIN LISPRO 300 UNITS/3 ML VIAL. SQ SCH ×6 (08:00→17:00)
[2019-03-23] MEDS: METOPROLOL TART IMMED RELEASE 25 MG TABLET. PO SCH ×2 (08:23→20:43)
[2019-03-23] MEDS: amLODIPine BESYLATE 5 MG TABLET PO SCH (08:23)
[2019-03-23] MEDS: MULTIVITAMIN with MINERAL TABLET. PO SCH (08:23)
[2019-03-23] MEDS: hydrALAZINE 25 MG TABLET PO SCH ×4 (08:23→20:43)
[2019-03-23] MEDS: LEVOTHYROXINE 88 MCG TABLET PO SCH (08:23)
[2019-03-23] MEDS: FUROSEMIDE 40 MG TABLET. PO SCH (08:24)
[2019-03-23] MEDS: SEVELAMER CARBONATE 800 MG TABLET. PO SCH ×3 (08:24→17:31)
[2019-03-23] MEDS: MINOXIDIL 2.5 MG TABLET PO SCH ×2 (08:24→20:42)
[2019-03-23] MEDS: ASPIRIN CHEWABLE 81 MG TABLET. PO SCH (08:24)
[2019-03-23] MEDS: LACTOBACILLUS RHAMNOSUS GG 1 CAPSULE. PO SCH ×2 (08:24→20:42)
[2019-03-23] MEDS: POLYETHYLENE GLYCOL 3350 17 GM PACKET. PO SCH ×2 (08:25→21:00)
[2019-03-23] MEDS: ASCORBIC ACID 500 MG TABLET PO SCH (08:28)
--- NOTE | 2019-03-23 09:47 | PDOC ---
Infectious Disease Note Subjective Subjective Not happy, getting depressed, wants to go home Says he doesn't want a temp HDC and is considering holding off dialysis until a perm cath can be placed No fevers/chills ROS ROS per HPI Vital Sign Vital Signs Vital Signs Date Time Temp Pulse Resp B/P (MAP) Pulse Ox O2 Delivery O2 Flow Rate FiO2 03/23/19 08:28 73 130/63 03/23/19 07:00 97.9 18 95 Room Air 97.9 03/22/19 08:00 99.0 Physical Exam PHYSICAL EXAM GENERAL: Sitting iside of bed, alert, flat affect HEENT: Pupils equally round. Oropharynx pink and dry. NECK: Supple. LUNGS: Clear to auscultation. HEART: S1, S2. ABDOMEN: Soft and nontender with bowel sounds present. EXTREMITIES: Trace edema of lower extremities bilaterally. No cyanosis. SKIN: Warm to touch. No signs of rash. NEUROLOGIC: Alert and oriented x 3. HDC out PIV ok Labs Lab Laboratory Tests Test 03/22/19 11:56 03/22/19 16:55 03/22/19 20:37 03/23/19 07:12 Glucose (Fingerstick) 126 mg/dL (70-99) 150 mg/dL (70-99) 184 mg/dL (70-99) 118 mg/dL (70-99) Micro 03/22. BLOOD CULTURE Final GRAM POSITIVE COCCI IN CLUSTERS, SUGGESTIVE OF STAPH. IN 1 OF 1 BOTTLE DRAWN ON 03/22/19. 03/21.BLOOD CULTURE Preliminary NO GROWTH AFTER 1 DAY Cath tip: GRAM STAIN RESULT 1 Final No organisms seen 03/19. BLOOD CULTURE Preliminary NO GROWTH AFTER 4 DAYS Objective Assessment MRSA Staph aureus bacteremia with sepsis present on admission; source likely HDC cath or cath site - 2 ECHO done 03/17 - Repeat BC neg on 03/17, 03/19 and 03/21 neg so far. BC 03/22 +GPC Infected hemodialysis catheter, status post removal 03/05 and replaced 03/07 per the patient report. s/p removal 03/21 - swab c/s reported negative from [facility] 03/05 Fever. resolved ANTIBIOTIC ALLERGY TO PENICILLIN WITH ANAPHYLACTIC TYPE REACTION IN CHILDHOOD AND SULFA WITH HIVES. History of methicillin-resistant Staphylococcus aureus. Chronic wounds, lower extremities bilaterally. [facility]. End-stage renal disease, on hemodialysis. Peripheral vascular disease. Diabetes with peripheral neuropathy. Atrial fibrillation. Plan Plan of Care continue the vancomycin. f/u HDC tip culture f/u repeat BC 03/21 & 24 Hold HDC placement Probiotics Patient seen and examined. Labs, micro, and chart reviewed. I agree with the above A/P. PANFILO LARSEN APRN Mar 23, 2019 09:47 BRI RIOS MD Mar 23, 2019 14:36
--- NOTE | 2019-03-23 10:57 | PDOC ---
PROGRESS NOTES Chief Complaint Chief Complaint IMPRESSION Sepsis - Methicillin Resistant Staph aureus bacteremia with sepsis Chronic wounds, lower extremities bilaterally. [facility] PAD ESRD on HD AOCD Cellulitis - with sepsis Acute on chronic a fib s/p RVR HTN Hypothyroidism on synthroid Infected hemodialysis catheter, status post removal 03/05 and replaced 03/07 History of methicillin-resistant Staphylococcus aureus. Diabetes with peripheral neuropathy. Atrial fibrillation. Infected hemodialysis catheter, status post removal 03/05 and replaced 03/07 hold off ///HDC placement over the weekend 03/22 28 MIN PT EXAM, CHART REVIEW, > 50% OF TIME SPENT WITH EXAM, CHART REVIEW, PT CARE COORDINATION History of Present Illness History of Present Illness Mr Weber is a 58-year-old male with PMHx ESRD on HD with tunneled hemodialysis catheter. He was in his usual state of health when 03/12/19 after finishing dialysis, he developed chills, shakes, fever of 102, and vomiting. He says about 2 weeks prior, he noticed that his HD catheter had slid out. He pushed it back in and noticed pus from the site. The following day, he returned to [facility] where the catheter was removed and cultured. Two days later, it was replaced. Cardizem gtt bec went to R (hx a fib), seen by cardiology. Now off [facility] gtt. Per cardiology on rate control meds and anticoagulation. Echocardiogram shows normal LV systolic function Vasc sx, ID on board, wounds legs, pics reviewed, will need wound care and IV Abx Also HD pt, RT tunnelled HD cath visible. Transferred from ICU to [facility] on 03/16/19. His first culture here was MRSA, 2 follow up are NGTD. Have discussed that a prudent move would be to remove his current catheter and tunnel a new one next Sunday once his f/u cultures are negative. He is in poor spirits today, really wants to leave, has numerous complaints, but is willing to remain inpatient to have catheter removed. No CP or SOB. Repeat blood cultures NGTD, going for dialysis at noon today. needs his line removed, will stay without access over the weekend. 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 Oropharynx pink and dry. NECK: Supple. LUNGS: Clear to auscultation. HEART: S1, S2. ABDOMEN: Soft and nontender with bowel sounds present. EXTREMITIES: Trace edema of lower extremities bilaterally. No cyanosis. SKIN: Warm to touch. No signs of rash. NEUROLOGIC: Alert and oriented x 3. HDC out PIV ok General: Alert, Oriented X3, Cooperative, mild distress Heart: Other (irreg. irreg.) Lungs: Clear Abdomen: Normal bowel sounds Extremities: No clubbing, No cyanosis Skin: No breakdown Labs LABS SPEC #: [id number] ELLEN: 03/15/19 STATUS: COMP REQ #: [id number] RECD: 03/15/[address]: LIZ NAVARRO DO SOURCE: BLOOD ENTR: 03/16/[address] [facility] [address]: FARHAD PURVIS MD [facility]: ORDERED: BLD CULT - LC Procedure Result BLOOD CULTURE LC Final Preliminary report Final report BLD CULT RESULT 1 Final Staphylococcus aureus Comment Performed at: [place] [id number] [facility] [address], [place] [id number] [employer]ber Goods Inspector Tester: JP Gardiner MD, Phone: [phone] Methicillin - resistant Staphylococcus aureus Based on resistance to oxacillin this isolate would be resistant to all currently available beta-lactam antimicrobial agents, with the exception of the newer cephalosporins with anti-MRSA activity, such as Ceftaroline CLINDAMYCIN RESISTANT R>=8 ERYTHROMYCIN RESISTANT R>=8 ANTIMICROBIAL SUSCEPTIBILITY Final Comment S = Susceptible; I = Intermediate; R = Resistant P = Positive; N = Negative MICS are expressed in micrograms per mL Antibiotic RSLT#1 RSLT#2 RSLT#3 RSLT#4 Ciprofloxacin R>=8 Clindamycin R>=8 Erythromycin R>=8 Gentamicin S<=0.5 Levofloxacin R>=8 Linezolid S =2 Oxacillin R>=4 Penicillin R>=0.5 Rifampin S<=0.5 Tetracycline S<=1 Trimethoprim/Sulfa S<=10 Vancomycin S =1 Performed at: [facility]ly [facility] DR: IKE CORTEZ III, DO : 1960 BED: 1 DIS: STATUS: ADM IN TLOC: SPEC #: [id number] ELLEN: 03/21/19 STATUS: RES REQ #: [id number] RECD: 03/21/[address]: IKE CORTEZ III, DO SOURCE: CATH TIP ENTR: 03/21/[address] [facility] [address]: ZUNILDA FUENTES [facility] FARHAD KNIG MD,SHAHEED SELBY,ABIMBOLA RICHARD MD, MD,RICHA Faria MD ORDERED: AEROBIC CULT GS COMMENTS: DIALYSIS CATH TIP Procedure Result AEROBIC CULTURE PENDING AEROBIC RES 1 PENDING GRAM STAIN Final Final report GRAM STAIN RESULT 1 Final No organisms seen GRAM STAIN RESULT 2 Final Comment No white blood cells seen. Performed at: - [facility] [address] [facility] [address], [place], [place] [id number] Rubber Goods Inspector Tester: JP Gardiner MD, Phone: [phone] Laboratory Tests Test 03/22/19 11:56 03/22/19 16:55 03/22/19 20:37 03/23/19 07:12 Glucose (Fingerstick) 126 mg/dL (70-99) 150 mg/dL (70-99) 184 mg/dL (70-99) 118 mg/dL (70-99) Assessment and Plan Assessmemt and Plan Problems Medical Problems: (1) A-fib Status: Acute (2) Diabetes mellitus with peripheral autonomic neuropathy Status: Chronic (3) ESRD on hemodialysis Status: Chronic (4) PVD (peripheral vascular disease) Status: Chronic (5) Sepsis Status: Acute Comment Review of Relevant I have reviewed the following items kendra (where applicable) has been applied. Labs Laboratory Tests Test 03/21/19 14:30 03/21/19 17:01 03/21/19 20:35 03/22/19 07:51 Sodium Level 139 mmol/L (136-145) Potassium Level 4.0 mmol/L (3.5-5.1) Chloride Level 101 mmol/L (98-107) Carbon Dioxide Level 32 mmol/L (21-32) Anion Gap 6 (6-14) Blood Urea Nitrogen 20 mg/dL (8-26) Creatinine 2.4 mg/dL (0.7-1.3) Estimated GFR (Cockcroft-Gault) 27.8 Glucose Level 77 mg/dL (70-99) Calcium Level 8.8 mg/dL (8.5-10.1) Phosphorus Level 2.5 mg/dL (2.6-4.7) Albumin 3.2 g/dL (3.4-5.0) Glucose (Fingerstick) 92 mg/dL (70-99) 190 mg/dL (70-99) 93 mg/dL (70-99) Test 03/22/19 11:56 03/22/19 16:55 03/22/19 20:37 03/23/19 07:12 Glucose (Fingerstick) 126 mg/dL (70-99) 150 mg/dL (70-99) 184 mg/dL (70-99) 118 mg/dL (70-99) Laboratory Tests Test 03/22/19 11:56 03/22/19 16:55 03/22/19 20:37 03/23/19 07:12 Glucose (Fingerstick) 126 mg/dL (70-99) 150 mg/dL (70-99) 184 mg/dL (70-99) 118 mg/dL (70-99) Microbiology 03/22/19 Blood Culture - Final, Complete 03/21/19 Aerobic Culture, Resulted Pending 03/21/19 Aerobic Culture Result 1 (ISAAC), Resulted Pending 03/21/19 Gram Stain - Final, Resulted 03/21/19 Gram Stain Result 1 (ISAAC) - Final, Resulted 03/21/19 Gram Stain Result 2 (ISAAC) - Final, Resulted Medications Current Medications Vancomycin HCl (Vanco Per Pharmacy) 1 each PRN DAILY PRN MC SEE COMMENTS Last administered on 03/22/19at 17:07; Start 03/15/19 at 11:15 Cefepime HCl (Maxipime) 1 gm 1X ONCE IVP Last administered on 03/15/19at 11:37; Start 03/15/19 at 11:15; Stop 03/15/19 at 11:23; Status DC Sodium Chloride 1,000 ml @ 1,000 mls/hr 1X ONCE IV Last administered on 03/15/19at 11:28; Start 03/15/19 at 11:30; Stop 03/15/19 at 12:29; Status DC Vancomycin HCl 2 gm/Sodium Chloride 500 ml @ 250 mls/hr 1X ONCE IV Last administered on 03/15/19at 11:37; Start 03/15/19 at 11:30; Stop 03/15/19 at 13:29; Status DC Vancomycin HCl (Vancomycin Random Level) 1 each 1X ONCE MC Last administered on 03/17/19at 06:31; Start 03/17/19 at 06:00; Stop 03/17/19 at 06:01; Status DC Acetaminophen (Tylenol) 650 mg PRN Q6HRS PRN PO MILD PAIN / TEMP Last administered on 03/15/19at 15:12; Start 03/15/19 at 15:00 Acetaminophen (Tylenol Supp) 650 mg STK-MED ONCE .ROUTE ; Start 03/15/19 at 15:04; Stop 03/15/19 at 15:04; Status DC Digoxin (Lanoxin) 250 mcg 1X ONCE IV Last administered on 03/15/19at 15:30; Start 03/15/19 at 15:30; Stop 03/15/19 at 15:31; Status DC Diltiazem HCl 125 mg/Dextrose 125 ml @ 2.5 mls/hr CONT PRN IV SEE I/O RECORD Last administered on 03/15/19at 15:40; Start 03/15/19 at 15:30; Stop 03/21/19 at 15:32; Status DC Digoxin (Lanoxin) 500 mcg STK-MED ONCE .ROUTE ; Start 03/15/19 at 15:26; Stop 03/15/19 at 15:26; Status DC Sodium Chloride 1,000 ml @ 1,000 mls/hr 1X ONCE IV Last administered on 03/15/19at 16:30; Start 03/15/19 at 14:00; Stop 03/15/19 at 16:33; Status DC Sodium Hypochlorite (Dakin'S 1/4 Strength) 1 edenilson DAILY TP ; Start 03/16/19 at 09:00; Stop 03/15/19 at 18:00; Status DC Sodium Hypochlorite (Dakin'S 1/4 Strength) 1 edenilson BID TP Last administered on 03/20/19 17:30; Start 03/15/19 at 21:00; Stop 03/21/19 at 19:29; Status DC Amlodipine Besylate (Norvasc) 5 mg DAILY PO Last administered on 03/16/19 08:18; Start 03/16/19 at 09:00; Stop 03/16/19 at 11:02; Status DC Apixaban (Eliquis) 2.5 mg BID PO Last administered on 03/18/19 21:19; Start 03/15/19 at 21:00; Stop 03/19/19 at 13:03; Status DC Ascorbic Acid (Vitamin C) 500 mg DAILY PO Last administered on 03/23/19 08:28; Start 03/16/19 at 09:00 Aspirin (Children'S Aspirin) 81 mg DAILYWBKFT PO Last administered on 03/23/19 08:28; Start 03/16/19 at 08:00 Furosemide (Lasix) 40 mg DAILY PO Last administered on 03/23/19 08:28; Start 03/16/19 at 09:00 Hydralazine HCl (Apresoline) 25 mg QID PO Last administered on 03/23/19 08:28; Start 03/15/19 at 21:00 Metoprolol Tartrate (Lopressor) 25 mg BID PO Last administered on 03/23/19 08:28; Start 03/15/19 at 21:00 Minoxidil (Loniten) 2.5 mg BID PO Last administered on 03/23/19 08:28; Start 03/15/19 at 21:00 Multivitamins (Thera M Plus) 1 tab DAILY PO Last administered on 03/23/19 08:28; Start 03/16/19 at 09:00 Polyethylene Glycol (miraLAX PACKET) 17 gm BID PO Last administered on 03/23/19 08:28; Start 03/15/19 at 21:00 Sevelamer Carbonate (Renvela) 800 mg TIDWMEALS PO Last administered on 03/23/19 08:28; Start 03/16/19 at 08:00 Non-Formulary Medication (Pravastatin Sodium ) 1 tab HS PO ; Start 03/15/19 at 21:00; Status UNV Info (Anti-Coagulation Monitoring By Pharmacy) 1 each PRN DAILY PRN MC SEE COMMENTS Last administered on 03/16/19 13:41; Start 03/15/19 at 18:45 Insulin Glargine (Lantus) 15 units QHS SQ Last administered on 03/22/19 20:51; Start 03/15/19 at 21:00 Insulin Human Lispro (HumaLOG) 5 units TIDWMEALS SQ ; Start 03/16/19 at 08:00 Levothyroxine Sodium (Synthroid) 88 mcg DAILYAC PO Last administered on 03/23/19 08:28; Start 03/16/19 at 07:30 Lactobacillus Rhamnosus (Culturelle) 1 cap BID PO Last administered on 03/23/19 08:28; Start 03/16/19 at 21:00 Insulin Human Lispro (HumaLOG) 0-9 UNITS TIDWMEALS SQ Last administered on 03/19/19at 17:46; Start 03/16/19 at 12:00 Dextrose (Dextrose 50%-Water Syringe) 12.5 gm PRN Q15MIN PRN IV SEE COMMENTS; Start 03/16/19 at 10:00 Dextrose 250 ml PRN Q15MIN PRN IV SEE COMMENTS; Start 03/16/19 at 10:00 Ondansetron HCl (Zofran) 4 mg PRN Q6HRS PRN IV NAUSEA/VOMITING; Start 03/16/19 at 10:00 Acetaminophen/ Hydrocodone Bitart (Lortab 5/325) 1 tab PRN Q4HRS PRN PO MODERATE PAIN, SEVERE PAIN Last administered on 03/21/19 21:26; Start 03/16/19 at 10:00 Temazepam (Restoril) 7.5 mg PRN QHS PRN PO INSOMNIA; Start 03/16/19 at 10:00 Clonidine HCl (Catapres) 0.1 mg PRN Q1HR PRN PO HYPERTENSION; Start 03/16/19 at 10:00 Amlodipine Besylate (Norvasc) 10 mg DAILY PO Last administered on 03/23/19 08:28; Start 03/17/19 at 09:00 Amlodipine Besylate (Norvasc) 5 mg 1X ONCE PO ; Start 03/16/19 at 11:15; Stop 03/16/19 at 11:16; Status DC Darbepoetin Derrek (ARANESP for DIALYSIS PTS) 60 mcg WEEKLYHS SQ Last administered on 03/16/19at 21:39; Start 03/16/19 at 21:00 Sodium Chloride 1,000 ml @ 1,000 mls/hr Q1H PRN IV hypotension; Start 03/17/19 at 10:16; Stop 03/17/19 at 16:15; Status DC Albumin Human 200 ml @ 200 mls/hr 1X PRN PRN IV Hypotension; Start 03/17/19 at 10:30; Stop 03/17/19 at 16:29; Status DC Sodium Chloride (Normal Saline Flush) 10 ml 1X PRN PRN IV AP catheter pack; Start 03/17/19 at 10:30; Stop 03/18/19 at 10:29; Status DC Sodium Chloride (Normal Saline Flush) 10 ml 1X PRN PRN IV CNC MANUFACTURING ENGINEER catheter pack; Start 03/17/19 at 10:30; Stop 03/18/19 at 10:29; Status DC Sodium Chloride 1,000 ml @ 400 mls/hr Q2H30M PRN IV PATENCY; Start 03/17/19 at 10:16; Stop 03/17/19 at 22:15; Status DC Info (PHARMACY MONITORING -- do not chart) 1 each PRN DAILY PRN MC SEE COMMENTS; Start 03/17/19 at 10:30; Status UNV Info (PHARMACY MONITORING -- do not chart) 1 each PRN DAILY PRN MC SEE COMMENTS; Start 03/17/19 at 10:30; Stop 03/21/19 at 07:46; Status DC Vancomycin HCl 500 mg/Sodium Chloride 100 ml @ 100 mls/hr QMWF IV Last administered on 03/21/19at 15:21; Start 03/17/19 at 16:00 Sodium Chloride 1,000 ml @ 1,000 mls/hr Q1H PRN IV hypotension; Start 03/19/19 at 07:54; Stop 03/19/19 at 13:53; Status DC Albumin Human 200 ml @ 200 mls/hr 1X PRN PRN IV Hypotension; Start 03/19/19 at 08:00; Stop 03/19/19 at 13:59; Status DC Sodium Chloride (Normal Saline Flush) 10 ml 1X PRN PRN IV AP catheter pack; Start 03/19/19 at 08:00; Stop 03/20/19 at 07:59; Status DC Sodium Chloride (Normal Saline Flush) 10 ml 1X PRN PRN IV C[employer] MANUFACTURING ENGINEER catheter pack; Start 03/19/19 at 08:00; Stop 03/20/19 at 07:59; Status DC Sodium Chloride 1,000 ml @ 400 mls/hr Q2H30M PRN IV PATENCY; Start 03/19/19 at 07:54; Stop 03/19/19 at 19:53; Status DC Info (PHARMACY MONITORING -- do not chart) 1 each PRN DAILY PRN MC SEE COMMENTS; Start 03/19/19 at 08:00; Status UNV Info (PHARMACY MONITORING -- do not chart) 1 each PRN DAILY PRN MC SEE COMMENTS; Start 03/19/19 at 08:00; Stop 03/19/19 at 08:07; Status DC Cefepime HCl (Maxipime) 1 gm Q24H IVP Last administered on 03/21/19at 15:21; Start 03/19/19 at 09:00; Stop 03/21/19 at 15:27; Status DC Apixaban (Eliquis) 5 mg BID PO Last administered on 03/20/19at 09:38; Start 03/19/19 at 21:00; Stop 03/21/19 at 07:36; Status DC Heparin Sodium (Porcine) (Heparin Sodium) 5,000 unit Q8HRS SQ Last administered on 03/22/19at 06:35; Start 03/21/19 at 09:00 Sodium Chloride 1,000 ml @ 1,000 mls/hr Q1H PRN IV hypotension; Start 03/21/19 at 07:39; Stop 03/21/19 at 13:38; Status DC Albumin Human 200 ml @ 200 mls/hr 1X PRN PRN IV Hypotension; Start 03/21/19 at 07:45; Stop 03/21/19 at 13:44; Status DC Sodium Chloride (Normal Saline Flush) 10 ml 1X PRN PRN IV AP catheter pack; Start 03/21/19 at 07:45; Stop 03/22/19 at 07:44; Status DC Sodium Chloride (Normal Saline Flush) 10 ml 1X PRN PRN IV C[employer] MANUFACTURING ENGINEER catheter pack; Start 03/21/19 at 07:45; Stop 03/22/19 at 07:44; Status DC Sodium Chloride 1,000 ml @ 400 mls/hr Q2H30M PRN IV PATENCY; Start 03/21/19 at 07:39; Stop 03/21/19 at 19:38; Status DC Info (PHARMACY MONITORING -- do not chart) 1 each PRN DAILY PRN MC SEE COMMENTS; Start 03/21/19 at 07:45; Status UNV Info (PHARMACY MONITORING -- do not chart) 1 each PRN DAILY PRN MC SEE COMMENTS; Start 03/21/19 at 07:45 Sodium Hypochlorite (Dakin'S 1/4 Strength) 1 edenilson PRN BID PRN TP prior to wound care; Start 03/21/19 at 19:30 Active Scripts Active Vitamin C (Ascorbic Acid) 500 Mg Tablet 500 Mg PO DAILY MDD 1 Thera-M Tablet (Multivits,Ca,Minerals/Iron/Fa) 1 Each Tablet 1 Tab PO DAILY MDD 1 Acetaminophen-Cod #3 Tablet (Acetaminophen/Codeine Phosphate) 1 Each Tablet 1 Tab PO PRN Q6HRS PRN MDD 1 Aspirin 81 Mg Tab.chew 81 Mg PO DAILYWBKFT MDD 1 Reported Levothyroxine Sodium 88 Mcg Tablet 88 Mcg PO DAILYAC Hydrocodone-Apap 7.5-325 (Hydrocodone Bit/Acetaminophen) 1 Tab Tablet 1 Tab PO PRN Q4HRS PRN Novolog Flexpen (Insulin Aspart) 100 Unit/1 Ml Insuln.pen 5 Unit SQ TIDWMEALS Lantus Solostar (Insulin Glargine,Hum.rec.anlog) 100 Unit/1 Ml Insuln.pen 15 U nit SQ QHS Renvela (Sevelamer Carbonate) 800 Mg Tablet 800 Mg PO TIDWMEALS Pravastatin Sodium 80 Mg Tablet 1 Tab PO HS Miralax (Polyethylene Glycol 3350) 17 Gm Powd.pack 1 Packet PO BID Minoxidil 2.5 Mg Tablet 2.5 Mg PO BID Metoprolol Tartrate 25 Mg Tablet 25 Mg PO BID Hydralazine Hcl 25 Mg Tablet 25 Mg PO QID Furosemide 40 Mg Tablet 40 Mg PO DAILY Eliquis (Apixaban) 2.5 Mg Tablet 2.5 Mg PO BID Amlodipine Besylate 5 Mg Tablet 5 Mg PO DAILY Vitals/I & O Vital Sign - Last 24 Hours 03/22/19 03/22/19 03/22/19 03/22/19 11:00 12:06 15:00 17:29 Temp 98.0 98.0 98.0 98.0 Pulse 81 81 87 87 Resp 18 18 B/P (MAP) 134/74 (94) 134/74 162/87 (112) 162/87 Pulse Ox 91 98 O2 Delivery Room Air Room Air 03/22/19 03/22/19 03/22/19 03/22/19 19:30 19:50 20:51 20:51 Temp 97.8 97.8 Pulse 83 87 79 Resp 20 B/P (MAP) 151/81 (104) 151/81 151/81 Pulse Ox 97 O2 Delivery Room Air Room Air 03/22/19 03/22/19 03/23/19 03/23/19 20:51 22:45 03:00 07:00 Temp 98.0 97.9 98.0 97.9 Pulse 76 70 74 73 Resp 20 18 B/P (MAP) 151/81 131/63 (85) 130/63 (85) Pulse Ox 96 95 O2 Delivery Room Air Room Air 03/23/19 03/23/19 03/23/19 03/23/19 08:00 08:28 08:28 08:28 Pulse 73 73 73 B/P (MAP) 130/63 130/63 130/63 O2 Delivery Room Air 03/23/19 08:28 Pulse 73 B/P (MAP) 130/63 Intake and Output 03/22/19 03/22/19 03/23/19 14:59 22:59 06:59 Intake Total 240 ml 500 ml Output Total 100 ml Balance 240 ml 400 ml ARY HASSAN MD Mar 23, 2019 10:57
[2019-03-23 11:00] VITALS: BP 137/64
[2019-03-23 15:00] VITALS: BP 158/74
[2019-03-23 20:15] VITALS: BP 145/76
[2019-03-23] MEDS: DARBEPOETIN ALFA 60 MCG/0.3 ML DISP.SYRIN. SQ SCH (20:45)
[2019-03-23] MEDS: INSULIN GLARGINE 300 UNITS/3 ML INSULN.PEN. SQ SCH (20:57)
[2019-03-23 22:50] VITALS: BP 146/74
[2019-03-24] MEDS: HEPARIN for SUB-Q USE 5,000 UNIT/ML VIAL. SQ SCH ×3 (06:00→22:00)
[2019-03-24 07:00] VITALS: BP 185/65
[2019-03-24] MEDS: SEVELAMER CARBONATE 800 MG TABLET. PO SCH ×3 (08:00→20:52)
[2019-03-24] MEDS: INSULIN LISPRO 300 UNITS/3 ML VIAL. SQ SCH ×6 (08:00→17:00)
[2019-03-24] MEDS: POLYETHYLENE GLYCOL 3350 17 GM PACKET. PO SCH ×2 (09:00→21:00)
--- NOTE | 2019-03-24 09:01 | PDOC ---
Infectious Disease Note Subjective Subjective Not happy, getting depressed, wants to go home Says he doesn't want a temp HDC and is considering holding off dialysis until a perm cath can be placed No fevers/chills Not eating but doesn't like food selection ROS ROS o/w neg Vital Sign Vital Signs Vital Signs Date Time Temp Pulse Resp B/P (MAP) Pulse Ox O2 Delivery O2 Flow Rate FiO2 03/24/19 07:00 98.0 72 18 185/65 (105) 98 Room Air 98.0 Physical Exam PHYSICAL EXAM GENERAL: Sitting on side of bed, alert, flat affect HEENT: Pupils equally round. Oropharynx pink and dry. NECK: Supple. LUNGS: Clear to auscultation. HEART: S1, S2. ABDOMEN: Soft and nontender with bowel sounds present. EXTREMITIES: Trace edema of lower extremities bilaterally. No cyanosis. SKIN: Warm to touch. No signs of rash. NEUROLOGIC: Alert and oriented x 3. HDC out PIV ok Labs Lab Laboratory Tests Test 03/23/19 11:43 03/23/19 17:11 03/23/19 20:49 03/24/19 07:41 Glucose (Fingerstick) 156 mg/dL (70-99) 146 mg/dL (70-99) 206 mg/dL (70-99) 79 mg/dL (70-99) Micro Microbiology 03/22/19 Blood Culture - Final, Complete 03/21/19 Aerobic Culture - Preliminary, Resulted 03/21/19 Aerobic Culture Result 1 (ISAAC) - Preliminary, Resulted 03/21/19 Gram Stain - Final, Resulted 03/21/19 Gram Stain Result 1 (ISAAC) - Final, Resulted 03/21/19 Gram Stain Result 2 (ISAAC) - Final, Resulted Objective Assessment MRSA Staph aureus bacteremia with sepsis present on admission; source likely HDC cath or cath site - 2 ECHO done 03/17 - Repeat BC neg on 03/17, 03/19 and 03/21 neg so far. BC 03/22 +GPC Infected hemodialysis catheter, status post removal 03/05 and replaced 03/07 per the patient report. s/p removal 03/21 -cult neg so far - swab c/s reported negative from [facility] 03/05 Fever. resolved ANTIBIOTIC ALLERGY TO PENICILLIN WITH ANAPHYLACTIC TYPE REACTION IN CHILDHOOD AND SULFA WITH HIVES. History of methicillin-resistant Staphylococcus aureus. Chronic wounds, lower extremities bilaterally. [facility]. End-stage renal disease, on hemodialysis. Peripheral vascular disease. Diabetes with peripheral neuropathy. Atrial fibrillation. Plan Plan of Care continue the vancomycin. f/u HDC tip culture neg so far f/u repeat BC 03/21 & 24 Hold HDC placement Probiotics KAROLINE ACE MD Mar 24, 2019 09:01
[2019-03-24] MEDS: LACTOBACILLUS RHAMNOSUS GG 1 CAPSULE. PO SCH ×2 (09:53→20:52)
[2019-03-24] MEDS: LEVOTHYROXINE 88 MCG TABLET PO SCH (09:53)
[2019-03-24] MEDS: ASPIRIN CHEWABLE 81 MG TABLET. PO SCH (09:53)
[2019-03-24] MEDS: ASCORBIC ACID 500 MG TABLET PO SCH (09:53)
[2019-03-24] MEDS: FUROSEMIDE 40 MG TABLET. PO SCH (09:54)
[2019-03-24] MEDS: MULTIVITAMIN with MINERAL TABLET. PO SCH (09:54)
[2019-03-24] MEDS: METOPROLOL TART IMMED RELEASE 25 MG TABLET. PO SCH ×2 (09:54→20:52)
[2019-03-24] MEDS: MINOXIDIL 2.5 MG TABLET PO SCH ×2 (09:54→20:53)
[2019-03-24] MEDS: hydrALAZINE 25 MG TABLET PO SCH ×4 (09:54→21:00)
[2019-03-24] MEDS: amLODIPine BESYLATE 5 MG TABLET PO SCH (09:55)
[2019-03-24 10:51] VITALS: BP 145/79
--- NOTE | 2019-03-24 12:33 | PDOC ---
PROGRESS NOTES Chief Complaint Chief Complaint INFECTED HD CATH TIP Sepsis - Methicillin Resistant Staph aureus bacteremia with sepsis Chronic wounds, lower extremities bilaterally. [facility] PAD ESRD on HD AOCD Cellulitis - with sepsis Acute on chronic a fib s/p RVR HTN Hypothyroidism on synthroid Infected hemodialysis catheter, status post removal 03/05 and replaced 03/07 History of methicillin-resistant Staphylococcus aureus. Diabetes with peripheral neuropathy. Atrial fibrillation. Infected hemodialysis catheter, status post removal 03/05 and replaced 03/07 History of Present Illness History of Present Illness for placement of HD cath tmr, was removed bec of infection ID on board OL[facility] Missed HD today bec no access Wounds inspected inc aburto, he has no complaints to me Afebrile, non toxic appearing< BS ok PLAN: HD cath insertion tmr On IV abx per ID Vitals Vitals Vital Signs Date Time Temp Pulse Resp B/P (MAP) Pulse Ox O2 Delivery O2 Flow Rate FiO2 03/24/19 10:51 97.8 92 18 145/79 (101) 98 Room Air 97.8 Physical Exam Physical Exam GENERAL: Sitting on side of bed, alert, flat affect HEENT: Pupils equally round. Oropharynx pink and dry. NECK: Supple. LUNGS: Clear to auscultation. HEART: S1, S2. ABDOMEN: Soft and nontender with bowel sounds present. EXTREMITIES: Trace edema of lower extremities bilaterally. No cyanosis. SKIN: Warm to touch. No signs of rash. NEUROLOGIC: Alert and oriented x 3. HDC out PIV ok General: Alert, Oriented X3, Cooperative, mild distress Heart: Regular rate, Normal S1, Normal S2, Other (irreg. irreg.) Lungs: Clear Abdomen: Normal bowel sounds Extremities: No clubbing, No cyanosis Skin: No breakdown Labs LABS Laboratory Tests Test 03/23/19 17:11 03/23/19 20:49 03/24/19 07:41 03/24/19 11:41 Glucose (Fingerstick) 146 mg/dL (70-99) 206 mg/dL (70-99) 79 mg/dL (70-99) 94 mg/dL (70-99) Review of Systems Review of Systems neg 14 pt reviewed with him Assessment and Plan Assessmemt and Plan Problems Medical Problems: (1) A-fib Status: Acute (2) Diabetes mellitus with peripheral autonomic neuropathy Status: Chronic (3) ESRD on hemodialysis Status: Chronic (4) PVD (peripheral vascular disease) Status: Chronic (5) Sepsis Status: Acute Comment Review of Relevant I have reviewed the following items kendra (where applicable) has been applied. Labs Laboratory Tests Test 03/22/19 16:55 03/22/19 20:37 03/23/19 07:12 03/23/19 11:43 Glucose (Fingerstick) 150 mg/dL (70-99) 184 mg/dL (70-99) 118 mg/dL (70-99) 156 mg/dL (70-99) Test 03/23/19 17:11 03/23/19 20:49 03/24/19 07:41 03/24/19 11:41 Glucose (Fingerstick) 146 mg/dL (70-99) 206 mg/dL (70-99) 79 mg/dL (70-99) 94 mg/dL (70-99) Laboratory Tests Test 03/23/19 17:11 03/23/19 20:49 03/24/19 07:41 03/24/19 11:41 Glucose (Fingerstick) 146 mg/dL (70-99) 206 mg/dL (70-99) 79 mg/dL (70-99) 94 mg/dL (70-99) Microbiology 03/22/19 Blood Culture - Final, Complete 03/21/19 Aerobic Culture - Preliminary, Resulted 03/21/19 Aerobic Culture Result 1 (ISAAC) - Preliminary, Resulted 03/21/19 Gram Stain - Final, Resulted 03/21/19 Gram Stain Result 1 (ISAAC) - Final, Resulted 03/21/19 Gram Stain Result 2 (ISAAC) - Final, Resulted Medications Current Medications Vancomycin HCl (Vanco Per Pharmacy) 1 each PRN DAILY PRN MC SEE COMMENTS Last administered on 03/22/19at 17:07; Start 03/15/19 at 11:15 Cefepime HCl (Maxipime) 1 gm 1X ONCE IVP Last administered on 03/15/19at 11:37; Start 03/15/19 at 11:15; Stop 03/15/19 at 11:23; Status DC Sodium Chloride 1,000 ml @ 1,000 mls/hr 1X ONCE IV Last administered on 03/15/19at 11:28; Start 03/15/19 at 11:30; Stop 03/15/19 at 12:29; Status DC Vancomycin HCl 2 gm/Sodium Chloride 500 ml @ 250 mls/hr 1X ONCE IV Last administered on 03/15/19at 11:37; Start 03/15/19 at 11:30; Stop 03/15/19 at 13:29; Status DC Vancomycin HCl (Vancomycin Random Level) 1 each 1X ONCE MC Last administered on 03/17/19at 06:31; Start 03/17/19 at 06:00; Stop 03/17/19 at 06:01; Status DC Acetaminophen (Tylenol) 650 mg PRN Q6HRS PRN PO MILD PAIN / TEMP Last administered on 03/15/19at 15:12; Start 03/15/19 at 15:00 Acetaminophen (Tylenol Supp) 650 mg STK-MED ONCE .ROUTE ; Start 03/15/19 at 15:04; Stop 03/15/19 at 15:04; Status DC Digoxin (Lanoxin) 250 mcg 1X ONCE IV Last administered on 03/15/19at 15:30; Start 03/15/19 at 15:30; Stop 03/15/19 at 15:31; Status DC Diltiazem HCl 125 mg/Dextrose 125 ml @ 2.5 mls/hr CONT PRN IV SEE I/O RECORD Last administered on 03/15/19at 15:40; Start 03/15/19 at 15:30; Stop 03/21/19 at 15:32; Status DC Digoxin (Lanoxin) 500 mcg STK-MED ONCE .ROUTE ; Start 03/15/19 at 15:26; Stop 03/15/19 at 15:26; Status DC Sodium Chloride 1,000 ml @ 1,000 mls/hr 1X ONCE IV Last administered on 03/15/19at 16:30; Start 03/15/19 at 14:00; Stop 03/15/19 at 16:33; Status DC Sodium Hypochlorite (Dakin'S 1/4 Strength) 1 edenilson DAILY TP ; Start 03/16/19 at 09:00; Stop 03/15/19 at 18:00; Status DC Sodium Hypochlorite (Dakin'S 1/4 Strength) 1 edenilson BID TP Last administered on 03/20/19at 17:30; Start 03/15/19 at 21:00; Stop 03/21/19 at 19:29; Status DC Amlodipine Besylate (Norvasc) 5 mg DAILY PO Last administered on 03/16/19 08:18; Start 03/16/19 at 09:00; Stop 03/16/19 at 11:02; Status DC Apixaban (Eliquis) 2.5 mg BID PO Last administered on 03/18/19 21:19; Start 03/15/19 at 21:00; Stop 03/19/19 at 13:03; Status DC Ascorbic Acid (Vitamin C) 500 mg DAILY PO Last administered on 03/24/19 09:57; Start 03/16/19 at 09:00 Aspirin (Children'S Aspirin) 81 mg DAILYWBKFT PO Last administered on 03/24/19 09:57; Start 03/16/19 at 08:00 Furosemide (Lasix) 40 mg DAILY PO Last administered on 03/24/19 09:57; Start 03/16/19 at 09:00 Hydralazine HCl (Apresoline) 25 mg QID PO Last administered on 03/24/19 09:57; Start 03/15/19 at 21:00 Metoprolol Tartrate (Lopressor) 25 mg BID PO Last administered on 03/24/19 09:57; Start 03/15/19 at 21:00 Minoxidil (Loniten) 2.5 mg BID PO Last administered on 03/24/19 09:57; Start 03/15/19 at 21:00 Multivitamins (Thera M Plus) 1 tab DAILY PO Last administered on 03/24/19 09:57; Start 03/16/19 at 09:00 Polyethylene Glycol (miraLAX PACKET) 17 gm BID PO Last administered on 03/23/19 08:28; Start 03/15/19 at 21:00 Sevelamer Carbonate (Renvela) 800 mg TIDWMEALS PO Last administered on 03/23/19 17:32; Start 03/16/19 at 08:00 Non-Formulary Medication (Pravastatin Sodium ) 1 tab HS PO ; Start 03/15/19 at 21:00; Status UNV Info (Anti-Coagulation Monitoring By Pharmacy) 1 each PRN DAILY PRN MC SEE COMMENTS Last administered on 03/16/19 13:41; Start 03/15/19 at 18:45 Insulin Glargine (Lantus) 15 units QHS SQ Last administered on 03/23/19 20:57; Start 03/15/19 at 21:00 Insulin Human Lispro (HumaLOG) 5 units TIDWMEALS SQ ; Start 03/16/19 at 08:00 Levothyroxine Sodium (Synthroid) 88 mcg DAILYAC PO Last administered on 03/24/19 09:57; Start 03/16/19 at 07:30 Lactobacillus Rhamnosus (Culturelle) 1 cap BID PO Last administered on 03/24/19 09:57; Start 03/16/19 at 21:00 Insulin Human Lispro (HumaLOG) 0-9 UNITS TIDWMEALS SQ Last administered on 03/19/19 17:46; Start 03/16/19 at 12:00 Dextrose (Dextrose 50%-Water Syringe) 12.5 gm PRN Q15MIN PRN IV SEE COMMENTS; Start 03/16/19 at 10:00 Dextrose 250 ml PRN Q15MIN PRN IV SEE COMMENTS; Start 03/16/19 at 10:00 Ondansetron HCl (Zofran) 4 mg PRN Q6HRS PRN IV NAUSEA/VOMITING; Start 03/16/19 at 10:00 Acetaminophen/ Hydrocodone Bitart (Lortab 5/325) 1 tab PRN Q4HRS PRN PO MODERATE PAIN, SEVERE PAIN Last administered on 03/21/19 21:26; Start 03/16/19 at 10:00 Temazepam (Restoril) 7.5 mg PRN QHS PRN PO INSOMNIA; Start 03/16/19 at 10:00 Clonidine HCl (Catapres) 0.1 mg PRN Q1HR PRN PO HYPERTENSION; Start 03/16/19 at 10:00 Amlodipine Besylate (Norvasc) 10 mg DAILY PO Last administered on 03/24/19 09:57; Start 03/17/19 at 09:00 Amlodipine Besylate (Norvasc) 5 mg 1X ONCE PO ; Start 03/16/19 at 11:15; Stop 03/16/19 at 11:16; Status DC Darbepoetin Derrek (ARANESP for DIALYSIS PTS) 60 mcg WEEKLYHS SQ Last administered on 03/23/19 20:57; Start 03/16/19 at 21:00 Sodium Chloride 1,000 ml @ 1,000 mls/hr Q1H PRN IV hypotension; Start 03/17/19 at 10:16; Stop 03/17/19 at 16:15; Status DC Albumin Human 200 ml @ 200 mls/hr 1X PRN PRN IV Hypotension; Start 03/17/19 at 10:30; Stop 03/17/19 at 16:29; Status DC Sodium Chloride (Normal Saline Flush) 10 ml 1X PRN PRN IV AP catheter pack; Start 03/17/19 at 10:30; Stop 03/18/19 at 10:29; Status DC Sodium Chloride (Normal Saline Flush) 10 ml 1X PRN PRN IV BLIND SLAT STAPLING MACHINE OPERATOR catheter pack; Start 03/17/19 at 10:30; Stop 03/18/19 at 10:29; Status DC Sodium Chloride 1,000 ml @ 400 mls/hr Q2H30M PRN IV PATENCY; Start 03/17/19 at 10:16; Stop 03/17/19 at 22:15; Status DC Info (PHARMACY MONITORING -- do not chart) 1 each PRN DAILY PRN MC SEE COMMENTS; Start 03/17/19 at 10:30; Status UNV Info (PHARMACY MONITORING -- do not chart) 1 each PRN DAILY PRN MC SEE COMMENTS; Start 03/17/19 at 10:30; Stop 03/21/19 at 07:46; Status DC Vancomycin HCl 500 mg/Sodium Chloride 100 ml @ 100 mls/hr QMWF IV Last administered on 03/21/19at 15:21; Start 03/17/19 at 16:00 Sodium Chloride 1,000 ml @ 1,000 mls/hr Q1H PRN IV hypotension; Start 03/19/19 at 07:54; Stop 03/19/19 at 13:53; Status DC Albumin Human 200 ml @ 200 mls/hr 1X PRN PRN IV Hypotension; Start 03/19/19 at 08:00; Stop 03/19/19 at 13:59; Status DC Sodium Chloride (Normal Saline Flush) 10 ml 1X PRN PRN IV AP catheter pack; Start 03/19/19 at 08:00; Stop 03/20/19 at 07:59; Status DC Sodium Chloride (Normal Saline Flush) 10 ml 1X PRN PRN IV BLIND [employer]ING MACHINE OPERATOR catheter pack; Start 03/19/19 at 08:00; Stop 03/20/19 at 07:59; Status DC Sodium Chloride 1,000 ml @ 400 mls/hr Q2H30M PRN IV PATENCY; Start 03/19/19 at 07:54; Stop 03/19/19 at 19:53; Status DC Info (PHARMACY MONITORING -- do not chart) 1 each PRN DAILY PRN MC SEE COMMENTS; Start 03/19/19 at 08:00; Status UNV Info (PHARMACY MONITORING -- do not chart) 1 each PRN DAILY PRN MC SEE COMMENTS; Start 03/19/19 at 08:00; Stop 03/19/19 at 08:07; Status DC Cefepime HCl (Maxipime) 1 gm Q24H IVP Last administered on 03/21/19at 15:21; Start 03/19/19 at 09:00; Stop 03/21/19 at 15:27; Status DC Apixaban (Eliquis) 5 mg BID PO Last administered on 03/20/19at 09:38; Start 03/19/19 at 21:00; Stop 03/21/19 at 07:36; Status DC Heparin Sodium (Porcine) (Heparin Sodium) 5,000 unit Q8HRS SQ Last administered on 03/22/19at 06:35; Start 03/21/19 at 09:00 Sodium Chloride 1,000 ml @ 1,000 mls/hr Q1H PRN IV hypotension; Start 03/21/19 at 07:39; Stop 03/21/19 at 13:38; Status DC Albumin Human 200 ml @ 200 mls/hr 1X PRN PRN IV Hypotension; Start 03/21/19 at 07:45; Stop 03/21/19 at 13:44; Status DC Sodium Chloride (Normal Saline Flush) 10 ml 1X PRN PRN IV AP catheter pack; Start 03/21/19 at 07:45; Stop 03/22/19 at 07:44; Status DC Sodium Chloride (Normal Saline Flush) 10 ml 1X PRN PRN IV BLIND [employer] STAPLING MACHINE OPERATOR catheter pack; Start 03/21/19 at 07:45; Stop 03/22/19 at 07:44; Status DC Sodium Chloride 1,000 ml @ 400 mls/hr Q2H30M PRN IV PATENCY; Start 03/21/19 at 07:39; Stop 03/21/19 at 19:38; Status DC Info (PHARMACY MONITORING -- do not chart) 1 each PRN DAILY PRN MC SEE COMMENTS; Start 03/21/19 at 07:45; Status UNV Info (PHARMACY MONITORING -- do not chart) 1 each PRN DAILY PRN MC SEE COMMENTS; Start 03/21/19 at 07:45 Sodium Hypochlorite (Dakin'S 1/4 Strength) 1 edenilson PRN BID PRN TP prior to wound care Last administered on 03/23/19at 11:15; Start 03/21/19 at 19:30 Active Scripts Active Vitamin C (Ascorbic Acid) 500 Mg Tablet 500 Mg PO DAILY MDD 1 Thera-M Tablet (Multivits,Ca,Minerals/Iron/Fa) 1 Each Tablet 1 Tab PO DAILY MDD 1 Acetaminophen-Cod #3 Tablet (Acetaminophen/Codeine Phosphate) 1 Each Tablet 1 Tab PO PRN Q6HRS PRN MDD 1 Aspirin 81 Mg Tab.chew 81 Mg PO DAILYWBKFT MDD 1 Reported Levothyroxine Sodium 88 Mcg Tablet 88 Mcg PO DAILYAC Hydrocodone-Apap 7.5-325 (Hydrocodone Bit/Acetaminophen) 1 Tab Tablet 1 Tab PO PRN Q4HRS PRN Novolog Flexpen (Insulin Aspart) 100 Unit/1 Ml Insuln.pen 5 Unit SQ TIDWMEALS Lantus Solostar (Insulin Glargine,Hum.rec.anlog) 100 Unit/1 Ml Insuln.pen 15 Unit SQ QHS Renvela (Sevelamer Carbonate) 800 Mg Tablet 800 Mg PO TIDWMEALS Pravastatin Sodium 80 Mg Tablet 1 Tab PO HS Miralax (Polyethylene Glycol 3350) 17 Gm Powd.pack 1 Packet PO BID Minoxidil 2.5 Mg Tablet 2.5 Mg PO BID Metoprolol Tartrate 25 Mg Tablet 25 Mg PO BID Hydralazine Hcl 25 Mg Tablet 25 Mg PO QID Furosemide 40 Mg Tablet 40 Mg PO DAILY Eliquis (Apixaban) 2.5 Mg Tablet 2.5 Mg PO BID Amlodipine Besylate 5 Mg Tablet 5 Mg PO DAILY Vitals/I & O Vital Sign - Last 24 Hours 03/23/19 03/23/19 03/23/19 03/23/19 15:00 17:32 19:00 20:00 Temp 98.2 98.2 Pulse 72 72 68 Resp 18 B/P (MAP) 158/74 (102) 158/74 Pulse Ox 99 O2 Delivery Room Air Room Air 03/23/19 03/23/19 03/23/19 03/23/19 20:15 20:57 20:57 20:57 Temp 98.0 98.0 Pulse 70 70 70 70 Resp 20 B/P (MAP) 145/76 (99) 145/76 145/76 145/76 Pulse Ox 97 O2 Delivery Room Air 03/23/19 03/24/19 03/24/19 03/24/19 22:50 03:15 07:00 08:00 Temp 97.9 98.0 97.9 98.0 Pulse 70 66 72 Resp 18 18 B/P (MAP) 146/74 (98) 185/65 (105) Pulse Ox 96 98 O2 Delivery Room Air Room Air Room Air 03/24/19 03/24/19 03/24/19 03/24/19 09:57 09:57 09:57 09:57 Pulse 72 72 72 72 B/P (MAP) 185/65 185/65 185/65 185/65 03/24/19 10:51 Temp 97.8 97.8 Pulse 92 Resp 18 B/P (MAP) 145/79 (101) Pulse Ox 98 O2 Delivery Room Air Intake and Output 03/23/19 03/23/19 03/24/19 15:00 23:00 07:00 Intake Total 250 ml 500 ml Output Total 150 ml Balance 250 ml 350 ml DENNY BHATTI MD Mar 24, 2019 12:33
[2019-03-24] MEDS ORDERED: DIALYSIS PATIENT. MC PRN ×6 (12:45→13:00)
[2019-03-24] MEDS ORDERED: diphenhydrAMINE 50 MG/ML VIAL IV PRN (13:00)
[2019-03-24] MEDS ORDERED: ACETAMINOPHEN 500 MG TABLET PO PRN (13:00)
--- NOTE | 2019-03-24 13:03 | PDOC ---
Renal-Progress Notes Subjective Notes Notes NOT WANTING TEMP HD CATHETER History of Present Illness Hx of present illness STABLE Vitals Vitals Vital Signs Date Time Temp Pulse Resp B/P (MAP) Pulse Ox O2 Delivery O2 Flow Rate FiO2 03/24/19 10:51 97.8 92 18 145/79 (101) 98 Room Air 97.8 Weight Weight [ ] I.O. Intake and Output Intake and Output 03/24/19 07:00 Intake Total 750 ml Output Total 150 ml Balance 600 ml Intake Oral 750 ml Output Urine Total 150 ml Labs Labs Laboratory Tests Test 03/23/19 17:11 03/23/19 20:49 03/24/19 07:41 03/24/19 11:41 Glucose (Fingerstick) 146 mg/dL (70-99) 206 mg/dL (70-99) 79 mg/dL (70-99) 94 mg/dL (70-99) Micro Micro Microbiology 03/22/19 Blood Culture - Final, Complete 03/21/19 Aerobic Culture - Preliminary, Resulted 03/21/19 Aerobic Culture Result 1 (ISAAC) - Preliminary, Resulted 03/21/19 Gram Stain - Final, Resulted 03/21/19 Gram Stain Result 1 (ISAAC) - Final, Resulted 03/21/19 Gram Stain Result 2 (ISAAC) - Final, Resulted Review of Systems Constitutional: yes: alert, oriented Ears/Nose/Throat: Yes: no symptom reported Eyes: Yes: no symptom reported Pulmonary: Yes no symptom reported Cardiovascular: Yes no symptom reported Gastrointestional: Yes: no symptom reported Genitourinary: Yes: no symptom reported Musculoskeletal: Yes: no symptom reported Skin: Yes no symptom reported Psychiatric/Neurological: Yes: no symptom reported Endocrine: Yes: no symptom reported Hematologic/Lymphatic: Yes: no symptom reported Physical Exam General Appearance: no apparent distress Skin: warm Respiratory: decreased breath sounds Heart: S1S2 Abdomen: soft, bowel sounds present Genitourinary: bladder flat Extremities: pulses present, no edema, atrophy, other (LEFT ARM AVF WITH A GOOD THRILL AND BRUIT) Neurology: alert, oriented, follow commands Assessment Assessment IMP MRSA SEPSIS DM II HTN ANEMIA PAD AFIB CELLULITIS LE EXTREMITIES ESRD-HD MWF PLAN CATHETER HAS BEEN OUT SINCE LAST WEEK CONT WITH ANTIBIOTICS HIS LEFT ARM BRACHIO-BASILIC LOOK MATURE ENOUGH FOR CANNULATION WILL HAVE HD TODAY USING AVF-WILL USE 17 GAUGE NEEDLES PT AGREEABLE TO PLAN HOPEFULLY NO MORE NEED FOR CATHETER WILL FOLLOW ABIMBOLA CAMACHO MD Mar 24, 2019 13:03
[2019-03-24 13:58] LABS: ALBUMIN 3.5 g/dL (3.4-5.0); CALCIUM 8.9 mg/dL (8.5-10.1); CREATININE 5.1 mg/dL (0.7-1.3); GFR 11.7; POTASSIUM 4.6 mmol/L (3.5-5.1); TOTAL PROTEIN 7.1 g/dL (6.4-8.2)
[2019-03-24] MEDS: VANCOMYCIN PER PHARMACY MC PRN (14:52)
[2019-03-24 19:00] VITALS: BP 135/61
[2019-03-24 20:08] VITALS: BP 148/68
[2019-03-24] MEDS: VANCOMYCIN 500 MG in IV NORMAL SALINE 100ML 100 ML IV SCH (20:51)
[2019-03-24] MEDS: HYDROcodone/APAP 5/325MG 1 TAB TABLET PO PRN (21:04)
[2019-03-24] MEDS: INSULIN GLARGINE 300 UNITS/3 ML INSULN.PEN. SQ SCH (21:04)
[2019-03-24 23:00] VITALS: BP_SYST 119; BP_SYST 141; BP_DIAS 57; BP_DIAS 77
[2019-03-25] MEDS: HEPARIN for SUB-Q USE 5,000 UNIT/ML VIAL. SQ SCH ×2 (06:00→14:00)
[2019-03-25 07:00] VITALS: BP 155/79
[2019-03-25] MEDS: INSULIN LISPRO 300 UNITS/3 ML VIAL. SQ SCH ×4 (08:00→12:00)
[2019-03-25] MEDS: LEVOTHYROXINE 88 MCG TABLET PO SCH (08:25)
[2019-03-25] MEDS: LACTOBACILLUS RHAMNOSUS GG 1 CAPSULE. PO SCH (08:25)
[2019-03-25] MEDS: ASCORBIC ACID 500 MG TABLET PO SCH (08:25)
[2019-03-25] MEDS: MULTIVITAMIN with MINERAL TABLET. PO SCH (08:26)
[2019-03-25] MEDS: SEVELAMER CARBONATE 800 MG TABLET. PO SCH ×2 (08:26→12:47)
[2019-03-25] MEDS: ASPIRIN CHEWABLE 81 MG TABLET. PO SCH (08:26)
--- NOTE | 2019-03-25 08:27 | PDOC ---
Infectious Disease Note Subjective Subjective Doing ok. Tolerated HD via [facility] in LUE 03/24 wants to go home legs ok No fevers/chills Not eating but doesn't like food selection Vital Sign Vital Signs Vital Signs Date Time Temp Pulse Resp B/P (MAP) Pulse Ox O2 Delivery O2 Flow Rate FiO2 03/25/19 03:00 68 03/24/19 23:08 Room Air 03/24/19 23:04 148/68 03/24/19 23:00 98.4 16 97 98.4 Physical Exam PHYSICAL EXAM GENERAL: Sitting on side of bed, alert, flat affect HEENT: Pupils equally round. Oropharynx pink and dry. NECK: Supple. LUNGS: Clear to auscultation. HEART: S1, S2. ABDOMEN: Soft and nontender with bowel sounds present. EXTREMITIES: Trace edema of lower extremities bilaterally. No cyanosis. LUE f istula is clean SKIN: Warm to touch. No signs of rash. NEUROLOGIC: Alert and oriented x 3. HDC out -site clean PIV ok Labs Lab Laboratory Tests Test 03/24/19 09:35 03/24/19 11:41 03/24/19 20:59 Sodium Level 138 mmol/L (136-145) Potassium Level 4.6 mmol/L (3.5-5.1) Chloride Level 100 mmol/L (98-107) Carbon Dioxide Level 28 mmol/L (21-32) Anion Gap 10 (6-14) Blood Urea Nitrogen 50 mg/dL (8-26) Creatinine 5.1 mg/dL (0.7-1.3) Estimated GFR (Cockcroft-Gault) 11.7 BUN/Creatinine Ratio 10 (6-20) Glucose Level 85 mg/dL (70-99) Calcium Level 8.9 mg/dL (8.5-10.1) Total Bilirubin 1.0 mg/dL (0.2-1.0) Aspartate Amino Transf (AST/SGOT) 21 U/L (15-37) Alanine Aminotransferase (ALT/SGPT) 32 U/L (16-63) Alkaline Phosphatase 182 U/L (46-116) Total Protein 7.1 g/dL (6.4-8.2) Albumin 3.5 g/dL (3.4-5.0) Albumin/Globulin Ratio 1.0 (1.0-1.7) Glucose (Fingerstick) 94 mg/dL (70-99) 227 mg/dL (70-99) Micro Microbiology 03/22/19 Blood Culture - Final, Complete 03/21/19 Aerobic Culture - Preliminary, Resulted 03/21/19 Aerobic Culture Result 1 (ISAAC) - Preliminary, Resulted 03/21/19 Gram Stain - Final, Resulted 03/21/19 Gram Stain Result 1 (ISAAC) - Final, Resulted 03/21/19 Gram Stain Result 2 (ISAAC) - Final, Resulted Objective Assessment MRSA Staph aureus bacteremia with sepsis present on admission; source likely HDC cath or cath site 03/15 - 2 ECHO done 03/17 - Repeat BC neg on 03/17, 03/19 and 03/21 neg so far. BC 03/22 +[facility]PC ID PENDING Infected hemodialysis catheter, status post removal 03/05 and replaced 03/07 per the patient report. s/p removal 03/21 -cult neg - swab c/s reported negative from [facility] 03/05 Fever. resolved ANTIBIOTIC ALLERGY TO PENICILLIN WITH ANAPHYLACTIC TYPE REACTION IN CHILDHOOD AND SULFA WITH HIVES. History of methicillin-resistant Staphylococcus aureus. Chronic wounds, lower extremities bilaterally. [facility]. End-stage renal disease, on hemodialysis. Peripheral vascular disease. Diabetes with peripheral neuropathy. Atrial fibrillation. Plan Plan of Care continue the vancomycin 500 mg IV with each HD through 04/14 (min to complete 4 weeks) HDC tip culture neg so far f/u repeat BC 03/22 Probiotics Will need CBC weekly faxed to [phone] to be sure Vanc does not cause marrow suppression Will need to F/u in ID office in 2 weeks [phone] KAROLINE ACE MD Mar 25, 2019 08:27
[2019-03-25] MEDS: MINOXIDIL 2.5 MG TABLET PO SCH (08:29)
[2019-03-25] MEDS: METOPROLOL TART IMMED RELEASE 25 MG TABLET. PO SCH (08:29)
[2019-03-25] MEDS: FUROSEMIDE 40 MG TABLET. PO SCH (08:30)
[2019-03-25] MEDS: hydrALAZINE 25 MG TABLET PO SCH ×2 (08:31→12:48)
[2019-03-25] MEDS: amLODIPine BESYLATE 5 MG TABLET PO SCH (08:32)
[2019-03-25] MEDS: POLYETHYLENE GLYCOL 3350 17 GM PACKET. PO SCH (08:33)
[2019-03-25] MEDS ORDERED: VANC500F2 IV (10:14)
[2019-03-25] MEDS ORDERED: AMLO5TAB10 PO (10:14)
[2019-03-25 11:00] VITALS: BP 132/65
[2019-03-25] MEDS ORDERED: INSULIN GLARGINE 300 UNITS/3 ML INSULN.PEN. SQ SCH (11:15)
--- NOTE | 2019-03-25 11:44 | PDOC ---
Renal-Progress Notes Subjective Notes Notes FEELING BETTER History of Present Illness Hx of present illness STABLE Vitals Vitals Vital Signs Date Time Temp Pulse Resp B/P (MAP) Pulse Ox O2 Delivery O2 Flow Rate FiO2 03/25/19 11:00 98.1 70 18 132/65 (87) 100 Room Air 98.1 Weight Weight [ ] I.O. Intake and Output Intake and Output 03/25/19 07:00 Intake Total 1000 ml Output Total 150 ml Balance 850 ml Intake Oral 1000 ml Output Urine Total 150 ml Labs Labs Laboratory Tests Test 03/24/19 20:59 03/25/19 08:30 03/25/19 10:38 Glucose (Fingerstick) 227 mg/dL (70-99) 67 mg/dL (70-99) 110 mg/dL (70-99) Micro Micro Microbiology 03/24/19 Blood Culture - Preliminary, Resulted NO GROWTH AFTER 1 DAY 03/21/19 Aerobic Culture - Final, Complete 03/21/19 Aerobic Culture Result 1 (ISAAC) - Final, Complete 03/21/19 Gram Stain - Final, Complete 03/21/19 Gram Stain Result 1 (ISAAC) - Final, Complete 03/21/19 Gram Stain Result 2 (ISAAC) - Final, Complete Review of Systems Constitutional: yes: alert, oriented Ears/Nose/Throat: Yes: no symptom reported Eyes: Yes: no symptom reported Pulmonary: Yes no symptom reported Cardiovascular: Yes no symptom reported Gastrointestional: Yes: no symptom reported Genitourinary: Yes: no symptom reported Musculoskeletal: Yes: no symptom reported Skin: Yes no symptom reported Psychiatric/Neurological: Yes: no symptom reported Endocrine: Yes: no symptom reported Hematologic/Lymphatic: Yes: no symptom reported Physical Exam General Appearance: no apparent distress Skin: warm Respiratory: decreased breath sounds Heart: S1S2 Abdomen: soft, bowel sounds present Genitourinary: bladder flat Extremities: pulses present, no edema, atrophy, other (LEFT ARM AVF WITH A GOOD THRILL AND BRUIT) Neurology: alert, oriented, follow commands Assessment Assessment IMP MRSA SEPSIS DM II HTN ANEMIA PAD AFIB CELLULITIS LE EXTREMITIES ESRD-HD MWF PLAN CATHETER HAS BEEN OUT SINCE LAST WEEK CONT WITH ANTIBIOTICS OP HAVE NOTIFIED OP HD UNIT OF VANC TO BE GIVEN FOR TOTAL 4 WEEJS HIS LEFT ARM BRACHIO-BASILIC AVF IS WORKING WELL D/C PLANS NOTED ABIMBOLA CAMACHO MD Mar 25, 2019 11:44
--- NOTE | 2019-03-25 12:07 | NUR ---
SS following up with discharge planning. Discharge orders received for return to [facility], ; fax [phone]. SS phoned and faxed discharge orders. Pt will discharge today and will return to [facility] between 1500 and 1530. [facility] to provide transportation. Pt, pt's family, and pt's RN notified.
--- NOTE | 2019-03-25 12:07 | NUR ---
Notified Dr. Dupree of patient's blood sugar of 67 this morning, gave patient apple juice which was the only thing patient would eat/drink, then rechecked sugar which was 110. Dr. Dupree changed Lantus to 10 units instead of 15 units at bedtime. Will continue to monitor.
--- NOTE | 2019-03-25 13:57 | PDOC3 ---
Discharge Summary Visit Information Date of Admission: Mar 15, 2019 Date of Discharge: Mar 25, 2019 Admitting Diagnosis Comment: INFECTED HD CATH TIP Sepsis - Methicillin Resistant Staph aureus bacteremia with sepsis Chronic wounds, lower extremities bilaterally. [facility] PAD ESRD on HD AOCD Cellulitis - with sepsis Acute on chronic a fib s/p RVR HTN Hypothyroidism on synthroid Infected hemodialysis catheter, status post removal 03/05 and replaced 03/07 History of methicillin-resistant Staphylococcus aureus. Diabetes with peripheral neuropathy. Atrial fibrillation. Infected hemodialysis catheter, status post removal 03/05 and replaced 03/07 Final Diagnosis Problems Medical Problems: (1) A-fib Status: Acute (2) Diabetes mellitus with peripheral autonomic neuropathy Status: Chronic (3) ESRD on hemodialysis Status: Chronic (4) Methicillin resistant Staphylococcus aureus septicemia Status: Acute (5) PVD (peripheral vascular disease) Status: Chronic (6) Sepsis Status: Acute Brief Hospital Course Allergies Allergies Coded Allergies Type Severity Reaction Last Updated Verified Penicillins Allergy Intermediate 01/02/19 Yes Sulfa (Sulfonamide Antibiotics) Allergy Intermediate Hives 01/02/19 Yes atorvastatin Allergy Intermediate Hives 01/02/19 Yes I S O L A T I O N *CONTACT* Allergy Unknown 01/06/19 Yes Vital Signs Vital Signs Date Time Temp Pulse Resp B/P (MAP) Pulse Ox O2 Delivery O2 Flow Rate FiO2 03/25/19 12:49 70 145/92 03/25/19 11:00 98.1 18 100 Room Air 98.1 Lab Results Laboratory Tests Test 03/23/19 17:11 03/23/19 20:49 03/24/19 07:41 03/24/19 09:35 Glucose (Fingerstick) 146 mg/dL (70-99) 206 mg/dL (70-99) 79 mg/dL (70-99) Sodium Level 138 mmol/L (136-145) Potassium Level 4.6 mmol/L (3.5-5.1) Chloride Level 100 mmol/L (98-107) Carbon Dioxide Level 28 mmol/L (21-32) Anion Gap 10 (6-14) Blood Urea Nitrogen 50 mg/dL (8-26) Creatinine 5.1 mg/dL (0.7-1.3) Estimated GFR (Cockcroft-Gault) 11.7 BUN/Creatinine Ratio 10 (6-20) Glucose Level 85 mg/dL (70-99) Calcium Level 8.9 mg/dL (8.5-10.1) Total Bilirubin 1.0 mg/dL (0.2-1.0) Aspartate Amino Transf (AST/SGOT) 21 U/L (15-37) Alanine Aminotransferase (ALT/SGPT) 32 U/L (16-63) Alkaline Phosphatase 182 U/L (46-116) Total Protein 7.1 g/dL (6.4-8.2) Albumin 3.5 g/dL (3.4-5.0) Albumin/Globulin Ratio 1.0 (1.0-1.7) Test 03/24/19 11:41 03/24/19 20:59 03/25/19 08:30 03/25/19 10:38 Glucose (Fingerstick) 94 mg/dL (70-99) 227 mg/dL (70-99) 67 mg/dL (70-99) 110 mg/dL (70-99) Test 03/25/19 11:45 Glucose (Fingerstick) 89 mg/dL (70-99) Laboratory Tests Test 03/24/19 20:59 03/25/19 08:30 03/25/19 10:38 03/25/19 11:45 Glucose (Fingerstick) 227 mg/dL (70-99) 67 mg/dL (70-99) 110 mg/dL (70-99) 89 mg/dL (70-99) Brief Hospital Course Mr. Weber is a 58 old [facility] resident who presented withs epsis from ifecetd HD catht ip, that was removed, now on HD via AV fistula, NEeds IV vanc q MWF x 4 weeks per ID and to fax weekly CBC to ID to [facility] bone marrow suppression, Pt seen and examined; Rx onc aburto Discharge Information Condition at Discharge: Improved, Stable Disposition/Orders: Other (snu) Scheduled Amlodipine Besylate (Amlodipine Besylate) 5 Mg Tablet, 5 MG PO DAILY for ckd, (Reported) Entered as Reported by: TOMA PICKENS on 01/02/19 5962 Last Action: Continued on 03/15/19 649 by JOSE DE JESUS BATRES Amlodipine Besylate (Amlodipine Besylate) 5 Mg Tablet, 10 MG PO DAILY for htn, #90 Prescribed by: DENNY BHATTI on 03/25/19 1014 Apixaban (Eliquis) 2.5 Mg Tablet, 2.5 MG PO BID for right heart failure., (Reported) Entered as Reported by: TOMA PICKENS on 01/02/191454 Last Action: Continued on 03/15/191837 by JOSE DE JESUS BATRES Ascorbic Acid (Vitamin C) 500 Mg Tablet, 500 MG PO DAILY for wound healing MDD 1, #30 Prescribed by: DENNY BHATTI on 01/08/191120 Last Action: Continued on 03/15/191837 by JOSE DE JESUS BATRES Aspirin (Aspirin) 81 Mg Tab.chew, 81 MG PO DAILYWBKFT for PAD MDD 1, #60 Prescribed by: DENNY BHATTI on 01/08/191120 Last Action: Continued on 03/15/191837 by JOSE DE JESUS BATRES Furosemide (Furosemide) 40 Mg Tablet, 40 MG PO DAILY for ckd, (Reported) Entered as Reported by: TOMA PICKENS on 01/02/191454 Last Action: Continued on 03/15/191837 by JOSE DE JESUS BATRES Hydralazine Hcl (Hydralazine Hcl) 25 Mg Tablet, 25 MG PO QID for CKD, (Reported) Entered as Reported by: TOMA PICKENS on 01/02/191454 Last Action: Continued on 03/15/191837 by JOSE DE JESUS BATRES Insulin Aspart (Novolog Flexpen) 100 Unit/1 Ml Insuln.pen, 5 UNIT SQ TIDWMEALS for high blood sugar, (Reported) Entered as Reported by: JOSE DE JESUS BATRES on 03/15/191903 Last Action: Converted on 03/15/191906 by JOSE DE JESUS BATRES Insulin Glargine,Hum.rec.anlog (Lantus Solostar) 100 Unit/1 Ml Insuln.pen, 15 UNIT SQ QHS for high blood glucose, (Reported) Entered as Reported by: JOSE DE JESUS BATRES on 03/15/191903 Last Action: Continued on 03/15/191906 by JOSE DE JESUS BATRES Levothyroxine Sodium (Levothyroxine Sodium) 88 Mcg Tablet, 88 MCG PO DAILYAC for THYROID SUPPLEMENT, #30 Ref 0 (Reported) Entered as Reported by: JOSE DE JESUS BATRES on 03/15/191906 Last Action: Continued on 03/15/191907 by JOSE DE JESUS BATRES Metoprolol Tartrate (Metoprolol Tartrate) 25 Mg Tablet, 25 MG PO BID for RIGHT HEART FAILURE, #60 Ref 0 (Reported) Entered as Reported by: TOMA PICKENS on 01/02/191454 Last Action: Continued on 03/15/191837 by JOSE DE JESUS BATRES Minoxidil (Minoxidil) 2.5 Mg Tablet, 2.5 MG PO BID for HTN, (Reported) Entered as Reported by: TOMA PICKENS on 01/02/191454 Last Action: Continued on 03/15/191837 by JOSE DE JESUS BATRES Multivits,Ca,Minerals/Iron/Fa (Thera-M Tablet) 1 Each Tablet, 1 TAB PO DAILY for woumnd healing MDD 1, #30 Prescribed by: DENNY BHATTI on 01/08/19 1121 Last Action: Continued on 03/15/191837 by JOSE DE JESUS BATRES Polyethylene Glycol 3350 (Miralax) 17 Gm Powd.pack, 1 PACKET PO BID for CONSTIPATION., #30 Ref 3 (Reported) Entered as Reported by: TOMA PICKENS on 01/02/191454 Last Action: Continued on 03/15/191837 by JOSE DE JESUS BATRES Pravastatin Sodium (Pravastatin Sodium) 80 Mg Tablet, 1 TAB PO HS for RIGHT HEART FAILURE, #30 Ref 5 (Reported) Entered as Reported by: TOMA PICKENS on 01/02/191454 Last Action: Converted on 03/15/191837 by JOSE DE JESUS BATRES Sevelamer Carbonate (Renvela) 800 Mg Tablet, 800 MG PO TIDWMEALS for CKD, (Reported) Entered as Reported by: TOMA PICKENS on 01/02/191454 Last Action: Continued on 03/15/191837 by JOSE DE JESUS BATRES Vancomycin/0.9 % Sod Chloride (Vanco 500 mg/100 ml-0.9% NaCl) 500 Mg/100 Ml Froz.piggy, 500 MG IV QMWF for HD cath sepsis for 120 Days Prescribed by: DENNY BHATTI on 03/25/19 1014 Scheduled PRN Acetaminophen With Codeine (Acetaminophen-Cod #3 Tablet) 1 Each Tablet, 1 TAB PO PRN Q6HRS PRN for MODERATE - SEVERE PAIN MDD 1, #20 Prescribed by: DENNY BHATTI on 01/08/19 1121 Hydrocodone Bit/Acetaminophen (Hydrocodone-Apap 7.5-325 ) 1 Tab Tablet, 1 TAB PO PRN Q4HRS PRN for PAIN, Ref 0 (Reported) Entered as Reported by: JOSE DE JESUS BATRES on 03/15/191906 Last Action: New Order on 03/15/191906 by DENNY OSORIO MD Mar 25, 2019 13:57
[2019-03-25] MEDS: VANCOMYCIN PER PHARMACY MC PRN (14:30)
[2019-03-25 15:00] VITALS: BP 144/81
--- NOTE | 2019-03-25 16:49 | NUR ---
Discharge wound pictures taken by GRACE Francois before patient left, see chart for pictures.
--- NOTE | 2019-03-25 16:49 | NUR ---
Discharge Note: JAN YUNG L 2 [facility] Discharge instructions and discharge home medications reviewed with Other facility and a copy given. All questions have been answered and understanding verbalized. The following instructions and handouts were given: discharge instructions, hypoglycemia info, new med info, sepsis info, MRSA info, cellulitis info Discontinued lines and drains: Peripheral IV intact. Patient discharged to [facility] with transportation via Wheel[facility] back to [facility] at 1649.
[2019-03-26] MEDS ORDERED: VANCOMYCIN RANDOM LEVEL. MC ONE (06:00)
[2019-03-26] MEDS ORDERED: VANCOMYCIN 500 MG in IV NORMAL SALINE 100ML 100 ML IV SCH (16:00)
== END 2019-03-25 16:49 | disposition home or self-care (01) | DRG 314 ==
LOC: ER 10:39 → 6 SOUTH 12:00 → 1 WEST ICU 14:42 → 2 SOUTH 03-16 17:33
PROVIDERS: ADMIT Internal Medicine; ATTEND Internal Medicine
PROC: 5A1D70Z Performance of Urinary Filtration, Intermittent, Less than 6 Hours Per Day (ICD-10-PCS; 2019-03-17)
PROC: 5A1D70Z Performance of Urinary Filtration, Intermittent, Less than 6 Hours Per Day (ICD-10-PCS; 2019-03-19)
PROC: 5A1D70Z Performance of Urinary Filtration, Intermittent, Less than 6 Hours Per Day (ICD-10-PCS; 2019-03-21)
PROC: 02PYX3Z Removal of Infusion Device from Great Vessel, External Approach (ICD-10-PCS; 2019-03-21)
PROC: 5A1D70Z Performance of Urinary Filtration, Intermittent, Less than 6 Hours Per Day (ICD-10-PCS; principal; 2019-03-24)
DX: T82.7XXA Infection and inflammatory reaction due to other cardiac and vascular devices, implants and grafts, initial encounter (principal); A41.02 Sepsis due to Methicillin resistant Staphylococcus aureus; N18.6 End stage renal disease; L03.115 Cellulitis of right lower limb; L03.116 Cellulitis of left lower limb; I13.2 Hypertensive heart and chronic kidney disease with heart failure and with stage 5 chronic kidney disease, or end stage renal disease; L97.223 Non-pressure chronic ulcer of left calf with necrosis of muscle; L97.919 Non-pressure chronic ulcer of unspecified part of right lower leg with unspecified severity; B96.89 Other specified bacterial agents as the cause of diseases classified elsewhere; E03.9 Hypothyroidism, unspecified; E11.22 Type 2 diabetes mellitus with diabetic chronic kidney disease; E11.42 Type 2 diabetes mellitus with diabetic polyneuropathy; D63.8 Anemia in other chronic diseases classified elsewhere; E11.43 Type 2 diabetes mellitus with diabetic autonomic (poly)neuropathy; E11.51 Type 2 diabetes mellitus with diabetic peripheral angiopathy without gangrene; E11.65 Type 2 diabetes mellitus with hyperglycemia; E78.5 Hyperlipidemia, unspecified; I48.2 Chronic atrial fibrillation; I77.1 Stricture of artery; I83.019 Varicose veins of right lower extremity with ulcer of unspecified site; I83.029 Varicose veins of left lower extremity with ulcer of unspecified site; K59.00 Constipation, unspecified; Z79.4 Long term (current) use of insulin; Z79.899 Other long term (current) drug therapy; Z82.49 Family history of ischemic heart disease and other diseases of the circulatory system; Z86.14 Personal history of Methicillin resistant Staphylococcus aureus infection; Z86.73 Personal history of transient ischemic attack (TIA), and cerebral infarction without residual deficits; Z87.892 Personal history of anaphylaxis; Z88.0 Allergy status to penicillin; Z88.1 Allergy status to other antibiotic agents; Z79.01 Long term (current) use of anticoagulants; Z87.891 Personal history of nicotine dependence; Z89.411 Acquired absence of right great toe; Y83.8 Other surgical procedures as the cause of abnormal reaction of the patient, or of later complication, without mention of misadventure at the time of the procedure; Z89.429 Acquired absence of other toe(s), unspecified side; Z99.2 Dependence on renal dialysis; E21.3 Hyperparathyroidism, unspecified; E66.01 Morbid (severe) obesity due to excess calories; F32.9 Major depressive disorder, single episode, unspecified; Z88.2 Allergy status to sulfonamides; Z88.8 Allergy status to other drugs, medicaments and biological substances; Z68.35 Body mass index [BMI] 35.0-35.9, adult
CPT/HCPCS: 36415; 36589; 71045; 80048; 80053; 80069; 80202; 82962; 83605; 84439; 84443; 84481; 84484; 85007; 85025; 85610; 85651; 87040; 87070; 87077; 87205; 93005; 93306; 96361; 96365; 96375; J0692; J0882; J1160; J1644; J1815; J3370; J3490; J7030; J7040; 99285-25; G0378

== ENCOUNTER 2020-06-19 11:48 | Emergency (ER) | payer BC, OTHER ==
[~2020-06-19] VITALS: Ht 167.6 cm; Wt 106.4 kg
[2020-06-19 11:48] VITALS: BP 160/80
[~2020-06-19 11:48] MED LIST changes: +ACET325T21 PO; +AMLO-186 PO; +AMLO-187 PO; -AMLO5TAB10 PO; -ASCO500T2 PO; +ASCO500T4 PO; +FOLI0.8T21 PO; +GENTAMICIN SULFATE TOP; +HYDR-2765 PO; +INSU100I17 SQ; +METO-239 PO; +VANC500F2 IV
--- NOTE | 2020-06-19 11:58 | PHYS DOC ---
Past Medical History Past Medical History: A-Fib, Diabetes-Type II, Hypertension, Renal Failure Additional Past Medical Histor: PVD, MORBID OBESITY, ACUTE ON CHRONIC RIGHT HEART FAILURE Past Surgical History: Other Additional Past Surgical Histo: BILATERAL EYE SX, RIGHT GREAT TOE AMPUTATION Smoking Status: Never Smoker Alcohol Use: None Drug Use: None General Adult EDM: Chief Complaint: DIALYSIS PROBLEM HPI: HPI: History of pain from patient and EMS. Patient is a 59-year-old male with history of ESRD, right-sided heart failure, obesity who presents with chief complaint of fever. Patient states that he has no complaints and does not know why he is here. Per EMS his nursing care facility reported temperature of 102.0 last night. They are concerned for port site infection. Patient notes that he had a left upper extremity fistula thrombosis 3 weeks ago. He states a right anterior chest wall port was placed 3 weeks ago for dialysis access. He did receive full dialysis treatment yesterday. He has no physical complaints he states. Denies chest pain or shortness of breath. Denies cough. Does note to episodes of nonbloody nonbilious emesis earlier this morning. States he has not had much of an appetite in the past 24 hours. Denies abdominal pain. States he makes very little urine. States the swelling in his leg appears improved or at his baseline. Does note that he takes blood thinners. Denies any missed doses of medicines. Denies any drainage from his port site. Has no complaints. Review of Systems: Review of Systems: Constitutional: Positive for fever Eyes: Denies change in visual acuity. [] HENT: Denies nasal congestion or sore throat. [] Respiratory: Denies cough or shortness of breath. [] Cardiovascular: Denies chest pain or edema. [] GI: Denies abdominal pain, nausea, vomiting, bloody stools or diarrhea. [] : Denies dysuria. [] Musculoskeletal: Denies back pain or joint pain. [] Integument: Denies rash. [] Neurologic: Denies headache, focal weakness or sensory changes. [] Endocrine: Denies polyuria or polydipsia. [] Lymphatic: Denies swollen glands. [] Psychiatric: Denies depression or anxiety. [] Heart Score: Risk Factors: Risk Factors: DM, Current or recent (<one month) smoker, HTN, HLP, family history of CAD, obesity. Risk Scores: Score 0 - 3: 2.5% MACE over next 6 weeks - Discharge Home Score 4 - 6: 20.3% MACE over next 6 weeks - Admit for Clinical Observation Score 7 - 10: 72.7% MACE over next 6 weeks - Early Invasive Strategies Allergies: Allergies: Allergies Coded Allergies Type Severity Reaction Last Updated Verified Penicillins Allergy Intermediate 01/02/19 Yes Sulfa (Sulfonamide Antibiotics) Allergy Intermediate Hives 01/02/19 Yes atorvastatin Allergy Intermediate Hives 01/02/19 Yes I S O L A T I O N *CONTACT* Allergy Unknown 01/06/19 Yes Physical Exam: PE: Constitutional: Well developed, well nourished, no acute distress, non-toxic appearance. [] HENT: Normocephalic, atraumatic, bilateral external ears normal, oropharynx moist, no oral exudates, nose normal. [] Eyes: PERRLA, EOMI, conjunctiva normal, no discharge. [] Neck: Normal range of motion, no tenderness, supple, no stridor. [] Cardiovascular:Heart rate regular rhythm, no murmur [] Lungs & Thorax: Bilateral breath sounds clear to auscultation. Right anterior chest wall port site noted. No erythema or induration appreciated. No palpable fluctuance noted. [] Abdomen: soft, no tenderness, no masses, no pulsatile masses. [] Skin: Warm, dry, no erythema, no rash. [] Back: No tenderness, no CVA tenderness. [] Extremities: No tenderness, no cyanosis, no clubbing, ROM intact, +2-4 pitting edema in lower extremities bilaterally. No overlying erythema or induration noted. [] Neurologic: Alert and oriented X 3, normal motor function, normal sensory function, no focal deficits noted. [] Psychologic: Affect normal, judgement normal, mood normal. [] Current Patient Data: Labs: Laboratory Tests Test 06/19/20 12:30 White Blood Count 7.6 x10^3/uL Red Blood Count 3.28 x10^6/uL Hemoglobin 10.5 g/dL Hematocrit 30.8 % Mean Corpuscular Volume 94 fL Mean Corpuscular Hemoglobin 32 pg Mean Corpuscular Hemoglobin Concent 34 g/dL Red Cell Distribution Width 17.0 % Platelet Count 160 x10^3/uL Neutrophils (%) (Auto) 79 % Lymphocytes (%) (Auto) 7 % Monocytes (%) (Auto) 12 % Eosinophils (%) (Auto) 1 % Basophils (%) (Auto) 1 % Neutrophils # (Auto) 6.0 x10^3/uL Lymphocytes # (Auto) 0.5 x10^3/uL Monocytes # (Auto) 0.9 x10^3/uL Eosinophils # (Auto) 0.1 x10^3/uL Basophils # (Auto) 0.1 x10^3/uL Sodium Level 136 mmol/L Potassium Level 4.4 mmol/L Chloride Level 97 mmol/L Carbon Dioxide Level 30 mmol/L Anion Gap 9 Blood Urea Nitrogen 38 mg/dL Creatinine 4.6 mg/dL Estimated GFR (Cockcroft-Gault) 13.1 BUN/Creatinine Ratio 8 Glucose Level 105 mg/dL Lactic Acid Level 1.2 mmol/L Calcium Level 9.4 mg/dL Total Bilirubin 1.4 mg/dL Aspartate Amino Transf (AST/SGOT) 30 U/L Alanine Aminotransferase (ALT/SGPT) 34 U/L Alkaline Phosphatase 191 U/L Total Protein 7.4 g/dL Albumin 3.2 g/dL Albumin/Globulin Ratio 0.8 Vital Signs: Vital Signs Date Time Temp Pulse Resp B/P (MAP) Pulse Ox O2 Delivery O2 Flow Rate FiO2 06/19/20 11:48 98.5 90 27 160/80 (106) 98 Room Air 98.5 EKG: EKG: [] EKG consistent with normal sinus rhythm. Ventricular rate of 84 bpm. [place] normal. Intervals normal. Low voltage QRS appreciated. No acute ischemic changes noted Radiology/Procedures: Radiology/Procedures: [facility] [address] [place] [address] IMAGING REPORT Signed PATIENT: JAN YUNG ACCOUNT: [id number] : 1960 LOCATION: ER AGE: 59 SEX: M EXAM STATUS: PRE ER ORD. PHYSICIAN: JUSTO ARVZIU DO REASON: fever PROCEDURE: CHEST AP ONLY CHEST AP ONLY INDICATION: fever / Spl. Instructions: / History: . COMPARISON STUDY: 03/15/2019. FINDINGS: Right IJ dual-lumen catheter. Lungs: Normal lung volume. No pulmonary mass or consolidation. The tracheobronchial tree and hilar structures are normal. Pleura: No pleural effusion or pneumothorax. Heart and Mediastinum: Cardiomegaly. Atherosclerotic thoracic aorta. IMPRESSION: No consolidation. Electronically signed by: Tsering Park MD (06/19/2020 12:45 PM) [id number] DICTATED and SIGNED BY: TSERING PARK MD DATE: 06/19/20 [id number] [] Course & Med Decision Making: Course & Med Decision Making Pertinent Labs and Imaging studies reviewed. (See chart for details) [] Patient is a well-appearing 59-year-old male who presents from his nursing care facility due to documented temperature last night. Reportedly 101.0. Patient has no complaints at this time. Patient did have recent malfunction of his left upper extremity fistula. 2 weeks ago interventional radiology placed tunneled catheter for continued dialysis treatment. He states he has been using it 3 days a week as scheduled. Vital signs today reveal no abnormalities. Afebrile. CBC without leukocytosis. Chemistry consistent with chronic renal disease. Blood cultures were obtained and pending. On examination patient has no induration or erythema surrounding his permacath insertion or site. No superficial skin changes appreciated. At this time no signs and symptoms consistent with infection or systemic illness. Patient is requesting discharge back to his facility. Overall I do feel this is reasonable. Blood cultures are still pending and these will be monitored closely. Patient will be called to return to the hospital for treatment should cultures result is positive. He states that the care facility monitors him closely. Antibiotics to be deferred as her no obvious signs of infection at this time. Return precautions discussed and understood. Patient agreeable this plan. Stable for discharge back to his extended care facility. [place]on Disclaimer: Morgan Disclaimer: This electronic medical record was generated, in whole or in part, using a voice recognition dictation system. Departure Departure Impression: Primary Impression: ESRD on hemodialysis Disposition: 01 DC HOME SELF CARE/HOMELESS Condition: STABLE Referrals: UNKNOWN PCP NAME (PCP) Patient Instructions: Dialysis, Care After Additional Instructions: Please monitor your vital signs closely. Please monitor for signs of infection particularly around your catheter insertion site. Follow-up your primary care physician in the next 2 days. JUSTO ARVIZU DO Jun 19, 2020 11:58
--- NOTE | 2020-06-19 12:48 | RAD ---
CHEST AP ONLY INDICATION: fever / Spl. Instructions: / History: . COMPARISON STUDY: 03/15/2019. FINDINGS: Right IJ dual-lumen catheter. Lungs: Normal lung volume. No pulmonary mass or consolidation. The tracheobronchial tree and hilar structures are normal. Pleura: No pleural effusion or pneumothorax. Heart and Mediastinum: Cardiomegaly. Atherosclerotic thoracic aorta. IMPRESSION: No consolidation. Electronically signed by: Adriel Singleton MD (06/19/2020 12:45 PM) [id number]
[2020-06-19 13:06] LABS: BASO # 0.1 x10^3/uL (0.0-0.2); BASO % 1 % (0-3); EOS # 0.1 x10^3/uL (0.0-0.7); EOS % 1 % (0-3); HEMATOCRIT 30.8 % (39.0-53.0); HEMOGLOBIN 10.5 g/dL (13.0-17.5); LYMPH # 0.5 x10^3/uL (1.0-4.8); LYMPH % 7 % (24-48); MEAN CORPUSCULAR HEMOGLOBIN 32 pg (25-35); MEAN CORPUSCULAR HGB CONC 34 g/dL (31-37); MEAN CORPUSCULAR VOLUME 94 fL (79-100); MONO # 0.9 x10^3/uL (0.0-1.1); MONO % 12 % (0-9); NEUT % 79 % (31-73); PLATELET COUNT 160 x10^3/uL (140-400); RED BLOOD COUNT 3.28 x10^6/uL (4.30-5.70); WHITE BLOOD COUNT 7.6 x10^3/uL (4.0-11.0)
[2020-06-19 13:15] LABS: CALCIUM 9.4 mg/dL (8.5-10.1); CREATININE 4.6 mg/dL (0.7-1.3); GFR 13.1; POTASSIUM 4.4 mmol/L (3.5-5.1)
[2020-06-19 13:20] LABS: ALBUMIN 3.2 g/dL (3.4-5.0); ALBUMIN/GLOBULIN RATIO 0.8 (1.0-1.7); TOTAL BILIRUBIN 1.4 mg/dL (0.2-1.0); TOTAL PROTEIN 7.4 g/dL (6.4-8.2)
== END 2020-06-19 16:44 | disposition home or self-care (01) ==
LOC: ER 11:48
DX: I13.2 Hypertensive heart and chronic kidney disease with heart failure and with stage 5 chronic kidney disease, or end stage renal disease (principal); N18.6 End stage renal disease; E11.22 Type 2 diabetes mellitus with diabetic chronic kidney disease; I50.9 Heart failure, unspecified; Z99.2 Dependence on renal dialysis; I48.91 Unspecified atrial fibrillation; I73.9 Peripheral vascular disease, unspecified; E66.01 Morbid (severe) obesity due to excess calories; Z68.37 Body mass index [BMI] 37.0-37.9, adult; Z88.0 Allergy status to penicillin; Z88.2 Allergy status to sulfonamides; Z91.041 Radiographic dye allergy status; Z88.8 Allergy status to other drugs, medicaments and biological substances
CPT/HCPCS: 36415; 71045; 80053; 83605; 85025; 87040; 87205; 99284

== ENCOUNTER → 2020-12-02 | Outpatient (CLI) | payer MEDICARE, OTHER ==
[2020-06-29 15:00] VITALS: BP 169/89
[~2020-12-02] MED LIST changes: -MULT1TAB90 PO; +MULT1TAB92 PO
--- NOTE | 2020-12-02 13:46 | RAD ---
CLINICAL INDICATION: JAN YUNG, who is 60 years of age, presents for further evaluation of a palp able abnormality in the left breast COMPARISON: Prior mammographic imaging dating back to TECHNIQUE: Full field craniocaudal and mediolateral oblique images of both breasts were obtained usin g digital technique with tomosynthesis and also analyzed with computer-aided detection software. BREAST COMPOSITION: The breasts are predominantly fatty. MAMMOGRAM FINDINGS: Well-circumscribed mass measures 2 cm approximately 6 cm from the nipple in the medial, superior left breast. Benign type calcifications are seen bilaterally. The visualized axilla appears unremarkable. ULTRASOUND FINDINGS: Targeted ultrasound of the mammographic area of concern was performed. 11:00 position, 7 cm from the nipple: A 1.8 x 1.7 x 1.1 cm relatively hypoechoic mass with peripheral increased echogenicity is seen. IMPRESSION: 1. Left breast mass with suspicious imaging features for which tissue biopsy is recommended and can b e performed with ultrasound imaging guidance. RECOMMENDATION: Biopsy recommended with ultrasound guidance. BIRADS 4: SUSPICIOUS Electronically signed by: Antonio Nice MD (12/02/2020 1:44 PM) [facility]
== END ==
LOC: MAMMO 10:47
PROVIDERS: ATTEND Student in an Organized Health Care Education/Training Program
DX: N63.22 Unspecified lump in the left breast, upper inner quadrant (principal); N64.59 Other signs and symptoms in breast
CPT/HCPCS: 76641; 77066

== ENCOUNTER → 2020-12-23 | Outpatient (CLI) | payer MEDICARE, OTHER ==
[2020-06-29 15:00] VITALS: BP 169/89
--- NOTE | 2020-12-23 09:13 | RAD ---
EXAM: Left breast sonogram. HISTORY: 60-year-old male presents for evaluation and potential biopsy of a lesion within the left br east demonstrated on a sonogram performed 12/02/2020. TECHNIQUE: Sonographic imaging of the left breast targeted to the site of prior concern was performed . COMPARISON: 12/02/2020. FINDINGS: There has been significant interval decrease in the size of a hypoechoic lesion with surrou nding increased echogenicity within the superficial 11:00 position 7 cm from the nipple. The hypoecho ic portion of this lesion measures 7 mm, compared to a prior measurement of 15 mm. The combination of the lesion and surrounding echogenic rim measures 10 mm compared to a prior measur ement of 20 mm. The interval decrease in size of this lesion, superficial location of the lesion, son ographic appearance and history of anticoagulation therapy, favor a resolving hematoma. Given the aforementioned findings, biopsy was not performed at this time. Short-term sonographic foll ow-up in 3 months is recommended to confirm complete resolution and exclude a persistent underlying l esion. IMPRESSION: 1. Decrease in the size of a suspected resolving hematoma within the superficial 11:00 position of th e left breast 7 cm from the nipple, described in detail above. 2. BI-RADS Category 3: Probably benign finding(s). Short term follow up with a left breast sonogram i n 3 months is recommended to confirm continued or complete resolution of aforementioned finding and e xclude a persistent underlying lesion. Electronically signed by: Juani Peters MD (12/23/2020 9:11 AM) [id number]
== END ==
LOC: US 14:31
PROVIDERS: ATTEND Student in an Organized Health Care Education/Training Program
DX: N63.20 Unspecified lump in the left breast, unspecified quadrant (principal)
CPT/HCPCS: 76641

== ENCOUNTER → 2021-03-24 | Outpatient (CLI) | payer OTHER ==
[2020-06-29 15:00] VITALS: BP 169/89
--- NOTE | 2021-03-24 14:33 | RAD ---
EXAM: Left breast sonogram. HISTORY: 60-year-old female presents for follow-up evaluation of a suspected left breast hematoma. TECHNIQUE: Sonographic imaging of the left breast targeted to the site of prior findings was performe d. COMPARISON: 12/23/2020 and 12/02/2020. FINDINGS: There has been continued interval decrease in a now tiny hypoechoic lesion with within the left breast at the 11:00 position 7 cm the nipple measuring 4 x 3 x 2 mm. This measured 1.7 cm on the study performed 12/02/2020 and 7 x 4 x 4 mm on the study performed 12/23/2020. There is surrounding non vascular echogenicity. There is no suspicious sonographic finding. IMPRESSION: 1. Near complete resolution of a previously demonstrated hypoechoic lesion with surrounding echogenic ity within the superficial 11:00 position of the left breast, the appearance of which favors a residu al hematoma or fat necrosis. 2. No new suspicious sonographic finding. 3. BI-RADS Category 2: Benign finding(s). Electronically signed by: Juani Peters MD (03/24/2021 2:31 PM) [id number]
== END ==
LOC: US 14:10
PROVIDERS: ATTEND Student in an Organized Health Care Education/Training Program
DX: R92.8 Other abnormal and inconclusive findings on diagnostic imaging of breast (principal)
CPT/HCPCS: 76641